=== PATIENT | female | born 1955 | race Caucasian/White ===

== ENCOUNTER → 2018-04-19 13:22 | Outpatient (CLI) | payer OTHER, SELFPAY ==
[2018-04-19 14:01] LABS: Add Manual Diff / Slide Review NO; Basophils Percent Auto 1.3 % (0-2); Eosinophils Percent Auto 0.8 % (2-4); Hematocrit 37.9 % (36-46); Hemoglobin 12.8 g/dL (12.0-16.0); Lymphocytes Percent Auto 22.6 % (25-40); Mean Corpuscular HGB Conc 33.9 % (30-36); Mean Corpuscular Hemoglobin 28.7 PG (26-34); Mean Corpuscular Volume 84.7 fL (80-100); Neutrophils Absolute Auto 7300 /uL (3000-5900); Neutrophils Percent Auto 70.3 % (50-75); Platelet Count 410 X10^3/uL (150-400); Red Blood Cell Count 4.47 X10^6/uL (4.0-5.2); White Blood Cell Count 10.4 X10^3/uL (4.5-11.0)
[2018-04-19 14:05] LABS: Alanine Aminotransferase 34 IU/L (9-52); Albumin 4.3 g/dL (3.5-5.0); Albumin Globulin Ratio 1.3 (1.0-2.8); Alkaline Phosphatase 61 U/L (38-126); Aspartate Aminotransferase 28 IU/L (14-36); BUN Creatinine Ratio 38.3 (6-22); Bilirubin Total 0.6 mg/dL (0.2-1.3); Blood Urea Nitrogen 23 mg/dL (7-17); Carbon Dioxide 30 mmol/L (22-32); Chloride 100 mmol/L (98-107); Estimated Glomerular Filt Rate > 60.0 mL/min (>60); Globulin 3.4 g/dL (1.7-4.1); Glucose 89 mg/dL (80-110); HEMOLYSIS < 15 (0-50); Potassium 4.1 mmol/L (3.4-5.1); Sodium 142 mmol/L (137-145); Total Protein 7.7 g/dL (6.3-8.2)
== END ==
PROVIDERS: Family Provider Pathology Blood Banking & Transfusion Medicine; PCP Internal Medicine; Visit Provider Nurse Practitioner Gerontology
DX: C50.912 Malignant neoplasm of unspecified site of left female breast (principal)
CPT/HCPCS: 36415; 80053; 85025

== ENCOUNTER 2018-04-27 09:00 | Outpatient (RCR) | payer OTHER, SELFPAY ==
--- NOTE | 2018-03-22 16:38 | PT.OIE ---
Current Diagnoses Unspecified temporomandibular joint disorder, unspecified side (03/21/18) Abnormal posture (03/21/18) Weakness (03/21/18) Past Medical History brochioscopy bronchiectasis, SOB, jaw pain, lynmphedema, neck pain, B frozen shoulder, osteoporosis, cancer, back pain, arthritis Past Surgical History Status post breast lumpectomy Status post cholecystectomy Provider Visit Care Team Role Provider Type Soila Nunes Family Provider Non-Staff Specialty: Medical Address: [address] [place], [address] Fax: Email: Charles Bates MD Attending Provider Physician Primary Care Provider Specialty: Internal Medicine Address: [address] [place] [address], [place], [address] Email: Physical Therapy Initial Evaluation PT-OP-A Visit Information Start: 03/21/18 08:15 Freq: Status: Active Protocol: Document 03/21/18 09:45 [facility] (Rec: 03/22/18 15:53 [facility] [id number]) Out-Patient Physical Therapy Visit Information Visit Information Visit Type Initial Evaluation Visit Start Time 09:45 Visit Stop Time 10:30 Total Visit Minutes 45 Visit Number 1 Number of WIREWORKER Visits 0 PT-OP-B Current Condition Start: 03/21/18 08:15 Freq: Status: Active Protocol: Document 03/21/18 09:45 [facility] (Rec: 03/22/18 15:53 [facility] [id number]) Current Condition History of Current Condition Onset Date 1 year ago Current Complaints pain in jaw B History of Current Condition Pt had bronchostomy in March 2017. She had pain the next 2 days that started to subside, but 2 weeks laters started to hurt a lot. She reports getting a little better over the summer then had dental work that exasterbated in in Sep. She had a root canal 2 weeks ago that started a squishy noise. Reports throughout this time she has felt like the joint was loose and has clicking &popping with tightness in the jaw. Oral MD noted tongue has teeth chauhan & she has a calus on the L side of her cheek. Prior Treatments and Tests some exercises instructed to her by oral MD; flexeril Future Testing and Treatments Planned possible ocean lifeguard if needed Treatment Goals Patient/Caregiver Goals Dec pain & inc what she can eat Current Functional Impairments (Reported) Functional Limitations- ADL's Difficulty with tough & larger foods; pain w/flossing, yawning, brushing teeth & eating. PT-OP-C Subjective Start: 03/21/18 08:15 Freq: Status: Active Protocol: Document 03/21/18 09:45 [facility] (Rec: 03/22/18 15:53 [facility] [id number]) OP-PT Pain Assessment Pain Assessment Grid Paper Pain Assessment Grid Completed Yes Location Bilateral Jaw Intensity 4 Scale Used Numeric (1 - 10) Description With Movement Description- Other 6/10 at worst Frequency Frequent Other Pain Aggravating Factors eating, flossing, brushing teeth, eating Other Pain Alleviating Factors heat, avoid eating, chewing further back Home Pain Medication Use Pain Medications Used Yes Home Pain Medication Frequency flexeril PT-OP-F Manual Assessment Start: 03/21/18 08:15 Freq: Status: Active Protocol: Document 03/21/18 09:45 [facility] (Rec: 03/22/18 15:53 [facility] [id number]) Manual Assessments Soft Tissue Assessment Soft Tissue Mobility Assessment tension with masseter, temporalis & along jaw (B) PT-OP-J Posture/Palpation/Skin Start: 03/21/18 08:15 Freq: Status: Active Protocol: Document 03/21/18 09:45 [facility] (Rec: 03/22/18 16:03 [facility] [id number]) Posture Evaluation Comments Posture Comments Pt reports some of back teeth missing- full manual assessment not yet completed. Pt able to comfortably close mouth with back teeth together & can feel (B) back teeth touching w/solid & equal contact with closing. Pt feels front teeth touch with back teeth touch and reports equal contact between front & back teeth (B). PT-OP-K Range of Motion Start: 03/21/18 08:15 Freq: Status: Active Protocol: Document 03/21/18 09:50 [facility] (Rec: 03/21/18 10:29 [facility] [id number]) Cervical Spine Range of Motion Cervical Spine Active Degrees Testing Position Sitting Flexion 45 Extension 28 Rotation Left 36 Rotation Right 35 Lateral Flexion Left 26 Lateral Flexion Right 28 Comments jaw clicking with R rotation; jaw openin mm Jaw deviation R: 1mm L: 4 mm; minor transient deviation at opening; ant & post translation with opening L>R PT-OP-M Strength Start: 03/21/18 08:15 Freq: Status: Active Protocol: Document 03/21/18 09:50 [facility] (Rec: 03/21/18 10:29 [facility] [id number]) Cervical Spine Strength Cervical Spine Manual Muscle Testing Testing Position Sitting Flexion (C1-2) 4 Good Extension 4 Good Rotation Left 4 Good Rotation Right 4 Good Lateral Flexion Left (C3) 4 Good Lateral Flexion Right (C3) 4 Good PT-OP-Q Treatments Start: 03/21/18 08:15 Freq: Status: Active Protocol: Document 03/21/18 09:45 [facility] (Rec: 03/22/18 15:53 [facility] [id number]) Therapeutic Exercises Sitting Exercises 2 Sitting Exercise Name isometric jaw opening 1 Sitting Exercise Name axial elongation Reps/Minutes 10 Self-Care/Home Management Treatment Education Patient Education Home Exercise Program PT-OP-T Assessment and Plan Start: 03/21/18 08:15 Freq: Status: Active Protocol: Document 03/21/18 09:45 [facility] (Rec: 03/22/18 15:53 [facility] [email or web address]) Physical Therapy Assessment Rehab Potential Rehabilitation Potential Good Evaluation Complexity Number of Personal Factors/Comorbidities 3 or More Number of Body Systems Impaired 4 or More Clinical Presentation at Evaluation Evolving Impairments Impairments Activity Tolerance Functional Activities Pain Posture ROM Strength Goals Four Impairment Ability to do self care Rfid Developer Goal (LTG) Pt will be able to floss and brush without pain. LTG Duration By 05/14/18 Three Impairment posture Short Term Goal (STG) Pt will present with good posture to allow appropriate tension on jaw mm. STG Duration By 04/21/18 Two Impairment pain Short Term Goal (STG) Worst pain to 3/10 STG Duration By 04/21/18 Jail Goal (LTG) Worst pain to 1/10 LTG Duration By 05/21/18 One Impairment Jaw opening Short Term Goal (STG) Pt will be able to open to 32 mm to improve ability to eat. STG Duration By 04/21/18 Jail Goal (LTG) pt will be able to open 45 mm to allow functional eating. LTG Duration By 05/21/18 Physical Therapy Plan Frequency and Duration Frequency of Treatment 2x/Week Duration of Treatment 2 months Plan of Care Start Date 03/21/18 Plan of Care End Date 05/21/18 Therapeutic Interventions Therapeutic Interventions Home Exercise Program Joint Mobilizations Manual Therapy Patient/Caregiver Education Self-Care/Home Management Soft Tissue Mobilization Taping Therapeutic Exercises Next Visit Focus/Plan Next Visit Plan Iso deviations, posture roll up, Opening with tounge on roof of mouth Provider Signature Date
--- NOTE | 2018-03-22 16:41 | PT.OPPOC ---
Current Diagnoses Unspecified temporomandibular joint disorder, unspecified side (03/21/18) Abnormal posture (03/21/18) Weakness (03/21/18) Provider Visit Care Team Role Provider Type Soila Nunes Family Provider Non-Staff Specialty: Medical Address: [address] [place], [address] Fax: Email: Charles Bates MD Attending Provider Physician Primary Care Provider Specialty: Internal Medicine Address: [address] [place] [address], [address] Email: Plan Of Care PT-OP-T Assessment and Plan Start: 03/21/18 08:15 Freq: Status: Active Protocol: Document 03/21/18 09:45 [facility] (Rec: 03/22/18 15:53 [facility] [id number]) Physical Therapy Assessment Rehab Potential Rehabilitation Potential Good Evaluation Complexity Number of Personal Factors/Comorbidities 3 or More Number of Body Systems Impaired 4 or More Clinical Presentation at Evaluation Evolving Impairments Impairments Activity Tolerance Functional Activities Pain Posture ROM Strength Goals Four Impairment Ability to do self care Prison Goal (LTG) Pt will be able to floss and brush without pain. LTG Duration By 05/14/18 Three Impairment posture Short Term Goal (STG) Pt will present with good posture to allow appropriate tension on jaw mm. STG Duration By 04/21/18 Two Impairment pain Short Term Goal (STG) Worst pain to 3/10 STG Duration By 04/21/18 Hairspring Ii Inspector Goal (LTG) Worst pain to 1/10 LTG Duration By 05/21/18 One Impairment Jaw opening Short Term Goal (STG) Pt will be able to open to 32 mm to improve ability to eat. STG Duration By 04/21/18 Prison Goal (LTG) pt will be able to open 45 mm to allow functional eating. LTG Duration By 05/21/18 Physical Therapy Plan Frequency and Duration Frequency of Treatment 2x/Week Duration of Treatment 2 months Plan of Care Start Date 03/21/18 Plan of Care End Date 05/21/18 Therapeutic Interventions Therapeutic Interventions Home Exercise Program Joint Mobilizations Manual Therapy Patient/Caregiver Education Self-Care/Home Management Soft Tissue Mobilization Taping Therapeutic Exercises Next Visit Focus/Plan Next Visit Plan Iso deviations, posture roll up, Opening with tounge on roof of mouth Plan of Care Dates Plan of Care Start Date 03/21/18 Plan of Care End Date 05/21/18 Please Sign and Return: I have reviewed this Plan of Care and certify that the skilled therapy services above are required to meet the patient???s needs. Physician Signature Date Printed Name and Credentials
--- NOTE | 2018-03-24 14:59 | PT.OTN ---
Current Diagnoses Unspecified temporomandibular joint disorder, unspecified side (03/24/18) Physical Therapy Treatment Note PT-OP-A Visit Information Start: 03/21/18 08:15 Freq: Status: Active Protocol: Document 03/24/18 14:44 [facility] (Rec: 03/24/18 14:59 [facility] [id number]) Out-Patient Physical Therapy Visit Information Visit Information Visit Type Treatment Note Visit Start Time 13:45 Visit Stop Time 14:30 Total Visit Minutes 45 Visit Number 2 Number of PHP ARCHITECT Visits 0 PT-OP-B Current Condition Start: 03/21/18 08:15 Freq: Status: Active Protocol: Document 03/21/18 09:45 [facility] (Rec: 03/22/18 15:53 [facility] [id number]) Current Condition History of Current Condition Onset Date 1 year ago Current Complaints pain in jaw B History of Current Condition Pt had bronchostomy in March 2017. She had pain the next 2 days that started to subside, but 2 weeks laters started to hurt a lot. She reports getting a little better over the summer then had dental work that exasterbated in in Sep. She had a root canal 2 weeks ago that started a squishy noise. Reports throughout this time she has felt like the joint was loose and has clicking &popping with tightness in the jaw. Oral MD noted tongue has teeth chauhan & she has a calus on the L side of her cheek. Prior Treatments and Tests some exercises instructed to her by oral MD; flexeril Future Testing and Treatments Planned possible library customer service clerk if needed Treatment Goals Patient/Caregiver Goals Dec pain & inc what she can eat Current Functional Impairments (Reported) Functional Limitations- ADL's Difficulty with tough & larger foods; pain w/flossing, yawning, brushing teeth & eating. PT-OP-C Subjective Start: 03/21/18 08:15 Freq: Status: Active Protocol: Document 03/24/18 14:44 [facility] (Rec: 03/24/18 14:59 [facility] [id number]) OP-PT Subjective Patient Comments Patient Comments Compliance with HEP. Difficulty with axial elongation. PT-OP-F Manual Assessment Start: 03/21/18 08:15 Freq: Status: Active Protocol: Document 03/21/18 09:45 [facility] (Rec: 03/22/18 15:53 [facility] [id number]) Manual Assessments Soft Tissue Assessment Soft Tissue Mobility Assessment tension with masseter, temporalis & along jaw (B) PT-OP-J Posture/Palpation/Skin Start: 03/21/18 08:15 Freq: Status: Active Protocol: Document 03/21/18 09:45 [facility] (Rec: 03/22/18 16:03 [facility] [id number]) Posture Evaluation Comments Posture Comments Pt reports some of back teeth missing- full manual assessment not yet completed. Pt able to comfortably close mouth with back teeth together & can feel (B) back teeth touching w/solid & equal contact with closing. Pt feels front teeth touch with back teeth touch and reports equal contact between front & back teeth (B). PT-OP-K Range of Motion Start: 03/21/18 08:15 Freq: Status: Active Protocol: Document 03/21/18 09:50 [facility] (Rec: 03/21/18 10:29 [facility] [id number]) Cervical Spine Range of Motion Cervical Spine Active Degrees Testing Position Sitting Flexion 45 Extension 28 Rotation Left 36 Rotation Right 35 Lateral Flexion Left 26 Lateral Flexion Right 28 Comments jaw clicking with R rotation; jaw openin mm Jaw deviation R: 1mm L: 4 mm; minor transient deviation at opening; ant & post translation with opening L>R PT-OP-M Strength Start: 03/21/18 08:15 Freq: Status: Active Protocol: Document 03/21/18 09:50 [facility] (Rec: 03/21/18 10:29 [facility] [id number]) Cervical Spine Strength Cervical Spine Manual Muscle Testing Testing Position Sitting Flexion (C1-2) 4 Good Extension 4 Good Rotation Left 4 Good Rotation Right 4 Good Lateral Flexion Left (C3) 4 Good Lateral Flexion Right (C3) 4 Good PT-OP-Q Treatments Start: 03/21/18 08:15 Freq: Status: Active Protocol: Document 03/24/18 14:44 [facility] (Rec: 03/24/18 14:59 [facility] [id number]) Therapeutic Exercises Sitting Exercises 4 Sitting Exercise Name opening/closing w/tongue on roof of mouth Comments stopped d/t clicking 3 Sitting Exercise Name isometric jaw deviation Reps/Minutes 6 2 Sitting Exercise Name isometric jaw opening Reps/Minutes 5 1 Sitting Exercise Name axial elongation Reps/Minutes 10 Manual Therapy Treatment Soft Tissue Mobilization 3 Body Location pterygoid & joint capsule Mobilization Type Sustained Pressure Intensity/Depth Moderate Body Position Supine Comments c/r opening 2 Body Location Diagastric Mobilization Type Rolling Intensity/Depth Moderate Body Position Supine 1 Body Location masseter & temporalis Mobilization Type Rolling Intensity/Depth Moderate Body Position Supine Joint Mobilizations 1 Joint TMJ Direction distraction; AP Grade II Body Position Supine Comments c/r closing PT-OP-T Assessment and Plan Start: 03/21/18 08:15 Freq: Status: Active Protocol: Document 03/24/18 14:44 [facility] (Rec: 03/24/18 14:59 [facility] [id number]) Physical Therapy Assessment Assessment Summary Assessment Pt has significant tightness B with digastric, masseter R>L and B ptyergoids. Pt required ceuing for exercises for form & dec pressure with isometrcis . Physical Therapy Plan Frequency and Duration Frequency of Treatment 2x/Week Duration of Treatment 2 months Plan of Care Start Date 03/21/18 Plan of Care End Date 05/21/18 Next Visit Focus/Plan Next Visit Plan Postural roll up, opening w/ tongue on roof of mouth
--- NOTE | 2018-04-03 09:02 | PT.OTN ---
Current Diagnoses Unspecified temporomandibular joint disorder, unspecified side (04/03/18) Physical Therapy Treatment Note PT-OP-A Visit Information Start: 03/21/18 08:15 Freq: Status: Active Protocol: Document 04/03/18 07:49 [facility] (Rec: 04/03/18 09:01 [facility] [id number]) Out-Patient Physical Therapy Visit Information Visit Information Visit Type Treatment Note Visit Start Time 08:12 Visit Stop Time 08:57 Total Visit Minutes 45 Visit Number 3 Number of LABORATORY CUREMAN Visits 0 PT-OP-B Current Condition Start: 03/21/18 08:15 Freq: Status: Active Protocol: Document 03/21/18 09:45 [facility] (Rec: 03/22/18 15:53 [facility] [id number]) Current Condition History of Current Condition Onset Date 1 year ago Current Complaints pain in jaw B History of Current Condition Pt had bronchostomy in March 2017. She had pain the next 2 days that started to subside, but 2 weeks laters started to hurt a lot. She reports getting a little better over the summer then had dental work that exasterbated in in Sep. She had a root canal 2 weeks ago that started a squishy noise. Reports throughout this time she has felt like the joint was loose and has clicking &popping with tightness in the jaw. Oral MD noted tongue has teeth chauhan & she has a calus on the L side of her cheek. Prior Treatments and Tests some exercises instructed to her by oral MD; flexeril Future Testing and Treatments Planned possible deputy sheriff building guard if needed Treatment Goals Patient/Caregiver Goals Dec pain & inc what she can eat Current Functional Impairments (Reported) Functional Limitations- ADL's Difficulty with tough & larger foods; pain w/flossing, yawning, brushing teeth & eating. PT-OP-C Subjective Start: 03/21/18 08:15 Freq: Status: Active Protocol: Document 04/03/18 07:49 [facility] (Rec: 04/03/18 09:01 [facility] [id number]) OP-PT Subjective Patient Comments Patient Comments Cont pain & gets crown in tomorrow PT-OP-F Manual Assessment Start: 03/21/18 08:15 Freq: Status: Active Protocol: Document 03/21/18 09:45 [facility] (Rec: 03/22/18 15:53 [facility] [id number]) Manual Assessments Soft Tissue Assessment Soft Tissue Mobility Assessment tension with masseter, temporalis & along jaw (B) PT-OP-J Posture/Palpation/Skin Start: 03/21/18 08:15 Freq: Status: Active Protocol: Document 03/21/18 09:45 [facility] (Rec: 03/22/18 16:03 [facility] [id number]) Posture Evaluation Comments Posture Comments Pt reports some of back teeth missing- full manual assessment not yet completed. Pt able to comfortably close mouth with back teeth together & can feel (B) back teeth touching w/solid & equal contact with closing. Pt feels front teeth touch with back teeth touch and reports equal contact between front & back teeth (B). PT-OP-K Range of Motion Start: 03/21/18 08:15 Freq: Status: Active Protocol: Document 03/21/18 09:50 [facility] (Rec: 03/21/18 10:29 [facility] [id number]) Cervical Spine Range of Motion Cervical Spine Active Degrees Testing Position Sitting Flexion 45 Extension 28 Rotation Left 36 Rotation Right 35 Lateral Flexion Left 26 Lateral Flexion Right 28 Comments jaw clicking with R rotation; jaw openin mm Jaw deviation R: 1mm L: 4 mm; minor transient deviation at opening; ant & post translation with opening L>R PT-OP-M Strength Start: 03/21/18 08:15 Freq: Status: Active Protocol: Document 03/21/18 09:50 [facility] (Rec: 03/21/18 10:29 [facility] [id number]) Cervical Spine Strength Cervical Spine Manual Muscle Testing Testing Position Sitting Flexion (C1-2) 4 Good Extension 4 Good Rotation Left 4 Good Rotation Right 4 Good Lateral Flexion Left (C3) 4 Good Lateral Flexion Right (C3) 4 Good PT-OP-Q Treatments Start: 03/21/18 08:15 Freq: Status: Active Protocol: Document 04/03/18 07:49 [facility] (Rec: 04/03/18 09:01 [facility] [id number]) Therapeutic Exercises Supine Exercises 1 Supine Exercise Name axial elongation Sitting Exercises 3 Sitting Exercise Name isometric jaw deviation Reps/Minutes 5 Comments neutral & minor opening 2 Sitting Exercise Name isometric jaw opening Reps/Minutes 5 Comments in neutral & slightly open positions 1 Sitting Exercise Name axial elongation Reps/Minutes 4 Comments stopped d.t difficulty Standing Exercises 1 Standing Exercise Name postural roll up 90/90 Reps/Minutes 15 Manual Therapy Treatment Soft Tissue Mobilization 3 Body Location pterygoid & joint capsule Mobilization Type Sustained Pressure Intensity/Depth Moderate Body Position Supine Comments c/r opening 2 Body Location Diagastric Mobilization Type Rolling Intensity/Depth Moderate Body Position Supine 1 Body Location masseter & temporalis Mobilization Type Rolling Intensity/Depth Moderate Body Position Supine Joint Mobilizations 1 Joint TMJ Direction distraction; AP Grade II Body Position Supine Comments c/r closing PT-OP-T Assessment and Plan Start: 03/21/18 08:15 Freq: Status: Active Protocol: Document 04/03/18 07:49 [facility] (Rec: 04/03/18 09:01 [facility] [id number]) Physical Therapy Assessment Assessment Summary Assessment Improved jaw opening after c/r joint mobs & soft tissue mobs . Pt unable to seated axial elongation properly so started to train in supine. Physical Therapy Plan Frequency and Duration Frequency of Treatment 2x/Week Duration of Treatment 2 months Plan of Care Start Date 03/21/18 Plan of Care End Date 05/21/18 Next Visit Focus/Plan Next Visit Plan jaw & cervical postural stability & cervical manual
--- NOTE | 2018-04-05 13:42 | PT.OTN ---
Current Diagnoses Unspecified temporomandibular joint disorder, unspecified side (04/05/18) Physical Therapy Treatment Note PT-OP-A Visit Information Start: 03/21/18 08:15 Freq: Status: Active Protocol: Document 04/05/18 09:03 [facility] (Rec: 04/05/18 13:41 [facility] [id number]) Out-Patient Physical Therapy Visit Information Visit Information Visit Type Treatment Note Visit Start Time 09:00 Visit Stop Time 09:45 Total Visit Minutes 45 Visit Number 4 Number of CAPTION WRITER Visits 0 PT-OP-B Current Condition Start: 03/21/18 08:15 Freq: Status: Active Protocol: Document 03/21/18 09:45 [facility] (Rec: 03/22/18 15:53 [facility] [id number]) Current Condition History of Current Condition Onset Date 1 year ago Current Complaints pain in jaw B History of Current Condition Pt had bronchostomy in March 2017. She had pain the next 2 days that started to subside, but 2 weeks laters started to hurt a lot. She reports getting a little better over the summer then had dental work that exasterbated in in Sep. She had a root canal 2 weeks ago that started a squishy noise. Reports throughout this time she has felt like the joint was loose and has clicking &popping with tightness in the jaw. Oral MD noted tongue has teeth chauhan & she has a calus on the L side of her cheek. 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 PT-OP-C Subjective Start: 03/21/18 08:15 Freq: Status: Active Protocol: Document 04/05/18 09:03 [facility] (Rec: 04/05/18 13:41 [facility] [id number]) OP-PT Subjective Patient Comments Patient Comments Sore today in jaw & gums. Pt notes they couldn't do a crown and they are going to need to extract it. PT-OP-F Manual Assessment Start: 03/21/18 08:15 Freq: Status: Active Protocol: Document 03/21/18 09:45 [facility] (Rec: 03/22/18 15:53 [facility] [id number]) Manual Assessments Soft Tissue Assessment Soft Tissue Mobility Assessment tension with masseter, temporalis & along jaw (B) PT-OP-J Posture/Palpation/Skin Start: 03/21/18 08:15 Freq: Status: Active Protocol: Document 03/21/18 09:45 [facility] (Rec: 03/22/18 16:03 [facility] [id number]) Posture Evaluation Comments Posture Comments Pt reports some of back teeth missing- full manual assessment not yet completed. Pt able to comfortably close mouth with back teeth together & can feel (B) back teeth touching w/solid & equal contact with closing. Pt feels front teeth touch with back teeth touch and reports equal contact between front & back teeth (B). PT-OP-K Range of Motion Start: 03/21/18 08:15 Freq: Status: Active Protocol: Document 03/21/18 09:50 [facility] (Rec: 03/21/18 10:29 [facility] [id number]) Cervical Spine Range of Motion Cervical Spine Active Degrees Testing Position Sitting Flexion 45 Extension 28 Rotation Left 36 Rotation Right 35 Lateral Flexion Left 26 Lateral Flexion Right 28 Comments jaw clicking with R rotation; jaw openin mm Jaw deviation R: 1mm L: 4 mm; minor transient deviation at opening; ant & post translation with opening L>R PT-OP-M Strength Start: 03/21/18 08:15 Freq: Status: Active Protocol: Document 03/21/18 09:50 [facility] (Rec: 03/21/18 10:29 [facility] [id number]) Cervical Spine Strength Cervical Spine Manual Muscle Testing Testing Position Sitting Flexion (C1-2) 4 Good Extension 4 Good Rotation Left 4 Good Rotation Right 4 Good Lateral Flexion Left (C3) 4 Good Lateral Flexion Right (C3) 4 Good PT-OP-Q Treatments Start: 03/21/18 08:15 Freq: Status: Active Protocol: Document 04/05/18 09:03 [facility] (Rec: 04/05/18 13:41 [facility] [id number]) Manual Therapy Treatment Soft Tissue Mobilization 4 Body Location UT, LS, scalenes & cervical paraspinals Mobilization Type Rolling Sustained Pressure Intensity/Depth Moderate 2 Body Location Diagastric Mobilization Type Rolling Intensity/Depth Moderate Body Position Supine 1 Body Location masseter & temporalis Mobilization Type Rolling Intensity/Depth Moderate Body Position Supine Joint Mobilizations 3 Joint C4-6 Direction Transverse L Grade II 2 Joint C1 Direction LUPA Grade II Body Position Supine Self-Care/Home Management Treatment Education Other Education resume HEP gently today PT-OP-T Assessment and Plan Start: 03/21/18 08:15 Freq: Status: Active Protocol: Document 04/05/18 09:03 [facility] (Rec: 04/05/18 13:41 [facility] [id number]) Physical Therapy Assessment Assessment Summary Assessment Pt has significant tightness in upper cervical and reports she feels popping in this region with jaw opening and closing. Improved soft tissue mobility with STM. Light joint mobs only done d/t OP. Physical Therapy Plan Frequency and Duration Frequency of Treatment 2x/Week Duration of Treatment 2 months Plan of Care Start Date 03/21/18 Plan of Care End Date 05/21/18 Next Visit Focus/Plan Next Visit Plan jaw & cervical postural stability & cervical manual Please Sign and Return: I have reviewed this Plan of Care and certify that the skilled therapy services above are required to meet the patient???s needs. Physician Signature Date Printed Name and Credentials Clinical Instructor Signature Printed Name and Credentials
--- NOTE | 2018-04-13 11:11 | PT.OTN ---
Current Diagnoses Unspecified temporomandibular joint disorder, unspecified side (04/13/18) Physical Therapy Treatment Note PT-OP-A Visit Information Start: 03/21/18 08:15 Freq: Status: Active Protocol: Document 04/13/18 08:15 [facility] (Rec: 04/13/18 11:11 [facility] [id number]) Out-Patient Physical Therapy Visit Information Visit Information Visit Type Treatment Note Visit Start Time 08:15 Visit Stop Time 09:00 Total Visit Minutes 45 Visit Number 5 Number of GEOTECHNICAL ENGINEER Visits 0 PT-OP-B Current Condition Start: 03/21/18 08:15 Freq: Status: Active Protocol: Document 03/21/18 09:45 [facility] (Rec: 03/22/18 15:53 [facility] [id number]) Current Condition History of Current Condition Onset Date 1 year ago Current Complaints pain in jaw B History of Current Condition Pt had bronchostomy in March 2017. She had pain the next 2 days that started to subside, but 2 weeks laters started to hurt a lot. She reports getting a little better over the summer then had dental work that exasterbated in in Sep. She had a root canal 2 weeks ago that started a squishy noise. Reports throughout this time she has felt like the joint was loose and has clicking &popping with tightness in the jaw. Oral MD noted tongue has teeth chauhan & she has a calus on the L side of her cheek. Prior Treatments and Tests some exercises instructed to her by oral MD; flexeril Future Testing and Treatments Planned possible night filler if needed Treatment Goals Patient/Caregiver Goals Dec pain & inc what she can eat Current Functional Impairments (Reported) Functional Limitations- ADL's Difficulty with tough & larger foods; pain w/flossing, yawning, brushing teeth & eating. PT-OP-C Subjective Start: 03/21/18 08:15 Freq: Status: Active Protocol: Document 04/13/18 08:15 [facility] (Rec: 04/13/18 11:11 [facility] [id number]) OP-PT Subjective Patient Comments Patient Comments Pt reports she went to the dentist this week and they had to do further work so her jaw is sore. She was sore several days in cervical region after last session. PT-OP-F Manual Assessment Start: 03/21/18 08:15 Freq: Status: Active Protocol: Document 03/21/18 09:45 [facility] (Rec: 03/22/18 15:53 [facility] [id number]) Manual Assessments Soft Tissue Assessment Soft Tissue Mobility Assessment tension with masseter, temporalis & along jaw (B) PT-OP-J Posture/Palpation/Skin Start: 03/21/18 08:15 Freq: Status: Active Protocol: Document 03/21/18 09:45 [facility] (Rec: 03/22/18 16:03 [facility] [id number]) Posture Evaluation Comments Posture Comments Pt reports some of back teeth missing- full manual assessment not yet completed. Pt able to comfortably close mouth with back teeth together & can feel (B) back teeth touching w/solid & equal contact with closing. Pt feels front teeth touch with back teeth touch and reports equal contact between front & back teeth (B). PT-OP-K Range of Motion Start: 03/21/18 08:15 Freq: Status: Active Protocol: Document 03/21/18 09:50 [facility] (Rec: 03/21/18 10:29 [facility] [id number]) Cervical Spine Range of Motion Cervical Spine Active Degrees Testing Position Sitting Flexion 45 Extension 28 Rotation Left 36 Rotation Right 35 Lateral Flexion Left 26 Lateral Flexion Right 28 Comments jaw clicking with R rotation; jaw openin mm Jaw deviation R: 1mm L: 4 mm; minor transient deviation at opening; ant & post translation with opening L>R PT-OP-M Strength Start: 03/21/18 08:15 Freq: Status: Active Protocol: Document 03/21/18 09:50 [facility] (Rec: 03/21/18 10:29 [facility] [id number]) Cervical Spine Strength Cervical Spine Manual Muscle Testing Testing Position Sitting Flexion (C1-2) 4 Good Extension 4 Good Rotation Left 4 Good Rotation Right 4 Good Lateral Flexion Left (C3) 4 Good Lateral Flexion Right (C3) 4 Good PT-OP-Q Treatments Start: 03/21/18 08:15 Freq: Status: Active Protocol: Document 04/13/18 08:15 [facility] (Rec: 04/13/18 11:11 [facility] [id number]) Manual Therapy Treatment Soft Tissue Mobilization 5 Body Location SOR Mobilization Type Sustained Pressure Intensity/Depth Moderate 3 Body Location pterygoid & joint capsule Mobilization Type Sustained Pressure Intensity/Depth Moderate Body Position Supine Comments c/r opening 2 Body Location Diagastric Mobilization Type Rolling Intensity/Depth Moderate Body Position Supine 1 Body Location masseter & temporalis Mobilization Type Rolling Intensity/Depth Moderate Body Position Supine Joint Mobilizations 1 Joint TMJ Direction distraction; AP Grade II Body Position Supine Comments c/r closing Self-Care/Home Management Treatment Education Other Education Edu on making a habit of checking her posture throughout the day often especially with her jaw and making sure tongue is in the correct place PT-OP-T Assessment and Plan Start: 03/21/18 08:15 Freq: Status: Active Protocol: Document 04/13/18 08:15 [facility] (Rec: 04/13/18 11:11 [facility] [id number]) Physical Therapy Assessment Assessment Summary Assessment Pt has excessive ant translation with jaw openening on L side. Pt will require further re edu of positioning. Significant tightness present on R side and inc restrictions B intraorally. Physical Therapy Plan Frequency and Duration Frequency of Treatment 2x/Week Duration of Treatment 2 months Plan of Care Start Date 03/21/18 Plan of Care End Date 05/21/18 Next Visit Focus/Plan Next Note Type Treatment Note Next Visit Plan jaw & cervical postural stability & cervical manual Please Sign and Return: I have reviewed this Plan of Care and certify that the skilled therapy services above are required to meet the patient???s needs. Physician Signature Date Printed Name and Credentials Clinical Instructor Signature Printed Name and Credentials
--- NOTE | 2018-04-18 14:03 | PT.OTN ---
Current Diagnoses Unspecified temporomandibular joint disorder, unspecified side (04/18/18) Physical Therapy Treatment Note PT-OP-A Visit Information Start: 03/21/18 08:15 Freq: Status: Active Protocol: Document 04/18/18 13:55 [facility] (Rec: 04/18/18 14:03 [facility] [id number]) Out-Patient Physical Therapy Visit Information Visit Information Visit Type Treatment Note Visit Start Time 09:00 Visit Stop Time 09:00 Total Visit Minutes 45 Visit Number 6 Number of CALL CENTER ASSOCIATE Visits 0 PT-OP-B Current Condition Start: 03/21/18 08:15 Freq: Status: Active Protocol: Document 03/21/18 09:45 [facility] (Rec: 03/22/18 15:53 [facility] [id number]) Current Condition History of Current Condition Onset Date 1 year ago Current Complaints pain in jaw B History of Current Condition Pt had bronchostomy in March 2017. She had pain the next 2 days that started to subside, but 2 weeks laters started to hurt a lot. She reports getting a little better over the summer then had dental work that exasterbated in in Sep. She had a root canal 2 weeks ago that started a squishy noise. Reports throughout this time she has felt like the joint was loose and has clicking &popping with tightness in the jaw. Oral MD noted tongue has teeth chauhan & she has a calus on the L side of her cheek. Prior Treatments and Tests some exercises instructed to her by oral MD; flexeril Future Testing and Treatments Planned possible graduate internship if needed Treatment Goals Patient/Caregiver Goals Dec pain & inc what she can eat Current Functional Impairments (Reported) Functional Limitations- ADL's Difficulty with tough & larger foods; pain w/flossing, yawning, brushing teeth & eating. PT-OP-C Subjective Start: 03/21/18 08:15 Freq: Status: Active Protocol: Document 04/18/18 13:55 [facility] (Rec: 04/18/18 14:03 [facility] [id number]) OP-PT Subjective Patient Comments Patient Comments Reports returns to dentist tomorrow. Cont clicking PT-OP-F Manual Assessment Start: 03/21/18 08:15 Freq: Status: Active Protocol: Document 03/21/18 09:45 [facility] (Rec: 03/22/18 15:53 [facility] [id number]) Manual Assessments Soft Tissue Assessment Soft Tissue Mobility Assessment tension with masseter, temporalis & along jaw (B) PT-OP-J Posture/Palpation/Skin Start: 03/21/18 08:15 Freq: Status: Active Protocol: Document 03/21/18 09:45 [facility] (Rec: 03/22/18 16:03 [facility] [id number]) Posture Evaluation Comments Posture Comments Pt reports some of back teeth missing- full manual assessment not yet completed. Pt able to comfortably close mouth with back teeth together & can feel (B) back teeth touching w/solid & equal contact with closing. Pt feels front teeth touch with back teeth touch and reports equal contact between front & back teeth (B). PT-OP-K Range of Motion Start: 03/21/18 08:15 Freq: Status: Active Protocol: Document 03/21/18 09:50 [facility] (Rec: 03/21/18 10:29 [facility] [id number]) Cervical Spine Range of Motion Cervical Spine Active Degrees Testing Position Sitting Flexion 45 Extension 28 Rotation Left 36 Rotation Right 35 Lateral Flexion Left 26 Lateral Flexion Right 28 Comments jaw clicking with R rotation; jaw openin mm Jaw deviation R: 1mm L: 4 mm; minor transient deviation at opening; ant & post translation with opening L>R PT-OP-M Strength Start: 03/21/18 08:15 Freq: Status: Active Protocol: Document 03/21/18 09:50 [facility] (Rec: 03/21/18 10:29 [facility] [id number]) Cervical Spine Strength Cervical Spine Manual Muscle Testing Testing Position Sitting Flexion (C1-2) 4 Good Extension 4 Good Rotation Left 4 Good Rotation Right 4 Good Lateral Flexion Left (C3) 4 Good Lateral Flexion Right (C3) 4 Good PT-OP-Q Treatments Start: 03/21/18 08:15 Freq: Status: Active Protocol: Document 04/18/18 13:55 [facility] (Rec: 04/18/18 14:03 [facility] [id number]) Manual Therapy Treatment Soft Tissue Mobilization 5 Body Location SOR Mobilization Type Sustained Pressure Intensity/Depth Moderate 3 Body Location pterygoid & joint capsule Mobilization Type Sustained Pressure Intensity/Depth Moderate Body Position Supine Comments c/r opening 2 Body Location Diagastric Mobilization Type Rolling Intensity/Depth Moderate Body Position Supine 1 Body Location masseter & temporalis Mobilization Type Rolling Intensity/Depth Moderate Body Position Supine Joint Mobilizations 1 Joint TMJ Direction distraction; AP Grade II Body Position Supine Comments c/r closing PT-OP-T Assessment and Plan Start: 03/21/18 08:15 Freq: Status: Active Protocol: Document 04/18/18 13:55 [facility] (Rec: 04/18/18 14:03 [facility] [id number]) Physical Therapy Assessment Assessment Summary Assessment Pt was able to open to about 27 mm after rx. Cont B tightenss in upper cervical & jaw mm. Physical Therapy Plan Frequency and Duration Frequency of Treatment 2x/Week Duration of Treatment 2 months Plan of Care Start Date 03/21/18 Plan of Care End Date 05/21/18 Next Visit Focus/Plan Next Note Type Treatment Note Next Visit Plan jaw & cervical postural stability & cervical manual Please Sign and Return: I have reviewed this Plan of Care and certify that the skilled therapy services above are required to meet the patient?s needs. Physician Signature Date Printed Name and Credentials Clinical Instructor Signature Printed Name and Credentials
--- NOTE | 2018-04-21 09:45 | PT.OTN ---
Current Diagnoses Unspecified temporomandibular joint disorder, unspecified side (04/21/18) Physical Therapy Treatment Note PT-OP-A Visit Information Start: 03/21/18 08:15 Freq: Status: Active Protocol: Document 04/21/18 08:56 [facility] (Rec: 04/21/18 09:44 [facility] [id number]) Out-Patient Physical Therapy Visit Information Visit Information Visit Type Treatment Note Visit Start Time 09:00 Visit Stop Time 09:40 Total Visit Minutes 40 Visit Number 7 PT-OP-B Current Condition Start: 03/21/18 08:15 Freq: Status: Active Protocol: Document 03/21/18 09:45 [facility] (Rec: 03/22/18 15:53 [facility] [id number]) Current Condition History of Current Condition Onset Date 1 year ago Current Complaints pain in jaw B History of Current Condition Pt had bronchostomy in March 2017. She had pain the next 2 days that started to subside, but 2 weeks laters started to hurt a lot. She reports getting a little better over the summer then had dental work that exasterbated in in Sep. She had a root canal 2 weeks ago that started a squishy noise. Reports throughout this time she has felt like the joint was loose and has clicking &popping with tightness in the jaw. Oral MD noted tongue has teeth chauhan & she has a calus on the L side of her cheek. Prior Treatments and Tests some exercises instructed to her by oral MD; flexeril Future Testing and Treatments Planned possible armed guard if needed Treatment Goals Patient/Caregiver Goals Dec pain & inc what she can eat Current Functional Impairments (Reported) Functional Limitations- ADL's Difficulty with tough & larger foods; pain w/flossing, yawning, brushing teeth & eating. PT-OP-C Subjective Start: 03/21/18 08:15 Freq: Status: Active Protocol: Document 04/21/18 08:56 [facility] (Rec: 04/21/18 09:44 [facility] [id number]) OP-PT Subjective Patient Comments Patient Comments Sore from dentist and is going to have an extraction on tuesday. Reports squishing on both sides now. PT-OP-F Manual Assessment Start: 03/21/18 08:15 Freq: Status: Active Protocol: Document 03/21/18 09:45 [facility] (Rec: 03/22/18 15:53 [facility] [id number]) Manual Assessments Soft Tissue Assessment Soft Tissue Mobility Assessment tension with masseter, temporalis & along jaw (B) PT-OP-J Posture/Palpation/Skin Start: 03/21/18 08:15 Freq: Status: Active Protocol: Document 03/21/18 09:45 [facility] (Rec: 03/22/18 16:03 [facility] [id number]) Posture Evaluation Comments Posture Comments Pt reports some of back teeth missing- full manual assessment not yet completed. Pt able to comfortably close mouth with back teeth together & can feel (B) back teeth touching w/solid & equal contact with closing. Pt feels front teeth touch with back teeth touch and reports equal contact between front & back teeth (B). PT-OP-K Range of Motion Start: 03/21/18 08:15 Freq: Status: Active Protocol: Document 03/21/18 09:50 [facility] (Rec: 03/21/18 10:29 [facility] [id number]) Cervical Spine Range of Motion Cervical Spine Active Degrees Testing Position Sitting Flexion 45 Extension 28 Rotation Left 36 Rotation Right 35 Lateral Flexion Left 26 Lateral Flexion Right 28 Comments jaw clicking with R rotation; jaw openin mm Jaw deviation R: 1mm L: 4 mm; minor transient deviation at opening; ant & post translation with opening L>R PT-OP-M Strength Start: 03/21/18 08:15 Freq: Status: Active Protocol: Document 03/21/18 09:50 [facility] (Rec: 03/21/18 10:29 [facility] [id number]) Cervical Spine Strength Cervical Spine Manual Muscle Testing Testing Position Sitting Flexion (C1-2) 4 Good Extension 4 Good Rotation Left 4 Good Rotation Right 4 Good Lateral Flexion Left (C3) 4 Good Lateral Flexion Right (C3) 4 Good PT-OP-Q Treatments Start: 03/21/18 08:15 Freq: Status: Active Protocol: Document 04/21/18 08:56 [facility] (Rec: 04/21/18 09:44 [facility] [id number]) Manual Therapy Treatment Soft Tissue Mobilization 5 Body Location SOR Mobilization Type Sustained Pressure Intensity/Depth Moderate 3 Body Location pterygoid & joint capsule Mobilization Type Sustained Pressure Intensity/Depth Moderate Body Position Supine Comments c/r opening 2 Body Location Diagastric Mobilization Type Rolling Intensity/Depth Moderate Body Position Supine 1 Body Location masseter & temporalis Mobilization Type Rolling Intensity/Depth Moderate Body Position Supine Joint Mobilizations 2 Joint C1 Direction VIOLETA Grade II Body Position Supine 1 Joint TMJ Direction distraction; AP Grade II Body Position Supine Comments c/r closing PT-OP-T Assessment and Plan Start: 03/21/18 08:15 Freq: Status: Active Protocol: Document 04/21/18 08:56 [facility] (Rec: 04/21/18 09:44 [facility] [id number]) Physical Therapy Assessment Assessment Summary Assessment Pt able to improve to about 30 mm after mobilization. Tightness in R>L jaw mm. Pt cont to have R C1 dysfuntion. Physical Therapy Plan Frequency and Duration Frequency of Treatment 2x/Week Duration of Treatment 2 months Plan of Care Start Date 03/21/18 Plan of Care End Date 05/21/18 Next Visit Focus/Plan Next Note Type Treatment Note Next Visit Plan jaw & cervical postural stability & cervical manual Please Sign and Return: I have reviewed this Plan of Care and certify that the skilled therapy services above are required to meet the patient?s needs. Physician Signature Date Printed Name and Credentials Clinical Instructor Signature Printed Name and Credentials
--- NOTE | 2018-04-24 14:16 | PT.OTN ---
Current Diagnoses Unspecified temporomandibular joint disorder, unspecified side (04/24/18) Physical Therapy Treatment Note PT-OP-A Visit Information Start: 03/21/18 08:15 Freq: Status: Active Protocol: Document 04/24/18 09:00 [facility] (Rec: 04/24/18 14:16 [facility] [id number]) Out-Patient Physical Therapy Visit Information Visit Information Visit Type Treatment Note Visit Start Time 09:00 Visit Stop Time 09:40 Total Visit Minutes 40 Visit Number 8 PT-OP-B Current Condition Start: 03/21/18 08:15 Freq: Status: Active Protocol: Document 03/21/18 09:45 [facility] (Rec: 03/22/18 15:53 [facility] [id number]) Current Condition History of Current Condition Onset Date 1 year ago Current Complaints pain in jaw B History of Current Condition Pt had bronchostomy in March 2017. She had pain the next 2 days that started to subside, but 2 weeks laters started to hurt a lot. She reports getting a little better over the summer then had dental work that exasterbated in in Sep. She had a root canal 2 weeks ago that started a squishy noise. Reports throughout this time she has felt like the joint was loose and has clicking &popping with tightness in the jaw. Oral MD noted tongue has teeth chauhan & she has a calus on the L side of her cheek. Prior Treatments and Tests some exercises instructed to her by oral MD; flexeril Future Testing and Treatments Planned possible cook night if needed Treatment Goals Patient/Caregiver Goals Dec pain & inc what she can eat Current Functional Impairments (Reported) Functional Limitations- ADL's Difficulty with tough & larger foods; pain w/flossing, yawning, brushing teeth & eating. PT-OP-C Subjective Start: 03/21/18 08:15 Freq: Status: Active Protocol: Document 04/24/18 09:00 [facility] (Rec: 04/24/18 14:16 [facility] [id number]) OP-PT Subjective Patient Comments Patient Comments Reports clicking again on L side and squishing R. PT-OP-F Manual Assessment Start: 03/21/18 08:15 Freq: Status: Active Protocol: Document 03/21/18 09:45 [facility] (Rec: 03/22/18 15:53 [facility] [id number]) Manual Assessments Soft Tissue Assessment Soft Tissue Mobility Assessment tension with masseter, temporalis & along jaw (B) PT-OP-J Posture/Palpation/Skin Start: 03/21/18 08:15 Freq: Status: Active Protocol: Document 03/21/18 09:45 [facility] (Rec: 03/22/18 16:03 [facility] [id number]) Posture Evaluation Comments Posture Comments Pt reports some of back teeth missing- full manual assessment not yet completed. Pt able to comfortably close mouth with back teeth together & can feel (B) back teeth touching w/solid & equal contact with closing. Pt feels front teeth touch with back teeth touch and reports equal contact between front & back teeth (B). PT-OP-K Range of Motion Start: 03/21/18 08:15 Freq: Status: Active Protocol: Document 03/21/18 09:50 [facility] (Rec: 03/21/18 10:29 [facility] [id number]) Cervical Spine Range of Motion Cervical Spine Active Degrees Testing Position Sitting Flexion 45 Extension 28 Rotation Left 36 Rotation Right 35 Lateral Flexion Left 26 Lateral Flexion Right 28 Comments jaw clicking with R rotation; jaw openin mm Jaw deviation R: 1mm L: 4 mm; minor transient deviation at opening; ant & post translation with opening L>R PT-OP-M Strength Start: 03/21/18 08:15 Freq: Status: Active Protocol: Document 03/21/18 09:50 [facility] (Rec: 03/21/18 10:29 [facility] [id number]) Cervical Spine Strength Cervical Spine Manual Muscle Testing Testing Position Sitting Flexion (C1-2) 4 Good Extension 4 Good Rotation Left 4 Good Rotation Right 4 Good Lateral Flexion Left (C3) 4 Good Lateral Flexion Right (C3) 4 Good PT-OP-Q Treatments Start: 03/21/18 08:15 Freq: Status: Active Protocol: Document 04/24/18 09:00 [facility] (Rec: 04/24/18 14:16 [facility] [id number]) Manual Therapy Treatment Soft Tissue Mobilization 5 Body Location SOR Mobilization Type Sustained Pressure Intensity/Depth Moderate 3 Body Location pterygoid & joint capsule Mobilization Type Sustained Pressure Intensity/Depth Moderate Body Position Supine Comments c/r opening 2 Body Location Diagastric Mobilization Type Rolling Intensity/Depth Moderate Body Position Supine 1 Body Location masseter & temporalis Mobilization Type Rolling Intensity/Depth Moderate Body Position Supine Joint Mobilizations 2 Joint C1 Direction VIOLETA Grade II Body Position Supine 1 Joint TMJ Direction distraction; AP Grade II Body Position Supine Comments c/r closing PT-OP-T Assessment and Plan Start: 03/21/18 08:15 Freq: Status: Active Protocol: Document 04/24/18 09:00 [facility] (Rec: 04/24/18 14:16 [facility] [id number]) Physical Therapy Assessment Assessment Summary Assessment Pt cont to have tigthenss on R side of of jaw with dec mobility. Physical Therapy Plan Frequency and Duration Frequency of Treatment 2x/Week Duration of Treatment 2 months Plan of Care Start Date 03/21/18 Plan of Care End Date 05/21/18 Next Visit Focus/Plan Next Note Type Discharge Summary Next Visit Plan Review HEP & d/c Please Sign and Return: I have reviewed this Plan of Care and certify that the skilled therapy services above are required to meet the patient?s needs. Physician Signature Date Printed Name and Credentials Clinical Instructor Signature Printed Name and Credentials
[2018-04-24 21:32] LABS: 1 25 Dihydroxy Vitamin D 41 pg/mL (18-72)
--- NOTE | 2018-04-27 09:49 | PT.OTN ---
Current Diagnoses Unspecified temporomandibular joint disorder, unspecified side (04/27/18) Physical Therapy Treatment Note PT-OP-A Visit Information Start: 03/21/18 08:15 Freq: Status: Active Protocol: Document 04/27/18 09:00 [facility] (Rec: 04/27/18 09:49 [facility] [id number]) Out-Patient Physical Therapy Visit Information Visit Information Visit Type Discharge Summary Visit Start Time 09:00 Visit Stop Time 09:40 Total Visit Minutes 40 Visit Number 9 PT-OP-B Current Condition Start: 03/21/18 08:15 Freq: Status: Active Protocol: Document 03/21/18 09:45 [facility] (Rec: 03/22/18 15:53 [facility] [id number]) Current Condition History of Current Condition Onset Date 1 year ago Current Complaints pain in jaw B History of Current Condition Pt had bronchostomy in March 2017. She had pain the next 2 days that started to subside, but 2 weeks laters started to hurt a lot. She reports getting a little better over the summer then had dental work that exasterbated in in Sep. She had a root canal 2 weeks ago that started a squishy noise. Reports throughout this time she has felt like the joint was loose and has clicking &popping with tightness in the jaw. Oral MD noted tongue has teeth chauhan & she has a calus on the L side of her cheek. Prior Treatments and Tests some exercises instructed to her by oral MD; flexeril Future Testing and Treatments Planned possible crossing guard if needed Treatment Goals Patient/Caregiver Goals Dec pain & inc what she can eat Current Functional Impairments (Reported) Functional Limitations- ADL's Difficulty with tough & larger foods; pain w/flossing, yawning, brushing teeth & eating. PT-OP-C Subjective Start: 03/21/18 08:15 Freq: Status: Active Protocol: Document 04/27/18 09:00 [facility] (Rec: 04/27/18 09:49 [facility] [id number]) OP-PT Subjective Patient Comments Patient Comments Reports being swollen and painful on L side after sx PT-OP-F Manual Assessment Start: 03/21/18 08:15 Freq: Status: Active Protocol: Document 03/21/18 09:45 [facility] (Rec: 03/22/18 15:53 [facility] [id number]) Manual Assessments Soft Tissue Assessment Soft Tissue Mobility Assessment tension with masseter, temporalis & along jaw (B) PT-OP-J Posture/Palpation/Skin Start: 03/21/18 08:15 Freq: Status: Active Protocol: Document 03/21/18 09:45 [facility] (Rec: 03/22/18 16:03 [facility] [id number]) Posture Evaluation Comments Posture Comments Pt reports some of back teeth missing- full manual assessment not yet completed. Pt able to comfortably close mouth with back teeth together & can feel (B) back teeth touching w/solid & equal contact with closing. Pt feels front teeth touch with back teeth touch and reports equal contact between front & back teeth (B). PT-OP-K Range of Motion Start: 03/21/18 08:15 Freq: Status: Active Protocol: Document 04/27/18 09:00 [facility] (Rec: 04/27/18 09:49 [facility] [id number]) TMJ Range of Motion Jaw Openning Jaw Openning (mm) 2.5 cm PT-OP-M Strength Start: 03/21/18 08:15 Freq: Status: Active Protocol: Document 03/21/18 09:50 [facility] (Rec: 03/21/18 10:29 [facility] [id number]) Cervical Spine Strength Cervical Spine Manual Muscle Testing Testing Position Sitting Flexion (C1-2) 4 Good Extension 4 Good Rotation Left 4 Good Rotation Right 4 Good Lateral Flexion Left (C3) 4 Good Lateral Flexion Right (C3) 4 Good PT-OP-Q Treatments Start: 03/21/18 08:15 Freq: Status: Active Protocol: Document 04/27/18 09:00 [facility] (Rec: 04/27/18 09:49 [facility] [id number]) Therapeutic Exercises Supine Exercises 1 Supine Exercise Name axial elongation Sitting Exercises 4 Sitting Exercise Name open/close toungue on roof 3 Sitting Exercise Name iso jaw open in closed & partial opening 2 Sitting Exercise Name iso deviation 1 Sitting Exercise Name jaw opening stretching Standing Exercises 2 Standing Exercise Name cervical ROM in all planes 1 Standing Exercise Name wall posture Therapeutic Activity Therapeutic Activity 2 Name s/l and supine sleeping positiong 1 Name Review HEP Manual Therapy Treatment Soft Tissue Mobilization 5 Body Location SOR Mobilization Type Sustained Pressure Intensity/Depth Moderate 4 Body Location scalenes & cervical paraspinals 2 Body Location Diagastric Mobilization Type Rolling Intensity/Depth Moderate Body Position Supine 1 Body Location masseter & temporalis Mobilization Type Rolling Intensity/Depth Moderate Body Position Supine PT-OP-T Assessment and Plan Start: 03/21/18 08:15 Freq: Status: Active Protocol: Document 04/27/18 09:00 [facility] (Rec: 04/27/18 09:49 [facility] [id number]) Physical Therapy Assessment Goals Four STG Duration achieved with brushing teeth Three STG Duration improving but still limited w/ posture Two STG Duration 25 mm likely d/t inflmation of procedure One STG Duration 4/10 -improving Progress Towards Goals Progress Comments Pt is progressing slowly with goals, but has been set back in the past few weeks by weekly dental procedures. She has increased soreness and dec jaw opening today d/t soreness from procedure on tuesday. Other days, pt has achieved about 30 mm opening. Physical Therapy Plan Discharge Physical Therapy Discharge Comments Pt is moving for 4 months. Please Sign and Return: I have reviewed this Plan of Care and certify that the skilled therapy services above are required to meet the patient?s needs. Physician Signature Date Printed Name and Credentials Clinical Instructor Signature Printed Name and Credentials
--- NOTE | 2018-04-27 09:49 | PT.OPDS ---
Current Diagnoses Unspecified temporomandibular joint disorder, unspecified side (04/27/18) Provider Visit Care Team Role Provider Type Soila Nunes Family Provider Non-Staff Specialty: Medical Address: [address], [place], [address] Fax: Email: Charles Bates MD Attending Provider Physician Primary Care Provider Specialty: Internal Medicine Address: [address] [place] [address], [place], [address] Email: Discharge Summary PT-OP-B Current Condition Start: 03/21/18 08:15 Freq: Status: Active Protocol: Document 03/21/18 09:45 [facility] (Rec: 03/22/18 15:53 [facility] [id number]) Current Condition History of Current Condition Onset Date 1 year ago Current Complaints pain in jaw B History of Current Condition Pt had bronchostomy in March 2017. She had pain the next 2 days that started to subside, but 2 weeks laters started to hurt a lot. She reports getting a little better over the summer then had dental work that exasterbated in in Sep. She had a root canal 2 weeks ago that started a squishy noise. Reports throughout this time she has felt like the joint was loose and has clicking &popping with tightness in the jaw. Oral MD noted tongue has teeth chauhan & she has a calus on the L side of her cheek. Prior Treatments and Tests some exercises instructed to her by oral MD; flexeril Future Testing and Treatments Planned possible guard dance hall if needed Treatment Goals Patient/Caregiver Goals Dec pain & inc what she can eat Current Functional Impairments (Reported) Functional Limitations- ADL's Difficulty with tough & larger foods; pain w/flossing, yawning, brushing teeth & eating. PT-OP-C Subjective Start: 03/21/18 08:15 Freq: Status: Active Protocol: Document 04/27/18 09:00 [facility] (Rec: 04/27/18 09:49 [facility] [id number]) OP-PT Subjective Patient Comments Patient Comments Reports being swollen and painful on L side after sx PT-OP-F Manual Assessment Start: 03/21/18 08:15 Freq: Status: Active Protocol: Document 03/21/18 09:45 [facility] (Rec: 03/22/18 15:53 [facility] [id number]) Manual Assessments Soft Tissue Assessment Soft Tissue Mobility Assessment tension with masseter, temporalis & along jaw (B) PT-OP-J Posture/Palpation/Skin Start: 03/21/18 08:15 Freq: Status: Active Protocol: Document 03/21/18 09:45 [facility] (Rec: 03/22/18 16:03 [facility] [id number]) Posture Evaluation Comments Posture Comments Pt reports some of back teeth missing- full manual assessment not yet completed. Pt able to comfortably close mouth with back teeth together & can feel (B) back teeth touching w/solid & equal contact with closing. Pt feels front teeth touch with back teeth touch and reports equal contact between front & back teeth (B). PT-OP-K Range of Motion Start: 03/21/18 08:15 Freq: Status: Active Protocol: Document 04/27/18 09:00 [facility] (Rec: 04/27/18 09:49 [facility] [id number]) TMJ Range of Motion Jaw Openning Jaw Openning (mm) 2.5 cm PT-OP-M Strength Start: 03/21/18 08:15 Freq: Status: Active Protocol: Document 03/21/18 09:50 [facility] (Rec: 03/21/18 10:29 [facility] [id number]) Cervical Spine Strength Cervical Spine Manual Muscle Testing Testing Position Sitting Flexion (C1-2) 4 Good Extension 4 Good Rotation Left 4 Good Rotation Right 4 Good Lateral Flexion Left (C3) 4 Good Lateral Flexion Right (C3) 4 Good PT-OP-T Assessment and Plan Start: 03/21/18 08:15 Freq: Status: Active Protocol: Document 04/27/18 09:00 [facility] (Rec: 04/27/18 09:49 [facility] [id number]) Physical Therapy Assessment Goals Four STG Duration achieved with brushing teeth Three STG Duration improving but still limited w/ posture Two STG Duration 25 mm likely d/t inflmation of procedure One STG Duration 4/10 -improving Progress Towards Goals Progress Comments Pt is progressing slowly with goals, but has been set back in the past few weeks by weekly dental procedures. She has increased soreness and dec jaw opening today d/t soreness from procedure on tuesday. Other days, pt has achieved about 30 mm opening. Physical Therapy Plan Discharge Physical Therapy Discharge Comments Pt is moving for 4 months.
== END 2018-06-29 11:15 ==
LOC: PHYS 09:00
PROVIDERS: Nurse Practitioner Gerontology; Family Provider Pathology Blood Banking & Transfusion Medicine; PCP Internal Medicine; Visit Provider Internal Medicine
DX: M26.609 Unspecified temporomandibular joint disorder, unspecified side (principal)
CPT/HCPCS: 82652; 97110; 97140; 97162; 97530

== ENCOUNTER → 2018-10-16 12:54 | Outpatient (CLI) | payer OTHER, SELFPAY ==
[2018-10-16 13:29] LABS: Add Manual Diff / Slide Review NO; Basophils Percent Auto 0.8 % (0-2); Eosinophils Percent Auto 1.6 % (2-4); Hematocrit 34.3 % (36-46); Hemoglobin 11.4 g/dL (12.0-16.0); Lymphocytes Percent Auto 21.2 % (25-40); Mean Corpuscular HGB Conc 33.4 % (30-36); Mean Corpuscular Hemoglobin 27.5 PG (26-34); Mean Corpuscular Volume 82.5 fL (80-100); Monocytes Percent Auto 6.7 % (3-14); Neutrophils Absolute Auto 7300 /uL (3000-5900); Neutrophils Percent Auto 69.7 % (50-75); Platelet Count 439 X10^3/uL (150-400); Red Blood Cell Count 4.15 X10^6/uL (4.0-5.2); Red Cell Distribution Width 15.3 % (11.6-14.8); White Blood Cell Count 10.5 X10^3/uL (4.5-11.0)
[2018-10-16 15:15] LABS: Alanine Aminotransferase 22 IU/L (9-52); Albumin 4.1 g/dL (3.5-5.0); Albumin Globulin Ratio 1.2 (1.0-2.8); Alkaline Phosphatase 72 U/L (38-126); Aspartate Aminotransferase 28 IU/L (14-36); BUN Creatinine Ratio 41.7 (6-22); Bilirubin Total 0.5 mg/dL (0.2-1.3); Blood Urea Nitrogen 25 mg/dL (7-17); Carbon Dioxide 32 mmol/L (22-32); Chloride 101 mmol/L (98-107); Estimated Glomerular Filt Rate > 60.0 mL/min (>60); Globulin 3.5 g/dL (1.7-4.1); Glucose 92 mg/dL (80-110); HEMOLYSIS < 15 (0-50); Potassium 4.4 mmol/L (3.4-5.1); Sodium 143 mmol/L (137-145); Total Protein 7.6 g/dL (6.3-8.2)
== END ==
PROVIDERS: Family Provider Internal Medicine; PCP Internal Medicine; Visit Provider Nurse Practitioner Gerontology
DX: C50.912 Malignant neoplasm of unspecified site of left female breast (principal)
CPT/HCPCS: 36415; 80053; 85025

== ENCOUNTER → 2019-01-17 15:45 | Outpatient (CLI) | payer OTHER, SELFPAY | PROVIDERS: PCP Physician Assistant; Visit Provider Internal Medicine Hematology & Oncology | DX: C50.212 Malignant neoplasm of upper-inner quadrant of left female breast (principal); M81.0 Age-related osteoporosis without current pathological fracture; D50.9 Iron deficiency anemia, unspecified; Z17.0 Estrogen receptor positive status [ER+] | CPT/HCPCS: 36415; 80053; 82728; 83540; 83550; 85025; 85597; 85613; 85730 ==

== ENCOUNTER → 2019-02-05 07:53 | Outpatient (CLI) | payer OTHER, SELFPAY ==
[2019-02-05 08:40] LABS: Add Manual Diff / Slide Review NO; Basophils Absolute Auto 100 /uL (0-100); Basophils Percent Auto 0.7 % (0-2); Eosinophils Absolute Auto 100 /uL (0-450); Eosinophils Percent Auto 0.6 % (2-4); Hematocrit 37.5 % (36-46); Hemoglobin 12.3 g/dL (12.0-16.0); Lymphocytes Absolute Auto 1200 /uL (1100-4500); Lymphocytes Percent Auto 10.4 % (25-40); Mean Corpuscular HGB Conc 32.8 % (30-36); Mean Corpuscular Hemoglobin 26.7 PG (26-34); Mean Corpuscular Volume 81.6 fL (80-100); Monocytes Absolute Auto 1000 /uL (0-900); Monocytes Percent Auto 8.9 % (3-14); Neutrophils Absolute Auto 8900 /uL (1500-7000); Neutrophils Percent Auto 79.4 % (50-75); Platelet Count 423 X10^3/uL (150-400); Red Cell Distribution Width 15.8 % (11.6-14.8); White Blood Cell Count 11.2 X10^3/uL (4.5-11.0)
[2019-02-05 09:16] LABS: Alanine Aminotransferase 25 IU/L (9-52); Albumin 4.1 g/dL (3.5-5.0); Albumin Globulin Ratio 1.2 (1.0-2.8); Alkaline Phosphatase 68 U/L (38-126); Aspartate Aminotransferase 22 IU/L (14-36); BUN Creatinine Ratio 34.3 (6-22); Bilirubin Total 0.4 mg/dL (0.2-1.3); Blood Urea Nitrogen 24 mg/dL (7-17); Calcium 9.9 mg/dL (8.4-10.2); Carbon Dioxide 29 mmol/L (22-32); Chloride 98 mmol/L (98-107); Estimated Glomerular Filt Rate > 60.0 mL/min (>60); Globulin 3.3 g/dL (1.7-4.1); Glucose 87 mg/dL (80-110); HEMOLYSIS < 15 (0-50); Potassium 4.2 mmol/L (3.4-5.1); Sodium 138 mmol/L (137-145); Total Protein 7.4 g/dL (6.3-8.2)
[2019-02-07 19:06] LABS: Albumin 3.7 g/dL (3.8-4.8); Alpha 1 Globulin 0.4 g/dL (0.2-0.3); Beta 1 Globulin 0.4 g/dL (0.4-0.6); Gamma Globulin 1.3 g/dL (0.8-1.7); Protein, Total 7.2 g/dL (6.1-8.1)
== END ==
PROVIDERS: PCP Physician Assistant; Visit Provider Internal Medicine Hematology & Oncology
DX: C50.919 Malignant neoplasm of unspecified site of unspecified female breast (principal)
CPT/HCPCS: 36415; 80053; 84155; 84165; 85025

== ENCOUNTER → 2019-03-13 15:35 | Outpatient (CLI) | payer MEDICARE, OTHER, SELFPAY ==
--- NOTE | 2019-03-13 | DI.MRI.S_ITS ---
PROCEDURE: MR KNEE LT WO CON INDICATIONS: Left knee pain TECHNIQUE: Noncontrast sagittal PD fast spin echo and T2 fast spin echo with fat saturation, sagittal 3-D FLASH with fat saturation; coronal T1 spin echo and PD fast spin echo with fat saturation, and axial PD fast spin echo with fat saturation through the knee. COMPARISON: [facility], CR, XR KNEE ARTHRITIC SERIES LT, 03/05/2019, 12:13. [facility], MR, KNEE WITHOUT CONTRAST, 02/03/2017, 12:18. FINDINGS: Image quality: Diagnostic. Bones and joint: There is no acute fracture or dislocation. No suspicious osseous lesions are evident. There is a prominent joint effusion identified with associated thickening of the synovium. There is a decreased signal intensity are evident on the fat-suppressed images within the suprapatellar recess, which could potentially represent synovial hypertrophy. The joint fluid appears to be moderately heterogeneous. There is mild irregularity of the hyaline articular cartilage within all 3 compartments of the knee, which is most pronounced within the patellofemoral compartment. Small to moderate-sized full-thickness defects of the hyaline articular cartilage within the patellofemoral compartment are present with associated degenerative subjective marrow changes, best appreciated on the medial patellar facet. There is also mild focal marrow edema evident along the posterior aspect of the medial tibial plateau near the PCL attachment. Cruciate ligaments: The anterior and posterior cruciate ligaments are intact. Menisci: There appears to be a low-grade partial-thickness tear involving the posterior root and anterior attachment of the medial meniscus. The medial meniscus is otherwise unremarkable. Low-grade partial-thickness tearing involving the anterior attachment of the lateral meniscus is present. Otherwise, the lateral meniscus is within normal limits. Medial structures: The medial collateral ligament is intact. The semimembranosus tendon insertion is intact. The imaged portions of the pes anserinus tendons are unremarkable. No significant fluid is contained within the pes anserinus bursa. Lateral structures: The popliteal tendon is intact. The lateral collateral ligament proper (fibular collateral ligament) and the proximal tibiofibular ligaments are intact. The distal aspect of the biceps femoris tendon and the iliotibial band are intact. There is mild increased signal identified involving the proximal popliteal muscle and a slowly as muscle. Anterior structures: The quadriceps and patellar tendons are intact. However, there is mild increased signal identified involving the distal margin of the patellar tendon. There is moderate edema within the prepatellar soft tissues with a small amount of fluid likely contained within the prepatellar bursa. There is moderate to edema in the infrapatellar fat pad. IMPRESSION: 1. Moderate synovial hypertrophy with areas of heterogeneous signal and moderate areas of decreased signal intensity is nonspecific and may be related to chronic intra-articular hemorrhage. However, pigmented villonodular synovitis could also have this appearance. Clinical correlation to exclude infectious synovitis is recommended. Please consider contrast enhanced MRI of the knee for further evaluation. 2. Low-grade areas of partial-thickness tearing involving the anterior and posterior roots of the medial meniscus and the anterior root of the lateral meniscus. 3. Mild distal patellar tendinopathy. 4. Low-grade strains of the popliteal and proximal soleus muscles. 5. 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 6. Edema within the prepatellar soft tissues may be reactive. Please correlate clinically to exclude bursitis. Dictated by: Maojr Crum M.D. on 03/13/2019 at 15:47 Approved by: Major Crum M.D. on 03/13/2019 at 16:01
== END ==
PROVIDERS: PCP Physician Assistant; Visit Provider Orthopaedic Surgery
DX: M25.562 Pain in left knee (principal); S83.242A Other tear of medial meniscus, current injury, left knee, initial encounter; S83.282A Other tear of lateral meniscus, current injury, left knee, initial encounter; M22.42 Chondromalacia patellae, left knee; M25.462 Effusion, left knee; R60.0 Localized edema
CPT/HCPCS: 73721

== ENCOUNTER → 2019-03-26 12:37 | Outpatient (CLI) | payer MEDICARE, OTHER, SELFPAY ==
--- NOTE | 2019-03-26 | DI.MG.S_ITS ---
BILATERAL DIGITAL SCREENING MAMMOGRAM 3D/2D WITH CAD: 03/26/2019 CLINICAL: Routine screening. Personal history of left breast cancer. Family history of breast cancer. Comparison is made to exams dated: 03/23/2018 mammogram, 03/21/2017 mammogram, and 03/19/2016 mammogram - [facility]. The tissue of both breasts is heterogeneously dense. This may lower the sensitivity of mammography. Current study was also evaluated with a Computer Aided Detection (CAD) system. There are benign post operative findings in the left breast. No significant masses, calcifications, or other findings are seen in either breast. There has been no significant interval change. IMPRESSION: There is no mammographic evidence of malignancy. A 1 year screening mammogram is recommended. This exam was interpreted at Station ID: [id number]. NOTE: For mammograms, a report in lay terms will be sent to the patient. Approximately 15% of breast malignancies will not be visualized mammographically. In the management of a palpable breast mass, a negative mammogram must not discourage biopsy of a clinically suspicious lesion. Electronically Signed By: Evan gan/ashley:03/26/2019 16:31:11 letter sent: Normal Exam ACR BI-RADS Category 2: Benign Finding(s) [id number]
== END ==
PROVIDERS: PCP Internal Medicine; Visit Provider Physician Assistant
DX: Z12.31 Encounter for screening mammogram for malignant neoplasm of breast (principal); Z85.3 Personal history of malignant neoplasm of breast; Z80.3 Family history of malignant neoplasm of breast
CPT/HCPCS: 77063; 77067

== ENCOUNTER → 2019-04-16 08:08 | Outpatient (CLI) | payer MEDICARE, OTHER, SELFPAY ==
--- NOTE | 2019-04-16 | DI.MRI.S_ITS ---
PROCEDURE: MR KNEE LT WO/W CON INDICATIONS: FOLLOW UP LEFT KNEE PAIN TECHNIQUE: Noncontrast sagittal PD fast spin echo and T2 fast spin echo with fat saturation, sagittal 3-D FLASH with fat saturation; coronal T1 spin echo and PD fast spin echo with fat saturation, and axial T1 spin echo and PD fast spin echo with fat saturation through the knee. Post-contrast axial, coronal, and sagittal T1 spin echo with fat saturation through the knee. COMPARISON: [facility] [place], CR, XR KNEE ARTHRITIC SERIES LT, 03/05/2019, 12:13. [facility], MR, MR KNEE LT WO CON, 03/13/2019, 15:57. FINDINGS: Image quality: Excellent. Menisci: Low-grade tear of the posterior roots of the medial and lateral menisci are again noted, unchanged. The medial and lateral menisci are otherwise normal. Cruciate ligaments: The anterior and posterior cruciate ligaments appear intact. Medial structures: The medial collateral ligament appears intact. The posterior oblique ligament, semimembranosus tendon insertions, and oblique popliteal liagment, and meniscocapsular junction appear intact. Visualized portions of the pes anserinus tendons appear normal. No abnormal bursal fluid. Lateral structures: The lateral collateral ligament, long and short heads of the biceps femoris tendon appear intact. The popliteus tendon appears intact but demonstrates mild irregularity and increased signal suggesting mild tendinitis. There is mild stranding at the popliteal muscle at musculotendinous junction. Iliotibial band appears normal. Anterior structures: The quadriceps and patellar tendons appear intact. Patellar alignment is normal. No femoral trochlear dysplasia or ventral trochlear prominence. No edema in the infrapatellar fat pad. Mild prepatellar soft tissue edema is noted. Bones and cartilage: No suspicious osseous enhancement. No bone marrow contusions or fractures. There is mild tricompartmental cartilage thinning and fibrillation. Joint space: Again noted is synovial thickening and enhancement. There is small to moderate knee joint effusion with hypointense signal, probably from hemorrhagic effusion. No Meza's cyst. Normal appearing synovial plicae are incidentally noted. No suspicious soft tissue enhancement. IMPRESSION: 1. Synovial thickening and increased enhancement consistent with synovitis, which may be infectious or inflammatory etiology. If septic joint is suspected, joint aspiration is recommended. 2. Small to moderate the joint effusion with hypointense signal, probably from chronic intra-articular hemorrhage or infection. Pigmented villonodular synovitis is felt less likely. 3. Popliteus tendonitis or partial tear. Mild edema in the popliteus muscle at the musculotendinous junction may be secondary to mild muscle strain. 4. Mild tricompartmental cartilage loss. Dictated by: Emerald Mitchell M.D. on 04/16/2019 at 15:28 Approved by: Emerald Mitchell M.D. on 04/17/2019 at 10:38
== END ==
PROVIDERS: PCP Internal Medicine; Visit Provider Internal Medicine
DX: M25.562 Pain in left knee (principal); M25.462 Effusion, left knee
CPT/HCPCS: 73723; A9579

== ENCOUNTER → 2019-04-26 16:39 | Outpatient (CLI) | payer MEDICARE, OTHER, SELFPAY ==
[2019-04-26 17:38] LABS: Add Manual Diff / Slide Review NO; Basophils Absolute Auto 200 /uL (0-100); Basophils Percent Auto 1.4 % (0-2); Eosinophils Absolute Auto 100 /uL (0-450); Eosinophils Percent Auto 0.9 % (2-4); Hematocrit 35.5 % (36-46); Hemoglobin 11.8 g/dL (12.0-16.0); Lymphocytes Absolute Auto 3000 /uL (1100-4500); Lymphocytes Percent Auto 26.6 % (25-40); Mean Corpuscular HGB Conc 33.2 % (30-36); Mean Corpuscular Hemoglobin 26.7 PG (26-34); Mean Corpuscular Volume 80.3 fL (80-100); Monocytes Absolute Auto 800 /uL (0-900); Monocytes Percent Auto 6.9 % (3-14); Neutrophils Absolute Auto 7300 /uL (1500-7000); Neutrophils Percent Auto 64.2 % (50-75); Platelet Count 508 X10^3/uL (150-400); Red Blood Cell Count 4.43 X10^6/uL (4.0-5.2); Red Cell Distribution Width 16.1 % (11.6-14.8); White Blood Cell Count 11.4 X10^3/uL (4.5-11.0)
[2019-04-26 17:50] LABS: HEMOLYSIS < 15 (0-50); Iron 46 ug/dL (37-170)
[2019-04-26 17:51] LABS: Alanine Aminotransferase 19 IU/L (9-52); Albumin 4.5 g/dL (3.5-5.0); Albumin Globulin Ratio 1.2 (1.0-2.8); Alkaline Phosphatase 77 U/L (38-126); Aspartate Aminotransferase 27 IU/L (14-36); BUN Creatinine Ratio 28.8 (6-22); Bilirubin Total 0.5 mg/dL (0.2-1.3); Blood Urea Nitrogen 23 mg/dL (7-17); Calcium 10.1 mg/dL (8.4-10.2); Carbon Dioxide 32 mmol/L (22-32); Chloride 98 mmol/L (98-107); Estimated Glomerular Filt Rate > 60.0 mL/min (>60); Globulin 3.7 g/dL (1.7-4.1); Glucose 105 mg/dL (80-110); HEMOLYSIS < 15 (0-50); Potassium 3.8 mmol/L (3.4-5.1); Sodium 137 mmol/L (137-145); Total Protein 8.2 g/dL (6.3-8.2)
[2019-04-26 18:00] LABS: Percent Iron Saturation 14 % (15-50); Total Iron Binding Capacity 326 ug/dL (265-497); Transferrin 252 mg/dL (206-381)
[2019-04-26 18:28] LABS: Ferritin 53.5 ng/mL (11.1-264)
== END ==
PROVIDERS: PCP Internal Medicine; Visit Provider Internal Medicine
DX: R01.1 Cardiac murmur, unspecified (principal); C50.919 Malignant neoplasm of unspecified site of unspecified female breast
CPT/HCPCS: 36415; 80053; 82728; 83540; 83550; 85025; 87040

== ENCOUNTER → 2019-04-27 10:15 | Outpatient (CLI) | payer MEDICARE, OTHER, SELFPAY | PROVIDERS: PCP Internal Medicine; Visit Provider Internal Medicine | DX: R01.1 Cardiac murmur, unspecified (principal) | CPT/HCPCS: 36415; 87040 ==

== ENCOUNTER → 2019-05-23 08:31 | Outpatient (CLI) | payer MEDICARE, OTHER, SELFPAY ==
--- NOTE | 2019-05-23 | DI.RAD.S_ITS ---
PROCEDURE: XR RIBS RT 2V INDICATIONS: Pain in scapula TECHNIQUE: 2 views of the right ribs were acquired. COMPARISON: [facility], CR, XR SCAPULA RT, 05/23/2019, 8:40. FINDINGS: Surgical changes and devices: None. Bones and chest wall: No fractures or dislocations. No suspicious bony lesions. Overlying soft tissues appear unremarkable. Lungs and pleura: The visualized lung appears clear. No pleural effusions or pneumothorax are visible. IMPRESSION: No trauma foun, source of pain in the scapula area is not seen. Dictated by: Willie Lebron M.D. on 05/23/2019 at 9:51 Approved by: Willie Lebron M.D. on 05/23/2019 at 9:52
--- NOTE | 2019-05-23 | DI.RAD.S_ITS ---
PROCEDURE: XR SCAPULA RT INDICATIONS: Pain in scapula TECHNIQUE: 2 views of the scapula were acquired. COMPARISON: None. FINDINGS: Bones: No fractures or dislocations. No suspicious bony lesions. Visualized ribs appear intact. Soft tissues: Overlying soft tissues appear normal. IMPRESSION: Source of pain in the scapula area is not seen. Depending on clinical status followup by shoulder MRI may be warranted. Dictated by: Willie Lebron M.D. on 05/23/2019 at 9:38 Approved by: Willie Lebron M.D. on 05/23/2019 at 9:51
--- NOTE | 2019-05-23 | DI.RAD.S_ITS ---
PROCEDURE: XR THORACIC SPINE 3V INDICATIONS: Pain in scapula TECHNIQUE: 3 views of the thoracic spine were acquired. COMPARISON: [facility], , THORACIC SPINE 3 VIEWS, 12/13/2014, 14:26. FINDINGS: Bones: No fractures or dislocations. No suspicious bony lesions. 12 pairs of ribs are noted, and appear intact where visualized. Mild degenerative disc disease is present along the thoracic spine but near equivalent to that present in November 2014. No definite acute disease. Soft tissues: No paravertebral stripe thickening. IMPRESSION: Mild degenerative disc disease along the thoracic spine, no specific source of scapular pain is seen. Depending on clinical status followup by MR scanning may be warranted. Dictated by: Willie Lebron M.D. on 05/23/2019 at 9:52 Approved by: Willie Lebron M.D. on 05/23/2019 at 9:53
== END ==
PROVIDERS: PCP Internal Medicine; Visit Provider Internal Medicine
DX: M89.8X1 Other specified disorders of bone, shoulder (principal); M25.511 Pain in right shoulder; M51.34 Other intervertebral disc degeneration, thoracic region
CPT/HCPCS: 71100; 72072; 73010

== ENCOUNTER → 2019-08-27 08:27 | Outpatient (CLI) | payer MEDICARE, OTHER, SELFPAY ==
[2019-08-27 09:36] LABS: Ferritin 44.5 ng/mL (11.1-264)
[2019-08-27 11:06] LABS: Iron 61 ug/dL (37-170)
[2019-08-27 11:23] LABS: Free T4, Direct Thyroxine 1.27 ng/dL (0.78-2.19)
== END ==
PROVIDERS: PCP Internal Medicine; Visit Provider Internal Medicine Hematology & Oncology
DX: D64.9 Anemia, unspecified (principal); C50.919 Malignant neoplasm of unspecified site of unspecified female breast
CPT/HCPCS: 36415; 82728; 83540; 84439; 84443

== ENCOUNTER → 2019-09-10 09:16 | Outpatient (CLI) | payer MEDICARE, OTHER, SELFPAY ==
[2019-09-10 09:24] LABS: Bacteria Urine None Seen
[2019-09-10 10:11] LABS: Appearance Urine UA CLEAR; Bilirubin Urine UA NEGATIVE (NEGATIVE); Color Urine UA YELLOW; Glucose Urine UA NEGATIVE (Negative); Ketones Urine UA TRACE (NEGATIVE); Leukocyte Esterase Urine UA TRACE (NEGATIVE); Nitrite Urine UA NEGATIVE (Negative); Occult Blood Urine UA 2+ (Negative); Protein Urine UA NEGATIVE (Negative); Urobilinogen Urine UA 0.2 E.U./dL (0.2)
[2019-09-10 10:17] LABS: pH Urine UA 5.5 (4.5-8.0)
[2019-09-10 10:21] LABS: RBC Urine 5-10/HPF (0-5/HPF); Squamous Epithelial Cell Urine 1-5 /HPF (0-5/HPF); WBC Urine 10-30/HPF (0-5/HPF)
[2019-09-10 10:22] LABS: Calcium Oxalate Crystals Urine Few; Culture Indicated Urine Specimen Cultured
== END ==
PROVIDERS: PCP Internal Medicine; Visit Provider Specialist
DX: R30.0 Dysuria (principal); R35.0 Frequency of micturition
CPT/HCPCS: 81001; 87086

== ENCOUNTER → 2019-09-17 12:11 | Outpatient (CLI) | payer MEDICARE, OTHER, SELFPAY ==
[2019-09-17 13:30] LABS: BUN Creatinine Ratio 25.6 (6-22); Blood Urea Nitrogen 23 mg/dL (7-17); Estimated Glomerular Filt Rate > 60.0 mL/min (>60)
== END ==
PROVIDERS: PCP Internal Medicine; Visit Provider Physician Assistant
DX: R31.21 Asymptomatic microscopic hematuria (principal); C50.919 Malignant neoplasm of unspecified site of unspecified female breast
CPT/HCPCS: 36415; 82565; 84520

== ENCOUNTER 2020-01-21 09:00 | Outpatient (RCR) | payer MEDICARE, OTHER, SELFPAY ==
--- NOTE | 2019-11-26 15:49 | PT.OIE ---
Current Diagnoses Other symptoms and signs involving the musculoskeletal system (11/26/19) Past Surgical History (Last Reviewed 03/23/18 @ 12:02 by Francheska Jaffe, PT) Status post breast lumpectomy Status post cholecystectomy Visit Care Team Role Provider Type Mackenzie Terrell MD Attending Provider Non-Staff Primary Care Provider Specialty: Internal Medicine Address: [address] [place] [address], [facility] Email: [email or web address] Physical Therapy Initial Evaluation PT-OP-A Visit Information Start: 11/22/19 09:24 Freq: Status: Active Protocol: Document 11/26/19 10:29 MB (Rec: 11/26/19 10:52 MB [id number]) Out-Patient Physical Therapy Visit Information Visit Information Visit Type Initial Evaluation Visit Note Pt has Medicare and unlimited visits Visit Start Time 10:29 Visit Stop Time 11:19 Total Visit Minutes 50 Visit Number 1/unlimited PT-OP-B Current Condition Start: 11/22/19 09:24 Freq: Status: Active Protocol: Document 11/26/19 10:29 MB (Rec: 11/26/19 10:52 MB [id number]) Current Condition History of Current Condition Onset Date Over the last year History of Current Condition Pt reports weakness after starting prednisone for possible underlying inflammatory disease. She has to use her arms to stand up and she has trouble going up the steps. She has pain in the back of her knees and up towards her buttocks. She feels pulling to the left or right of her spine. She feels deconditioned. Compicated PMH includes breast CA 2016 s/p lumpectomy and radiation and PT for lymphedema. History of injection in right shoulder and B knees, see further history below. Further PMH includes allergies/tape/latex, bronchiectasis and emphysema s/p smoking, OP, ? Crohn's, questionable swallowing issue Pt reports pain after having a blanket stuck under her and trying to take it off. Pt reports 4/10 pain under right arm, right lateral hip and and knee pain 3/10, right anterior knee pain 3/10, left anterior knee pain 5/10, right scapular, spinal, left SI pain 4/10, left lateral hip pain 3/10, left lateral knee pain 5/10. She is sleeping 4-5 hours. She cannot walk d/t knee pain B. She is interested in aquatic therapy. Pt sees multiple providers including forest examiner, GI specialist, retail consultant, orthopedist and oncologist. Pt has low iron. She does not know if she has a B12 or vitamin D deficiency. She gets infusions for OP. Oncologist note states that pt has psoriasis but pt does not mention this. Prior Treatments and Tests PT in past at this clinic for her back and her back has not really improved. She had PT for LUE lymphedema. She had PT in past for TMJ. She had PT for her knees that was rough. She had injections. She might have an inflammatory disease. She is on medication for this including prednisone and leflunomide. She takes her inhaler 2x/day. Dxs for thoracic spine with degenerative changes, right scapular pain of unknown source, left knee MRI 04/16/19 with changes: synovial thickening and increased enhancement consistent with synovitis, small to moderate joint effusion, popliteus tendonitis or partial tear, mild edema in the popliteus, mild tricompartmental cartilage loss PT-OP-C Subjective Start: 11/22/19 09:24 Freq: Status: Active Protocol: Document 11/26/19 10:29 MB (Rec: 11/26/19 10:53 MB [id number]) OP-PT Subjective Patient Comments Patient Comments Pt's goal is to get stronger without increasing pain or inflammation. PT-OP-J Posture/Palpation/Skin Start: 11/22/19 09:24 Freq: Status: Active Protocol: Document 11/26/19 10:29 MB (Rec: 11/26/19 13:00 MB [id number]) Posture Evaluation Comments Posture Comments Overall, decreased curvature of cervical, thoracic and lumbar spine, right scapula higher than the left, right iliac crest higher than the left PT-OP-M Strength Start: 11/22/19 09:24 Freq: Status: Active Protocol: Document 11/26/19 10:29 MB (Rec: 11/26/19 13:00 MB [id number]) Hip Strength Hip Manual Muscle Testing Left Flexion (L2) 2 Poor Abduction 2 Poor Comments Pt can mildly lift left hip off mat in sitting. There is some question of pt effort. In supine, pt presents with little tolerance to MMT. This is similar for all B LE joints Right Flexion (L2) 2- Poor- Abduction 2- Poor- Comments Pt cannot lift right hip off mat in sitting. There is some question of pt effort. In supine, PT assists her to get her right hip flexed with foot of the mat and pt presents with little tolerance to MMT. This is similar for all B LE joints Knee Strength Knee Manual Muscle Testing Left Flexion (S2) 2+ Poor+ Extension (L3) 2+ Poor+ Comments In supine. Weakness and/or decreased effort and guarding and fear of pain. Pt reports hamstring and adductor discomfort Right Flexion (S2) 3- Fair- Extension (L3) 3- Fair- Comments In supine. Weakness and/or decreased effort and guarding and fear of pain. Pt reports hamstring and adductor discomfort Ankle/Foot Strength Ankle and Foot Manual Muscle Testing Left Dorsiflexion (L4) 3 Fair Comments Great toe extension 4/5 Right Dorsiflexion (L4) 3 Fair Comments Great toe extension 4/5 PT-OP-T Assessment and Plan Start: 11/22/19 09:24 Freq: Status: Active Protocol: Document 11/26/19 10:29 MB (Rec: 11/26/19 13:00 MB [id number]) Physical Therapy Assessment Rehab Potential Rehabilitation Potential Fair Evaluation Complexity Number of Personal Factors/Comorbidities 1-2 Number of Body Systems Impaired 3 Clinical Presentation at Evaluation Evolving Impairments Impairments Activity Tolerance,Functional Activities,Functional Mobility ,Pain,Posture,ROM,Sensation, Strength Other Impairments Pt presents with multi-system problems including hx cancer, underlying inflammatory process that affects GI systems, joints and pain, OP, takes many medication including steroids and chemo drug for inflammatory disease. She also presents with guarding behavior and reports that she did not tolerate previous PT durations well d/t increased leg pain. Her left knee MRI presents with changes . She also presents with decreased effort with activities like sit to stands and MMT this date. These many medical and personal co- morbidities are barriers to PT . PT prognosis is guarded. Goals Four Impairment Decreased gait Assistant Attorney General Goal (LTG) Pt will gait train at least 1500 feet in 6 minutes with LRAD to increase community ambulation by 01/25/2020. LTG Duration 8 weeks Three Assistant Attorney General Goal (LTG) Pt will perform 5 reps sit to stand without UE support in less than 13 sec to improve functional transfers by 2019. LTG Duration 8 weeks Two Assistant Attorney General Goal (LTG) Pt will perform 5 steps with use of 1 or 2 rails and reciprocal gait to prepare for getting up to her sewing materials by 01/25/2020. LTG Duration 8 weeks One Usp Goal (LTG) Pt will perform progressive HEP with I including pelvic realignment, functional, flexibility, strengthening and gait activities to decrease fall risk and pain by 2019. LTG Duration 8 weeks Assessment Summary Assessment Pt is a 64 y/o female presenting with B LE pain, weakness and decreased ROM. She presents with B SLR to 45 deg and c/o hamstring and adductor pain with passive movement. She presents with decreased passive knee extension with limitations to 10 deg right and 5 deg left. Pt presents with multi-system problems including hx cancer, underlying inflammatory process that affects GI systems, joints and pain, OP, takes many medication including steroids and chemo drug for inflammatory disease. She also presents with guarding behavior and reports that she did not tolerate previous PT durations well d/t increased leg pain. Her left knee MRI presents with changes . She also presents with decreased effort with activities like sit to stands and MMT this date. These many medical and personal co- morbidities are barriers to PT . PT prognosis is guarded. She will benefit from PT trial to improve ROM and functional activities like sit to stand, gait and balance. She is interested in aquatic therapy and this might be easier on her joints than land therapy strengthening. PT will initiate gentle manual techniques to help with fascial components to pain. Physical Therapy Plan Frequency and Duration Frequency of Treatment 2x/Week Duration of Treatment 8 weeks Plan of Care Start Date 11/26/19 Plan of Care End Date 01/25/20 Therapeutic Interventions Therapeutic Interventions Aquatic Therapy,Balance Training,Gait Training,Home Exercise Program,Manual Therapy,Neuromuscular Re- education,Patient/Caregiver Education,Self-Care/Home Management,Soft Tissue Mobilization,Taping, Therapeutic Activities, Therapeutic Exercises Modalities Cold Pack/Ice Massage,Electric Stimulation,Hot Packs, Ultrasound Other Therapeutic Interventions Cold laser as appropriate Next Visit Focus/Plan Next Note Type Treatment Note Next Visit Plan Initiate pelvic realignment exercises
--- NOTE | 2019-11-26 15:50 | PT.OPPOC ---
Physical, Occupational & Speech Therapy At [facility] Current Diagnoses Other symptoms and signs involving the musculoskeletal system (11/26/19) Visit Care Team Role Provider Type Mackenzie Terrell MD Attending Provider Non-Staff Primary Care Provider Specialty: Internal Medicine Address: [address] [place] [address], [id number] Email: [email or web address] Of Care PT-OP-T Assessment and Plan Start: 11/22/19 09:24 Freq: Status: Active Protocol: Document 11/26/19 10:29 MB (Rec: 11/26/19 13:00 MB [id number]) Physical Therapy Assessment Rehab Potential Rehabilitation Potential Fair Evaluation Complexity Number of Personal Factors/Comorbidities 1-2 Number of Body Systems Impaired 3 Clinical Presentation at Evaluation Evolving Impairments Impairments Activity Tolerance,Functional Activities,Functional Mobility ,Pain,Posture,ROM,Sensation, Strength Other Impairments Pt presents with multi-system problems including hx cancer, underlying inflammatory process that affects GI systems, joints and pain, OP, takes many medication including steroids and chemo drug for inflammatory disease. She also presents with guarding behavior and reports that she did not tolerate previous PT durations well d/t increased leg pain. Her left knee MRI presents with changes . She also presents with decreased effort with activities like sit to stands and MMT this date. These many medical and personal co- morbidities are barriers to PT . PT prognosis is guarded. Goals Four Impairment Decreased gait Residential Goal (LTG) Pt will gait train at least 1500 feet in 6 minutes with LRAD to increase community ambulation by 01/25/2020. LTG Duration 8 weeks Three Residential Goal (LTG) Pt will perform 5 reps sit to stand without UE support in less than 13 sec to improve functional transfers by 2019. LTG Duration 8 weeks Two Costume Seamstress Goal (LTG) Pt will perform 5 steps with use of 1 or 2 rails and reciprocal gait to prepare for getting up to her sewing materials by 01/25/2020. LTG Duration 8 weeks One Residential Goal (LTG) Pt will perform progressive HEP with I including pelvic realignment, functional, flexibility, strengthening and gait activities to decrease fall risk and pain by 2019. LTG Duration 8 weeks Assessment Summary Assessment Pt is a 64 y/o female presenting with B LE pain, weakness and decreased ROM. She presents with B SLR to 45 deg and c/o hamstring and adductor pain with passive movement. She presents with decreased passive knee extension with limitations to 10 deg right and 5 deg left. Pt presents with multi-system problems including hx cancer, underlying inflammatory process that affects GI systems, joints and pain, OP, takes many medication including steroids and chemo drug for inflammatory disease. She also presents with guarding behavior and reports that she did not tolerate previous PT durations well d/t increased leg pain. Her left knee MRI presents with changes . She also presents with decreased effort with activities like sit to stands and MMT this date. These many medical and personal co- morbidities are barriers to PT . PT prognosis is guarded. She will benefit from PT trial to improve ROM and functional activities like sit to stand, gait and balance. She is interested in aquatic therapy and this might be easier on her joints than land therapy strengthening. PT will initiate gentle manual techniques to help with fascial components to pain. Physical Therapy Plan Frequency and Duration Frequency of Treatment 2x/Week Duration of Treatment 8 weeks Plan of Care Start Date 11/26/19 Plan of Care End Date 01/25/20 Therapeutic Interventions Therapeutic Interventions Aquatic Therapy,Balance Training,Gait Training,Home Exercise Program,Manual Therapy,Neuromuscular Re- education,Patient/Caregiver Education,Self-Care/Home Management,Soft Tissue Mobilization,Taping, Therapeutic Activities, Therapeutic Exercises Modalities Cold Pack/Ice Massage,Electric Stimulation,Hot Packs, Ultrasound Other Therapeutic Interventions Cold laser as appropriate Next Visit Focus/Plan Next Note Type Treatment Note Next Visit Plan Initiate pelvic realignment exercises Plan of Care Dates Plan of Care Start Date 11/26/19 Plan of Care End Date 01/25/20 Electronically Signed by: Annika Ríos PT 11/26/19 1454 Please Sign and Return: I have reviewed this Plan of Care and certify that the skilled therapy services above are required to meet the patient?s needs. Physician Signature Date Printed Name and Credentials Clinical Instructor Signature Printed Name and Credentials
--- NOTE | 2019-11-28 10:27 | PT-OP ANOTE ---
Appointment cancelled in setting of inclement weather
--- NOTE | 2019-12-05 12:30 | PT.OTN ---
Current Diagnoses Other symptoms and signs involving the musculoskeletal system (12/07/19) Physical Therapy Treatment Note PT-OP-A Visit Information Start: 11/22/19 09:24 Freq: Status: Active Protocol: Document 12/07/19 12:17 MB (Rec: 12/07/19 12:25 MB [id number]) Out-Patient Physical Therapy Visit Information Visit Information Visit Type Treatment Note Visit Start Time 12:17 Visit Stop Time 12:57 Total Visit Minutes 38 Visit Number 3/unlimited PT-OP-B Current Condition Start: 11/22/19 09:24 Freq: Status: Active Protocol: Document 11/26/19 10:29 MB (Rec: 11/26/19 10:52 MB [id number]) Current Condition History of Current Condition Onset Date Over the last year History of Current Condition Pt reports weakness after starting prednisone for possible underlying inflammatory disease. She has to use her arms to stand up and she has trouble going up the steps. She has pain in the back of her knees and up towards her buttocks. She feels pulling to the left or right of her spine. She feels deconditioned. Compicated PMH includes breast CA 2016 s/p lumpectomy and radiation and PT for lymphedema. History of injection in right shoulder and B knees, see further history below. Further PMH includes allergies/tape/latex, bronchiectasis and emphysema s/p smoking, OP, ? Crohn's, questionable swallowing issue Pt reports pain after having a blanket stuck under her and trying to take it off. Pt reports 4/10 pain under right arm, right lateral hip and and knee pain 3/10, right anterior knee pain 3/10, left anterior knee pain 5/10, right scapular, spinal, left SI pain 4/10, left lateral hip pain 3/10, left lateral knee pain 5/10. She is sleeping 4-5 hours. She cannot walk d/t knee pain B. She is interested in aquatic therapy. Pt sees multiple providers including refresh technician, GI specialist, core blower, orthopedist and oncologist. Pt has low iron. She does not know if she has a B12 or vitamin D deficiency. She gets infusions for OP. Oncologist note states that pt has psoriasis but pt does not mention this. Prior Treatments and Tests PT in past at this clinic for her back and her back has not really improved. She had PT for LUE lymphedema. She had PT in past for TMJ. She had PT for her knees that was rough. She had injections. She might have an inflammatory disease. She is on medication for this including prednisone and leflunomide. She takes her inhaler 2x/day. Dxs for thoracic spine with degenerative changes, right scapular pain of unknown source, left knee MRI 04/16/19 with changes: synovial thickening and increased enhancement consistent with synovitis, small to moderate joint effusion, popliteus tendonitis or partial tear, mild edema in the popliteus, mild tricompartmental cartilage loss PT-OP-C Subjective Start: 11/22/19 09:24 Freq: Status: Active Protocol: Document 12/07/19 12:17 MB (Rec: 12/07/19 12:25 MB [id number]) OP-PT Subjective Patient Comments Patient Comments Pt had her first pool treatment. She states that she was fearful of falling before getting into the pool d/t being prone to falls. PT-OP-J Posture/Palpation/Skin Start: 11/22/19 09:24 Freq: Status: Active Protocol: Document 11/26/19 10:29 MB (Rec: 11/26/19 13:00 MB [id number]) Posture Evaluation Comments Posture Comments Overall, decreased curvature of cervical, thoracic and lumbar spine, right scapula higher than the left, right iliac crest higher than the left PT-OP-M Strength Start: 11/22/19 09:24 Freq: Status: Active Protocol: Document 11/26/19 10:29 MB (Rec: 11/26/19 13:00 MB [id number]) Hip Strength Hip Manual Muscle Testing Left Flexion (L2) 2 Poor Abduction 2 Poor Comments Pt can mildly lift left hip off mat in sitting. There is some question of pt effort. In supine, pt presents with little tolerance to MMT. This is similar for all B LE joints Right Flexion (L2) 2- Poor- Abduction 2- Poor- Comments Pt cannot lift right hip off mat in sitting. There is some question of pt effort. In supine, PT assists her to get her right hip flexed with foot of the mat and pt presents with little tolerance to MMT. This is similar for all B LE joints Knee Strength Knee Manual Muscle Testing Left Flexion (S2) 2+ Poor+ Extension (L3) 2+ Poor+ Comments In supine. Weakness and/or decreased effort and guarding and fear of pain. Pt reports hamstring and adductor discomfort Right Flexion (S2) 3- Fair- Extension (L3) 3- Fair- Comments In supine. Weakness and/or decreased effort and guarding and fear of pain. Pt reports hamstring and adductor discomfort Ankle/Foot Strength Ankle and Foot Manual Muscle Testing Left Dorsiflexion (L4) 3 Fair Comments Great toe extension 4/5 Right Dorsiflexion (L4) 3 Fair Comments Great toe extension 4/5 PT-OP-Q Treatments Start: 11/22/19 09:24 Freq: Status: Active Protocol: Document 12/07/19 12:17 MB (Rec: 12/07/19 12:45 MB [id number]) Therapeutic Exercises Supine Exercises Abdominal drawing in Comments Performed 5 reps and held up to 20 sec Pelvic realignment exercises Comments Performs 5 reps, 3 sec hold first two exercises and 3 reps 3rd, has pain PT-OP-S Aquatic Treatment Start: 11/22/19 09:24 Freq: Status: Active Protocol: Document 12/05/19 12:30 SAK (Rec: 12/08/19 10:44 SAK [id number]) Aquatics Treatment Pool Entry/Exit Pool Entry/Exit Method Stairs Assistance Standby Assistance,Verbal Cues Water Walking january Water Level Chest Level Level of Assistance Contact Guard Assistance, Minimal Assistance,Verbal Cues Comments small lift Sideways Water Level Chest Level Level of Assistance Standby Assistance,Contact Guard Assistance,Verbal Cues Comments with shoulder ab/ad backward Water Level Chest Level Level of Assistance Standby Assistance,Verbal Cues Comments reverse breastroke UE's forward Water Level Chest Level Level of Assistance Standby Assistance,Verbal Cues Comments with breastroke UE's Lower Extremity Exercises hip circles Body Position Standing Water Level Chest Level Reps/Duration 10x ea CW and CCW Comments small circumference squats Body Position Standing Water Level Chest Level Reps/Duration 10x Comments mini squat heel raise Body Position Standing Water Level Chest Level Reps/Duration 5x Upper Extremity Exercises shoulder flex/ext Body Position Standing Water Level Chest Level Reps/Duration 10x Comments emphasis on core stab shoulder hor ab/ad Body Position Standing Water Level Chest Level Reps/Duration 10x Comments emphasis on core stab Spinal Exercises deep water hang Body Position Standing Water Level Chest Level Equipment noodle Reps/Duration 1'x3 [place] Activities [place] Activities Bicycle Equipment large noodle, 1# weights Duration 10' Comments CG to mod assist for vertical alignment PT-OP-T Assessment and Plan Start: 11/22/19 09:24 Freq: Status: Active Protocol: Document 12/07/19 12:17 MB (Rec: 12/07/19 12:25 MB [id number]) Physical Therapy Assessment Rehab Potential Rehabilitation Potential Fair Evaluation Complexity Number of Personal Factors/Comorbidities 1-2 Number of Body Systems Impaired 3 Clinical Presentation at Evaluation Evolving Impairments Impairments Activity Tolerance,Functional Activities,Functional Mobility ,Pain,Posture,ROM,Sensation, Strength Other Impairments Pt presents with multi-system problems including hx cancer, underlying inflammatory process that affects GI systems, joints and pain, OP, takes many medication including steroids and chemo drug for inflammatory disease. She also presents with guarding behavior and reports that she did not tolerate previous PT durations well d/t increased leg pain. Her left knee MRI presents with changes . She also presents with decreased effort with activities like sit to stands and MMT this date. These many medical and personal co- morbidities are barriers to PT . PT prognosis is guarded. Goals Four Impairment Decreased gait Prison Goal (LTG) Pt will gait train at least 1500 feet in 6 minutes with LRAD to increase community ambulation by 01/25/2020. LTG Duration 8 weeks Three Prison Goal (LTG) Pt will perform 5 reps sit to stand without UE support in less than 13 sec to improve functional transfers by 2019. LTG Duration 8 weeks Two Welfare Investigator Goal (LTG) Pt will perform 5 steps with use of 1 or 2 rails and reciprocal gait to prepare for getting up to her sewing materials by 01/25/2020. LTG Duration 8 weeks One Welfare Investigator Goal (LTG) Pt will perform progressive HEP with I including pelvic realignment, functional, flexibility, strengthening and gait activities to decrease fall risk and pain by 2019. LTG Duration 8 weeks Assessment Summary Assessment Increased time and rest to perform 4 simple exercises. Pt con't to be very sensitive regarding pain response and fearfulness about exercise. Aquatic therapy may be most helpful. Initiated gentle exercises this date--pelvic realignment. Will monitor response. Physical Therapy Plan Frequency and Duration Frequency of Treatment 2x/Week Duration of Treatment 8 weeks Plan of Care Start Date 11/26/19 Plan of Care End Date 01/25/20 Therapeutic Interventions Therapeutic Interventions Aquatic Therapy,Balance Training,Gait Training,Home Exercise Program,Manual Therapy,Neuromuscular Re- education,Patient/Caregiver Education,Self-Care/Home Management,Soft Tissue Mobilization,Taping, Therapeutic Activities, Therapeutic Exercises Modalities Cold Pack/Ice Massage,Electric Stimulation,Hot Packs, Ultrasound Other Therapeutic Interventions Cold laser as appropriate Next Visit Focus/Plan Next Note Type Treatment Note Next Visit Plan Review pelvic realignment exercises to see if pain, progress gentle core exercises to tolerance and progress LE work from that
--- NOTE | 2019-12-07 12:57 | PT.OTN ---
Current Diagnoses Other symptoms and signs involving the musculoskeletal system (12/07/19) Physical Therapy Treatment Note PT-OP-A Visit Information Start: 11/22/19 09:24 Freq: Status: Active Protocol: Document 12/07/19 12:17 MB (Rec: 12/07/19 12:25 MB [id number]) Out-Patient Physical Therapy Visit Information Visit Information Visit Type Treatment Note Visit Start Time 12:17 Visit Stop Time 12:57 Total Visit Minutes 38 Visit Number 3/unlimited PT-OP-B Current Condition Start: 11/22/19 09:24 Freq: Status: Active Protocol: Document 11/26/19 10:29 MB (Rec: 11/26/19 10:52 MB [id number]) Current Condition History of Current Condition Onset Date Over the last year History of Current Condition Pt reports weakness after starting prednisone for possible underlying inflammatory disease. She has to use her arms to stand up and she has trouble going up the steps. She has pain in the back of her knees and up towards her buttocks. She feels pulling to the left or right of her spine. She feels deconditioned. Compicated PMH includes breast CA 2016 s/p lumpectomy and radiation and PT for lymphedema. History of injection in right shoulder and B knees, see further history below. Further PMH includes allergies/tape/latex, bronchiectasis and emphysema s/p smoking, OP, ? Crohn's, questionable swallowing issue Pt reports pain after having a blanket stuck under her and trying to take it off. Pt reports 4/10 pain under right arm, right lateral hip and and knee pain 3/10, right anterior knee pain 3/10, left anterior knee pain 5/10, right scapular, spinal, left SI pain 4/10, left lateral hip pain 3/10, left lateral knee pain 5/10. She is sleeping 4-5 hours. She cannot walk d/t knee pain B. She is interested in aquatic therapy. Pt sees multiple providers including coordinator of library services, GI specialist, reprint sorter, orthopedist and oncologist. Pt has low iron. She does not know if she has a B12 or vitamin D deficiency. She gets infusions for OP. Oncologist note states that pt has psoriasis but pt does not mention this. Prior Treatments and Tests PT in past at this clinic for her back and her back has not really improved. She had PT for LUE lymphedema. She had PT in past for TMJ. She had PT for her knees that was rough. She had injections. She might have an inflammatory disease. She is on medication for this including prednisone and leflunomide. She takes her inhaler 2x/day. Dxs for thoracic spine with degenerative changes, right scapular pain of unknown source, left knee MRI 04/16/19 with changes: synovial thickening and increased enhancement consistent with synovitis, small to moderate joint effusion, popliteus tendonitis or partial tear, mild edema in the popliteus, mild tricompartmental cartilage loss PT-OP-C Subjective Start: 11/22/19 09:24 Freq: Status: Active Protocol: Document 12/07/19 12:17 MB (Rec: 12/07/19 12:25 MB [id number]) OP-PT Subjective Patient Comments Patient Comments Pt had her first pool treatment. She states that she was fearful of falling before getting into the pool d/t being prone to falls. PT-OP-J Posture/Palpation/Skin Start: 11/22/19 09:24 Freq: Status: Active Protocol: Document 11/26/19 10:29 MB (Rec: 11/26/19 13:00 MB [id number]) Posture Evaluation Comments Posture Comments Overall, decreased curvature of cervical, thoracic and lumbar spine, right scapula higher than the left, right iliac crest higher than the left PT-OP-M Strength Start: 11/22/19 09:24 Freq: Status: Active Protocol: Document 11/26/19 10:29 MB (Rec: 11/26/19 13:00 MB [id number]) Hip Strength Hip Manual Muscle Testing Left Flexion (L2) 2 Poor Abduction 2 Poor Comments Pt can mildly lift left hip off mat in sitting. There is some question of pt effort. In supine, pt presents with little tolerance to MMT. This is similar for all B LE joints Right Flexion (L2) 2- Poor- Abduction 2- Poor- Comments Pt cannot lift right hip off mat in sitting. There is some question of pt effort. In supine, PT assists her to get her right hip flexed with foot of the mat and pt presents with little tolerance to MMT. This is similar for all B LE joints Knee Strength Knee Manual Muscle Testing Left Flexion (S2) 2+ Poor+ Extension (L3) 2+ Poor+ Comments In supine. Weakness and/or decreased effort and guarding and fear of pain. Pt reports hamstring and adductor discomfort Right Flexion (S2) 3- Fair- Extension (L3) 3- Fair- Comments In supine. Weakness and/or decreased effort and guarding and fear of pain. Pt reports hamstring and adductor discomfort Ankle/Foot Strength Ankle and Foot Manual Muscle Testing Left Dorsiflexion (L4) 3 Fair Comments Great toe extension 4/5 Right Dorsiflexion (L4) 3 Fair Comments Great toe extension 4/5 PT-OP-Q Treatments Start: 11/22/19 09:24 Freq: Status: Active Protocol: Document 12/07/19 12:17 MB (Rec: 12/07/19 12:45 MB [id number]) Therapeutic Exercises Supine Exercises Abdominal drawing in Comments Performed 5 reps and held up to 20 sec Pelvic realignment exercises Comments Performs 5 reps, 3 sec hold first two exercises and 3 reps 3rd, has pain PT-OP-T Assessment and Plan Start: 11/22/19 09:24 Freq: Status: Active Protocol: Document 12/07/19 12:17 MB (Rec: 12/07/19 12:25 MB [id number]) Physical Therapy Assessment Rehab Potential Rehabilitation Potential Fair Evaluation Complexity Number of Personal Factors/Comorbidities 1-2 Number of Body Systems Impaired 3 Clinical Presentation at Evaluation Evolving Impairments Impairments Activity Tolerance,Functional Activities,Functional Mobility ,Pain,Posture,ROM,Sensation, Strength Other Impairments Pt presents with multi-system problems including hx cancer, underlying inflammatory process that affects GI systems, joints and pain, OP, takes many medication including steroids and chemo drug for inflammatory disease. She also presents with guarding behavior and reports that she did not tolerate previous PT durations well d/t increased leg pain. Her left knee MRI presents with changes . She also presents with decreased effort with activities like sit to stands and MMT this date. These many medical and personal co- morbidities are barriers to PT . PT prognosis is guarded. Goals Four Impairment Decreased gait Mcc Goal (LTG) Pt will gait train at least 1500 feet in 6 minutes with LRAD to increase community ambulation by 01/25/2020. LTG Duration 8 weeks Three Operations [place] Goal (LTG) Pt will perform 5 reps sit to stand without UE support in less than 13 sec to improve functional transfers by 2019. LTG Duration 8 weeks Two Mcc Goal (LTG) Pt will perform 5 steps with use of 1 or 2 rails and reciprocal gait to prepare for getting up to her sewing materials by 01/25/2020. LTG Duration 8 weeks One Mcc Goal (LTG) Pt will perform progressive HEP with I including pelvic realignment, functional, flexibility, strengthening and gait activities to decrease fall risk and pain by 2019. LTG Duration 8 weeks Assessment Summary Assessment Increased time and rest to perform 4 simple exercises. Pt con't to be very sensitive regarding pain response and fearfulness about exercise. Aquatic therapy may be most helpful. Initiated gentle exercises this date--pelvic realignment. Will monitor response. Physical Therapy Plan Frequency and Duration Frequency of Treatment 2x/Week Duration of Treatment 8 weeks Plan of Care Start Date 11/26/19 Plan of Care End Date 01/25/20 Therapeutic Interventions Therapeutic Interventions Aquatic Therapy,Balance Training,Gait Training,Home Exercise Program,Manual Therapy,Neuromuscular Re- education,Patient/Caregiver Education,Self-Care/Home Management,Soft Tissue Mobilization,Taping, Therapeutic Activities, Therapeutic Exercises Modalities Cold Pack/Ice Massage,Electric Stimulation,Hot Packs, Ultrasound Other Therapeutic Interventions Cold laser as appropriate Next Visit Focus/Plan Next Note Type Treatment Note Next Visit Plan Review pelvic realignment exercises to see if pain, progress gentle core exercises to tolerance and progress LE work from that
--- NOTE | 2019-12-12 16:26 | PT.OTN ---
Current Diagnoses Other symptoms and signs involving the musculoskeletal system (12/12/19) Physical Therapy Treatment Note PT-OP-A Visit Information Start: 11/22/19 09:24 Freq: Status: Active Protocol: Document 12/12/19 16:07 SAK (Rec: 12/12/19 16:26 SAK [id number]) Out-Patient Physical Therapy Visit Information Visit Information Visit Type Aquatic Treatment Note Visit Start Time 10:15 Visit Stop Time 11:00 Total Visit Minutes 45 Visit Number 4/unlimited PT-OP-B Current Condition Start: 11/22/19 09:24 Freq: Status: Active Protocol: Document 11/26/19 10:29 MB (Rec: 11/26/19 10:52 MB [id number]) Current Condition History of Current Condition Onset Date Over the last year History of Current Condition Pt reports weakness after starting prednisone for possible underlying inflammatory disease. She has to use her arms to stand up and she has trouble going up the steps. She has pain in the back of her knees and up towards her buttocks. She feels pulling to the left or right of her spine. She feels deconditioned. Compicated PMH includes breast CA 2016 s/p lumpectomy and radiation and PT for lymphedema. History of injection in right shoulder and B knees, see further history below. Further PMH includes allergies/tape/latex, bronchiectasis and emphysema s/p smoking, OP, ? Crohn's, questionable swallowing issue Pt reports pain after having a blanket stuck under her and trying to take it off. Pt reports 4/10 pain under right arm, right lateral hip and and knee pain 3/10, right anterior knee pain 3/10, left anterior knee pain 5/10, right scapular, spinal, left SI pain 4/10, left lateral hip pain 3/10, left lateral knee pain 5/10. She is sleeping 4-5 hours. She cannot walk d/t knee pain B. She is interested in aquatic therapy. Pt sees multiple providers including stapling machine operator, GI specialist, vacuum conditioner operator, orthopedist and oncologist. Pt has low iron. She does not know if she has a B12 or vitamin D deficiency. She gets infusions for OP. Oncologist note states that pt has psoriasis but pt does not mention this. Prior Treatments and Tests PT in past at this clinic for her back and her back has not really improved. She had PT for LUE lymphedema. She had PT in past for TMJ. She had PT for her knees that was rough. She had injections. She might have an inflammatory disease. She is on medication for this including prednisone and leflunomide. She takes her inhaler 2x/day. Dxs for thoracic spine with degenerative changes, right scapular pain of unknown source, left knee MRI 04/16/19 with changes: synovial thickening and increased enhancement consistent with synovitis, small to moderate joint effusion, popliteus tendonitis or partial tear, mild edema in the popliteus, mild tricompartmental cartilage loss PT-OP-C Subjective Start: 11/22/19 09:24 Freq: Status: Active Protocol: Document 12/12/19 16:07 SAK (Rec: 12/12/19 16:26 SAK [id number]) OP-PT Subjective Patient Comments Patient Comments Stated she had some muscle soreness after her first session in the pool, but no increase in pain. PT-OP-J Posture/Palpation/Skin Start: 11/22/19 09:24 Freq: Status: Active Protocol: Document 11/26/19 10:29 MB (Rec: 11/26/19 13:00 MB [id number]) Posture Evaluation Comments Posture Comments Overall, decreased curvature of cervical, thoracic and lumbar spine, right scapula higher than the left, right iliac crest higher than the left PT-OP-M Strength Start: 11/22/19 09:24 Freq: Status: Active Protocol: Document 11/26/19 10:29 MB (Rec: 11/26/19 13:00 MB [id number]) Hip Strength Hip Manual Muscle Testing Left Flexion (L2) 2 Poor Abduction 2 Poor Comments Pt can mildly lift left hip off mat in sitting. There is some question of pt effort. In supine, pt presents with little tolerance to MMT. This is similar for all B LE joints Right Flexion (L2) 2- Poor- Abduction 2- Poor- Comments Pt cannot lift right hip off mat in sitting. There is some question of pt effort. In supine, PT assists her to get her right hip flexed with foot of the mat and pt presents with little tolerance to MMT. This is similar for all B LE joints Knee Strength Knee Manual Muscle Testing Left Flexion (S2) 2+ Poor+ Extension (L3) 2+ Poor+ Comments In supine. Weakness and/or decreased effort and guarding and fear of pain. Pt reports hamstring and adductor discomfort Right Flexion (S2) 3- Fair- Extension (L3) 3- Fair- Comments In supine. Weakness and/or decreased effort and guarding and fear of pain. Pt reports hamstring and adductor discomfort Ankle/Foot Strength Ankle and Foot Manual Muscle Testing Left Dorsiflexion (L4) 3 Fair Comments Great toe extension 4/5 Right Dorsiflexion (L4) 3 Fair Comments Great toe extension 4/5 PT-OP-Q Treatments Start: 11/22/19 09:24 Freq: Status: Active Protocol: Document 12/07/19 12:17 MB (Rec: 12/07/19 12:45 MB [id number]) Therapeutic Exercises Supine Exercises Abdominal drawing in Comments Performed 5 reps and held up to 20 sec Pelvic realignment exercises Comments Performs 5 reps, 3 sec hold first two exercises and 3 reps 3rd, has pain PT-OP-S Aquatic Treatment Start: 11/22/19 09:24 Freq: Status: Active Protocol: Document 12/12/19 16:07 SAK (Rec: 12/12/19 16:26 SAK [id number]) Aquatics Treatment Pool Entry/Exit Pool Entry/Exit Method Stairs Assistance Standby Assistance,Verbal Cues Water Walking january Water Level Chest Level Level of Assistance Standby Assistance,Verbal Cues Comments small lift Sideways Water Level Chest Level Level of Assistance Standby Assistance,Verbal Cues Comments with shoulder ab/ad, small step backward Water Level Chest Level Level of Assistance Standby Assistance,Verbal Cues Comments reverse breastroke UE's forward Water Level Chest Level Level of Assistance Standby Assistance,Verbal Cues Comments with breastroke UE's Lower Extremity Exercises hip circles Body Position Standing Water Level Chest Level Reps/Duration 10x ea CW and CCW Comments small circumference squats Body Position Standing Water Level Chest Level Reps/Duration 10x Comments with hip hinge heel raise Body Position Standing Water Level Chest Level Reps/Duration 5x Lower Extremity Stretches HS stretch Equipment small ankle floats Reps/Duration 2x 30 Comments back against wall Upper Extremity Exercises shoulder flex/ext Body Position Standing Water Level Chest Level Reps/Duration 10x Comments emphasis on core stab shoulder hor ab/ad Details keiko and unil Body Position Standing Water Level Chest Level Reps/Duration 10x Comments emphasis on core stab Spinal Exercises deep water hang Body Position Standing Water Level Chest Level Equipment noodle Reps/Duration 1'x3 [employer] Activities [employer] Activities Bicycle Equipment large noodle, 1# weights Duration 10' Comments SB to min assist for vertical alignment PT-OP-T Assessment and Plan Start: 11/22/19 09:24 Freq: Status: Active Protocol: Document 12/12/19 16:07 [facility] (Rec: 12/12/19 16:26 [facility] [id number]) Physical Therapy Assessment Rehab Potential Rehabilitation Potential Fair Evaluation Complexity Number of Personal Factors/Comorbidities 1-2 Number of Body Systems Impaired 3 Clinical Presentation at Evaluation Evolving Impairments Impairments Activity Tolerance,Functional Activities,Functional Mobility ,Pain,Posture,ROM,Sensation, Strength Other Impairments Pt presents with multi-system problems including hx cancer, underlying inflammatory process that affects GI systems, joints and pain, OP, takes many medication including steroids and chemo drug for inflammatory disease. She also presents with guarding behavior and reports that she did not tolerate previous PT durations well d/t increased leg pain. Her left knee MRI presents with changes . She also presents with decreased effort with activities like sit to stands and MMT this date. These many medical and personal co- morbidities are barriers to PT . PT prognosis is guarded. Goals Four Impairment Decreased gait Datapower Consultant Goal (LTG) Pt will gait train at least 1500 feet in 6 minutes with LRAD to increase community ambulation by 01/25/2020. LTG Duration 8 weeks Three Datapower Consultant Goal (LTG) Pt will perform 5 reps sit to stand without UE support in less than 13 sec to improve functional transfers by 2019. LTG Duration 8 weeks [place] [employer] Goal (LTG) Pt will perform 5 steps with use of 1 or 2 rails and reciprocal gait to prepare for getting up to her sewing materials by 01/25/2020. LTG Duration 8 weeks One [employer] Goal (LTG) Pt will perform progressive HEP with I including pelvic realignment, functional, flexibility, strengthening and gait activities to decrease fall risk and pain by 2019. LTG Duration 8 weeks Assessment Summary Assessment Patient appeared much more comfortable today in aquatic therapy and required decreased physical assistance for vertical alignment and balance . Able to gently progress with ther ex with good tolerance. Physical Therapy Plan Frequency and Duration Frequency of Treatment 2x/Week Duration of Treatment 8 weeks Plan of Care Start Date 11/26/19 Plan of Care End Date 01/25/20 Therapeutic Interventions Therapeutic Interventions Aquatic Therapy,Balance Training,Gait Training,Home Exercise Program,Manual Therapy,Neuromuscular Re- education,Patient/Caregiver Education,Self-Care/Home Management,Soft Tissue Mobilization,Taping, Therapeutic Activities, Therapeutic Exercises Modalities Cold Pack/Ice Massage,Electric Stimulation,Hot Packs, Ultrasound Other Therapeutic Interventions Cold laser as appropriate Next Visit Focus/Plan Next Note Type Treatment Note Next Visit Plan In aquatic PT progress ther aquatic exercises for core strengthening, ROM and flexibility.
--- NOTE | 2019-12-14 15:48 | PT.OTN ---
Current Diagnoses Other symptoms and signs involving the musculoskeletal system (12/14/19) Physical Therapy Treatment Note PT-OP-A Visit Information Start: 11/22/19 09:24 Freq: Status: Active Protocol: Document 12/14/19 15:10 MB (Rec: 12/14/19 15:48 MB [id number]) Out-Patient Physical Therapy Visit Information Visit Information Visit Type Treatment Note Visit Start Time 15:10 Visit Stop Time 15:42 Total Visit Minutes 32 Visit Number 5/unlimited PT-OP-B Current Condition Start: 11/22/19 09:24 Freq: Status: Active Protocol: Document 11/26/19 10:29 MB (Rec: 11/26/19 10:52 MB [id number]) Current Condition History of Current Condition Onset Date Over the last year History of Current Condition Pt reports weakness after starting prednisone for possible underlying inflammatory disease. She has to use her arms to stand up and she has trouble going up the steps. She has pain in the back of her knees and up towards her buttocks. She feels pulling to the left or right of her spine. She feels deconditioned. Compicated PMH includes breast CA 2016 s/p lumpectomy and radiation and PT for lymphedema. History of injection in right shoulder and B knees, see further history below. Further PMH includes allergies/tape/latex, bronchiectasis and emphysema s/p smoking, OP, ? Crohn's, questionable swallowing issue Pt reports pain after having a blanket stuck under her and trying to take it off. Pt reports 4/10 pain under right arm, right lateral hip and and knee pain 3/10, right anterior knee pain 3/10, left anterior knee pain 5/10, right scapular, spinal, left SI pain 4/10, left lateral hip pain 3/10, left lateral knee pain 5/10. She is sleeping 4-5 hours. She cannot walk d/t knee pain B. She is interested in aquatic therapy. Pt sees multiple providers including edge glue machine tender, GI specialist, gore inserter, orthopedist and oncologist. Pt has low iron. She does not know if she has a B12 or vitamin D deficiency. She gets infusions for OP. Oncologist note states that pt has psoriasis but pt does not mention this. Prior Treatments and Tests PT in past at this clinic for her back and her back has not really improved. She had PT for LUE lymphedema. She had PT in past for TMJ. She had PT for her knees that was rough. She had injections. She might have an inflammatory disease. She is on medication for this including prednisone and leflunomide. She takes her inhaler 2x/day. Dxs for thoracic spine with degenerative changes, right scapular pain of unknown source, left knee MRI 04/16/19 with changes: synovial thickening and increased enhancement consistent with synovitis, small to moderate joint effusion, popliteus tendonitis or partial tear, mild edema in the popliteus, mild tricompartmental cartilage loss PT-OP-C Subjective Start: 11/22/19 09:24 Freq: Status: Active Protocol: Document 12/14/19 15:10 MB (Rec: 12/14/19 15:48 MB [id number]) OP-PT Subjective Patient Comments Patient Comments Pt is having a lot of problems . She doesn't know if she has a UTI or if the pool is bothering her. She had a cystoscopy before her first pool treatment. She has some trouble urinating. She saw a pelvic lasting floorworker in the past and it was okay. PT-OP-J Posture/Palpation/Skin Start: 11/22/19 09:24 Freq: Status: Active Protocol: Document 11/26/19 10:29 MB (Rec: 11/26/19 13:00 MB [id number]) Posture Evaluation Comments Posture Comments Overall, decreased curvature of cervical, thoracic and lumbar spine, right scapula higher than the left, right iliac crest higher than the left PT-OP-M Strength Start: 11/22/19 09:24 Freq: Status: Active Protocol: Document 11/26/19 10:29 MB (Rec: 11/26/19 13:00 MB [id number]) Hip Strength Hip Manual Muscle Testing Left Flexion (L2) 2 Poor Abduction 2 Poor Comments Pt can mildly lift left hip off mat in sitting. There is some question of pt effort. In supine, pt presents with little tolerance to MMT. This is similar for all B LE joints Right Flexion (L2) 2- Poor- Abduction 2- Poor- Comments Pt cannot lift right hip off mat in sitting. There is some question of pt effort. In supine, PT assists her to get her right hip flexed with foot of the mat and pt presents with little tolerance to MMT. This is similar for all B LE joints Knee Strength Knee Manual Muscle Testing Left Flexion (S2) 2+ Poor+ Extension (L3) 2+ Poor+ Comments In supine. Weakness and/or decreased effort and guarding and fear of pain. Pt reports hamstring and adductor discomfort Right Flexion (S2) 3- Fair- Extension (L3) 3- Fair- Comments In supine. Weakness and/or decreased effort and guarding and fear of pain. Pt reports hamstring and adductor discomfort Ankle/Foot Strength Ankle and Foot Manual Muscle Testing Left Dorsiflexion (L4) 3 Fair Comments Great toe extension 4/5 Right Dorsiflexion (L4) 3 Fair Comments Great toe extension 4/5 PT-OP-Q Treatments Start: 11/22/19 09:24 Freq: Status: Active Protocol: Document 12/14/19 15:10 MB (Rec: 12/14/19 15:48 MB [id number]) Therapeutic Exercises Supine Exercises Diaphragmatic breathing Comments 2 reps today and added to HEP Core exercises Comments Added heel slide today, 2 reps B Abdominal drawing in Comments Performed 1 rep and then progressed core exercises Pelvic realignment exercises Comments Performs 5 reps, 3 sec hold first two exercises and 3 reps 3rd, has pain PT-OP-S Aquatic Treatment Start: 11/22/19 09:24 Freq: Status: Active Protocol: Document 12/12/19 16:07 SAK (Rec: 12/12/19 16:26 SAK [id number]) Aquatics Treatment Pool Entry/Exit Pool Entry/Exit Method Stairs Assistance Standby Assistance,Verbal Cues Water Walking january Water Level Chest Level Level of Assistance Standby Assistance,Verbal Cues Comments small lift Sideways Water Level Chest Level Level of Assistance Standby Assistance,Verbal Cues Comments with shoulder ab/ad, small step backward Water Level Chest Level Level of Assistance Standby Assistance,Verbal Cues Comments reverse breastroke UE's forward Water Level Chest Level Level of Assistance Standby Assistance,Verbal Cues Comments with breastroke UE's Lower Extremity Exercises hip circles Body Position Standing Water Level Chest Level Reps/Duration 10x ea CW and CCW Comments small circumference squats Body Position Standing Water Level Chest Level Reps/Duration 10x Comments with hip hinge heel raise Body Position Standing Water Level Chest Level Reps/Duration 5x Lower Extremity Stretches HS stretch Equipment small ankle floats Reps/Duration 2x 30 Comments back against wall Upper Extremity Exercises shoulder flex/ext Body Position Standing Water Level Chest Level Reps/Duration 10x Comments emphasis on core stab shoulder hor ab/ad Details keiko and unil Body Position Standing Water Level Chest Level Reps/Duration 10x Comments emphasis on core stab Spinal Exercises deep water hang Body Position Standing Water Level Chest Level Equipment noodle Reps/Duration 1'x3 [place] Activities [place] Activities Bicycle Equipment large noodle, 1# weights Duration 10' Comments SB to min assist for vertical alignment PT-OP-T Assessment and Plan Start: 11/22/19 09:24 Freq: Status: Active Protocol: Document 12/14/19 15:10 MB (Rec: 12/14/19 15:48 MB [id number]) Physical Therapy Assessment Rehab Potential Rehabilitation Potential Fair Evaluation Complexity Number of Personal Factors/Comorbidities 1-2 Number of Body Systems Impaired 3 Clinical Presentation at Evaluation Evolving Impairments Impairments Activity Tolerance,Functional Activities,Functional Mobility ,Pain,Posture,ROM,Sensation, Strength Other Impairments Pt presents with multi-system problems including hx cancer, underlying inflammatory process that affects GI systems, joints and pain, OP, takes many medication including steroids and chemo drug for inflammatory disease. She also presents with guarding behavior and reports that she did not tolerate previous PT durations well d/t increased leg pain. Her left knee MRI presents with changes . She also presents with decreased effort with activities like sit to stands and MMT this date. These many medical and personal co- morbidities are barriers to PT . PT prognosis is guarded. Goals Four Impairment Decreased gait [employer] Goal (LTG) Pt will gait train at least 1500 feet in 6 minutes with LRAD to increase community ambulation by 01/25/2020. LTG Duration 8 weeks Three [employer] Goal (LTG) Pt will perform 5 reps sit to stand without UE support in less than 13 sec to improve functional transfers by 2019. LTG Duration 8 weeks Two [facility] Goal (LTG) Pt will perform 5 steps with use of 1 or 2 rails and reciprocal gait to prepare for getting up to her sewing materials by 01/25/2020. LTG Duration 8 weeks One [employer] Goal (LTG) Pt will perform progressive HEP with I including pelvic realignment, functional, flexibility, strengthening and gait activities to decrease fall risk and pain by 2019. LTG Duration 8 weeks Assessment Summary Assessment Pt con't to be very sensitive to treatment and tolerates slow performance of exercises. Reviewed her current exercises and added diaphragmatic and core progression today. Physical Therapy Plan Frequency and Duration Frequency of Treatment 2x/Week Duration of Treatment 8 weeks Plan of Care Start Date 11/26/19 Plan of Care End Date 01/25/20 Therapeutic Interventions Therapeutic Interventions Aquatic Therapy,Balance Training,Gait Training,Home Exercise Program,Manual Therapy,Neuromuscular Re- education,Patient/Caregiver Education,Self-Care/Home Management,Soft Tissue Mobilization,Taping, Therapeutic Activities, Therapeutic Exercises Modalities Cold Pack/Ice Massage,Electric Stimulation,Hot Packs, Ultrasound Other Therapeutic Interventions Cold laser as appropriate Next Visit Focus/Plan Next Note Type Treatment Note Next Visit Plan Con't gentle therapy, progress as she tolerates. Initiate Counterstrain to decrease systemic inflammation in setting of underlying inflammatory disease
--- NOTE | 2019-12-17 11:14 | PT.OTN ---
Current Diagnoses Other symptoms and signs involving the musculoskeletal system (12/17/19) Physical Therapy Treatment Note PT-OP-A Visit Information Start: 11/22/19 09:24 Freq: Status: Active Protocol: Document 12/17/19 10:33 MB (Rec: 12/17/19 11:14 MB [id number]) Out-Patient Physical Therapy Visit Information Visit Information Visit Type Treatment Note Visit Start Time 10:33 Visit Stop Time 11:14 Total Visit Minutes 41 Visit Number 6/unlimited PT-OP-B Current Condition Start: 11/22/19 09:24 Freq: Status: Active Protocol: Document 11/26/19 10:29 MB (Rec: 11/26/19 10:52 MB [id number]) Current Condition History of Current Condition Onset Date Over the last year History of Current Condition Pt reports weakness after starting prednisone for possible underlying inflammatory disease. She has to use her arms to stand up and she has trouble going up the steps. She has pain in the back of her knees and up towards her buttocks. She feels pulling to the left or right of her spine. She feels deconditioned. Compicated PMH includes breast CA 2016 s/p lumpectomy and radiation and PT for lymphedema. History of injection in right shoulder and B knees, see further history below. Further PMH includes allergies/tape/latex, bronchiectasis and emphysema s/p smoking, OP, ? Crohn's, questionable swallowing issue Pt reports pain after having a blanket stuck under her and trying to take it off. Pt reports 4/10 pain under right arm, right lateral hip and and knee pain 3/10, right anterior knee pain 3/10, left anterior knee pain 5/10, right scapular, spinal, left SI pain 4/10, left lateral hip pain 3/10, left lateral knee pain 5/10. She is sleeping 4-5 hours. She cannot walk d/t knee pain B. She is interested in aquatic therapy. 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 Pt has low iron. She does not know if she has a B12 or vitamin D deficiency. She gets infusions for OP. Oncologist note states that pt has psoriasis but pt does not mention this. Prior Treatments and Tests PT in past at this clinic for her back and her back has not really improved. She had PT for LUE lymphedema. She had PT in past for TMJ. She had PT for her knees that was rough. She had injections. She might have an inflammatory disease. She is on medication for this including prednisone and leflunomide. She takes her inhaler 2x/day. Dxs for thoracic spine with degenerative changes, right scapular pain of unknown source, left knee MRI 04/16/19 with changes: synovial thickening and increased enhancement consistent with synovitis, small to moderate joint effusion, popliteus tendonitis or partial tear, mild edema in the popliteus, mild tricompartmental cartilage loss PT-OP-C Subjective Start: 11/22/19 09:24 Freq: Status: Active Protocol: Document 12/17/19 10:33 MB (Rec: 12/17/19 11:14 MB [id number]) OP-PT Subjective Patient Comments Patient Comments Pt states that she is having a lot of pain. She does not know if it is the weather or not. She gets some cramping pain in right that goes from her side to her deep anus area . PT-OP-J Posture/Palpation/Skin Start: 11/22/19 09:24 Freq: Status: Active Protocol: Document 11/26/19 10:29 MB (Rec: 11/26/19 13:00 MB [id number]) Posture Evaluation Comments Posture Comments Overall, decreased curvature of cervical, thoracic and lumbar spine, right scapula higher than the left, right iliac crest higher than the left PT-OP-M Strength Start: 11/22/19 09:24 Freq: Status: Active Protocol: Document 11/26/19 10:29 MB (Rec: 11/26/19 13:00 MB [id number]) Hip Strength Hip Manual Muscle Testing Left Flexion (L2) 2 Poor Abduction 2 Poor Comments Pt can mildly lift left hip off mat in sitting. There is some question of pt effort. In supine, pt presents with little tolerance to MMT. This is similar for all B LE joints Right Flexion (L2) 2- Poor- Abduction 2- Poor- Comments Pt cannot lift right hip off mat in sitting. There is some question of pt effort. In supine, PT assists her to get her right hip flexed with foot of the mat and pt presents with little tolerance to MMT. This is similar for all B LE joints Knee Strength Knee Manual Muscle Testing Left Flexion (S2) 2+ Poor+ Extension (L3) 2+ Poor+ Comments In supine. Weakness and/or decreased effort and guarding and fear of pain. Pt reports hamstring and adductor discomfort Right Flexion (S2) 3- Fair- Extension (L3) 3- Fair- Comments In supine. Weakness and/or decreased effort and guarding and fear of pain. Pt reports hamstring and adductor discomfort Ankle/Foot Strength Ankle and Foot Manual Muscle Testing Left Dorsiflexion (L4) 3 Fair Comments Great toe extension 4/5 Right Dorsiflexion (L4) 3 Fair Comments Great toe extension 4/5 PT-OP-Q Treatments Start: 11/22/19 09:24 Freq: Status: Active Protocol: Document 12/17/19 10:33 MB (Rec: 12/17/19 11:14 MB [id number]) Manual Therapy Treatment Soft Tissue Mobilization Counterstrain Comments Pt agrees to Counterstrain to assess and treat fascial tension and PT treats stacks B : DPRs (neural fascia) thoracic to lumbar spine, pre- ganglionic neural fascia LE, thoracic and lumbar sinu- vertebral. PT-OP-S Aquatic Treatment Start: 11/22/19 09:24 Freq: Status: Active Protocol: Document 12/12/19 16:07 SAK (Rec: 12/12/19 16:26 SAK [id number]) Aquatics Treatment Pool Entry/Exit Pool Entry/Exit Method Stairs Assistance Standby Assistance,Verbal Cues Water Walking january Water Level Chest Level Level of Assistance Standby Assistance,Verbal Cues Comments small lift Sideways Water Level Chest Level Level of Assistance Standby Assistance,Verbal Cues Comments with shoulder ab/ad, small step backward Water Level Chest Level Level of Assistance Standby Assistance,Verbal Cues Comments reverse breastroke UE's forward Water Level Chest Level Level of Assistance Standby Assistance,Verbal Cues Comments with breastroke UE's Lower Extremity Exercises hip circles Body Position Standing Water Level Chest Level Reps/Duration 10x ea CW and CCW Comments small circumference squats Body Position Standing Water Level Chest Level Reps/Duration 10x Comments with hip hinge heel raise Body Position Standing Water Level Chest Level Reps/Duration 5x Lower Extremity Stretches HS stretch Equipment small ankle floats Reps/Duration 2x 30 Comments back against wall Upper Extremity Exercises shoulder flex/ext Body Position Standing Water Level Chest Level Reps/Duration 10x Comments emphasis on core stab shoulder hor ab/ad Details keiko and unil Body Position Standing Water Level Chest Level Reps/Duration 10x Comments emphasis on core stab Spinal Exercises deep water hang Body Position Standing Water Level Chest Level Equipment noodle Reps/Duration 1'x3 Wallace Activities Wallace Activities Bicycle Equipment large noodle, 1# weights Duration 10' Comments SB to min assist for vertical alignment PT-OP-T Assessment and Plan Start: 11/22/19 09:24 Freq: Status: Active Protocol: Document 12/17/19 10:33 MB (Rec: 12/17/19 11:14 MB [id number]) Physical Therapy Assessment Rehab Potential Rehabilitation Potential Fair Evaluation Complexity Number of Personal Factors/Comorbidities 1-2 Number of Body Systems Impaired 3 Clinical Presentation at Evaluation Evolving Impairments Impairments Activity Tolerance,Functional Activities,Functional Mobility ,Pain,Posture,ROM,Sensation, Strength Other Impairments Pt presents with multi-system problems including hx cancer, underlying inflammatory process that affects GI systems, joints and pain, OP, takes many medication including steroids and chemo drug for inflammatory disease. She also presents with guarding behavior and reports that she did not tolerate previous PT durations well d/t increased leg pain. Her left knee MRI presents with changes . She also presents with decreased effort with activities like sit to stands and MMT this date. These many medical and personal co- morbidities are barriers to PT . PT prognosis is guarded. Goals Four Impairment Decreased gait Group Home Goal (LTG) Pt will gait train at least 1500 feet in 6 minutes with LRAD to increase community ambulation by 01/25/2020. LTG Duration 8 weeks Three Group Home Goal (LTG) Pt will perform 5 reps sit to stand without UE support in less than 13 sec to improve functional transfers by 2019. LTG Duration 8 weeks Two Group Home Goal (LTG) Pt will perform 5 steps with use of 1 or 2 rails and reciprocal gait to prepare for getting up to her sewing materials by 01/25/2020. LTG Duration 8 weeks One Group Home Goal (LTG) Pt will perform progressive HEP with I including pelvic realignment, functional, flexibility, strengthening and gait activities to decrease fall risk and pain by 2019. LTG Duration 8 weeks Assessment Summary Assessment Initiated Counterstrain today to help address fascial restrictions. No adverse response to treatment. Monitor how she responds. Physical Therapy Plan Frequency and Duration Frequency of Treatment 2x/Week Duration of Treatment 8 weeks Plan of Care Start Date 11/26/19 Plan of Care End Date 01/25/20 Therapeutic Interventions Therapeutic Interventions Aquatic Therapy,Balance Training,Gait Training,Home Exercise Program,Manual Therapy,Neuromuscular Re- education,Patient/Caregiver Education,Self-Care/Home Management,Soft Tissue Mobilization,Taping, Therapeutic Activities, Therapeutic Exercises Modalities Cold Pack/Ice Massage,Electric Stimulation,Hot Packs, Ultrasound Other Therapeutic Interventions Cold laser as appropriate Next Visit Focus/Plan Next Note Type Treatment Note Next Visit Plan Con't gentle therapy, progress as she tolerates. Monitor response to Counterstrain to decrease systemic inflammation in setting of underlying inflammatory disease
--- NOTE | 2019-12-19 17:37 | PT.OTN ---
Current Diagnoses Other symptoms and signs involving the musculoskeletal system (12/19/19) Physical Therapy Treatment Note PT-OP-A Visit Information Start: 11/22/19 09:24 Freq: Status: Active Protocol: Document 12/19/19 17:27 LJ (Rec: 12/19/19 17:37 LJ [id number]) Out-Patient Physical Therapy Visit Information Visit Information Visit Type Aquatic Treatment Note Visit Start Time 10:15 Visit Stop Time 10:56 Total Visit Minutes 41 Visit Number 7/unlimited Number of FLEXO PRESS OPERATOR Visits 1 PT-OP-B Current Condition Start: 11/22/19 09:24 Freq: Status: Active Protocol: Document 11/26/19 10:29 MB (Rec: 11/26/19 10:52 MB [id number]) Current Condition History of Current Condition Onset Date Over the last year History of Current Condition Pt reports weakness after starting prednisone for possible underlying inflammatory disease. She has to use her arms to stand up and she has trouble going up the steps. She has pain in the back of her knees and up towards her buttocks. She feels pulling to the left or right of her spine. She feels deconditioned. Compicated PMH includes breast CA 2016 s/p lumpectomy and radiation and PT for lymphedema. History of injection in right shoulder and B knees, see further history below. Further PMH includes allergies/tape/latex, bronchiectasis and emphysema s/p smoking, OP, ? Crohn's, questionable swallowing issue Pt reports pain after having a blanket stuck under her and trying to take it off. Pt reports 4/10 pain under right arm, right lateral hip and and knee pain 3/10, right anterior knee pain 3/10, left anterior knee pain 5/10, right scapular, spinal, left SI pain 4/10, left lateral hip pain 3/10, left lateral knee pain 5/10. She is sleeping 4-5 hours. She cannot walk d/t knee pain B. She is interested in aquatic therapy. 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 Pt has low iron. She does not know if she has a B12 or vitamin D deficiency. She gets infusions for OP. Oncologist note states that pt has psoriasis but pt does not mention this. Prior Treatments and Tests PT in past at this clinic for her back and her back has not really improved. She had PT for LUE lymphedema. She had PT in past for TMJ. She had PT for her knees that was rough. She had injections. She might have an inflammatory disease. She is on medication for this including prednisone and leflunomide. She takes her inhaler 2x/day. Dxs for thoracic spine with degenerative changes, right scapular pain of unknown source, left knee MRI 04/16/19 with changes: synovial thickening and increased enhancement consistent with synovitis, small to moderate joint effusion, popliteus tendonitis or partial tear, mild edema in the popliteus, mild tricompartmental cartilage loss PT-OP-C Subjective Start: 11/22/19 09:24 Freq: Status: Active Protocol: Document 12/19/19 17:27 LJ (Rec: 12/19/19 17:37 LJ [id number]) OP-PT Subjective Patient Comments Patient Comments Pt complained of pain in her right shoulder after an abrupt movement she made while throwing a blanket off of her while in bed. She also stated that she has a significant amount of pain and weakness that limits what she can do PT-OP-J Posture/Palpation/Skin Start: 11/22/19 09:24 Freq: Status: Active Protocol: Document 11/26/19 10:29 MB (Rec: 11/26/19 13:00 MB [id number]) Posture Evaluation Comments Posture Comments Overall, decreased curvature of cervical, thoracic and lumbar spine, right scapula higher than the left, right iliac crest higher than the left PT-OP-M Strength Start: 11/22/19 09:24 Freq: Status: Active Protocol: Document 11/26/19 10:29 MB (Rec: 11/26/19 13:00 MB [id number]) Hip Strength Hip Manual Muscle Testing Left Flexion (L2) 2 Poor Abduction 2 Poor Comments Pt can mildly lift left hip off mat in sitting. There is some question of pt effort. In supine, pt presents with little tolerance to MMT. This is similar for all B LE joints Right Flexion (L2) 2- Poor- Abduction 2- Poor- Comments Pt cannot lift right hip off mat in sitting. There is some question of pt effort. In supine, PT assists her to get her right hip flexed with foot of the mat and pt presents with little tolerance to MMT. This is similar for all B LE joints Knee Strength Knee Manual Muscle Testing Left Flexion (S2) 2+ Poor+ Extension (L3) 2+ Poor+ Comments In supine. Weakness and/or decreased effort and guarding and fear of pain. Pt reports hamstring and adductor discomfort Right Flexion (S2) 3- Fair- Extension (L3) 3- Fair- Comments In supine. Weakness and/or decreased effort and guarding and fear of pain. Pt reports hamstring and adductor discomfort Ankle/Foot Strength Ankle and Foot Manual Muscle Testing Left Dorsiflexion (L4) 3 Fair Comments Great toe extension 4/5 Right Dorsiflexion (L4) 3 Fair Comments Great toe extension 4/5 PT-OP-Q Treatments Start: 11/22/19 09:24 Freq: Status: Active Protocol: Document 12/17/19 10:33 MB (Rec: 12/17/19 11:14 MB [id number]) Manual Therapy Treatment Soft Tissue Mobilization Counterstrain Comments Pt agrees to Counterstrain to assess and treat fascial tension and PT treats stacks B : DPRs (neural fascia) thoracic to lumbar spine, pre- ganglionic neural fascia LE, thoracic and lumbar sinu- vertebral. PT-OP-S Aquatic Treatment Start: 11/22/19 09:24 Freq: Status: Active Protocol: Document 12/19/19 17:27 LJ (Rec: 12/19/19 17:37 LJ [id number]) Aquatics Treatment Pool Entry/Exit Pool Entry/Exit Method Stairs Assistance Standby Assistance,Verbal Cues Water Walking january Water Level Chest Level Level of Assistance Standby Assistance,Verbal Cues Comments small lift Sideways Water Level Chest Level Level of Assistance Standby Assistance,Verbal Cues Comments with shoulder ab/ad, small step backward Water Level Chest Level Level of Assistance Standby Assistance,Verbal Cues Comments stopped due to increased pain forward Water Level Chest Level Level of Assistance Standby Assistance,Verbal Cues Comments reciprocal arm swing Lower Extremity Exercises hip circles Body Position Standing Water Level Chest Level Reps/Duration 10x ea CW and CCW Comments small circumference squats Body Position Standing Water Level Chest Level Reps/Duration 10x Comments with hip hinge Lower Extremity Stretches HS stretch Equipment small ankle floats Reps/Duration 2x 30 Comments back against wall Upper Extremity Exercises shoulder flex/ext Body Position Standing Water Level Chest Level Reps/Duration 10x Comments emphasis on core stab shoulder hor ab/ad Details keiko and unil Body Position Standing Water Level Chest Level Reps/Duration 10x Comments emphasis on core stab Abbott Activities Abbott Activities Bicycle Other Activities small flutter kick-gentle Equipment large noodle, 1# weights Duration 10' Comments SB to min assist for vertical alignment PT-OP-T Assessment and Plan Start: 11/22/19 09:24 Freq: Status: Active Protocol: Document 12/19/19 17:27 HAVEN (Rec: 12/19/19 17:37 HAVEN [email or web address]) Physical Therapy Assessment Rehab Potential Rehabilitation Potential Fair Evaluation Complexity Number of Personal Factors/Comorbidities 1-2 Number of Body Systems Impaired 3 Clinical Presentation at Evaluation Evolving Impairments Impairments Activity Tolerance,Functional Activities,Functional Mobility ,Pain,Posture,ROM,Sensation, Strength Other Impairments Pt presents with multi-system problems including hx cancer, underlying inflammatory process that affects GI systems, joints and pain, OP, takes many medication including steroids and chemo drug for inflammatory disease. She also presents with guarding behavior and reports that she did not tolerate previous PT durations well d/t increased leg pain. Her left knee MRI presents with changes . She also presents with decreased effort with activities like sit to stands and MMT this date. These many medical and personal co- morbidities are barriers to PT . PT prognosis is guarded. Goals Four Impairment Decreased gait Lead Java Software Engineer Goal (LTG) Pt will gait train at least 1500 feet in 6 minutes with LRAD to increase community ambulation by 01/25/2020. LTG Duration 8 weeks Three Prison Goal (LTG) Pt will perform 5 reps sit to stand without UE support in less than 13 sec to improve functional transfers by 2019. LTG Duration 8 weeks Two Prison Goal (LTG) Pt will perform 5 steps with use of 1 or 2 rails and reciprocal gait to prepare for getting up to her sewing materials by 01/25/2020. LTG Duration 8 weeks One Lead Java Software Engineer Goal (LTG) Pt will perform progressive HEP with I including pelvic realignment, functional, flexibility, strengthening and gait activities to decrease fall risk and pain by 2019. LTG Duration 8 weeks Assessment Summary Assessment Pt was able to tolerate longer treatment this session w/o getting too cold. All activities were kept to limited ROM and intensity with movements being gentle and fluid. Physical Therapy Plan Frequency and Duration Frequency of Treatment 2x/Week Duration of Treatment 8 weeks Plan of Care Start Date 11/26/19 Plan of Care End Date 01/25/20 Therapeutic Interventions Therapeutic Interventions Aquatic Therapy,Balance Training,Gait Training,Home Exercise Program,Manual Therapy,Neuromuscular Re- education,Patient/Caregiver Education,Self-Care/Home Management,Soft Tissue Mobilization,Taping, Therapeutic Activities, Therapeutic Exercises Modalities Cold Pack/Ice Massage,Electric Stimulation,Hot Packs, Ultrasound Other Therapeutic Interventions Cold laser as appropriate Next Visit Focus/Plan Next Note Type Treatment Note Next Visit Plan Con't gentle therapy, progress as she tolerates. Monitor response to Counterstrain to decrease systemic inflammation in setting of underlying inflammatory disease
--- NOTE | 2019-12-26 14:51 | PT.OTN ---
Current Diagnoses Other symptoms and signs involving the musculoskeletal system (12/26/19) Physical Therapy Treatment Note PT-OP-A Visit Information Start: 11/22/19 09:24 Freq: Status: Active Protocol: Document 12/26/19 10:15 LJ (Rec: 12/26/19 14:51 LJ [id number]) Out-Patient Physical Therapy Visit Information Visit Information Visit Type Aquatic Treatment Note Visit Start Time 10:15 Visit Stop Time 10:55 Total Visit Minutes 40 Visit Number 8/unlimited Number of DRAFTING DETAILER Visits 2 PT-OP-B Current Condition Start: 11/22/19 09:24 Freq: Status: Active Protocol: Document 11/26/19 10:29 MB (Rec: 11/26/19 10:52 MB [id number]) Current Condition History of Current Condition Onset Date Over the last year History of Current Condition Pt reports weakness after starting prednisone for possible underlying inflammatory disease. She has to use her arms to stand up and she has trouble going up the steps. She has pain in the back of her knees and up towards her buttocks. She feels pulling to the left or right of her spine. She feels deconditioned. Compicated PMH includes breast CA 2016 s/p lumpectomy and radiation and PT for lymphedema. History of injection in right shoulder and B knees, see further history below. Further PMH includes allergies/tape/latex, bronchiectasis and emphysema s/p smoking, OP, ? Crohn's, questionable swallowing issue Pt reports pain after having a blanket stuck under her and trying to take it off. Pt reports 4/10 pain under right arm, right lateral hip and and knee pain 3/10, right anterior knee pain 3/10, left anterior knee pain 5/10, right scapular, spinal, left SI pain 4/10, left lateral hip pain 3/10, left lateral knee pain 5/10. She is sleeping 4-5 hours. She cannot walk d/t knee pain B. She is interested in aquatic therapy. Pt sees multiple providers including traffic rate clerk, GI specialist, colorer hides and skins, orthopedist and oncologist. Pt has low iron. She does not know if she has a B12 or vitamin D deficiency. She gets infusions for OP. Oncologist note states that pt has psoriasis but pt does not mention this. Prior Treatments and Tests PT in past at this clinic for her back and her back has not really improved. She had PT for LUE lymphedema. She had PT in past for TMJ. She had PT for her knees that was rough. She had injections. She might have an inflammatory disease. She is on medication for this including prednisone and leflunomide. She takes her inhaler 2x/day. Dxs for thoracic spine with degenerative changes, right scapular pain of unknown source, left knee MRI 04/16/19 with changes: synovial thickening and increased enhancement consistent with synovitis, small to moderate joint effusion, popliteus tendonitis or partial tear, mild edema in the popliteus, mild tricompartmental cartilage loss PT-OP-C Subjective Start: 11/22/19 09:24 Freq: Status: Active Protocol: Document 12/26/19 10:15 LJ (Rec: 12/26/19 14:51 LJ [id number]) OP-PT Subjective Patient Comments Patient Comments Pt had pain in her posterior LLE and buttocks after last session. States she has not done much since then and she is noticing that her balance is getting worse. Noted that her inflammation numbers had gone up at her last Dr. appointment. PT-OP-J Posture/Palpation/Skin Start: 11/22/19 09:24 Freq: Status: Active Protocol: Document 11/26/19 10:29 MB (Rec: 11/26/19 13:00 MB [id number]) Posture Evaluation Comments Posture Comments Overall, decreased curvature of cervical, thoracic and lumbar spine, right scapula higher than the left, right iliac crest higher than the left PT-OP-M Strength Start: 11/22/19 09:24 Freq: Status: Active Protocol: Document 11/26/19 10:29 MB (Rec: 11/26/19 13:00 MB [id number]) Hip Strength Hip Manual Muscle Testing Left Flexion (L2) 2 Poor Abduction 2 Poor Comments Pt can mildly lift left hip off mat in sitting. There is some question of pt effort. In supine, pt presents with little tolerance to MMT. This is similar for all B LE joints Right Flexion (L2) 2- Poor- Abduction 2- Poor- Comments Pt cannot lift right hip off mat in sitting. There is some question of pt effort. In supine, PT assists her to get her right hip flexed with foot of the mat and pt presents with little tolerance to MMT. This is similar for all B LE joints Knee Strength Knee Manual Muscle Testing Left Flexion (S2) 2+ Poor+ Extension (L3) 2+ Poor+ Comments In supine. Weakness and/or decreased effort and guarding and fear of pain. Pt reports hamstring and adductor discomfort Right Flexion (S2) 3- Fair- Extension (L3) 3- Fair- Comments In supine. Weakness and/or decreased effort and guarding and fear of pain. Pt reports hamstring and adductor discomfort Ankle/Foot Strength Ankle and Foot Manual Muscle Testing Left Dorsiflexion (L4) 3 Fair Comments Great toe extension 4/5 Right Dorsiflexion (L4) 3 Fair Comments Great toe extension 4/5 PT-OP-Q Treatments Start: 11/22/19 09:24 Freq: Status: Active Protocol: Document 12/17/19 10:33 MB (Rec: 12/17/19 11:14 MB [id number]) Manual Therapy Treatment Soft Tissue Mobilization Counterstrain Comments Pt agrees to Counterstrain to assess and treat fascial tension and PT treats stacks B : DPRs (neural fascia) thoracic to lumbar spine, pre- ganglionic neural fascia LE, thoracic and lumbar sinu- vertebral. PT-OP-S Aquatic Treatment Start: 11/22/19 09:24 Freq: Status: Active Protocol: Document 12/26/19 10:15 LJ (Rec: 12/26/19 14:51 LJ [id number]) Aquatics Treatment Pool Entry/Exit Pool Entry/Exit Method Stairs Assistance Standby Assistance Comments lift chair exiting Water Walking Sideways Water Level Chest Level Level of Assistance Standby Assistance,Verbal Cues Comments pain with left leading forward Water Level Chest Level Level of Assistance Standby Assistance,Verbal Cues Comments reciprocal arm swing Lower Extremity Exercises hip ext, abd isometrics Body Position Standing Water Level Chest Level Reps/Duration 8 Comments gentle muscle activation Upper Extremity Exercises shoulder flex/ext Body Position Standing Water Level Chest Level Reps/Duration 10x Comments emphasis on core stab; gentle mvmt shoulder hor ab/ad Details keiko and unil Body Position Standing Water Level Chest Level Reps/Duration 10x Comments emphasis on core stab, gentle mvmt [place] Activities [place] Activities Bicycle Other Activities small flutter kick-gentle Equipment 2 large noodles-front and back , 1# weights Duration 15 Comments SB to min assist for vertical alignment Manual Techniques Aquatic Massage 5 min Right foot PT-OP-T Assessment and Plan Start: 11/22/19 09:24 Freq: Status: Active Protocol: Document 12/26/19 10:15 HAVEN (Rec: 12/26/19 14:51 HAVEN [id number]) Physical Therapy Assessment Rehab Potential Rehabilitation Potential Fair Evaluation Complexity Number of Personal Factors/Comorbidities 1-2 Number of Body Systems Impaired 3 Clinical Presentation at Evaluation Evolving Impairments Impairments Activity Tolerance,Functional Activities,Functional Mobility ,Pain,Posture,ROM,Sensation, Strength Other Impairments Pt presents with multi-system problems including hx cancer, underlying inflammatory process that affects GI systems, joints and pain, OP, takes many medication including steroids and chemo drug for inflammatory disease. She also presents with guarding behavior and reports that she did not tolerate previous PT durations well d/t increased leg pain. Her left knee MRI presents with changes . She also presents with decreased effort with activities like sit to stands and MMT this date. These many medical and personal co- morbidities are barriers to PT . PT prognosis is guarded. Goals Four Impairment Decreased gait Custodial Goal (LTG) Pt will gait train at least 1500 feet in 6 minutes with LRAD to increase community ambulation by 01/25/2020. LTG Duration 8 weeks Three Retinal Angiographer Goal (LTG) Pt will perform 5 reps sit to stand without UE support in less than 13 sec to improve functional transfers by 2019. LTG Duration 8 weeks Two Retinal Angiographer Goal (LTG) Pt will perform 5 steps with use of 1 or 2 rails and reciprocal gait to prepare for getting up to her sewing materials by 01/25/2020. LTG Duration 8 weeks One Custodial Goal (LTG) Pt will perform progressive HEP with I including pelvic realignment, functional, flexibility, strengthening and gait activities to decrease fall risk and pain by 2019. LTG Duration 8 weeks Assessment Summary Assessment Therapy was kept to very gentle movements and decreased ROM. Strengthening exercises changed to isometrics with low number of reps. Pt experienced toe cramping which required manual massage to release the cramp. Physical Therapy Plan Frequency and Duration Frequency of Treatment 2x/Week Duration of Treatment 8 weeks Therapeutic Interventions Therapeutic Interventions Aquatic Therapy,Balance Training,Gait Training,Home Exercise Program,Manual Therapy,Neuromuscular Re- education,Patient/Caregiver Education,Self-Care/Home Management,Soft Tissue Mobilization,Taping, Therapeutic Activities, Therapeutic Exercises Modalities Cold Pack/Ice Massage,Electric Stimulation,Hot Packs, Ultrasound Other Therapeutic Interventions Cold laser as appropriate Next Visit Focus/Plan Next Note Type Treatment Note Next Visit Plan Con't gentle therapy, progress as she tolerates. Monitor response to Counterstrain to decrease systemic inflammation in setting of underlying inflammatory disease
--- NOTE | 2019-12-28 11:46 | PT.OTN ---
Current Diagnoses Other symptoms and signs involving the musculoskeletal system (12/28/19) Physical Therapy Treatment Note PT-OP-A Visit Information Start: 11/22/19 09:24 Freq: Status: Active Protocol: Document 12/28/19 09:50 MB (Rec: 12/28/19 11:18 MB [id number]) Out-Patient Physical Therapy Visit Information Visit Information Visit Type Treatment Note Visit Start Time 09:50 Visit Stop Time 10:30 Total Visit Minutes 40 Visit Number 9/unlimited Number of INTAKE NURSE Visits 0 PT-OP-B Current Condition Start: 11/22/19 09:24 Freq: Status: Active Protocol: Document 11/26/19 10:29 MB (Rec: 11/26/19 10:52 MB [id number]) Current Condition History of Current Condition Onset Date Over the last year History of Current Condition Pt reports weakness after starting prednisone for possible underlying inflammatory disease. She has to use her arms to stand up and she has trouble going up the steps. She has pain in the back of her knees and up towards her buttocks. She feels pulling to the left or right of her spine. She feels deconditioned. Compicated PMH includes breast CA 2016 s/p lumpectomy and radiation and PT for lymphedema. History of injection in right shoulder and B knees, see further history below. Further PMH includes allergies/tape/latex, bronchiectasis and emphysema s/p smoking, OP, ? Crohn's, questionable swallowing issue Pt reports pain after having a blanket stuck under her and trying to take it off. Pt reports 4/10 pain under right arm, right lateral hip and and knee pain 3/10, right anterior knee pain 3/10, left anterior knee pain 5/10, right scapular, spinal, left SI pain 4/10, left lateral hip pain 3/10, left lateral knee pain 5/10. She is sleeping 4-5 hours. She cannot walk d/t knee pain B. She is interested in aquatic therapy. Pt sees multiple providers including pm technician, GI specialist, mine boss, orthopedist and oncologist. Pt has low iron. She does not know if she has a B12 or vitamin D deficiency. She gets infusions for OP. Oncologist note states that pt has psoriasis but pt does not mention this. Prior Treatments and Tests PT in past at this clinic for her back and her back has not really improved. She had PT for LUE lymphedema. She had PT in past for TMJ. She had PT for her knees that was rough. She had injections. She might have an inflammatory disease. She is on medication for this including prednisone and leflunomide. She takes her inhaler 2x/day. Dxs for thoracic spine with degenerative changes, right scapular pain of unknown source, left knee MRI 04/16/19 with changes: synovial thickening and increased enhancement consistent with synovitis, small to moderate joint effusion, popliteus tendonitis or partial tear, mild edema in the popliteus, mild tricompartmental cartilage loss PT-OP-C Subjective Start: 11/22/19 09:24 Freq: Status: Active Protocol: Document 12/28/19 09:50 MB (Rec: 12/28/19 11:18 MB [id number]) OP-PT Subjective Patient Comments Patient Comments Pt reports soreness all over today and especially in her right wrist and elbow. She returned to mine boss and is not going down on prednisone yet and Lefunomide was increased. Her ANCA and c- reactive proteins were both high. She reports that she has no pain improvement since starting PT and she con't to have trouble getting up from a chair. She reports ongoing 5/ 10 pain all over. PT-OP-J Posture/Palpation/Skin Start: 11/22/19 09:24 Freq: Status: Active Protocol: Document 11/26/19 10:29 MB (Rec: 11/26/19 13:00 MB [id number]) Posture Evaluation Comments Posture Comments Overall, decreased curvature of cervical, thoracic and lumbar spine, right scapula higher than the left, right iliac crest higher than the left PT-OP-M Strength Start: 11/22/19 09:24 Freq: Status: Active Protocol: Document 11/26/19 10:29 MB (Rec: 11/26/19 13:00 MB [id number]) Hip Strength Hip Manual Muscle Testing Left Flexion (L2) 2 Poor Abduction 2 Poor Comments Pt can mildly lift left hip off mat in sitting. There is some question of pt effort. In supine, pt presents with little tolerance to MMT. This is similar for all B LE joints Right Flexion (L2) 2- Poor- Abduction 2- Poor- Comments Pt cannot lift right hip off mat in sitting. There is some question of pt effort. In supine, PT assists her to get her right hip flexed with foot of the mat and pt presents with little tolerance to MMT. This is similar for all B LE joints Knee Strength Knee Manual Muscle Testing Left Flexion (S2) 2+ Poor+ Extension (L3) 2+ Poor+ Comments In supine. Weakness and/or decreased effort and guarding and fear of pain. Pt reports hamstring and adductor discomfort Right Flexion (S2) 3- Fair- Extension (L3) 3- Fair- Comments In supine. Weakness and/or decreased effort and guarding and fear of pain. Pt reports hamstring and adductor discomfort Ankle/Foot Strength Ankle and Foot Manual Muscle Testing Left Dorsiflexion (L4) 3 Fair Comments Great toe extension 4/5 Right Dorsiflexion (L4) 3 Fair Comments Great toe extension 4/5 PT-OP-Q Treatments Start: 11/22/19 09:24 Freq: Status: Active Protocol: Document 12/28/19 09:50 MB (Rec: 12/28/19 11:39 MB [id number]) Therapeutic Exercises Supine Exercises Pelvic realignment exercises Comments Verbally reviewed this exercise today and answered pt questions Sitting Exercises Sit to stand Comments 1 rep from high plinth with no hand support Gait Training Gait Activity 6MWT and stair training Comments Gait measurement device does not work. Grossly 900 ft in 6 minutes without AD, pt requires encouragement and rail to perform step-to gait for 4 steps Self-Care/Home Management Treatment Education Other Education Extensive education to pt about this PT's focus on functional gains as she reports goal of getting up and down and doing steps. Pt will decreased understanding that she must make gains towards these goals in order to continue skilled intervention. Ed pt in benefits of pelvic floor PT consult after this PT course. Ed pt that will con't PT trial and will discharge PT if she does not progress towards goals. Pt has decreased understanding of why she cannot con't PT for maintenance despite reports of pain with gentle pool therapy and her reports that she tolerated PT poorly in the past. Ed pt to consider talking with doctor about ongoing pain. PT-OP-S Aquatic Treatment Start: 11/22/19 09:24 Freq: Status: Active Protocol: Document 12/26/19 10:15 LJ (Rec: 12/26/19 14:51 LJ [id number]) Aquatics Treatment Pool Entry/Exit Pool Entry/Exit Method Stairs Assistance Standby Assistance Comments lift chair exiting Water Walking Sideways Water Level Chest Level Level of Assistance Standby Assistance,Verbal Cues Comments pain with left leading forward Water Level Chest Level Level of Assistance Standby Assistance,Verbal Cues Comments reciprocal arm swing Lower Extremity Exercises hip ext, abd isometrics Body Position Standing Water Level Chest Level Reps/Duration 8 Comments gentle muscle activation Upper Extremity Exercises shoulder flex/ext Body Position Standing Water Level Chest Level Reps/Duration 10x Comments emphasis on core stab; gentle mvmt shoulder hor ab/ad Details keiko and unil Body Position Standing Water Level Chest Level Reps/Duration 10x Comments emphasis on core stab, gentle mvmt [place] Activities [place] Activities Bicycle Other Activities small flutter kick-gentle Equipment 2 large noodles-front and back , 1# weights Duration 15 Comments SB to min assist for vertical alignment Manual Techniques Aquatic Massage 5 min Right foot PT-OP-T Assessment and Plan Start: 11/22/19 09:24 Freq: Status: Active Protocol: Document 12/28/19 09:50 MB (Rec: 12/28/19 11:18 MB [id number]) Physical Therapy Assessment Rehab Potential Rehabilitation Potential Fair Evaluation Complexity Number of Personal Factors/Comorbidities 1-2 Number of Body Systems Impaired 3 Clinical Presentation at Evaluation Evolving Impairments Impairments Activity Tolerance,Functional Activities,Functional Mobility ,Pain,Posture,ROM,Sensation, Strength Other Impairments Pt presents with multi-system problems including hx cancer, underlying inflammatory process that affects GI systems, joints and pain, OP, takes many medication including steroids and chemo drug for inflammatory disease. She also presents with guarding behavior and reports that she did not tolerate previous PT durations well d/t increased leg pain. Her left knee MRI presents with changes . She also presents with decreased effort with activities like sit to stands and MMT this date. These many medical and personal co- morbidities are barriers to PT . PT prognosis is guarded. Goals Four Impairment Decreased gait Business Office Assistant Goal (LTG) Pt will gait train at least 1500 feet in 6 minutes with LRAD to increase community ambulation by 02/26/2020. 12/28/2019: PT does attempt to check but measuring device does not function. Grossly at least 900 ft in 6 minutes LTG Duration 8 weeks Three Business Office Assistant Goal (LTG) Pt will perform 5 reps sit to stand without UE support in less than 13 sec to improve functional transfers by 2019. 12/28/2019: Pt can only perform 1 rep without hands and with plinth high LTG Duration 8 weeks Two Business Office Assistant Goal (LTG) Pt will perform 5 steps with use of 1 or 2 rails and reciprocal gait to prepare for getting up to her sewing materials by 02/26/2020. 12/28/2019: 4 steps with step- to gait and reports of 8/10 right knee pain and pt uses rail LTG Duration 8 weeks One Halfway Goal (LTG) Pt will perform progressive HEP with I including pelvic realignment, functional, flexibility, strengthening and gait activities to decrease fall risk and pain by 2019. 12/28/2019: Pt reports that she is performing exercises as provided by PT. LTG Duration 8 weeks Assessment Summary Assessment Pt con't to be very sensitive and has trouble tolerating even gentle exercise in the pool and on land. She is performing pelvic realignment exercises and core exercises at home. She would like to be able to get up from a chair better but she has trouble with pain in her knees with one rep today and self-limits performance. She reports she had a bad response to leg strengthening with PT. She is doing sit to stands from her dg bed at home. Con't PT trial for functional strengthening to see if she progresses towards functional goals. On reassessment today, she has only progressed towards HEP goal. She has poor tolerance to gait, stair training and sit to stands. She has chronic globalized pain in setting of inflammatory disease and polypharmacy. She reports poor tolerance to PT in the past, poor tolerance to gentle aquatic PT this PT duration. She does not understand that she needs to progress towards PT goals in order to con't with PT. She does not understand that she can con't functional exercises on her own. Will con't to address this in future PT appointments . She may benefit from talking with doctor about further pain management and possible counseling if MD thinks appropriate. She may benefit from pelvic floor PT assessment given reports that her bladder has changed with aquatic PT. Overally, her PT prognosis is poor. PT has con' t ongoing gentle exercise and manual work without much success. Physical Therapy Plan Frequency and Duration Frequency of Treatment 2x/wk Duration of Treatment 8 weeks Plan of Care Start Date 12/28/19 Plan of Care End Date 02/26/20 Therapeutic Interventions Therapeutic Interventions Aquatic Therapy,Balance Training,Gait Training,Home Exercise Program,Manual Therapy,Neuromuscular Re- education,Patient/Caregiver Education,Self-Care/Home Management,Soft Tissue Mobilization,Taping, Therapeutic Activities, Therapeutic Exercises Modalities Cold Pack/Ice Massage,Electric Stimulation,Hot Packs, Ultrasound Other Therapeutic Interventions Cold laser as appropriate Other Referrals/Consults Referrals/Consults Recommended Consider pelvic floor referral after this PT treatment d/t pt reports urinary changes after pool therapy; consider talking talking with doctor about pain/pain referral and possible counseling to help with chronic pain Next Visit Focus/Plan Next Note Type Treatment Note Next Visit Plan Review other exercises that pt is performing from previous PT course. Con't gentle therapy, progress as she tolerates. Monitor response to Counterstrain to decrease systemic inflammation in setting of underlying inflammatory disease
--- NOTE | 2019-12-28 11:46 | PT.OPPOC ---
Addendum entered and electronically signed by Annika Ríos PT 12/28/19 15:36: PT reads left knee MRI report again from 04/2019 and it reveals many changes. Given pt's ongoing reports of left knee pain and her understanding that there is nothing wrong with her left knee (she states that her recooperer said there is nothing inflammatory going on with her knee currently), she might benefit from follow-up with ordering provider, Mackenzie Terrell, about findings and/or orthopedic consult. Original Note: Physical, Occupational & Speech Therapy At [facility] Current Diagnoses Other symptoms and signs involving the musculoskeletal system (12/28/19) Visit Care Team Role Provider Type Mackenzie Terrell MD Primary Care Provider Non-Staff Specialty: Internal Medicine Address: [address] [place] [address], [id number] Email: [email or web address] Angel Augustine MD Attending Provider Non-Staff Referring Provider Specialty: Rheumatology Address: [facility] [address], [place], [address] Email: Plan Of Care PT-OP-T Assessment and Plan Start: 11/22/19 09:24 Freq: Status: Active Protocol: Document 12/28/19 09:50 MB (Rec: 12/28/19 11:18 MB [id number]) Physical Therapy Assessment Rehab Potential Rehabilitation Potential Fair Evaluation Complexity Number of Personal Factors/Comorbidities 1-2 Number of Body Systems Impaired 3 Clinical Presentation at Evaluation Evolving Impairments Impairments Activity Tolerance,Functional Activities,Functional Mobility ,Pain,Posture,ROM,Sensation, Strength Other Impairments Pt presents with multi-system problems including hx cancer, underlying inflammatory process that affects GI systems, joints and pain, OP, takes many medication including steroids and chemo drug for inflammatory disease. She also presents with guarding behavior and reports that she did not tolerate previous PT durations well d/t increased leg pain. Her left knee MRI presents with changes . She also presents with decreased effort with activities like sit to stands and MMT this date. These many medical and personal co- morbidities are barriers to PT . PT prognosis is guarded. Goals Four Impairment Decreased gait Hotel Superintendent Goal (LTG) Pt will gait train at least 1500 feet in 6 minutes with LRAD to increase community ambulation by 02/26/2020. 12/28/2019: PT does attempt to check but measuring device does not function. Grossly at least 900 ft in 6 minutes LTG Duration 8 weeks Three Penitentiary Goal (LTG) Pt will perform 5 reps sit to stand without UE support in less than 13 sec to improve functional transfers by 2019. 12/28/2019: Pt can only perform 1 rep without hands and with plinth high LTG Duration 8 weeks Two Penitentiary Goal (LTG) Pt will perform 5 steps with use of 1 or 2 rails and reciprocal gait to prepare for getting up to her sewing materials by 02/26/2020. 12/28/2019: 4 steps with step- to gait and reports of 8/10 right knee pain and pt uses rail LTG Duration 8 weeks One Hotel Superintendent Goal (LTG) Pt will perform progressive HEP with I including pelvic realignment, functional, flexibility, strengthening and gait activities to decrease fall risk and pain by 2019. 12/28/2019: Pt reports that she is performing exercises as provided by PT. LTG Duration 8 weeks Assessment Summary Assessment Pt con't to be very sensitive and has trouble tolerating even gentle exercise in the pool and on land. She is performing pelvic realignment exercises and core exercises at home. She would like to be able to get up from a chair better but she has trouble with pain in her knees with one rep today and self-limits performance. She reports she had a bad response to leg strengthening with PT. She is doing sit to stands from her dg bed at home. Con't PT trial for functional strengthening to see if she progresses towards functional goals. On reassessment today, she has only progressed towards HEP goal. She has poor tolerance to gait, stair training and sit to stands. She has chronic globalized pain in setting of inflammatory disease and polypharmacy. She reports poor tolerance to PT in the past, poor tolerance to gentle aquatic PT this PT duration. She does not understand that she needs to progress towards PT goals in order to con't with PT. She does not understand that she can con't functional exercises on her own. Will con't to address this in future PT appointments . She may benefit from talking with doctor about further pain management and possible counseling if MD thinks appropriate. She may benefit from pelvic floor PT assessment given reports that her bladder has changed with aquatic PT. Overally, her PT prognosis is poor. PT has con' t ongoing gentle exercise and manual work without much success. Physical Therapy Plan Frequency and Duration Frequency of Treatment 2x/wk Duration of Treatment 8 weeks Plan of Care Start Date 12/28/19 Plan of Care End Date 02/26/20 Therapeutic Interventions Therapeutic Interventions Aquatic Therapy,Balance Training,Gait Training,Home Exercise Program,Manual Therapy,Neuromuscular Re- education,Patient/Caregiver Education,Self-Care/Home Management,Soft Tissue Mobilization,Taping, Therapeutic Activities, Therapeutic Exercises Modalities Cold Pack/Ice Massage,Electric Stimulation,Hot Packs, Ultrasound Other Therapeutic Interventions Cold laser as appropriate Other Referrals/Consults Referrals/Consults Recommended Consider pelvic floor referral after this PT treatment d/t pt reports urinary changes after pool therapy; consider talking talking with doctor about pain/pain referral and possible counseling to help with chronic pain Next Visit Focus/Plan Next Note Type Treatment Note Next Visit Plan Review other exercises that pt is performing from previous PT course. Con't gentle therapy, progress as she tolerates. Monitor response to Counterstrain to decrease systemic inflammation in setting of underlying inflammatory disease Plan of Care Dates Plan of Care Start Date 12/28/19 Plan of Care End Date 02/26/20 Electronically Signed by: Annika Ríos PT 12/28/19 0511 Please Sign and Return: I have reviewed this Plan of Care and certify that the skilled therapy services above are required to meet the patient?s needs. Physician Signature Date Printed Name and Credentials Clinical Instructor Signature Printed Name and Credentials
--- NOTE | 2019-12-28 15:33 | PT-OP ANOTE ---
PT reads left knee MRI report again from 04/2019 and it reveals many changes. Given pt's ongoing reports of left knee pain and her understanding that there is nothing wrong with her left knee (she states that her commissioner of conciliation said there is nothing inflammatory going on with her knee currently), she might benefit from follow-up with ordering provider, Mackenzie Terrell, about findings and/or orthopedic consult.
--- NOTE | 2019-12-31 08:02 | PT-OP ANOTE ---
PT states that she saw an orthopedist after left knee injury but she does not communicate time line as seen in EMR. She thinks the MRI was in January 2019. MRI in EMR was 04/16/2020. She saw Dr. Cabral who did not want to do surgery. She states that she later saw Dr. Cabral who withdrew fluid from right knee. She could not tolerate cardiopulmonary rehab d/t left knee pain with riding stationary bike. She got a second opinion from Dr. Graham. She was referred to quality head for increased SED rate. She saw Dr. Berg.
--- NOTE | 2020-01-02 15:00 | PT.OTN ---
Current Diagnoses Other symptoms and signs involving the musculoskeletal system (01/02/20) Physical Therapy Treatment Note PT-OP-A Visit Information Start: 11/22/19 09:24 Freq: Status: Active Protocol: Document 01/02/20 10:15 LJ (Rec: 01/02/20 15:00 LJ [id number]) Out-Patient Physical Therapy Visit Information Visit Information Visit Type Aquatic Treatment Note Visit Start Time 10:15 Visit Stop Time 11:00 Total Visit Minutes 45 Visit Number 10 Number of MD PHYSICIAN DERMATOLOGIST Visits 1 PT-OP-B Current Condition Start: 11/22/19 09:24 Freq: Status: Active Protocol: Document 11/26/19 10:29 MB (Rec: 11/26/19 10:52 MB [id number]) Current Condition History of Current Condition Onset Date Over the last year History of Current Condition Pt reports weakness after starting prednisone for possible underlying inflammatory disease. She has to use her arms to stand up and she has trouble going up the steps. She has pain in the back of her knees and up towards her buttocks. She feels pulling to the left or right of her spine. She feels deconditioned. Compicated PMH includes breast CA 2016 s/p lumpectomy and radiation and PT for lymphedema. History of injection in right shoulder and B knees, see further history below. Further PMH includes allergies/tape/latex, bronchiectasis and emphysema s/p smoking, OP, ? Crohn's, questionable swallowing issue Pt reports pain after having a blanket stuck under her and trying to take it off. Pt reports 4/10 pain under right arm, right lateral hip and and knee pain 3/10, right anterior knee pain 3/10, left anterior knee pain 5/10, right scapular, spinal, left SI pain 4/10, left lateral hip pain 3/10, left lateral knee pain 5/10. She is sleeping 4-5 hours. She cannot walk d/t knee pain B. She is interested in aquatic therapy. Pt sees multiple providers including granite setter, GI specialist, shake cutter, orthopedist and oncologist. Pt has low iron. She does not know if she has a B12 or vitamin D deficiency. She gets infusions for OP. Oncologist note states that pt has psoriasis but pt does not mention this. Prior Treatments and Tests PT in past at this clinic for her back and her back has not really improved. She had PT for LUE lymphedema. She had PT in past for TMJ. She had PT for her knees that was rough. She had injections. She might have an inflammatory disease. She is on medication for this including prednisone and leflunomide. She takes her inhaler 2x/day. Dxs for thoracic spine with degenerative changes, right scapular pain of unknown source, left knee MRI 04/16/19 with changes: synovial thickening and increased enhancement consistent with synovitis, small to moderate joint effusion, popliteus tendonitis or partial tear, mild edema in the popliteus, mild tricompartmental cartilage loss PT-OP-C Subjective Start: 11/22/19 09:24 Freq: Status: Active Protocol: Document 01/02/20 10:15 LJ (Rec: 01/02/20 15:00 LJ [id number]) OP-PT Subjective Patient Comments Patient Comments Pt states she is feeling pretty good today. She arrived with pickle juice and a bottle of water and drank some of the pickle juice prior to beginning pool therapy in hopes to prevent cramping. PT-OP-J Posture/Palpation/Skin Start: 11/22/19 09:24 Freq: Status: Active Protocol: Document 11/26/19 10:29 MB (Rec: 11/26/19 13:00 MB [id number]) Posture Evaluation Comments Posture Comments Overall, decreased curvature of cervical, thoracic and lumbar spine, right scapula higher than the left, right iliac crest higher than the left PT-OP-M Strength Start: 11/22/19 09:24 Freq: Status: Active Protocol: Document 11/26/19 10:29 MB (Rec: 11/26/19 13:00 MB [id number]) Hip Strength Hip Manual Muscle Testing Left Flexion (L2) 2 Poor Abduction 2 Poor Comments Pt can mildly lift left hip off mat in sitting. There is some question of pt effort. In supine, pt presents with little tolerance to MMT. This is similar for all B LE joints Right Flexion (L2) 2- Poor- Abduction 2- Poor- Comments Pt cannot lift right hip off mat in sitting. There is some question of pt effort. In supine, PT assists her to get her right hip flexed with foot of the mat and pt presents with little tolerance to MMT. This is similar for all B LE joints Knee Strength Knee Manual Muscle Testing Left Flexion (S2) 2+ Poor+ Extension (L3) 2+ Poor+ Comments In supine. Weakness and/or decreased effort and guarding and fear of pain. Pt reports hamstring and adductor discomfort Right Flexion (S2) 3- Fair- Extension (L3) 3- Fair- Comments In supine. Weakness and/or decreased effort and guarding and fear of pain. Pt reports hamstring and adductor discomfort Ankle/Foot Strength Ankle and Foot Manual Muscle Testing Left Dorsiflexion (L4) 3 Fair Comments Great toe extension 4/5 Right Dorsiflexion (L4) 3 Fair Comments Great toe extension 4/5 PT-OP-Q Treatments Start: 11/22/19 09:24 Freq: Status: Active Protocol: Document 12/28/19 09:50 MB (Rec: 12/28/19 11:39 MB [id number]) Therapeutic Exercises Supine Exercises Pelvic realignment exercises Comments Verbally reviewed this exercise today and answered pt questions Sitting Exercises Sit to stand Comments 1 rep from high plinth with no hand support Gait Training Gait Activity 6MWT and stair training Comments Gait measurement device does not work. Grossly 900 ft in 6 minutes without AD, pt requires encouragement and rail to perform step-to gait for 4 steps Self-Care/Home Management Treatment Education Other Education Extensive education to pt about this PT's focus on functional gains as she reports goal of getting up and down and doing steps. Pt will decreased understanding that she must make gains towards these goals in order to continue skilled intervention. Ed pt in benefits of pelvic floor PT consult after this PT course. Ed pt that will con't PT trial and will discharge PT if she does not progress towards goals. Pt has decreased understanding of why she cannot con't PT for maintenance despite reports of pain with gentle pool therapy and her reports that she tolerated PT poorly in the past. Ed pt to consider talking with doctor about ongoing pain. PT-OP-S Aquatic Treatment Start: 11/22/19 09:24 Freq: Status: Active Protocol: Document 01/02/20 10:15 LJ (Rec: 01/02/20 15:00 LJ [id number]) Aquatics Treatment Pool Entry/Exit Pool Entry/Exit Method Stairs Assistance Standby Assistance Comments lift chair exiting Water Walking directional changes Water Level Chest Level Level of Assistance Standby Assistance,Verbal Cues Comments small steps to protect L knee during turn start/stop Water Level Chest Level Level of Assistance Standby Assistance,Verbal Cues Comments no LOB Sideways Water Level Chest Level Level of Assistance Standby Assistance Comments no pain backward Water Level Chest Level Level of Assistance Standby Assistance,Verbal Cues Comments no pain forward Water Level Chest Level Level of Assistance Standby Assistance,Verbal Cues Comments reciprocal arm swing Lower Extremity Exercises hip ext, abd isometrics Body Position Standing Water Level Chest Level Reps/Duration 8 Comments gentle muscle activation Lower Extremity Stretches HS stretch Details foot on step Body Position Standing Reps/Duration 2x 30 Comments gentle with self massage Upper Extremity Exercises shoulder flex/ext Body Position Standing Water Level Chest Level Reps/Duration 10x Comments emphasis on core stab; gentle mvmt shoulder hor ab/ad Details keiko and unil Body Position Standing Water Level Chest Level Reps/Duration 10x Comments emphasis on core stab, gentle mvmt Balance step up/down on 4 box Details all directions Reps/Duration 5 each direction Comments pt used wall for balance occasionally PT-OP-T Assessment and Plan Start: 11/22/19 09:24 Freq: Status: Active Protocol: Document 01/02/20 10:15 HAVEN (Rec: 01/02/20 15:00 [id number]) Physical Therapy Assessment Rehab Potential Rehabilitation Potential Fair Evaluation Complexity Number of Personal Factors/Comorbidities 1-2 Number of Body Systems Impaired 3 Clinical Presentation at Evaluation Evolving Impairments Impairments Activity Tolerance,Functional Activities,Functional Mobility ,Pain,Posture,ROM,Sensation, Strength Other Impairments Pt presents with multi-system problems including hx cancer, underlying inflammatory process that affects GI systems, joints and pain, OP, takes many medication including steroids and chemo drug for inflammatory disease. She also presents with guarding behavior and reports that she did not tolerate previous PT durations well d/t increased leg pain. Her left knee MRI presents with changes . She also presents with decreased effort with activities like sit to stands and MMT this date. These many medical and personal co- morbidities are barriers to PT . PT prognosis is guarded. Goals Four Impairment Decreased gait Custodial Goal (LTG) Pt will gait train at least 1500 feet in 6 minutes with LRAD to increase community ambulation by 02/26/2020. 12/28/2019: PT does attempt to check but measuring device does not function. Grossly at least 900 ft in 6 minutes LTG Duration 8 weeks Three Lamination Spinner Goal (LTG) Pt will perform 5 reps sit to stand without UE support in less than 13 sec to improve functional transfers by 2019. 12/28/2019: Pt can only perform 1 rep without hands and with plinth high LTG Duration 8 weeks Two Lamination Spinner Goal (LTG) Pt will perform 5 steps with use of 1 or 2 rails and reciprocal gait to prepare for getting up to her sewing materials by 02/26/2020. 12/28/2019: 4 steps with step- to gait and reports of 8/10 right knee pain and pt uses rail LTG Duration 8 weeks One Custodial Goal (LTG) Pt will perform progressive HEP with I including pelvic realignment, functional, flexibility, strengthening and gait activities to decrease fall risk and pain by 2019. 12/28/2019: Pt reports that she is performing exercises as provided by PT. LTG Duration 8 weeks Assessment Summary Assessment Pt had a very good session today. She experienced only a couple twinges of pain and a small cramp in her foot which dissipated very quickly. Pt demonstrated good balance and gait mechanics with slow and gentle movements. She is able to start and stop, change directions, and step onto and off a box without increased effort of pain. Physical Therapy Plan Frequency and Duration Frequency of Treatment 2x/wk Duration of Treatment 8 weeks Plan of Care Start Date 12/28/19 Plan of Care End Date 02/26/20 Therapeutic Interventions Therapeutic Interventions Aquatic Therapy,Balance Training,Gait Training,Home Exercise Program,Manual Therapy,Neuromuscular Re- education,Patient/Caregiver Education,Self-Care/Home Management,Soft Tissue Mobilization,Taping, Therapeutic Activities, Therapeutic Exercises Modalities Cold Pack/Ice Massage,Electric Stimulation,Hot Packs, Ultrasound Other Therapeutic Interventions Cold laser as appropriate Other Referrals/Consults Referrals/Consults Recommended Consider pelvic floor referral after this PT treatment d/t pt reports urinary changes after pool therapy; consider talking talking with doctor about pain/pain referral and possible counseling to help with chronic pain Next Visit Focus/Plan Next Note Type Treatment Note Next Visit Plan Continue gentle gait and core stabilizing exercises progressing as pt tolerates.
--- NOTE | 2020-01-04 10:29 | PT.OTN ---
Current Diagnoses Other symptoms and signs involving the musculoskeletal system (01/04/20) Physical Therapy Treatment Note PT-OP-A Visit Information Start: 11/22/19 09:24 Freq: Status: Active Protocol: Document 01/04/20 09:50 MB (Rec: 01/04/20 10:29 MB [id number]) Out-Patient Physical Therapy Visit Information Visit Information Visit Type Treatment Note Visit Start Time 09:50 Visit Stop Time 10:30 Total Visit Minutes 40 Visit Number 1/ Number of RADIOACTIVITY TECHNICIAN Visits 0 PT-OP-B Current Condition Start: 11/22/19 09:24 Freq: Status: Active Protocol: Document 11/26/19 10:29 MB (Rec: 11/26/19 10:52 MB [id number]) Current Condition History of Current Condition Onset Date Over the last year History of Current Condition Pt reports weakness after starting prednisone for possible underlying inflammatory disease. She has to use her arms to stand up and she has trouble going up the steps. She has pain in the back of her knees and up towards her buttocks. She feels pulling to the left or right of her spine. She feels deconditioned. Compicated PMH includes breast CA 2016 s/p lumpectomy and radiation and PT for lymphedema. History of injection in right shoulder and B knees, see further history below. Further PMH includes allergies/tape/latex, bronchiectasis and emphysema s/p smoking, OP, ? Crohn's, questionable swallowing issue Pt reports pain after having a blanket stuck under her and trying to take it off. Pt reports 4/10 pain under right arm, right lateral hip and and knee pain 3/10, right anterior knee pain 3/10, left anterior knee pain 5/10, right scapular, spinal, left SI pain 4/10, left lateral hip pain 3/10, left lateral knee pain 5/10. She is sleeping 4-5 hours. She cannot walk d/t knee pain B. She is interested in aquatic therapy. Pt sees multiple providers including boiler fitter, GI specialist, route sales associate, orthopedist and oncologist. Pt has low iron. She does not know if she has a B12 or vitamin D deficiency. She gets infusions for OP. Oncologist note states that pt has psoriasis but pt does not mention this. Prior Treatments and Tests PT in past at this clinic for her back and her back has not really improved. She had PT for LUE lymphedema. She had PT in past for TMJ. She had PT for her knees that was rough. She had injections. She might have an inflammatory disease. She is on medication for this including prednisone and leflunomide. She takes her inhaler 2x/day. Dxs for thoracic spine with degenerative changes, right scapular pain of unknown source, left knee MRI 04/16/19 with changes: synovial thickening and increased enhancement consistent with synovitis, small to moderate joint effusion, popliteus tendonitis or partial tear, mild edema in the popliteus, mild tricompartmental cartilage loss PT-OP-C Subjective Start: 11/22/19 09:24 Freq: Status: Active Protocol: Document 01/04/20 09:50 MB (Rec: 01/04/20 10:29 MB [id number]) OP-PT Subjective Patient Comments Patient Comments Pt states that the pool therapy was good. She had a good day yesterday until this morning when she felt a twinge in her left hip when she was sewing. She did not try anything to help. PT-OP-J Posture/Palpation/Skin Start: 11/22/19 09:24 Freq: Status: Active Protocol: Document 11/26/19 10:29 MB (Rec: 11/26/19 13:00 MB [id number]) Posture Evaluation Comments Posture Comments Overall, decreased curvature of cervical, thoracic and lumbar spine, right scapula higher than the left, right iliac crest higher than the left PT-OP-M Strength Start: 11/22/19 09:24 Freq: Status: Active Protocol: Document 11/26/19 10:29 MB (Rec: 11/26/19 13:00 MB [id number]) Hip Strength Hip Manual Muscle Testing Left Flexion (L2) 2 Poor Abduction 2 Poor Comments Pt can mildly lift left hip off mat in sitting. There is some question of pt effort. In supine, pt presents with little tolerance to MMT. This is similar for all B LE joints Right Flexion (L2) 2- Poor- Abduction 2- Poor- Comments Pt cannot lift right hip off mat in sitting. There is some question of pt effort. In supine, PT assists her to get her right hip flexed with foot of the mat and pt presents with little tolerance to MMT. This is similar for all B LE joints Knee Strength Knee Manual Muscle Testing Left Flexion (S2) 2+ Poor+ Extension (L3) 2+ Poor+ Comments In supine. Weakness and/or decreased effort and guarding and fear of pain. Pt reports hamstring and adductor discomfort Right Flexion (S2) 3- Fair- Extension (L3) 3- Fair- Comments In supine. Weakness and/or decreased effort and guarding and fear of pain. Pt reports hamstring and adductor discomfort Ankle/Foot Strength Ankle and Foot Manual Muscle Testing Left Dorsiflexion (L4) 3 Fair Comments Great toe extension 4/5 Right Dorsiflexion (L4) 3 Fair Comments Great toe extension 4/5 PT-OP-Q Treatments Start: 11/22/19 09:24 Freq: Status: Active Protocol: Document 01/04/20 09:50 MB (Rec: 01/04/20 10:29 MB [id number]) Therapeutic Exercises Supine Exercises Diaphragmatic breathing Comments 3 reps in hook lying Pelvic realignment exercises Comments 3 reps each, 3 sec hold Manual Therapy Treatment Other Other Manual Treatments Counterstrain to assess and treat fascial tightness. Pt agrees. PT treats stacks B: standard lymphatic row cervical, right DPR thoracic and lumbar spine, right LE somatic posterior neural. Pt with improved fascial mobility after treatment. PT-OP-S Aquatic Treatment Start: 11/22/19 09:24 Freq: Status: Active Protocol: Document 01/02/20 10:15 LJ (Rec: 01/02/20 15:00 LJ [id number]) Aquatics Treatment Pool Entry/Exit Pool Entry/Exit Method Stairs Assistance Standby Assistance Comments lift chair exiting Water Walking directional changes Water Level Chest Level Level of Assistance Standby Assistance,Verbal Cues Comments small steps to protect L knee during turn start/stop Water Level Chest Level Level of Assistance Standby Assistance,Verbal Cues Comments no LOB Sideways Water Level Chest Level Level of Assistance Standby Assistance Comments no pain backward Water Level Chest Level Level of Assistance Standby Assistance,Verbal Cues Comments no pain forward Water Level Chest Level Level of Assistance Standby Assistance,Verbal Cues Comments reciprocal arm swing Lower Extremity Exercises hip ext, abd isometrics Body Position Standing Water Level Chest Level Reps/Duration 8 Comments gentle muscle activation Lower Extremity Stretches HS stretch Details foot on step Body Position Standing Reps/Duration 2x 30 Comments gentle with self massage Upper Extremity Exercises shoulder flex/ext Body Position Standing Water Level Chest Level Reps/Duration 10x Comments emphasis on core stab; gentle mvmt shoulder hor ab/ad Details keiko and unil Body Position Standing Water Level Chest Level Reps/Duration 10x Comments emphasis on core stab, gentle mvmt Balance step up/down on 4 box Details all directions Reps/Duration 5 each direction Comments pt used wall for balance occasionally PT-OP-T Assessment and Plan Start: 11/22/19 09:24 Freq: Status: Active Protocol: Document 01/04/20 09:50 MB (Rec: 01/04/20 10:29 MB [id number]) Physical Therapy Assessment Rehab Potential Rehabilitation Potential Fair Evaluation Complexity Number of Personal Factors/Comorbidities 1-2 Number of Body Systems Impaired 3 Clinical Presentation at Evaluation Evolving Impairments Impairments Activity Tolerance,Functional Activities,Functional Mobility ,Pain,Posture,ROM,Sensation, Strength Other Impairments Pt presents with multi-system problems including hx cancer, underlying inflammatory process that affects GI systems, joints and pain, OP, takes many medication including steroids and chemo drug for inflammatory disease. She also presents with guarding behavior and reports that she did not tolerate previous PT durations well d/t increased leg pain. Her left knee MRI presents with changes . She also presents with decreased effort with activities like sit to stands and MMT this date. These many medical and personal co- morbidities are barriers to PT . PT prognosis is guarded. Goals Four Impairment Decreased gait Scale Manager Goal (LTG) Pt will gait train at least 1500 feet in 6 minutes with LRAD to increase community ambulation by 02/26/2020. 12/28/2019: PT does attempt to check but measuring device does not function. Grossly at least 900 ft in 6 minutes LTG Duration 8 weeks Three Detention Goal (LTG) Pt will perform 5 reps sit to stand without UE support in less than 13 sec to improve functional transfers by 2019. 12/28/2019: Pt can only perform 1 rep without hands and with plinth high LTG Duration 8 weeks Two Detention Goal (LTG) Pt will perform 5 steps with use of 1 or 2 rails and reciprocal gait to prepare for getting up to her sewing materials by 02/26/2020. 12/28/2019: 4 steps with step- to gait and reports of 8/10 right knee pain and pt uses rail LTG Duration 8 weeks One Detention Goal (LTG) Pt will perform progressive HEP with I including pelvic realignment, functional, flexibility, strengthening and gait activities to decrease fall risk and pain by 2019. 12/28/2019: Pt reports that she is performing exercises as provided by PT. LTG Duration 8 weeks Assessment Summary Assessment Pt con't to be very sensitive, reports of twinge and not performing things that she has been given to help herself such as pelvic realignment and breathing exercises. This is a barrier to PT and will con't to encourage her to help herself, perform education and exercises as taught by therapy. Counterstrain today to help with fascial tightness . No adverse affects after treatment. Physical Therapy Plan Frequency and Duration Frequency of Treatment 2x/wk Duration of Treatment 8 weeks Plan of Care Start Date 12/28/19 Plan of Care End Date 02/26/20 Therapeutic Interventions Therapeutic Interventions Aquatic Therapy,Balance Training,Gait Training,Home Exercise Program,Manual Therapy,Neuromuscular Re- education,Patient/Caregiver Education,Self-Care/Home Management,Soft Tissue Mobilization,Taping, Therapeutic Activities, Therapeutic Exercises Modalities Cold Pack/Ice Massage,Electric Stimulation,Hot Packs, Ultrasound Other Therapeutic Interventions Cold laser as appropriate Other Referrals/Consults Referrals/Consults Recommended Consider pelvic floor referral after this PT treatment d/t pt reports urinary changes after pool therapy; consider talking talking with doctor about pain/pain referral and possible counseling to help with chronic pain Next Visit Focus/Plan Next Note Type Treatment Note Next Visit Plan Continue gentle gait and core stabilizing exercises progressing as pt tolerates.
--- NOTE | 2020-01-07 15:23 | PT.OTN ---
Current Diagnoses Other symptoms and signs involving the musculoskeletal system (01/07/20) Physical Therapy Treatment Note PT-OP-A Visit Information Start: 11/22/19 09:24 Freq: Status: Active Protocol: Document 01/07/20 14:37 MB (Rec: 01/07/20 15:23 MB [id number]) Out-Patient Physical Therapy Visit Information Visit Information Visit Type Treatment Note Visit Start Time 14:37 Visit Stop Time 15:15 Total Visit Minutes 38 Visit Number 2/10 Number of HOUSEHOLD APPLIANCE MECHANIC Visits 0 PT-OP-B Current Condition Start: 11/22/19 09:24 Freq: Status: Active Protocol: Document 11/26/19 10:29 MB (Rec: 11/26/19 10:52 MB [id number]) Current Condition History of Current Condition Onset Date Over the last year History of Current Condition Pt reports weakness after starting prednisone for possible underlying inflammatory disease. She has to use her arms to stand up and she has trouble going up the steps. She has pain in the back of her knees and up towards her buttocks. She feels pulling to the left or right of her spine. She feels deconditioned. Compicated PMH includes breast CA 2016 s/p lumpectomy and radiation and PT for lymphedema. History of injection in right shoulder and B knees, see further history below. Further PMH includes allergies/tape/latex, bronchiectasis and emphysema s/p smoking, OP, ? Crohn's, questionable swallowing issue Pt reports pain after having a blanket stuck under her and trying to take it off. Pt reports 4/10 pain under right arm, right lateral hip and and knee pain 3/10, right anterior knee pain 3/10, left anterior knee pain 5/10, right scapular, spinal, left SI pain 4/10, left lateral hip pain 3/10, left lateral knee pain 5/10. She is sleeping 4-5 hours. She cannot walk d/t knee pain B. She is interested in aquatic therapy. Pt sees multiple providers including civil laboratory technician, GI specialist, flight surgeon, orthopedist and oncologist. Pt has low iron. She does not know if she has a B12 or vitamin D deficiency. She gets infusions for OP. Oncologist note states that pt has psoriasis but pt does not mention this. Prior Treatments and Tests PT in past at this clinic for her back and her back has not really improved. She had PT for LUE lymphedema. She had PT in past for TMJ. She had PT for her knees that was rough. She had injections. She might have an inflammatory disease. She is on medication for this including prednisone and leflunomide. She takes her inhaler 2x/day. Dxs for thoracic spine with degenerative changes, right scapular pain of unknown source, left knee MRI 04/16/19 with changes: synovial thickening and increased enhancement consistent with synovitis, small to moderate joint effusion, popliteus tendonitis or partial tear, mild edema in the popliteus, mild tricompartmental cartilage loss PT-OP-C Subjective Start: 11/22/19 09:24 Freq: Status: Active Protocol: Document 01/07/20 14:37 MB (Rec: 01/07/20 15:23 MB [id number]) OP-PT Subjective Patient Comments Patient Comments Pt states that her right shoulder, elbow and wrist con' t to bother her after she had a hard stop when pulling a sheet off of her and it got caught. She felt sore after Counterstrain but her legs feel different and not in a bad way. PT-OP-J Posture/Palpation/Skin Start: 11/22/19 09:24 Freq: Status: Active Protocol: Document 11/26/19 10:29 MB (Rec: 11/26/19 13:00 MB [id number]) Posture Evaluation Comments Posture Comments Overall, decreased curvature of cervical, thoracic and lumbar spine, right scapula higher than the left, right iliac crest higher than the left PT-OP-M Strength Start: 11/22/19 09:24 Freq: Status: Active Protocol: Document 11/26/19 10:29 MB (Rec: 11/26/19 13:00 MB [id number]) Hip Strength Hip Manual Muscle Testing Left Flexion (L2) 2 Poor Abduction 2 Poor Comments Pt can mildly lift left hip off mat in sitting. There is some question of pt effort. In supine, pt presents with little tolerance to MMT. This is similar for all B LE joints Right Flexion (L2) 2- Poor- Abduction 2- Poor- Comments Pt cannot lift right hip off mat in sitting. There is some question of pt effort. In supine, PT assists her to get her right hip flexed with foot of the mat and pt presents with little tolerance to MMT. This is similar for all B LE joints Knee Strength Knee Manual Muscle Testing Left Flexion (S2) 2+ Poor+ Extension (L3) 2+ Poor+ Comments In supine. Weakness and/or decreased effort and guarding and fear of pain. Pt reports hamstring and adductor discomfort Right Flexion (S2) 3- Fair- Extension (L3) 3- Fair- Comments In supine. Weakness and/or decreased effort and guarding and fear of pain. Pt reports hamstring and adductor discomfort Ankle/Foot Strength Ankle and Foot Manual Muscle Testing Left Dorsiflexion (L4) 3 Fair Comments Great toe extension 4/5 Right Dorsiflexion (L4) 3 Fair Comments Great toe extension 4/5 PT-OP-Q Treatments Start: 11/22/19 09:24 Freq: Status: Active Protocol: Document 01/07/20 14:37 MB (Rec: 01/07/20 15:23 MB [id number]) Therapeutic Exercises Sitting Exercises Sit to stand Comments Performed today with arms out and momentum, pt to try at home Manual Therapy Treatment Other Other Manual Treatments Counterstrain to assess and treat fascial tightness. Pt agrees. PT treats stacks B: right spinal medullary lymphatic venous lower thoracic, cervical epidural lymphatic venous, DPR left thoracic. Pt with improved fascial mobility after treatment. PT-OP-S Aquatic Treatment Start: 11/22/19 09:24 Freq: Status: Active Protocol: Document 01/02/20 10:15 LJ (Rec: 01/02/20 15:00 LJ [id number]) Aquatics Treatment Pool Entry/Exit Pool Entry/Exit Method Stairs Assistance Standby Assistance Comments lift chair exiting Water Walking directional changes Water Level Chest Level Level of Assistance Standby Assistance,Verbal Cues Comments small steps to protect L knee during turn start/stop Water Level Chest Level Level of Assistance Standby Assistance,Verbal Cues Comments no LOB Sideways Water Level Chest Level Level of Assistance Standby Assistance Comments no pain backward Water Level Chest Level Level of Assistance Standby Assistance,Verbal Cues Comments no pain forward Water Level Chest Level Level of Assistance Standby Assistance,Verbal Cues Comments reciprocal arm swing Lower Extremity Exercises hip ext, abd isometrics Body Position Standing Water Level Chest Level Reps/Duration 8 Comments gentle muscle activation Lower Extremity Stretches HS stretch Details foot on step Body Position Standing Reps/Duration 2x 30 Comments gentle with self massage Upper Extremity Exercises shoulder flex/ext Body Position Standing Water Level Chest Level Reps/Duration 10x Comments emphasis on core stab; gentle mvmt shoulder hor ab/ad Details keiko and unil Body Position Standing Water Level Chest Level Reps/Duration 10x Comments emphasis on core stab, gentle mvmt Balance step up/down on 4 box Details all directions Reps/Duration 5 each direction Comments pt used wall for balance occasionally PT-OP-T Assessment and Plan Start: 11/22/19 09:24 Freq: Status: Active Protocol: Document 01/07/20 14:37 MB (Rec: 01/07/20 15:23 MB [id number]) Physical Therapy Assessment Rehab Potential Rehabilitation Potential Fair Evaluation Complexity Number of Personal Factors/Comorbidities 1-2 Number of Body Systems Impaired 3 Clinical Presentation at Evaluation Evolving Impairments Impairments Activity Tolerance,Functional Activities,Functional Mobility ,Pain,Posture,ROM,Sensation, Strength Other Impairments Pt presents with multi-system problems including hx cancer, underlying inflammatory process that affects GI systems, joints and pain, OP, takes many medication including steroids and chemo drug for inflammatory disease. She also presents with guarding behavior and reports that she did not tolerate previous PT durations well d/t increased leg pain. Her left knee MRI presents with changes . She also presents with decreased effort with activities like sit to stands and MMT this date. These many medical and personal co- morbidities are barriers to PT . PT prognosis is guarded. Goals Four Impairment Decreased gait Watchguard Goal (LTG) Pt will gait train at least 1500 feet in 6 minutes with LRAD to increase community ambulation by 02/26/2020. 12/28/2019: PT does attempt to check but measuring device does not function. Grossly at least 900 ft in 6 minutes LTG Duration 8 weeks Three Half-Way Goal (LTG) Pt will perform 5 reps sit to stand without UE support in less than 13 sec to improve functional transfers by 2019. 12/28/2019: Pt can only perform 1 rep without hands and with plinth high LTG Duration 8 weeks Two Watchguard Goal (LTG) Pt will perform 5 steps with use of 1 or 2 rails and reciprocal gait to prepare for getting up to her sewing materials by 02/26/2020. 12/28/2019: 4 steps with step- to gait and reports of 8/10 right knee pain and pt uses rail LTG Duration 8 weeks One Half-Way Goal (LTG) Pt will perform progressive HEP with I including pelvic realignment, functional, flexibility, strengthening and gait activities to decrease fall risk and pain by 2019. 12/28/2019: Pt reports that she is performing exercises as provided by PT. LTG Duration 8 weeks Assessment Summary Assessment Pt may be sore after 8 sit to stands with hands open. Counterstrain to address fascial tension. Pt is interested in pool program for HEP at d/c. Physical Therapy Plan Frequency and Duration Frequency of Treatment 2x/wk Duration of Treatment 8 weeks Plan of Care Start Date 12/28/19 Plan of Care End Date 02/26/20 Therapeutic Interventions Therapeutic Interventions Aquatic Therapy,Balance Training,Gait Training,Home Exercise Program,Manual Therapy,Neuromuscular Re- education,Patient/Caregiver Education,Self-Care/Home Management,Soft Tissue Mobilization,Taping, Therapeutic Activities, Therapeutic Exercises Modalities Cold Pack/Ice Massage,Electric Stimulation,Hot Packs, Ultrasound Other Therapeutic Interventions Cold laser as appropriate Other Referrals/Consults Referrals/Consults Recommended Consider pelvic floor referral after this PT treatment d/t pt reports urinary changes after pool therapy; consider talking talking with doctor about pain/pain referral and possible counseling to help with chronic pain Next Visit Focus/Plan Next Note Type Treatment Note Next Visit Plan Continue gentle gait and core stabilizing exercises progressing as pt tolerates.
--- NOTE | 2020-01-14 10:02 | PT.OTN ---
Current Diagnoses Other symptoms and signs involving the musculoskeletal system (01/14/20) Physical Therapy Treatment Note PT-OP-A Visit Information Start: 11/22/19 09:24 Freq: Status: Active Protocol: Document 01/14/20 09:00 MB (Rec: 01/14/20 10:02 MB [id number]) Out-Patient Physical Therapy Visit Information Visit Information Visit Type Treatment Note Visit Start Time 09:00 Visit Stop Time 09:40 Total Visit Minutes 40 Visit Number 3/10 Number of ADJUSTMENT EXAMINER Visits 0 PT-OP-B Current Condition Start: 11/22/19 09:24 Freq: Status: Active Protocol: Document 11/26/19 10:29 MB (Rec: 11/26/19 10:52 MB [id number]) Current Condition History of Current Condition Onset Date Over the last year History of Current Condition Pt reports weakness after starting prednisone for possible underlying inflammatory disease. She has to use her arms to stand up and she has trouble going up the steps. She has pain in the back of her knees and up towards her buttocks. She feels pulling to the left or right of her spine. She feels deconditioned. Compicated PMH includes breast CA 2016 s/p lumpectomy and radiation and PT for lymphedema. History of injection in right shoulder and B knees, see further history below. Further PMH includes allergies/tape/latex, bronchiectasis and emphysema s/p smoking, OP, ? Crohn's, questionable swallowing issue Pt reports pain after having a blanket stuck under her and trying to take it off. Pt reports 4/10 pain under right arm, right lateral hip and and knee pain 3/10, right anterior knee pain 3/10, left anterior knee pain 5/10, right scapular, spinal, left SI pain 4/10, left lateral hip pain 3/10, left lateral knee pain 5/10. She is sleeping 4-5 hours. She cannot walk d/t knee pain B. She is interested in aquatic therapy. Pt sees multiple providers including pharmacy associate, GI specialist, instructional materials director, orthopedist and oncologist. Pt has low iron. She does not know if she has a B12 or vitamin D deficiency. She gets infusions for OP. Oncologist note states that pt has psoriasis but pt does not mention this. Prior Treatments and Tests PT in past at this clinic for her back and her back has not really improved. She had PT for LUE lymphedema. She had PT in past for TMJ. She had PT for her knees that was rough. She had injections. She might have an inflammatory disease. She is on medication for this including prednisone and leflunomide. She takes her inhaler 2x/day. Dxs for thoracic spine with degenerative changes, right scapular pain of unknown source, left knee MRI 04/16/19 with changes: synovial thickening and increased enhancement consistent with synovitis, small to moderate joint effusion, popliteus tendonitis or partial tear, mild edema in the popliteus, mild tricompartmental cartilage loss PT-OP-C Subjective Start: 11/22/19 09:24 Freq: Status: Active Protocol: Document 01/14/20 09:00 MB (Rec: 01/14/20 10:02 MB [id number]) OP-PT Subjective Patient Comments Patient Comments Pt had to cancel her last pool appointment d/t allergies. She has started back on her nasal spray. She had a hard time breathing. She is better now. She might be allergic to a hazelnut tree near her bedroom might a problem. PT-OP-J Posture/Palpation/Skin Start: 11/22/19 09:24 Freq: Status: Active Protocol: Document 11/26/19 10:29 MB (Rec: 11/26/19 13:00 MB [id number]) Posture Evaluation Comments Posture Comments Overall, decreased curvature of cervical, thoracic and lumbar spine, right scapula higher than the left, right iliac crest higher than the left PT-OP-M Strength Start: 11/22/19 09:24 Freq: Status: Active Protocol: Document 11/26/19 10:29 MB (Rec: 11/26/19 13:00 MB [id number]) Hip Strength Hip Manual Muscle Testing Left Flexion (L2) 2 Poor Abduction 2 Poor Comments Pt can mildly lift left hip off mat in sitting. There is some question of pt effort. In supine, pt presents with little tolerance to MMT. This is similar for all B LE joints Right Flexion (L2) 2- Poor- Abduction 2- Poor- Comments Pt cannot lift right hip off mat in sitting. There is some question of pt effort. In supine, PT assists her to get her right hip flexed with foot of the mat and pt presents with little tolerance to MMT. This is similar for all B LE joints Knee Strength Knee Manual Muscle Testing Left Flexion (S2) 2+ Poor+ Extension (L3) 2+ Poor+ Comments In supine. Weakness and/or decreased effort and guarding and fear of pain. Pt reports hamstring and adductor discomfort Right Flexion (S2) 3- Fair- Extension (L3) 3- Fair- Comments In supine. Weakness and/or decreased effort and guarding and fear of pain. Pt reports hamstring and adductor discomfort Ankle/Foot Strength Ankle and Foot Manual Muscle Testing Left Dorsiflexion (L4) 3 Fair Comments Great toe extension 4/5 Right Dorsiflexion (L4) 3 Fair Comments Great toe extension 4/5 PT-OP-Q Treatments Start: 11/22/19 09:24 Freq: Status: Active Protocol: Document 01/14/20 09:00 MB (Rec: 01/14/20 10:02 MB [id number]) Therapeutic Exercises Standing Exercises Standing hip abduction and extension isometric in doorway with pillow Comments 3 sec hold B legs, 2 reps Manual Therapy Treatment Manual Techniques KT to support left knee Comments Black KT to support left knee: c strip under patella and B I strips medial and lateral knee Other Other Manual Treatments Counterstrain to assess and treat fascial tightness. Pt agrees. PT treats stacks B: DPR lower thoracic, visceral on the left. Pt responds well to treatment Self-Care/Home Management Treatment Education Other Education Benefits of thigh high compression PT-OP-S Aquatic Treatment Start: 11/22/19 09:24 Freq: Status: Active Protocol: Document 01/02/20 10:15 HAVEN (Rec: 01/02/20 15:00 LJ [id number]) Aquatics Treatment Pool Entry/Exit Pool Entry/Exit Method Stairs Assistance Standby Assistance Comments lift chair exiting Water Walking directional changes Water Level Chest Level Level of Assistance Standby Assistance,Verbal Cues Comments small steps to protect L knee during turn start/stop Water Level Chest Level Level of Assistance Standby Assistance,Verbal Cues Comments no LOB Sideways Water Level Chest Level Level of Assistance Standby Assistance Comments no pain backward Water Level Chest Level Level of Assistance Standby Assistance,Verbal Cues Comments no pain forward Water Level Chest Level Level of Assistance Standby Assistance,Verbal Cues Comments reciprocal arm swing Lower Extremity Exercises hip ext, abd isometrics Body Position Standing Water Level Chest Level Reps/Duration 8 Comments gentle muscle activation Lower Extremity Stretches HS stretch Details foot on step Body Position Standing Reps/Duration 2x 30 Comments gentle with self massage Upper Extremity Exercises shoulder flex/ext Body Position Standing Water Level Chest Level Reps/Duration 10x Comments emphasis on core stab; gentle mvmt shoulder hor ab/ad Details keiko and unil Body Position Standing Water Level Chest Level Reps/Duration 10x Comments emphasis on core stab, gentle mvmt Balance step up/down on 4 box Details all directions Reps/Duration 5 each direction Comments pt used wall for balance occasionally PT-OP-T Assessment and Plan Start: 11/22/19 09:24 Freq: Status: Active Protocol: Document 01/14/20 09:00 MB (Rec: 01/14/20 10:02 MB [id number]) Physical Therapy Assessment Rehab Potential Rehabilitation Potential Fair Evaluation Complexity Number of Personal Factors/Comorbidities 1-2 Number of Body Systems Impaired 3 Clinical Presentation at Evaluation Evolving Impairments Impairments Activity Tolerance,Functional Activities,Functional Mobility ,Pain,Posture,ROM,Sensation, Strength Other Impairments Pt presents with multi-system problems including hx cancer, underlying inflammatory process that affects GI systems, joints and pain, OP, takes many medication including steroids and chemo drug for inflammatory disease. She also presents with guarding behavior and reports that she did not tolerate previous PT durations well d/t increased leg pain. Her left knee MRI presents with changes . She also presents with decreased effort with activities like sit to stands and MMT this date. These many medical and personal co- morbidities are barriers to PT . PT prognosis is guarded. Goals Four Impairment Decreased gait Banquet Prep Cook Goal (LTG) Pt will gait train at least 1500 feet in 6 minutes with LRAD to increase community ambulation by 02/26/2020. 12/28/2019: PT does attempt to check but measuring device does not function. Grossly at least 900 ft in 6 minutes LTG Duration 8 weeks Three Detention Goal (LTG) Pt will perform 5 reps sit to stand without UE support in less than 13 sec to improve functional transfers by 2019. 12/28/2019: Pt can only perform 1 rep without hands and with plinth high LTG Duration 8 weeks Two Banquet Prep Cook Goal (LTG) Pt will perform 5 steps with use of 1 or 2 rails and reciprocal gait to prepare for getting up to her sewing materials by 02/26/2020. 12/28/2019: 4 steps with step- to gait and reports of 8/10 right knee pain and pt uses rail LTG Duration 8 weeks One Detention Goal (LTG) Pt will perform progressive HEP with I including pelvic realignment, functional, flexibility, strengthening and gait activities to decrease fall risk and pain by 2019. 12/28/2019: Pt reports that she is performing exercises as provided by PT. LTG Duration 8 weeks Assessment Summary Assessment Pt responds well to Counterstain and black KT on her right hand during treatment. Proceeded with taping left knee. Reviewed isometric exercises to perform with pillow between her and the doorway. Pt is really concerned about her health in setting of immuno compromised condition and recent flu in area. Physical Therapy Plan Frequency and Duration Frequency of Treatment 2x/wk Duration of Treatment 8 weeks Plan of Care Start Date 12/28/19 Plan of Care End Date 02/26/20 Therapeutic Interventions Therapeutic Interventions Aquatic Therapy,Balance Training,Gait Training,Home Exercise Program,Manual Therapy,Neuromuscular Re- education,Patient/Caregiver Education,Self-Care/Home Management,Soft Tissue Mobilization,Taping, Therapeutic Activities, Therapeutic Exercises Modalities Cold Pack/Ice Massage,Electric Stimulation,Hot Packs, Ultrasound Other Therapeutic Interventions Cold laser as appropriate Other Referrals/Consults Referrals/Consults Recommended Consider pelvic floor referral after this PT treatment d/t pt reports urinary changes after pool therapy; consider talking talking with doctor about pain/pain referral and possible counseling to help with chronic pain Next Visit Focus/Plan Next Note Type Treatment Note Next Visit Plan Continue gentle gait and core stabilizing exercises progressing as pt tolerates.
--- NOTE | 2020-01-21 09:43 | PT.OTN ---
Current Diagnoses Other symptoms and signs involving the musculoskeletal system (01/21/20) Physical Therapy Treatment Note PT-OP-A Visit Information Start: 11/22/19 09:24 Freq: Status: Active Protocol: Document 01/21/20 09:00 MB (Rec: 01/21/20 09:43 MB [id number]) Out-Patient Physical Therapy Visit Information Visit Information Visit Type Treatment Note Visit Start Time 09:00 Visit Stop Time 09:38 Total Visit Minutes 38 Visit Number 4/10 Number of LOOP SEWER Visits 0 PT-OP-B Current Condition Start: 11/22/19 09:24 Freq: Status: Active Protocol: Document 11/26/19 10:29 MB (Rec: 11/26/19 10:52 MB [id number]) Current Condition History of Current Condition Onset Date Over the last year History of Current Condition Pt reports weakness after starting prednisone for possible underlying inflammatory disease. She has to use her arms to stand up and she has trouble going up the steps. She has pain in the back of her knees and up towards her buttocks. She feels pulling to the left or right of her spine. She feels deconditioned. Compicated PMH includes breast CA 2016 s/p lumpectomy and radiation and PT for lymphedema. History of injection in right shoulder and B knees, see further history below. Further PMH includes allergies/tape/latex, bronchiectasis and emphysema s/p smoking, OP, ? Crohn's, questionable swallowing issue Pt reports pain after having a blanket stuck under her and trying to take it off. Pt reports 4/10 pain under right arm, right lateral hip and and knee pain 3/10, right anterior knee pain 3/10, left anterior knee pain 5/10, right scapular, spinal, left SI pain 4/10, left lateral hip pain 3/10, left lateral knee pain 5/10. She is sleeping 4-5 hours. She cannot walk d/t knee pain B. She is interested in aquatic therapy. Pt sees multiple providers including tool and die engineer, GI specialist, ironworker, orthopedist and oncologist. Pt has low iron. She does not know if she has a B12 or vitamin D deficiency. She gets infusions for OP. Oncologist note states that pt has psoriasis but pt does not mention this. Prior Treatments and Tests PT in past at this clinic for her back and her back has not really improved. She had PT for LUE lymphedema. She had PT in past for TMJ. She had PT for her knees that was rough. She had injections. She might have an inflammatory disease. She is on medication for this including prednisone and leflunomide. She takes her inhaler 2x/day. Dxs for thoracic spine with degenerative changes, right scapular pain of unknown source, left knee MRI 04/16/19 with changes: synovial thickening and increased enhancement consistent with synovitis, small to moderate joint effusion, popliteus tendonitis or partial tear, mild edema in the popliteus, mild tricompartmental cartilage loss PT-OP-C Subjective Start: 11/22/19 09:24 Freq: Status: Active Protocol: Document 01/21/20 09:00 MB (Rec: 01/21/20 09:43 MB [id number]) OP-PT Subjective Patient Comments Patient Comments Pt has not had any change in steps or sit to stands at home . Pain is about the same. She is a little freaked out about the virus and does not necessarily what to have her last appointment in the pool. PT-OP-J Posture/Palpation/Skin Start: 11/22/19 09:24 Freq: Status: Active Protocol: Document 11/26/19 10:29 MB (Rec: 11/26/19 13:00 MB [id number]) Posture Evaluation Comments Posture Comments Overall, decreased curvature of cervical, thoracic and lumbar spine, right scapula higher than the left, right iliac crest higher than the left PT-OP-M Strength Start: 11/22/19 09:24 Freq: Status: Active Protocol: Document 11/26/19 10:29 MB (Rec: 11/26/19 13:00 MB [id number]) Hip Strength Hip Manual Muscle Testing Left Flexion (L2) 2 Poor Abduction 2 Poor Comments Pt can mildly lift left hip off mat in sitting. There is some question of pt effort. In supine, pt presents with little tolerance to MMT. This is similar for all B LE joints Right Flexion (L2) 2- Poor- Abduction 2- Poor- Comments Pt cannot lift right hip off mat in sitting. There is some question of pt effort. In supine, PT assists her to get her right hip flexed with foot of the mat and pt presents with little tolerance to MMT. This is similar for all B LE joints Knee Strength Knee Manual Muscle Testing Left Flexion (S2) 2+ Poor+ Extension (L3) 2+ Poor+ Comments In supine. Weakness and/or decreased effort and guarding and fear of pain. Pt reports hamstring and adductor discomfort Right Flexion (S2) 3- Fair- Extension (L3) 3- Fair- Comments In supine. Weakness and/or decreased effort and guarding and fear of pain. Pt reports hamstring and adductor discomfort Ankle/Foot Strength Ankle and Foot Manual Muscle Testing Left Dorsiflexion (L4) 3 Fair Comments Great toe extension 4/5 Right Dorsiflexion (L4) 3 Fair Comments Great toe extension 4/5 PT-OP-Q Treatments Start: 11/22/19 09:24 Freq: Status: Active Protocol: Document 01/21/20 09:00 MB (Rec: 01/21/20 09:43 MB [id number]) Therapeutic Exercises Sitting Exercises Sit to stand Comments 3 reps without UE support in 13 sec Gait Training Gait Activity 6MWT and stair training Comments 1161 feet and see stair performance under goals-- similar to reassessment gait. 6MWT improved. Pt with progressive right hip discomfort with increasing gait distance. Self-Care/Home Management Treatment Education Other Education Self-KT B I strips medial and lateral knee and c strip under patella, pt cuts tape and tapes herself, videos PT PT-OP-S Aquatic Treatment Start: 11/22/19 09:24 Freq: Status: Active Protocol: Document 01/02/20 10:15 HAVEN (Rec: 01/02/20 15:00 LJ [id number]) Aquatics Treatment Pool Entry/Exit Pool Entry/Exit Method Stairs Assistance Standby Assistance Comments lift chair exiting Water Walking directional changes Water Level Chest Level Level of Assistance Standby Assistance,Verbal Cues Comments small steps to protect L knee during turn start/stop Water Level Chest Level Level of Assistance Standby Assistance,Verbal Cues Comments no LOB Sideways Water Level Chest Level Level of Assistance Standby Assistance Comments no pain backward Water Level Chest Level Level of Assistance Standby Assistance,Verbal Cues Comments no pain forward Water Level Chest Level Level of Assistance Standby Assistance,Verbal Cues Comments reciprocal arm swing Lower Extremity Exercises hip ext, abd isometrics Body Position Standing Water Level Chest Level Reps/Duration 8 Comments gentle muscle activation Lower Extremity Stretches HS stretch Details foot on step Body Position Standing Reps/Duration 2x 30 Comments gentle with self massage Upper Extremity Exercises shoulder flex/ext Body Position Standing Water Level Chest Level Reps/Duration 10x Comments emphasis on core stab; gentle mvmt shoulder hor ab/ad Details keiko and unil Body Position Standing Water Level Chest Level Reps/Duration 10x Comments emphasis on core stab, gentle mvmt Balance step up/down on 4 box Details all directions Reps/Duration 5 each direction Comments pt used wall for balance occasionally PT-OP-T Assessment and Plan Start: 11/22/19 09:24 Freq: Status: Active Protocol: Document 01/21/20 09:00 MB (Rec: 01/21/20 09:43 MB [id number]) Physical Therapy Assessment Rehab Potential Rehabilitation Potential Fair Evaluation Complexity Number of Personal Factors/Comorbidities 1-2 Number of Body Systems Impaired 3 Clinical Presentation at Evaluation Evolving Impairments Impairments Activity Tolerance,Functional Activities,Functional Mobility ,Pain,Posture,ROM,Sensation, Strength Other Impairments Pt presents with multi-system problems including hx cancer, underlying inflammatory process that affects GI systems, joints and pain, OP, takes many medication including steroids and chemo drug for inflammatory disease. She also presents with guarding behavior and reports that she did not tolerate previous PT durations well d/t increased leg pain. Her left knee MRI presents with changes . She also presents with decreased effort with activities like sit to stands and MMT this date. These many medical and personal co- morbidities are barriers to PT . PT prognosis is guarded. Goals Four Impairment Decreased gait Flatwork Finisher Hand Goal (LTG) Pt will gait train at least 1500 feet in 6 minutes with LRAD to increase community ambulation by 02/26/2020. 01/21/2020: Pt gait trains 1161 feet with AD in 6 minutes LTG Duration 8 weeks Three Snf Goal (LTG) Pt will perform 5 reps sit to stand without UE support in less than 13 sec to improve functional transfers by 2019. 01/21/2020: 3 reps in 13 sec LTG Duration 8 weeks Two Flatwork Finisher Hand Goal (LTG) Pt will perform 5 steps with use of 1 or 2 rails and reciprocal gait to prepare for getting up to her sewing materials by 02/26/2020. 01/21/2020: 4 steps with step-to gait and reports of 8/10 right knee pain and pt uses rail LTG Duration 8 weeks One Snf Goal (LTG) Pt will perform progressive HEP with I including pelvic realignment, functional, flexibility, strengthening and gait activities to decrease fall risk and pain by 2019. 01/21/2020: Pt reports that she is intermittently performing exercises as provided by PT. LTG Duration 8 weeks Assessment Summary Assessment Pt is ready for d/c. She is worried about coronavirus and does not report any progress with gentle land and aquatic PT. She has not progressed towards PT stair goal. She did progress towards 6MWT and sit to stand goals this date but is not in normal range for her age. Pt's overall inflammatory disease, sensitivity to treatments and decreased performance of HEP are barriers to PT. Will d/c PT. Pt to con't with pool therapy when she goes to [facility]. Physical Therapy Plan Frequency and Duration Frequency of Treatment 2x/wk Duration of Treatment 8 weeks Plan of Care Start Date 12/28/19 Plan of Care End Date 02/26/20 Therapeutic Interventions Therapeutic Interventions Aquatic Therapy,Balance Training,Gait Training,Home Exercise Program,Manual Therapy,Neuromuscular Re- education,Patient/Caregiver Education,Self-Care/Home Management,Soft Tissue Mobilization,Taping, Therapeutic Activities, Therapeutic Exercises Modalities Cold Pack/Ice Massage,Electric Stimulation,Hot Packs, Ultrasound Other Therapeutic Interventions Cold laser as appropriate Other Referrals/Consults Referrals/Consults Recommended Consider pelvic floor referral after this PT treatment d/t pt reports urinary changes after pool therapy; consider talking talking with doctor about pain/pain referral and possible counseling to help with chronic pain Next Visit Focus/Plan Next Note Type Discharge Summary
== END 2020-01-22 13:15 ==
LOC: PHYS 09:00
PROVIDERS: PCP Internal Medicine; Referring Provider Internal Medicine Rheumatology; Visit Provider Internal Medicine Rheumatology
DX: R29.898 Other symptoms and signs involving the musculoskeletal system (principal)
CPT/HCPCS: 97110; 97113; 97116; 97140; 97163; 97535

== ENCOUNTER → 2020-04-10 08:10 | Outpatient (CLI) | payer MEDICARE, OTHER, SELFPAY ==
[2020-04-10 10:08] LABS: Add Manual Diff / Slide Review NO; Basophils Absolute Auto 100 /uL (0-100); Basophils Percent Auto 0.6 % (0-2); Eosinophils Absolute Auto 0 /uL (0-450); Eosinophils Percent Auto 0.3 % (2-4); Hematocrit 37.7 % (36-46); Hemoglobin 12.8 g/dL (12.0-16.0); Lymphocytes Absolute Auto 900 /uL (1100-4500); Lymphocytes Percent Auto 7.1 % (25-40); Mean Corpuscular HGB Conc 33.9 % (30-36); Mean Corpuscular Hemoglobin 28.3 PG (26-34); Mean Corpuscular Volume 83.4 fL (80-100); Monocytes Absolute Auto 600 /uL (0-900); Neutrophils Absolute Auto 10500 /uL (1500-7000); Platelet Count 369 X10^3/uL (150-400); Red Blood Cell Count 4.52 X10^6/uL (4.0-5.2); Red Cell Distribution Width 14.3 % (11.6-14.8)
[2020-04-10 10:45] LABS: Alanine Aminotransferase 20 IU/L (<35); Albumin 4.2 g/dL (3.5-5.0); Albumin Globulin Ratio 1.2 (1.0-2.8); Alkaline Phosphatase 65 U/L (38-126); Aspartate Aminotransferase 34 IU/L (14-36); BUN Creatinine Ratio 35.7 (6-22); Bilirubin Total 0.6 mg/dL (0.2-1.3); Blood Urea Nitrogen 25 mg/dL (7-17); C-Reactive Protein Quant 1.9 mg/dL (<1.0); Calcium 9.9 mg/dL (8.4-10.2); Carbon Dioxide 29 mmol/L (22-32); Chloride 102 mmol/L (98-107); Estimated Glomerular Filt Rate > 60.0 mL/min (>60); Globulin 3.6 g/dL (1.7-4.1); Glucose 106 mg/dL (80-110); HEMOLYSIS < 15 (0-50); Potassium 4.1 mmol/L (3.4-5.1); Sodium 140 mmol/L (137-145); Total Protein 7.8 g/dL (6.3-8.2); Uric Acid 3.3 mg/dL (2.5-6.2)
[2020-04-10 10:51] LABS: Erythrocyte Sedimentation Rate 28 MM/HR (0-20)
[2020-04-10 11:07] LABS: TSH w/ Reflex to FT4 1.45 uIU/mL (0.47-4.68)
[2020-04-10 11:25] LABS: Vitamin B12 946 pg/mL (239-931)
[2020-04-11 02:39] LABS: RPR Screen Non Reactive (Non Reactive)
[2020-04-14 14:12] LABS: Albumin 3.5 g/dL (2.9-4.4); Alpha-1-Globulin 0.3 g/dL (0.0-0.4); Alpha-2-Globulin 0.8 g/dL (0.4-1.0); Gamma Globulin 1.2 g/dL (0.4-1.8); Globulin Total 3.3 g/dL (2.2-3.9); Immunoglobulin A, Serum 121 mg/dL (87-352); Immunoglobulin G,Serum 1178 mg/dL (586-1602); Immunoglobulin M, Serum 126 mg/dL (26-217); Protein, Total 6.8 g/dL (6.0-8.5)
[2020-04-15 11:47] LABS: Calcium 9.7 mg/dL (8.7-10.3); Parathyroid Hormone, Intact 65 pg/mL (15-65)
[2020-04-17 16:14] LABS: Cytoplasmic C-ANCA <1:20 titer (Neg:<1:20)
== END ==
PROVIDERS: PCP Internal Medicine; Referring Provider Internal Medicine; Visit Provider Internal Medicine
DX: R76.8 Other specified abnormal immunological findings in serum (principal); M25.50 Pain in unspecified joint; J47.9 Bronchiectasis, uncomplicated; G62.9 Polyneuropathy, unspecified; E34.9 Endocrine disorder, unspecified; R53.82 Chronic fatigue, unspecified
CPT/HCPCS: 36415; 80053; 82310; 82397; 82607; 82784; 83970; 84155; 84165; 84443; 84550; 85025; 85651; 86140; 86334; 86592

== ENCOUNTER → 2020-04-24 13:08 | Outpatient (CLI) | payer MEDICARE, OTHER, SELFPAY ==
--- NOTE | 2020-04-24 | DI.MG.S_ITS ---
BILATERAL DIGITAL SCREENING MAMMOGRAM 3D/2D WITH CAD: 04/24/2020 CLINICAL: Routine screening. Family history of breast cancer. History of breast cancer. Comparison is made to exams dated: 03/26/2019 mammogram, 03/23/2018 mammogram, and 03/21/2017 mammogram - [facility]. The tissue of both breasts is heterogeneously dense. This may lower the sensitivity of mammography. Current study was also evaluated with a Computer Aided Detection (CAD) system. There are benign post operative findings in the left breast. No significant masses, calcifications, or other findings are seen in either breast. There has been no significant interval change. IMPRESSION: There is no mammographic evidence of malignancy. A 1 year screening mammogram is recommended. This exam was interpreted at Station ID: [id number]. NOTE: For mammograms, a report in lay terms will be sent to the patient. Approximately 15% of breast malignancies will not be visualized mammographically. In the management of a palpable breast mass, a negative mammogram must not discourage biopsy of a clinically suspicious lesion. Electronically Signed By: Reji davies/ashley:04/24/2020 14:07:01 copy to: BLANQUITA WEEKS copy to: KEERTHI HUGO letter sent: Normal Exam ACR BI-RADS Category 2: Benign Finding(s) [id number]
== END ==
PROVIDERS: PCP Internal Medicine; Referring Provider Internal Medicine Hematology & Oncology; Visit Provider Internal Medicine Hematology & Oncology
DX: Z12.31 Encounter for screening mammogram for malignant neoplasm of breast (principal); Z85.3 Personal history of malignant neoplasm of breast; Z80.3 Family history of malignant neoplasm of breast
CPT/HCPCS: 77063; 77067

== ENCOUNTER → 2020-08-26 09:35 | Outpatient (CLI) | payer MEDICARE, OTHER, SELFPAY ==
--- NOTE | 2020-08-26 09:45 | DI.RAD.S_ITS ---
PROCEDURE: XR HAND LT MIN 3V INDICATIONS: RHEUMATOID ARTHRITIS TECHNIQUE: 3 views of the hand(s) acquired. COMPARISON: None. FINDINGS: Bones: No fractures or dislocations. Carpal bones are normally aligned. No suspicious bony lesions. Soft tissues: No suspicious soft tissue calcifications. IMPRESSION: No evidence of erosive arthropathy. Dictated by: Elliot Banuelos M.D. on 08/26/2020 at 16:52 Approved by: Elliot Banuelos M.D. on 08/26/2020 at 16:52
--- NOTE | 2020-08-26 09:45 | DI.RAD.S_ITS ---
PROCEDURE: XR HAND RT MIN 3V INDICATIONS: RHEUMATOID ARTHRITIS TECHNIQUE: 3 views of the hand(s) acquired. COMPARISON: None. FINDINGS: Bones: No fractures or dislocations. Carpal bones are normally aligned. No suspicious bony lesions. Soft tissues: No suspicious soft tissue calcifications. IMPRESSION: No evidence of erosive arthropathy. Dictated by: Elliot Banuelos M.D. on 08/26/2020 at 16:51 Approved by: Elliot Banuelos M.D. on 08/26/2020 at 16:52
== END ==
PROVIDERS: PCP Internal Medicine; Referring Provider Internal Medicine Rheumatology; Visit Provider Internal Medicine Rheumatology
DX: M35.9 Systemic involvement of connective tissue, unspecified (principal)
CPT/HCPCS: 73130

== ENCOUNTER → 2020-10-04 09:24 | Outpatient (CLI) | payer MEDICARE, OTHER, SELFPAY ==
[2020-10-04 09:49] LABS: COVID19 -Nasal RAPID Negative (Negative)
== END ==
PROVIDERS: PCP Internal Medicine; Visit Provider Physician Assistant
DX: Z11.59 Encounter for screening for other viral diseases (principal)
CPT/HCPCS: 87635

== ENCOUNTER → 2020-10-06 12:44 | Outpatient (CLI) | payer MEDICARE, OTHER, SELFPAY ==
[2020-10-06 13:22] LABS: Hematocrit 38.4 % (36-46); Hemoglobin 12.6 g/dL (12.0-16.0); Mean Corpuscular HGB Conc 32.9 % (30-36); Mean Corpuscular Hemoglobin 27.3 PG (26-34); Mean Corpuscular Volume 82.9 fL (80-100); Platelet Count 402 X10^3/uL (150-400); Red Blood Cell Count 4.63 X10^6/uL (4.0-5.2); Red Cell Distribution Width 14.5 % (11.6-14.8)
[2020-10-06 13:35] LABS: Erythrocyte Sedimentation Rate 27 MM/HR (0-20)
[2020-10-06 13:37] LABS: Alanine Aminotransferase 33 IU/L (<35); Albumin 4.2 g/dL (3.5-5.0); Albumin Globulin Ratio 1.2 (1.0-2.8); Alkaline Phosphatase 76 U/L (38-126); Amylase 60 U/L (30-110); Aspartate Aminotransferase 41 IU/L (14-36); BUN Creatinine Ratio 20.6 (6-22); Bilirubin Total 0.8 mg/dL (0.2-1.3); Blood Urea Nitrogen 14 mg/dL (7-17); C-Reactive Protein Quant 1.8 mg/dL (<1.0); Carbon Dioxide 30 mmol/L (22-32); Chloride 104 mmol/L (98-107); Estimated Glomerular Filt Rate > 60.0 mL/min (>60); Globulin 3.5 g/dL (1.7-4.1); Glucose 92 mg/dL (80-110); HEMOLYSIS < 15 (0-50); Lipase 70 U/L (23-300); Potassium 4.2 mmol/L (3.4-5.1); Sodium 139 mmol/L (137-145); Total Protein 7.7 g/dL (6.3-8.2)
[2020-10-06 13:54] LABS: Neutrophils Absolute Manual 6660 /uL (3000-5900); Total Cells Counted 100
[2020-10-06 13:56] LABS: RBC Morphology Normal Morphology
[2020-10-06 14:12] LABS: Appearance Urine UA CLEAR; Bilirubin Urine UA NEGATIVE (NEGATIVE); Color Urine UA YELLOW; Glucose Urine UA NEGATIVE (Negative); Ketones Urine UA NEGATIVE (NEGATIVE); Leukocyte Esterase Urine UA 2+ (NEGATIVE); Nitrite Urine UA NEGATIVE (Negative); Occult Blood Urine UA 2+ (Negative); Protein Urine UA NEGATIVE (Negative); Urobilinogen Urine UA 0.2 E.U./dL (0.2)
[2020-10-06 14:40] LABS: Bacteria Urine Few (2-10); Culture Indicated Urine Specimen Cultured; RBC Urine 1-5/HPF (0-5/HPF); Squamous Epithelial Cell Urine 0-1 /HPF (0-5/HPF); WBC Urine 10-30/HPF (0-5/HPF)
[2020-10-09 09:07] LABS: Cytoplasmic C-ANCA <1:20 titer (Neg:<1:20)
== END ==
PROVIDERS: PCP Internal Medicine; Referring Provider Internal Medicine; Visit Provider Internal Medicine
DX: R19.7 Diarrhea, unspecified (principal); M19.90 Unspecified osteoarthritis, unspecified site; R10.9 Unspecified abdominal pain; R76.8 Other specified abnormal immunological findings in serum
CPT/HCPCS: 36415; 80053; 81001; 82150; 83690; 85025; 85651; 86140; 87086

== ENCOUNTER → 2020-10-07 07:34 | Outpatient (CLI) | payer MEDICARE, OTHER, SELFPAY ==
[2020-10-07 09:14] LABS: Occult Blood 1 Negative (Negative)
[2020-10-08 15:11] LABS: Fats, Neutral Normal (.); Fats, Total Normal (.)
[2020-10-15 10:36] LABS: Lactoferrin, Fecal Quant <1.00 ug/mL(g) (0.00-7.24)
== END ==
PROVIDERS: PCP Internal Medicine; Referring Provider Internal Medicine; Visit Provider Internal Medicine
DX: R19.7 Diarrhea, unspecified (principal)
CPT/HCPCS: 82270; 82705; 83631; 87045; 87899

== ENCOUNTER → 2020-10-08 09:25 | Outpatient (CLI) | payer MEDICARE, OTHER, SELFPAY ==
--- NOTE | 2020-10-08 10:41 | DI.CT.S_ITS ---
PROCEDURE: CT ABDOMEN PELVIS W CON INDICATIONS: Intestinal malabsorption, unspecified TECHNIQUE: After the administration of intravenous contrast, 5 mm thick sections acquired from the diaphragm to the symphysis. 5 mm coronal and sagittal reformats were acquired. For radiation dose reduction, the following was used: automated exposure control, adjustment of mA and/or kV according to patient size. COMPARISON: [facility], CT, ABDOMEN/PELVIS WITH CONTRAST, 10/07/2009, 9:23. FINDINGS: Image quality: Excellent. ABDOMEN: Lung bases: Lung bases are clear. Heart size is normal. Solid organs: Liver is normal in size and enhancement. Gallbladder has been resected . Biliary system is non dilated. Pancreas enhances normally. Spleen is normal in size and enhancement. No adrenal nodules. Kidneys demonstrate normal size and enhancement, without hydronephrosis. Peritoneum and bowel: Bowel loops demonstrate normal wall thickness and caliber. No free fluid or air. Nodes and vessels: No retroperitoneal or mesenteric adenopathy by size criteria. Aorta and inferior vena cava are normal in size. Miscellaneous: No ventral hernias. Has been resected PELVIS: Genitourinary: Bladder wall thickness is normal. Miscellaneous: No inguinal hernias or adenopathy. Bones: No suspicious bony lesions. No vertebral body compression fractures. IMPRESSION: Normal examination, no evidence for source of intestinal malabsorption syndrome. Pancreas appears normal in size, no evidence of pancreatic duct distension or glandular atrophy. Large and small bowel visualized appears normal by CT criteria. Dictated by: Willie Lebron M.D. on 10/08/2020 at 12:01 Approved by: Willie Lebron M.D. on 10/08/2020 at 12:02
== END ==
PROVIDERS: PCP Internal Medicine; Referring Provider Internal Medicine; Visit Provider Internal Medicine
DX: K90.9 Intestinal malabsorption, unspecified (principal); Z90.49 Acquired absence of other specified parts of digestive tract
CPT/HCPCS: 74177; Q9967

== ENCOUNTER → 2020-10-14 08:01 | Outpatient (CLI) | payer MEDICARE, OTHER, SELFPAY | PROVIDERS: PCP Internal Medicine; Referring Provider Internal Medicine; Visit Provider Internal Medicine | DX: R19.7 Diarrhea, unspecified (principal) | CPT/HCPCS: 87045; 87899 ==

== ENCOUNTER → 2020-11-24 09:35 | Outpatient (CLI) | payer MEDICARE, OTHER, SELFPAY ==
[2020-11-24 10:23] LABS: COVID19 -Nasal RAPID Negative (Negative)
== END ==
PROVIDERS: PCP Internal Medicine; Visit Provider Nurse Practitioner Family
DX: Z01.812 Encounter for preprocedural laboratory examination (principal); Z20.822 Contact with and (suspected) exposure to COVID-19
CPT/HCPCS: 87635; C9803

== ENCOUNTER 2020-11-26 11:52 | Day surgery (SDC) | payer MEDICARE, OTHER, SELFPAY ==
--- NOTE | 2020-11-26 | PATH_ITS ---
[facility] Accession Number: [id number] . 01 Material submitted: . PART A: colon - RIGHT COLON BIOPSY PART B: colon - TRANSVERSE COLON BIOPSY PART C: colon - LEFT COLON BIOPSY PART D: colon - RECTAL-SIGMOID BIOPSY . 01 Clinical history: . DX COLONOSCOPY W/POSS BX . 02 Diagnosis: A-D: Right, Transverse, Left, Rectosigmoid Colon, Biopsies: Colonic mucosa with patchy mildly increased intraepithelial lymphocytes; please see comment. Negative for active inflammation, granulomata, dysplasia or malignancy. MRV 12/01/2020 1048 Local . 02 Comment: The histologic findings are mild and nonspecific. That said, the features raise the possibility of a resolving infectious process versus early lymphocytic colitis. . 02 Electronically signed: . Ricci Arthur MD, PhD, Pathologist NPI- [id number] . 01 Gross description: . Part A: RIGHT COLON BIOPSY: Received in formalin are 4 fragment(s) of ulloa, soft tissue measuring 0.1 x 0.1 x 0.1 cm to 0.4 x 0.1 x 0.1 cm submitted entirely in 1 cassette(s) Part B: TRANSVERSE COLON BIOPSY: Received in formalin are multiple fragment(s) of ulloa, soft tissue measuring 0.1 x 0.1 x 0.1 cm to 0.3 x 0.2 x 0.2 cm submitted entirely in 1 cassette(s) Part C: LEFT COLON BIOPSY: Received in formalin are 4 fragment(s) of ulloa, soft tissue measuring 0.1 x 0.1 x 0.1 cm to 0.3 x 0.2 x 0.2 cm submitted entirely in 1 cassette(s) Part D: RECTAL-SIGMOID BIOPSY: Received in formalin are 3 fragment(s) of ulloa, soft tissue measuring 0.2 x 0.2 x 0.1 cm to 0.3 x 0.2 x 0.2 cm submitted entirely in 1 cassette(s) /DEZ 11/27/2020 2030 Local . 02 Pathologist provided ICD-10: R19.4, Z80.0 . 02 CPT . 061291, 392367, 184555, 502860 Performed at: 01 [facility] [address] [place] [address], [place], [place] [id number] MD Evan Canada MD Phone: [phone] Performed at: 02 [facility] [address] [place], [place] [id number] MD Lashawn Emerson MD Phone: [phone]
[2020-11-26 12:40] VITALS: BMI 20.9
--- NOTE | 2020-11-26 13:01 | PM.PREOP ---
Pre-operative Note COVID-19 COVID-19 status: Negative Interval Note History & Physical reviewed/Exam performed by Physician: Yes Changes to H&P: No ASA Class (for procedural sedation): II
--- NOTE | 2020-11-26 13:01 | PM.OP.ENDO ---
Operative Date/Time/Diagnoses Date of procedure: 11/26/20 Pre-op diagnosis: See indication and findings Procedure & Clinicians Study performed: Colonoscopy with biopsy Same procedure as scheduled: Yes Indications: Change in bowel movements/screening for family history of colon cancer. Also history of ulcerative proctitis. 0 hot wall or drug doses thanks inserted Procedure Notes Procedure in detail: After informed consent was obtained patient was placed in left lateral decubitus position. The video colonoscope was introduced the rectum slowly advanced cecum. Preparation was good. On slow withdrawal mucosa was carefully examined. The scope was removed. The patient tolerated procedure well. Blood loss none Complications none Sedation Total sedation time 28 minutes Versed 7 mg fentanyl 150 micro g IV titration Findings One. Other than being very tortuous had normal colonoscopy to cecum. In the rectosigmoid may have been slightly erythematous. Biopsies were taken to every 10 cm in the right, transverse, left, and rectosigmoid. I will follow-up with biopsies on the telephone with Nabila. Further recommendations will follow.
[2020-11-26] MEDS: LACTATED RINGERS 1,000 ML 100 ML IV (13:30)
[2020-11-26] MEDS: fentaNYL 250 MCG/5 ML INJ IV (13:40)
[2020-11-26] MEDS: MIDAZOLAM 5 MG/5 ML VIAL IV (13:47)
[2020-11-26 14:06] VITALS: BP 96/46; PULSE 86; RESP 18; TEMP 37.2; O2SAT 96
[2020-11-26 14:14] VITALS: BP 117/77; PULSE 87; RESP 14; O2SAT 95
[2020-11-26 14:16] VITALS: BP 114/65; PULSE 79; RESP 12; O2SAT 96
[2020-11-26 14:21] VITALS: BP 128/63; PULSE 81; RESP 19; O2SAT 95
[2020-11-26 14:24] VITALS: BP 128/63; PULSE 74; RESP 15; TEMP 37.1; O2SAT 96
--- NOTE | 2020-11-26 14:36 | SUR.PREOP ---
1210 late entry Patient very concerned about covid, wearing gloves and double mask; inquired as to the status of the admitting RN Covid vaccine status. She changed gloves after going to the bathroom.
== END 2020-11-26 14:41 | disposition home or self-care (01) ==
PROVIDERS: PCP Internal Medicine; Referring Provider Internal Medicine Gastroenterology; Visit Provider Internal Medicine Gastroenterology
PROC: 0DJD8ZZ Inspection of Lower Intestinal Tract, Via Natural or Artificial Opening Endoscopic (ICD-10-PCS; CPT 45378; principal; 2020-11-26 13:00)
DX: R19.4 Change in bowel habit (principal); K21.9 Gastro-esophageal reflux disease without esophagitis; E78.5 Hyperlipidemia, unspecified
CPT/HCPCS: 45380; J2250; J3010

== ENCOUNTER → 2020-12-12 09:59 | Outpatient (CLI) | payer MEDICARE, OTHER, SELFPAY ==
[2020-12-12] MEDS: COVID-19 VACC #1, MRNA(MOD) 100 MCG/0.5 ML VIAL IM (10:03)
== END ==
PROVIDERS: PCP Internal Medicine; Visit Provider Internal Medicine
DX: Z23 Encounter for immunization (principal)
CPT/HCPCS: 0011A; 91301

== ENCOUNTER → 2020-12-26 15:02 | Outpatient (CLI) | payer MEDICARE, OTHER, SELFPAY ==
--- NOTE | 2020-12-26 | DI.RAD.S_ITS ---
PROCEDURE: XR HAND LT MIN 3V INDICATIONS: Pain in joints of left hand TECHNIQUE: 3 views of the hand(s) acquired. COMPARISON: [facility], CR, XR HAND RT MIN 3V, 08/26/2020, 9:34. FINDINGS: Bones: No fractures or dislocations. Carpal bones are normally aligned. No suspicious bony lesions. Scattered minimal IP degenerative narrowing. No erosions or periarticular osteophytes. Soft tissues: No suspicious soft tissue calcifications. IMPRESSION: Minimal scattered IP degenerative narrowing suggestive early arthritic change. Dictated by: Lolis Hawk M.D. on 12/26/2020 at 16:28 Approved by: Lolis Hawk M.D. on 12/26/2020 at 16:28
== END ==
PROVIDERS: PCP Internal Medicine; Referring Provider Internal Medicine; Visit Provider Internal Medicine
DX: M25.542 Pain in joints of left hand (principal)
CPT/HCPCS: 73130

== ENCOUNTER → 2021-01-09 09:53 | Outpatient (CLI) | payer MEDICARE, OTHER, SELFPAY ==
[2021-01-09] MEDS: COVID-19 VACC #2, MRNA(MOD) 100 MCG/0.5 ML VIAL IM (09:57)
== END ==
PROVIDERS: PCP Internal Medicine; Visit Provider Internal Medicine
DX: Z23 Encounter for immunization (principal)
CPT/HCPCS: 0012A; 91301

== ENCOUNTER → 2021-03-23 14:11 | Outpatient (CLI) | payer OTHER, MEDICARE, SELFPAY ==
[2021-03-23 15:22] LABS: Add Manual Diff / Slide Review NO; Basophils Absolute Auto 100 /uL (0-100); Basophils Percent Auto 0.7 % (0-2); Eosinophils Absolute Auto 100 /uL (0-450); Eosinophils Percent Auto 0.8 % (2-4); Hematocrit 34.3 % (36-46); Hemoglobin 11.4 g/dL (12.0-16.0); Lymphocytes Absolute Auto 2200 /uL (1100-4500); Lymphocytes Percent Auto 18.9 % (25-40); Mean Corpuscular HGB Conc 33.2 % (30-36); Mean Corpuscular Hemoglobin 27.9 PG (26-34); Mean Corpuscular Volume 84.1 fL (80-100); Monocytes Absolute Auto 600 /uL (0-900); Monocytes Percent Auto 5.4 % (3-14); Neutrophils Absolute Auto 8700 /uL (1500-7000); Neutrophils Percent Auto 74.2 % (50-75); Platelet Count 452 X10^3/uL (150-400); Red Blood Cell Count 4.08 X10^6/uL (4.0-5.2); Red Cell Distribution Width 17.3 % (11.6-14.8); White Blood Cell Count 11.7 X10^3/uL (4.5-11.0)
[2021-03-23 16:49] LABS: Alanine Aminotransferase 17 IU/L (<35); Aspartate Aminotransferase 29 IU/L (14-36); C-Reactive Protein Quant 3.9 mg/dL (<1.0)
== END ==
PROVIDERS: Referring Provider Internal Medicine Rheumatology; Visit Provider Internal Medicine Rheumatology
DX: M25.561 Pain in right knee (principal); M25.562 Pain in left knee; G89.29 Other chronic pain; M06.09 Rheumatoid arthritis without rheumatoid factor, multiple sites
CPT/HCPCS: 36415; 84450; 84460; 85025; 86140

== ENCOUNTER → 2021-04-27 09:47 | Outpatient (CLI) | payer MEDICARE, OTHER, SELFPAY ==
--- NOTE | 2021-04-27 | DI.MG.S_ITS ---
BILATERAL DIGITAL SCREENING MAMMOGRAM 3D/2D WITH CAD: 04/27/2021 CLINICAL: Routine screening. Family history of breast cancer. Breast cancer. Comparison is made to exams dated: 04/24/2020 mammogram, 03/26/2019 mammogram, 03/23/2018 mammogram, 03/21/2017 mammogram, and 06/04/2016 mammogram - [facility]. The tissue of both breasts is heterogeneously dense. This may lower the sensitivity of mammography. Current study was also evaluated with a Computer Aided Detection (CAD) system. There are benign post operative findings in the left breast. Right breast scar marker. No significant masses, calcifications, or other findings are seen in either breast. There has been no significant interval change. IMPRESSION: BENIGN There is no mammographic evidence of malignancy. A 1 year screening mammogram is recommended. This exam was interpreted at Station ID: [id number]. NOTE: For mammograms, a report in lay terms will be sent to the patient. Approximately 15% of breast malignancies will not be visualized mammographically. In the management of a palpable breast mass, a negative mammogram must not discourage biopsy of a clinically suspicious lesion. Electronically Signed By: Fransisco Ennis M.D. slc/:04/27/2021 10:22:07 copy to: BLANQUITA WEEKS copy to: KEERTHI HUGO letter sent: Normal Exam ACR BI-RADS Category 2: Benign Finding(s) 3342F
== END ==
PROVIDERS: PCP Internal Medicine; Referring Provider Internal Medicine Hematology & Oncology; Visit Provider Internal Medicine Hematology & Oncology
DX: Z12.31 Encounter for screening mammogram for malignant neoplasm of breast (principal); Z85.3 Personal history of malignant neoplasm of breast; Z80.3 Family history of malignant neoplasm of breast
CPT/HCPCS: 77063; 77067

== ENCOUNTER → 2021-12-14 14:01 | Outpatient (CLI) | payer MEDICARE, OTHER, SELFPAY ==
[2021-12-14 16:19] LABS: COVID19 -Nasal RAPID Negative (Negative)
== END ==
PROVIDERS: PCP Internal Medicine; Referring Provider Internal Medicine; Visit Provider Internal Medicine
DX: Z20.822 Contact with and (suspected) exposure to COVID-19 (principal)
CPT/HCPCS: 87635; C9803

== ENCOUNTER → 2021-12-15 08:49 | Outpatient (CLI) | payer MEDICARE, OTHER, SELFPAY ==
--- NOTE | 2021-12-23 07:31 | PM.PFT.1 ---
Pulmonary Function Test Referral & Results Date Patient Seen: 12/15/21 Requesting provider: Peter Scott Indication: Bronchiectasis Results: The spirometry demonstrates an FVC of 3.31 L which is 97% of predicted. The FEV1 was measured at 2.13 L which is 82% of predicted. The FEV1/FVC ratio was 64 which is 84% of predicted. Following the administration of bronchodilator there was 9% improvement in FEV1 and a 40% improvement in FEF 25-75% Lung volumes show an SVC of 3.66 L which is 115% of predicted. The diffusing capacity was measured at 17.37 which is 62% of predicted. No hemoglobin value was provided, so no correction for potential anemia could be made, if appropriate. The maximum voluntary ventilation was normal Interpretation: This study demonstrates possibly mild obstructive lung disease based on minimal reduction FEV1 although FEV1/FVC ratio is relatively preserved. There is some evidence of benefit following bronchodilator administration particularly small airway flow based on improvement in FEF 25-75%. Shape of flow volume loop also supports the presence of obstructive lung disease Lung volumes are normal There is also a moderate reduction diffusing capacity suggesting disease at the capillary alveolar level Clinical correlation suggested
== END ==
PROVIDERS: PCP Internal Medicine; Referring Provider Internal Medicine Critical Care Medicine; Visit Provider Internal Medicine Critical Care Medicine
DX: J47.9 Bronchiectasis, uncomplicated (principal)
CPT/HCPCS: 94060; 94726; 94729

== ENCOUNTER 2022-01-04 13:31 | Emergency (ER) | payer MEDICARE, OTHER, SELFPAY ==
[2022-01-04 14:08] VITALS: BP 141/77; PULSE 87; RESP 18; TEMP 36.7; O2SAT 97
--- NOTE | 2022-01-04 14:50 | ED_ITS ---
HPI - General Adult General Chief complaint: Abdominal Pain Stated complaint: Stomach Cramps, New Medication Time Seen by Provider: 01/04/22 14:40 Source: patient Mode of arrival: Ambulatory History of Present Illness HPI narrative: Patient is a 66-year-old female. Approximately 3 weeks ago she was started on a new oral medication for rheumatoid arthritis. Approximately 1 week after that she started having some abdominal cramping and diarrhea/constipation and foul- smelling flatus and also burping. She states that on Tuesday of last week her symptoms seem to have gotten worse and she felt fairly bloated this morning. No fevers. No recent travel. No other change in medications. She does feel somewhat better now than when she did earlier today. She contacted her retail field merchandiser doctor's office who advised she come to the emergency department for further evaluation. Related Data Home Medications Medication Instructions Recorded Confirmed acetaminophen 325 mg tablet 325 mg PO PRN PRN #0 07/08/16 11/26/20 ketoconazole 2 % shampoo 1 chris TOPICAL WEEKLY #120 ml 07/08/16 11/26/20 polyethylene glycol 3350 17 17 gm PO QDAY #0 gm 07/08/16 11/26/20 gram/dose oral powder (Miralax) Bifidobacterium infantis 4 mg 4 mg PO QDAY #0 07/12/16 11/26/20 capsule (Align) albuterol sulfate 90 mcg/actuation 2 puff INH BID #0 10/28/17 11/26/20 aerosol inhaler (Ventolin HFA) fluticasone 250 mcg-salmeterol 50 1 puff INH BID #0 10/28/17 11/26/20 mcg/dose blistr powdr for inhalation (Advair Diskus) loratadine 10 mg tablet (Claritin) 10 mg PO DAILY 03/29/19 11/26/20 omeprazole 20 mg tablet,delayed 20 mg PO DAILY 03/29/19 11/26/20 release multivitamin 1 cap PO DAILY 03/24/20 11/26/20 ipratropium 0.5 mg-albuterol 3 mg 3 ml INHALATION BID 10/04/20 11/26/20 (2.5 mg base)/3 mL nebulization soln calcium cmb no.1-vit U0-H7-FB-B12 1 tab PO DAILY 11/26/20 11/26/20 120 mg-1,000 unit-10 mg tablet prednisone 1 mg tablet 3 mg PO DAILY 11/26/20 11/26/20 Allergies Allergy/AdvReac Type Severity Reaction Status Date / Time ciprofloxacin [CIPROFLOXACIN] Allergy Intermediate Shortness Verified 11/26/20 12:28 of breath nitrofurantoin Allergy Mild RASH ON Verified 11/26/20 12:28 [NITROFURANTOIN] HANDS latex [LATEX] Allergy Unknown Unlknown Verified 11/26/20 12:28 levofloxacin [LEVOFLOXACIN] Allergy Unknown RASH ON Verified 11/26/20 12:28 HANDS codeine [CODEINE] AdvReac Severe STOMACH Verified 11/26/20 12:28 PAINS hydrocodone [From VICODIN] AdvReac Severe HEADACHES Verified 11/26/20 12:28 meloxicam [From MOBIC] AdvReac Intermediate GI UPSET Verified 11/26/20 12:28 methocarbamol [From ROBAXIN] AdvReac Intermediate HEADACHE Verified 11/26/20 12:28 morphine [MORPHINE] AdvReac Intermediate BILIARY Verified 11/26/20 12:28 SPASMS adhesive tape [ADHESIVE TAPE] AdvReac Mild Skin Verified 11/26/20 12:28 irritation, redness Sulfa (Sulfonamide AdvReac Mild ALL OVER Verified 11/26/20 12:28 Antibiotics) MALAISE [SULFA (SULFONAMIDE ANTIBIOTICS)] tramadol [TRAMADOL] AdvReac Mild gets Verified 11/26/20 12:28 lightheaded Review of Systems Constitutional Constitutional: Reports system reviewed and no additional complaints, except as documented Cardiovascular Cardiovascular: Reports system reviewed and no additional complaints, except as documented Respiratory Respiratory: Reports system reviewed and no additional complaints, except as documented Gastrointestinal Gastrointestinal: Reports as per HPI and Reports system reviewed and no additional complaints, except as documented Genitourinary Genitourinary: Reports system reviewed and no additional complaints, except as documented Integumentary/Breasts Skin/Breast: Reports system reviewed and no additional complaints, except as documented Hematologic/Lymphatic On Anticoagulants: No Patient History Medical History Constipation Decreased appetite Decreased appetite Decreased appetite Diarrhea Difficulty walking Dizziness Edema Fatigue Flu-like symptoms GERD (gastroesophageal reflux disease) Irritable bowel syndrome Leg cramps Mild hyperlipidemia Numbness Osteopenia Psoriasis Stress Weight loss Wheezing Surgical History (Updated 04/27/21 @ 13:39 by Raquel Peña MD) History of cholecystectomy Status post breast lumpectomy Status post cholecystectomy Family History (Updated 03/23/18 @ 09:28 by Eamon Castillo RN) Brother Age: 64 High cholesterol Hypertension Grandfather Cancer Grandmother Heart disease Stroke Mother Heart disease Cancer Hypertension Stroke Grandfather Cancer Grandmother Osteoporosis Stroke Sister Age: 72 High cholesterol Hypertension Sister Age: 66 High cholesterol Hypertension Sister Age: 58 High cholesterol Hypertension Social History household members: spouse education level: college [employer]essa/[employer]: [employer] Smoking Status: Former smoker alcohol intake: current during the past year weight has: increased > 10 lbs Type(s) of exercise: walking frequency: 3-4 times per week additional social history: Homemaker Smoking Status: Former smoker alcohol intake frequency: holidays/special occasions only Substance Use Type: does not use Exam Initial Vital Signs Initial Vital Signs: Vital Signs Temperature 98.0 F 01/04/22 14:08 Pulse Rate 87 01/04/22 14:08 Respiratory Rate 18 01/04/22 14:08 Blood Pressure 141/77 H 01/04/22 14:08 Pulse Oximetry 97 01/04/22 14:08 Const General: cooperative and healthy appearing HENMT Head: normal to inspection and normocephalic Resp Effort & Inspection: normal respiratory effort Cardio Rate: regular rate GI Inspection: normal to inspection Palpation: soft, No guarding and No tender Skin General: no rashes or lesions noted Neuro General: patient alert, patient awake and moves all extremities Extrem General: normal to inspection and capillary refill normal Psych Appearance: grossly normal and well kempt Course Orders Ordered: ED Orders 01/04/22 14:23 Urine Culture Stat Urine Microscopic Stat EKG-12 Lead Stat 01/04/22 14:45 Complete Blood Count AUTO DIFF Stat Comprehensive Metabolic Panel Stat Lipase Stat Vital Signs Vital signs: Vital Signs - 8 hr 01/04/22 14:08 Temperature 98.0 F Pulse Rate 87 Respiratory Rate 18 Blood Pressure 141/77 H Pulse Oximetry 97 Medical Decision Making Lab Data Lab results reviewed: Yes I reviewed the patient's lab results. Result diagrams: 01/04/22 14:45 01/04/22 14:45 Labs: Lab Results 01/04/22 01/04/22 01/04/22 Range/Units 14:23 14:45 14:45 WBC 12.5 H (4.5-11.0) X10^3/uL RBC 4.49 (4.0-5.2) X10^6/uL Hgb 12.4 (12.0-16.0) g/dL Hct 38.2 (36-46) % MCV 84.9 (80-100) fL MCH 27.6 (26-34) PG MCHC 32.5 (30-36) % RDW 17.2 H (11.6-14.8) % Plt Count 499 H (150-400) X10^3/uL Neut % (Auto) 81.7 H (50-75) % Lymph % (Auto) 12.1 L (25-40) % [place] % (Auto) 4.3 (3-14) % Eos % (Auto) 1.3 L (2-4) % Baso % (Auto) 0.6 (0-2) % Neut # (Auto) 62968 H (1454-8435) /uL Lymph # (Auto) 1500 (8059-2785) /uL [place] # (Auto) 500 (0-900) /uL Eos # (Auto) 200 (0-450) /uL Baso # (Auto) 100 (0-100) /uL Sodium 141 (137-145) mmol/L Potassium 3.9 (3.4-5.1) mmol/L Chloride 104 (98-107) mmol/L Carbon Dioxide 30 (22-32) mmol/L BUN 15 (7-17) mg/dL Creatinine 0.72 (0.52-1.04) mg/dL Estimated GFR > 60.0 (>60) mL/min BUN/Creatinine Ratio 20.8 (6-22) Glucose 95 (80-110) mg/dL Calcium 10.1 (8.4-10.2) mg/dL Total Bilirubin 0.9 (0.2-1.3) mg/dL AST 50 H (14-36) IU/L ALT 23 (<35) IU/L Alkaline Phosphatase 78 (38-126) U/L Total Protein 8.4 H (6.3-8.2) g/dL Albumin 4.6 (3.5-5.0) g/dL Globulin 3.8 (1.7-4.1) g/dL Albumin/Globulin Ratio 1.2 (1.0-2.8) Lipase 67 (23-300) U/L Urine RBC 1-5/hpf (0-5/HPF) Urine WBC 1-5/hpf (0-5/HPF) Ur Squamous Epith Cells 0-1 /hpf (0-5/HPF) Urine Bacteria Few (2-10) H (None) Ur Culture Indicated? Specimen cultured Micro UA Comment Urine Dip Bedside Urine Glucose Negative Bedside Urine Bilirubin - Negative Bedside Urine Ketone - Negative Urine Specific [place] 1.015 Bedside Urine Occult Blood ++ Bedside Urine pH 6.5 Bedside Urine Protein - Negative Bedside Urine Urobilinogen - Negative Bedside Urine Nitrite - Negative Bedside Urine Leukocytes +/- 15 Esterase Point of care testing: Urine Dip Bedside Urine Glucose Negative Bedside Urine Bilirubin - Negative Bedside Urine Ketone - Negative Urine Specific Sie[place] 1.015 Bedside Urine Occult Blood ++ Bedside Urine pH 6.5 Bedside Urine Protein - Negative Bedside Urine Urobilinogen - Negative Bedside Urine Nitrite - Negative Bedside Urine Leukocytes +/- 15 Esterase ECG Data Attestation: I personally reviewed and interpreted this ECG as follows: Interpretation: Sinus rhythm Ventricular rate of 78 Normal axis Normal QRS Normal QTC No ST T wave changes MDM Narrative Medical decision making narrative: Patient does have a leukocytosis however she is currently on prednisone and has also been on methotrexate. There is no specific indication of any infection that would require any antibiotics. Her LFTs are unremarkable. And lipase is unremarkable. Feel that we should hold on radiologic studies she does have a fairly benign exam. She states that her retail field merchandiser has stopped her medication. No further workup needed the emergency department. She was given return precautions and follow-up instructions. She expressed understanding and agreement. Discharge Plan Departure Patient Disposition: Home Clinical Impression: Diarrhea, Abdominal pain Instructions: Diarrhea, DI for Abdominal Pain-Adult Activity Restrictions/Additional Instructions: Continue all of your medications as directed. Keep all of your scheduled medical appointments. Sure to increase your fluid intake. Contact your primary doctor for a follow-up. Return to the emergency department for any new or worsening symptoms. Prescriptions: No Action ipratropium-albuterol 0.5 mg-3 mg(2.5 mg base)/3 mL solution for nebulization 3 ml inhalation BID 0RF acetaminophen 325 MG tablet 325 mg PO PRN PRN (Reason: Abdominal Discomfort) Qty: 0 0RF ketoconazole 2 % shampoo 1 chris Topical WEEKLY Qty: 120 0RF polyethylene glycol 3350 [Miralax] 119 GM powder 17 gm PO QDAY Qty: 0 0RF Align 4 MG capsule 4 mg PO QDAY Qty: 0 0RF albuterol sulfate [Ventolin HFA] 90 MCG/PUFF HFA aerosol inhaler 2 puff INH BID Qty: 0 0RF Label Comments: hasn't used for a year fluticasone propion-salmeterol [Advair Diskus] 250 MCG/50 MCG blister with device 1 puff INH BID Qty: 0 0RF omeprazole 20 mg Tablet,Delayed Release (Dr/Ec) 20 mg PO DAILY 0RF loratadine [Claritin] 10 mg Tablet 10 mg PO DAILY 0RF multivitamin Capsule 1 cap PO DAILY 0RF prednisone 1 mg Tablet 3 mg PO DAILY 0RF Ca cmb no.1-vit T9-T6-ON-B12 120-1,000-10 mg-unit-mg Tablet 1 tab PO DAILY 0RF Referrals: Carlos Rothman MD [Primary Care Provider] -
[2022-01-04 14:51] LABS: Add Manual Diff / Slide Review NO; Basophils Absolute Auto 100 /uL (0-100); Basophils Percent Auto 0.6 % (0-2); Eosinophils Absolute Auto 200 /uL (0-450); Eosinophils Percent Auto 1.3 % (2-4); Hematocrit 38.2 % (36-46); Hemoglobin 12.4 g/dL (12.0-16.0); Lymphocytes Absolute Auto 1500 /uL (1100-4500); Lymphocytes Percent Auto 12.1 % (25-40); Mean Corpuscular HGB Conc 32.5 % (30-36); Mean Corpuscular Hemoglobin 27.6 PG (26-34); Mean Corpuscular Volume 84.9 fL (80-100); Monocytes Absolute Auto 500 /uL (0-900); Monocytes Percent Auto 4.3 % (3-14); Neutrophils Absolute Auto 10200 /uL (1500-7000); Neutrophils Percent Auto 81.7 % (50-75); Platelet Count 499 X10^3/uL (150-400); Red Blood Cell Count 4.49 X10^6/uL (4.0-5.2); Red Cell Distribution Width 17.2 % (11.6-14.8); White Blood Cell Count 12.5 X10^3/uL (4.5-11.0)
[2022-01-04 15:04] LABS: Alanine Aminotransferase 23 IU/L (<35); Albumin 4.6 g/dL (3.5-5.0); Albumin Globulin Ratio 1.2 (1.0-2.8); Alkaline Phosphatase 78 U/L (38-126); Aspartate Aminotransferase 50 IU/L (14-36); BUN Creatinine Ratio 20.8 (6-22); Bilirubin Total 0.9 mg/dL (0.2-1.3); Blood Urea Nitrogen 15 mg/dL (7-17); Calcium 10.1 mg/dL (8.4-10.2); Carbon Dioxide 30 mmol/L (22-32); Chloride 104 mmol/L (98-107); Estimated Glomerular Filt Rate > 60.0 mL/min (>60); Globulin 3.8 g/dL (1.7-4.1); Glucose 95 mg/dL (80-110); HEMOLYSIS 50 (0-50); Lipase 67 U/L (23-300); Potassium 3.9 mmol/L (3.4-5.1); Sodium 141 mmol/L (137-145); Total Protein 8.4 g/dL (6.3-8.2)
[2022-01-04 15:33] LABS: Bacteria Urine Few (2-10); RBC Urine 1-5/HPF (0-5/HPF); Squamous Epithelial Cell Urine 0-1 /HPF (0-5/HPF); WBC Urine 1-5/HPF (0-5/HPF)
[2022-01-04 15:34] LABS: Culture Indicated Urine Specimen Cultured
== END 2022-01-04 15:45 | disposition home or self-care (01) ==
PROVIDERS: Emergency Provider Emergency Medicine; PCP Internal Medicine
DX: R10.9 Unspecified abdominal pain (principal); R19.7 Diarrhea, unspecified; R03.0 Elevated blood-pressure reading, without diagnosis of hypertension
CPT/HCPCS: 36415; 80053; 81003; 81015; 83690; 85025; 87086; 93005; 99283

== ENCOUNTER → 2022-01-30 10:42 | Outpatient (CLI) | payer MEDICARE, OTHER, SELFPAY | PROVIDERS: PCP Internal Medicine; Visit Provider Nurse Practitioner Family | DX: R30.0 Dysuria (principal) | CPT/HCPCS: 87086 ==

== ENCOUNTER → 2022-03-29 09:42 | Outpatient (CLI) | payer MEDICARE, OTHER, SELFPAY ==
[2022-03-29 13:42] LABS: COVID-19 CEPHEID PCR (VTM/NP) Negative (Negative)
== END ==
PROVIDERS: PCP Internal Medicine; Visit Provider Family Medicine Sleep Medicine
DX: Z20.822 Contact with and (suspected) exposure to COVID-19 (principal)
CPT/HCPCS: C9803; U0003; U0005

== ENCOUNTER → 2022-08-05 09:57 | Outpatient (CLI) | payer MEDICARE, OTHER, SELFPAY ==
--- NOTE | 2022-08-05 | DI.MG.S_ITS ---
BILATERAL DIGITAL SCREENING MAMMOGRAM 3D/2D WITH CAD: 08/05/2022 CLINICAL: Routine screening. Family history of breast cancer. Comparison is made to exams dated: 04/27/2021 mammogram, 04/24/2020 mammogram, and 03/26/2019 mammogram - [facility]. Both breasts are heterogeneously dense, which may obscure small masses (category c / 51-75% glandular tissue). Current study was also evaluated with a Computer Aided Detection (CAD) system. There are benign post operative findings in the left breast. No significant masses, calcifications, or other findings are seen in either breast. There has been no significant interval change. IMPRESSION: BENIGN There is no mammographic evidence of malignancy. A 1 year screening mammogram is recommended. This exam was interpreted at Station ID: [id number]. NOTE: For mammograms, a report in lay terms will be sent to the patient. Approximately 15% of breast malignancies will not be visualized mammographically. In the management of a palpable breast mass, a negative mammogram must not discourage biopsy of a clinically suspicious lesion. Electronically Signed By: Dwaine Rios M.D., jr/ashley:08/05/2022 10:18:45 copy to: Raquel Peña letter sent: Normal Exam ACR BI-RADS Category 2: Benign Finding(s) 3342F
== END ==
PROVIDERS: PCP Internal Medicine; Referring Provider Internal Medicine; Visit Provider Internal Medicine
DX: Z12.31 Encounter for screening mammogram for malignant neoplasm of breast (principal); Z80.3 Family history of malignant neoplasm of breast
CPT/HCPCS: 77063; 77067

== ENCOUNTER → 2022-08-23 10:28 | Outpatient (CLI) | payer MEDICARE, OTHER, SELFPAY ==
[2022-08-23 12:47] LABS: COVID19 -Nasal RAPID Negative (Negative)
== END ==
PROVIDERS: PCP Internal Medicine; Referring Provider Internal Medicine; Visit Provider Internal Medicine
DX: Z20.822 Contact with and (suspected) exposure to COVID-19 (principal)
CPT/HCPCS: 87635; C9803

== ENCOUNTER → 2022-10-26 16:34 | Outpatient (CLI) | payer MEDICARE, OTHER, SELFPAY ==
--- NOTE | 2022-10-26 16:37 | DI.US.S_ITS ---
PROCEDURE: US ABDOMEN LIMITED INDICATIONS: ELEVATED LFT'S TECHNIQUE: Real-time scanning was performed of the abdominal and retroperitoneal organs, with image documentation. COMPARISON: None. FINDINGS: Liver: Liver is normal in size and homogeneous in echotexture. Gallbladder: Status post cholecystectomy. Biliary ducts: Intrahepatic bile ducts are non-dilated. Extrahepatic bile duct caliber measures 6.5 mm. Normal is 6-7 mm or less in diameter, or 10 mm or less post-cholecystectomy. Pancreas: Mild heterogeneous parenchymal echotexture without focal lesions. Otherwise, visualized portions of the pancreas are sonographically unremarkable. Miscellaneous: No free abdominal fluid. IMPRESSION: Borderline prominence of the common bile duct likely related to post cholecystectomy physiologic dilatation. Otherwise, unremarkable sonographic evaluation of the right upper quadrant. Dictated by: Reji Winkler M.D. on 10/27/2022 at 10:24 Approved by: Reji Winkler M.D. on 10/27/2022 at 10:26
== END ==
PROVIDERS: PCP Internal Medicine; Referring Provider Internal Medicine; Visit Provider Internal Medicine
DX: R79.89 Other specified abnormal findings of blood chemistry (principal); Z90.49 Acquired absence of other specified parts of digestive tract
CPT/HCPCS: 76705

== ENCOUNTER → 2022-11-28 09:04 | Outpatient (CLI) | payer MEDICARE, OTHER, SELFPAY ==
--- NOTE | 2022-11-28 09:06 | DI.MRI.S_ITS ---
PROCEDURE: MR LUMBAR SPINE WO CON INDICATIONS: Lumbago with sciatica, left side TECHNIQUE: Noncontrast sagittal T1 spin echo and T2 fast echo, sagittal STIR, and T2 fast spin echo through the lumbar spine. In cases with scoliosis, additional coronal T2 fast spin echo may be performed. COMPARISON: [facility], MR, L-SPINE WITHOUT CONTRAST, 08/28/2014, 14:37. FINDINGS: Image quality: Excellent. Alignment and Curvature: There is normal bony alignment. Bone Marrow: Marrow is of normal overall signal. No acute vertebral body compression fractures. Interval mild superior endplate compression fracture of L5, now chronic. Spinal Cord: Conus medullaris terminates at the L1-L2 level. Visualized cord demonstrates normal signal and size. Paraspinous Soft Tissues: No paravertebral masses. T12-L1: Normal appearance. L1-L2: Normal appearance. L2-L3: As before, central posterior annulus tear with mild disc bulge. Mild facet hypertrophy. No canal stenosis or foraminal stenosis. L3-L4: Mild disc bulge. Mild facet hypertrophy. No canal stenosis or foraminal stenosis. L4-L5: Slight interval increase in disc bulge, mild. Mild facet hypertrophy. No canal stenosis or foraminal stenosis. L5-S1: Posterior annulus tear, also previously present. No canal stenosis or foraminal stenosis. IMPRESSION: 1. No significant interval change. 2. Mild multilevel facet arthropathy. 3. Multilevel annulus tears and disc bulges. 4. No canal stenosis or foraminal stenosis. Dictated by: Kar Munoz M.D. on 11/29/2022 at 9:02 Approved by: Kar Munoz M.D. on 11/29/2022 at 9:07
== END ==
PROVIDERS: PCP Internal Medicine; Referring Provider Internal Medicine; Visit Provider Internal Medicine
DX: M51.16 Intervertebral disc disorders with radiculopathy, lumbar region (principal); M51.17 Intervertebral disc disorders with radiculopathy, lumbosacral region; M47.26 Other spondylosis with radiculopathy, lumbar region
CPT/HCPCS: 72148

== ENCOUNTER → 2022-12-20 07:10 | Outpatient (CLI) | payer MEDICARE, OTHER, SELFPAY ==
[2022-12-20 10:42] LABS: Influenza A - CEPHEID Flu A NEGATIVE (NEGATIVE); Influenza B - CEPHEID Flu B NEGATIVE (NEGATIVE); Respiratory Syncytial Virus Negative (Negative)
[2022-12-20 11:04] LABS: COVID-19 CEPHEID 4-PLEX PCR Negative (Negative)
== END ==
PROVIDERS: PCP Internal Medicine; Visit Provider Nurse Practitioner Family
DX: J06.9 Acute upper respiratory infection, unspecified (principal)
CPT/HCPCS: 0241U

== ENCOUNTER 2022-12-20 07:34 | Emergency (ER) | payer MEDICARE, OTHER, SELFPAY ==
[2022-12-20] VITALS (9 sets, daily range): BP systolic 113–152; BP diastolic 57–70; PULSE 98–124; RESP 16–28; TEMP 36.9; O2SAT 94–98
--- NOTE | 2022-12-20 07:49 | ED_ITS ---
HPI - General Adult General Chief complaint: Shortness of Breath/Dyspnea Stated complaint: SOB/cough/dark phlegm/ligtheaded/bloodynose Time Seen by Provider: 12/20/22 07:42 Source: patient Mode of arrival: Family Vehicle Limitations: no limitations History of Present Illness HPI narrative: Patient is a 67-year-old female who for the past week has been complaining of several symptoms to include shortness of breath, coughing up dark, blood-tinged sputum. She also had a bloody nose the other day. This morning she was also very lightheaded. No chest pain. She is taken a couple home COVID tests that have been negative. She is on methotrexate secondary to rheumatoid arthritis. She went to the walk-in clinic this morning. Had COVID and flu testing. A chest x-ray was ordered however instead of getting the chest x-ray she came here to the emergency department for further evaluation. She was concerned about an infection secondary to her use of methotrexate. Related Data Home Medications Medication Instructions Recorded Confirmed acetaminophen 325 mg tablet 325 mg PO PRN PRN Abdominal 07/08/16 03/19/22 Discomfort ##0 ketoconazole 2 % shampoo 1 chris topical WEEKLY #120 mL 07/08/16 08/16/22 polyethylene glycol 3350 17 17 gm PO QDAY ##0 07/08/16 08/16/22 gram/dose oral powder (Miralax) Bifidobacterium infantis 4 mg 4 mg PO QDAY ##0 07/12/16 08/16/22 capsule (Align) albuterol sulfate 90 mcg/actuation 2 puff INH BID ##0 10/28/17 08/16/22 aerosol inhaler (Ventolin HFA) fluticasone 250 mcg-salmeterol 50 1 puff INH BID ##0 10/28/17 08/16/22 mcg/dose blistr powdr for inhalation (Advair Diskus) loratadine 10 mg tablet (Claritin) 10 mg PO DAILY 03/29/19 08/16/22 omeprazole 20 mg tablet,delayed 20 mg PO DAILY 03/29/19 08/16/22 release multivitamin 1 cap PO DAILY 03/24/20 08/16/22 ipratropium 0.5 mg-albuterol 3 mg 3 ml inhalation DAILY 11/21/20 10/03/22 (2.5 mg base)/3 mL nebulization soln calcium b no.1-vit [id number] 1 tab PO DAILY 11/26/20 08/16/22 120 mg-1,000 unit-10 mg tablet prednisone 1 mg tablet 5 mg PO DAILY 11/26/20 08/16/22 methotrexate (PF) 12.5 mg/0.4 mL 12.5 mg SUBCUT QWEEK 01/30/22 08/16/22 subcutaneous auto-injector Previous Rx's Medication Instructions Recorded azithromycin 250 mg tablet See Rx Instructions PO .COMPLEX #6 12/20/22 tabs Allergies Allergy/AdvReac Type Severity Reaction Status Date / Time ciprofloxacin [CIPROFLOXACIN] Allergy Intermediate Shortness Verified 12/20/22 07:46 of breath nitrofurantoin Allergy Mild RASH ON Verified 12/20/22 07:46 [NITROFURANTOIN] HANDS latex [LATEX] Allergy Unknown Unlknown Verified 12/20/22 07:46 levofloxacin [LEVOFLOXACIN] Allergy Unknown RASH ON Verified 12/20/22 07:46 HANDS codeine [CODEINE] AdvReac Severe STOMACH Verified 12/20/22 07:46 PAINS hydrocodone [From VICODIN] AdvReac Severe HEADACHES Verified 12/20/22 07:46 meloxicam [From MOBIC] AdvReac Intermediate GI UPSET Verified 12/20/22 07:46 methocarbamol [From ROBAXIN] AdvReac Intermediate HEADACHE Verified 12/20/22 07:46 morphine [MORPHINE] AdvReac Intermediate BILIARY Verified 12/20/22 07:46 SPASMS adhesive tape [ADHESIVE TAPE] AdvReac Mild Skin Verified 12/20/22 07:46 irritation, redness Sulfa (Sulfonamide AdvReac Mild ALL OVER Verified 12/20/22 07:46 Antibiotics) MALAISE [SULFA (SULFONAMIDE ANTIBIOTICS)] tramadol [TRAMADOL] AdvReac Mild gets Verified 12/20/22 07:46 lightheaded Review of Systems Review of Systems ROS Unobtainable: All systems reviewed & are unremarkable except as noted in HPI and below Patient History Medical History Constipation Decreased appetite Decreased appetite Decreased appetite Diarrhea Difficulty walking Dizziness Edema Fatigue Flu-like symptoms GERD (gastroesophageal reflux disease) Irritable bowel syndrome Leg cramps Mild hyperlipidemia Numbness Osteopenia Psoriasis Stress Weight loss Wheezing Surgical History (Updated 04/27/21 @ 13:39 by Raquel Peña MD) History of cholecystectomy Status post breast lumpectomy Status post cholecystectomy Family History (Updated 03/23/18 @ 09:28 by Eamon Castillo RN) Brother Age: 65 High cholesterol Hypertension Grandfather Cancer Grandmother Heart disease Stroke Mother Heart disease Cancer Hypertension Stroke Grandfather Cancer Grandmother Osteoporosis Stroke Sister Age: 73 High cholesterol Hypertension Sister Age: 67 High cholesterol Hypertension Sister Age: 59 High cholesterol Hypertension Social History household members: spouse education level: college vanessa/jehovah's witness: Yarsani Smoking Status: Former smoker alcohol intake: current during the past year weight has: increased > 10 lbs Type(s) of exercise: walking frequency: 3-4 times per week additional social history: Homemaker Smoking Status: Former smoker alcohol intake frequency: holidays/special occasions only Substance Use Type: does not use Exam Initial Vital Signs Initial Vital Signs: Vital Signs Pulse Rate 124 H 12/20/22 07:40 Pulse Oximetry 94 12/20/22 07:40 Const General: cooperative, comfortable, anxious and No ill appearing HENMT Head: normal to inspection and normocephalic Resp Effort & Inspection: normal respiratory effort Auscultation: clear to auscultation bilaterally Cardio Rate: tachycardic Rhythm: regular rhythm GI Inspection: normal to inspection Skin General: no rashes or lesions noted Neuro General: patient alert, patient awake, patient oriented x3 and moves all extremities Extrem General: normal to inspection and capillary refill normal Psych Appearance: grossly normal and well kempt Scores GCS [place] coma scale eye opening: Spontaneous [place] coma scale verbal response: Orientated [place] coma scale motor response: Obey commands [place] coma scale total score: 15 Course Orders Ordered: ED Orders 12/20/22 07:50 XR chest 1V Stat Basic Metabolic Panel Stat Complete Blood Count AUTO DIFF Stat D Dimer Stat Procalcitonin Stat Troponin & CK Cardiac Panel Stat EKG-12 Lead Stat 12/20/22 08:33 CT angio chest PE protocol Stat Vital Signs Vital signs: Vital Signs - 8 hr 12/20/22 07:43 12/20/22 07:40 12/20/22 07:41 Temperature 98.5 F Pulse Rate 112 H 124 H 118 H Respiratory Rate 20 Blood Pressure 152/70 H Pulse Oximetry 98 94 98 Oxygen Delivery Method Room Air 12/20/22 07:41 Temperature Pulse Rate Respiratory Rate Blood Pressure 152/70 H Pulse Oximetry Oxygen Delivery Method Medical Decision Making Lab Data Lab results reviewed: Yes I reviewed the patient's lab results. 12/20/22 07:50 12/20/22 07:50 Labs: Lab Results 12/20/22 12/20/22 12/20/22 Range/Units 07:50 07:50 07:50 WBC 17.9 H (4.5-11.0) X10^3/uL RBC 4.23 (4.0-5.2) X10^6/uL Hgb 12.4 (12.0-16.0) g/dL Hct 36.9 (36-46) % MCV 87.2 (80-100) fL MCH 29.2 (26-34) PG MCHC 33.5 (30-36) % RDW 16.8 H (11.6-14.8) % Plt Count 317 (150-400) X10^3/uL Neut % (Auto) 91.6 H (50-75) % Lymph % (Auto) 2.3 L (25-40) % [place] % (Auto) 5.8 (3-14) % Eos % (Auto) 0.0 L (2-4) % Baso % (Auto) 0.3 (0-2) % Neut # (Auto) 84993 H (4661-1312) /uL Lymph # (Auto) 400 L (7800-4073) /uL [place] # (Auto) 1000 H (0-900) /uL Eos # (Auto) 0 (0-450) /uL Baso # (Auto) 100 (0-100) /uL D-Dimer 681 H (<500) ng/ml Sodium 135 L (137-145) mmol/L Potassium 3.8 (3.4-5.1) mmol/L Chloride 98 (98-107) mmol/L Carbon Dioxide 26 (22-32) mmol/L BUN 10 (7-17) mg/dL Creatinine 0.79 (0.52-1.04) mg/dL Estimated GFR > 60 (>60) mL/min BUN/Creatinine Ratio 12.7 (6-22) Glucose 111 H (80-110) mg/dL Calcium 9.3 (8.4-10.2) mg/dL Total Creatine Kinase 83 (30-135) U/L CK-MB (CK-2) TNP CK-MB (CK-2) Rel Index TNP Troponin I < 0.012 (0.01-0.034) ng/mL Procalcitonin 0.51 H (<0.5) ng/mL Imaging Data Chest x-ray: Radiologist's Impression: [address] [id number] XRay Report Signed Patient: Nabila Kraft MR#: [id number] : 1955 Acct:[id number] Age/Sex: 67 / F Date of Service: 12/20/22 Loc: ED Accession Number: [id number] ?? Procedure: XR chest 1V Ordering Provider: Erlin Paz D.O. PROCEDURE:? XR CHEST 1V ? INDICATIONS:? Shortness of breath ? TECHNIQUE:? One view of the chest was acquired.? ? COMPARISON:? [facility], CT, CT CHEST WITHOUT CONTRAST, 04/19/2022, 7:30.? [facility], CR, CHEST 2 VIEW, 01/25/2017, 10:04. ? FINDINGS:? ? Surgical changes and devices:? Left lumpectomy clips..? ? Lungs and pleura:? Lungs are clear.? Centrilobular emphysema.? No pleural effusions or pneumothorax.? ? Mediastinum:? Mediastinal contours appear normal.? Heart size is normal.? ? Bones and chest wall:? No suspicious bony lesions.? Overlying soft tissues appear unremarkable.? ? IMPRESSION:? COPD.? No evidence acute pulmonary process. ? ? ? Dictated by: Kar Munoz M.D. on 12/20/2022 at 8:38 ? ? Approved by: Kar Munoz M.D. on 12/20/2022 at 8:39?? CT scan - chest: Radiologist's Impression: [address] [id number] Scan ReportSigned Patient: Nabila Kraft AMR#: [id number]: 1955cct:[id number]/Sex: 67 / FDate of Service: 12/20/22Loc: EDAccession Number: [id number]? ? Procedure: CT angio chest PE protocol Ordering Provider: Erlin Paz D.O. PROCEDURE:? CT ANGIO CHEST PE PROTOCOL ? INDICATIONS:? Chest pain, shortness of breath, tachycardia ? TECHNIQUE:? After the administration of intravenous contrast, 2 mm thick sections acquired from the pulmonary apices to the posterior costophrenic angles.? 3-dimensional maximum intensity projection (MIP) coronal and sagittal reformats were then acquired through the thorax.? For radiation dose reduction, the following was used:? automated exposure control, adjustment of mA and/or kV according to patient size.? ? COMPARISON:? [facility], CT, CT CHEST WITHOUT CONTRAST, 04/19/2022, 7:30. ? FINDINGS:? Image quality:? Excellent.? ? Pulmonary arteries:? Pulmonary arteries are normal in size, and demonstrate no intraluminal filling defects to suggest central pulmonary embolism.? ? Lungs and pleura:? Moderate to severe centrilobular emphysema.? Development of focal consolidation and atelectasis in the lingular portion of the left upper lobe with associated bronchiectasis.? No pleural effusions or pneumothorax.? Central and peripheral airways are patent.? ? Mediastinum:? Heart size is normal, without pericardial effusion.? No mediastinal or hilar adenopathy.? Thoracic aorta is normal in caliber and enhancement.? Esophagus is normal in caliber, without hiatal hernia.? ? Bones and chest wall:? No suspicious bony lesions.? Ribs and thoracic spine appear intact throughout.? Thyroid gland is grossly unremarkable.? No axillary or supraclavicular adenopathy.? Left lumpectomy clips. ? Abdomen:? Visualized upper abdominal solid organs appear normal in the early arterial phase of enhancement.? Remote cholecystectomy. ? IMPRESSION:? ? 1. No evidence acute pulmonary emboli. ? 2. Moderate to severe centrilobular emphysema. ? 3. Development of consolidation and atelectasis in the lingular portion of the left upper lobe.? ? ? Comment:? Recommend progress films till clear.? This may potentially require repeat CT in 2-3 months.? ? Dictated by: Kar Munoz M.D. on 12/20/2022 at 9:11? ?? Approved by: Kar Munoz M.D. on 12/20/2022 at 9:17 ECG Data Attestation: I personally reviewed and interpreted this ECG as follows: Interpretation: Sinus tachycardia Ventricular rate 107 Normal axis LVH Normal QRS Nonspecific ST T wave changes MDM Narrative Medical decision making narrative: 67-year-old female who has had a productive cough, diagnosis of COPD, shortness of breath and has a leukocytosis and also a CT scan concerning for developing pneumonia. Patient is well-appearing. Not hypoxic. Clear lungs. Ambulated in the department. Start the patient on antibiotics. There is no findings consistent with pulmonary embolism on the CT scan. Antibiotics were sent to the patient's pharmacy of choice. She was given return precautions. She expressed understanding and agreement. Discharge Plan Departure Patient Disposition: Home Clinical Impression: COPD (chronic obstructive pulmonary disease), Pneumonia Instructions: Chronic Obstructive Pulmonary Disease, DI for Pneumonia -- Adult Activity Restrictions/Additional Instructions: I recommend that you take the antibiotics as directed. Also recommend you contact your primary care doctor for a follow-up. Return to the emergency department for any new or worsening symptoms. Prescriptions: New azithromycin 250 mg tablet See Rx Instructions .ROUTE .COMPLEX Qty: 6 0RF Rx Instructions: For 250 mg dose pack: take 500 mg today (day 1), then 250 mg for 4 days (days 2-5) No Action ipratropium-albuterol 0.5 mg-3 mg(2.5 mg base)/3 mL solution for nebulization 3 ml inhalation DAILY methotrexate (PF) 12.5 mg/0.4 mL auto-injector 12.5 mg SUBCUT QWEEK acetaminophen 325 MG tablet 325 mg PO PRN PRN (Reason: Abdominal Discomfort) Qty: 0 ketoconazole 2 % shampoo 1 chris Topical WEEKLY Qty: 120 polyethylene glycol 3350 [Miralax] 119 GM powder 17 gm PO QDAY Qty: 0 Align 4 MG capsule 4 mg PO QDAY Qty: 0 albuterol sulfate [Ventolin HFA] 90 MCG/PUFF HFA aerosol inhaler 2 puff INH BID Qty: 0 Label Comments: hasn't used for a year fluticasone propion-salmeterol [Advair Diskus] 250 MCG/50 MCG blister with device 1 puff INH BID Qty: 0 omeprazole 20 mg Tablet,Delayed Release (Dr/Ec) 20 mg PO DAILY loratadine [Claritin] 10 mg Tablet 10 mg PO DAILY multivitamin Capsule 1 cap PO DAILY prednisone 1 mg Tablet 5 mg PO DAILY Ca b no.1-vit [id number]-UD-B12 120-1,000-10 mg-unit-mg Tablet 1 tab PO DAILY Referrals: Carlos Rothman MD [Primary Care Provider] - Stand Alone Forms: Patient Portal/API
--- NOTE | 2022-12-20 07:50 | DI.RAD.S_ITS ---
PROCEDURE: XR CHEST 1V INDICATIONS: Shortness of breath TECHNIQUE: One view of the chest was acquired. COMPARISON: [facility], CT, CT CHEST WITHOUT CONTRAST, 04/19/2022, 7:30. [facility], CR, CHEST 2 VIEW, 01/25/2017, 10:04. FINDINGS: Surgical changes and devices: Left lumpectomy clips.. Lungs and pleura: Lungs are clear. Centrilobular emphysema. No pleural effusions or pneumothorax. Mediastinum: Mediastinal contours appear normal. Heart size is normal. Bones and chest wall: No suspicious bony lesions. Overlying soft tissues appear unremarkable. IMPRESSION: COPD. No evidence acute pulmonary process. Dictated by: Kar Munoz M.D. on 12/20/2022 at 8:38 Approved by: Kar Munoz M.D. on 12/20/2022 at 8:39
--- NOTE | 2022-12-20 07:57 | PC.NURSE ---
1 week of increasing coughing, dizzy spell today, red nosebleed today, fevers and chills, chest pain with cough/after cough, thick brown sputum, feels dehydrated, reports taking methotrexate for RA and has chronic back pain recently reaggravated x 1 month. sent here by [facility]. 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
[2022-12-20 07:59] LABS: Add Manual Diff / Slide Review NO; Basophils Absolute Auto 100 /uL (0-100); Basophils Percent Auto 0.3 % (0-2); Eosinophils Absolute Auto 0 /uL (0-450); Hematocrit 36.9 % (36-46); Hemoglobin 12.4 g/dL (12.0-16.0); Lymphocytes Absolute Auto 400 /uL (1100-4500); Lymphocytes Percent Auto 2.3 % (25-40); Mean Corpuscular HGB Conc 33.5 % (30-36); Mean Corpuscular Hemoglobin 29.2 PG (26-34); Mean Corpuscular Volume 87.2 fL (80-100); Monocytes Absolute Auto 1000 /uL (0-900); Monocytes Percent Auto 5.8 % (3-14); Neutrophils Absolute Auto 16300 /uL (1500-7000); Neutrophils Percent Auto 91.6 % (50-75); Platelet Count 317 X10^3/uL (150-400); Red Blood Cell Count 4.23 X10^6/uL (4.0-5.2); Red Cell Distribution Width 16.8 % (11.6-14.8); White Blood Cell Count 17.9 X10^3/uL (4.5-11.0)
[2022-12-20 08:21] LABS: BUN Creatinine Ratio 12.7 (6-22); Blood Urea Nitrogen 10 mg/dL (7-17); Calcium 9.3 mg/dL (8.4-10.2); Carbon Dioxide 26 mmol/L (22-32); Chloride 98 mmol/L (98-107); Creatine Kinase 83 U/L (30-135); Estimated Glomerular Filt Rate > 60 mL/min (>60); Glucose 111 mg/dL (80-110); HEMOLYSIS < 15 (0-50); Potassium 3.8 mmol/L (3.4-5.1); Sodium 135 mmol/L (137-145)
[2022-12-20 08:22] LABS: D Dimer 681 ng/ml (<500)
[2022-12-20 08:33] LABS: Troponin I < 0.012 ng/mL (0.01-0.034)
--- NOTE | 2022-12-20 08:33 | DI.CT.S_ITS ---
PROCEDURE: CT ANGIO CHEST PE PROTOCOL INDICATIONS: Chest pain, shortness of breath, tachycardia TECHNIQUE: After the administration of intravenous contrast, 2 mm thick sections acquired from the pulmonary apices to the posterior costophrenic angles. 3-dimensional maximum intensity projection (MIP) coronal and sagittal reformats were then acquired through the thorax. For radiation dose reduction, the following was used: automated exposure control, adjustment of mA and/or kV according to patient size. COMPARISON: [facility], CT, CT CHEST WITHOUT CONTRAST, 04/19/2022, 7:30. FINDINGS: Image quality: Excellent. Pulmonary arteries: Pulmonary arteries are normal in size, and demonstrate no intraluminal filling defects to suggest central pulmonary embolism. Lungs and pleura: Moderate to severe centrilobular emphysema. Development of focal consolidation and atelectasis in the lingular portion of the left upper lobe with associated bronchiectasis. No pleural effusions or pneumothorax. Central and peripheral airways are patent. Mediastinum: Heart size is normal, without pericardial effusion. No mediastinal or hilar adenopathy. Thoracic aorta is normal in caliber and enhancement. Esophagus is normal in caliber, without hiatal hernia. Bones and chest wall: No suspicious bony lesions. Ribs and thoracic spine appear intact throughout. Thyroid gland is grossly unremarkable. No axillary or supraclavicular adenopathy. Left lumpectomy clips. Abdomen: Visualized upper abdominal solid organs appear normal in the early arterial phase of enhancement. Remote cholecystectomy. IMPRESSION: 1. No evidence acute pulmonary emboli. 2. Moderate to severe centrilobular emphysema. 3. Development of consolidation and atelectasis in the lingular portion of the left upper lobe. Comment: Recommend progress films till clear. This may potentially require repeat CT in 2-3 months. Dictated by: Kar Munoz M.D. on 12/20/2022 at 9:11 Approved by: Kar Munoz M.D. on 12/20/2022 at 9:17
[2022-12-20 08:38] LABS: Procalcitonin 0.51 ng/mL (<0.5)
== END 2022-12-20 10:14 | disposition home or self-care (01) ==
PROVIDERS: Emergency Provider Emergency Medicine; PCP Internal Medicine
DX: J44.0 Chronic obstructive pulmonary disease with (acute) lower respiratory infection (principal); J18.9 Pneumonia, unspecified organism; Z87.891 Personal history of nicotine dependence
CPT/HCPCS: 0241U; 36415; 71045; 71275; 80048; 82550; 84145; 84484; 85025; 85379; 93005; 93010; 99284; Q9967

== ENCOUNTER → 2023-01-10 11:02 | Outpatient (CLI) | payer MEDICARE, OTHER, SELFPAY ==
[2023-01-10 12:12] LABS: Appearance Urine UA CLEAR; Bilirubin Urine UA NEGATIVE (NEGATIVE); Color Urine UA YELLOW; Glucose Urine UA NEGATIVE (Negative); Ketones Urine UA NEGATIVE (NEGATIVE); Leukocyte Esterase Urine UA 1+ (NEGATIVE); Nitrite Urine UA NEGATIVE (Negative); Occult Blood Urine UA 1+ (Negative); Protein Urine UA NEGATIVE (Negative); Specific Gravity Urine UA <=1.005 (1.000-1.035); Urobilinogen Urine UA 0.2 E.U./dL (0.2)
[2023-01-10 12:15] LABS: pH Urine UA 6.5 (4.5-8.0)
[2023-01-10 12:24] LABS: Bacteria Urine None Seen; RBC Urine 0-1/HPF (0-5/HPF); Squamous Epithelial Cell Urine None Seen (0-5/HPF); WBC Urine 0-1/HPF (0-5/HPF)
[2023-01-10 12:25] LABS: Culture Indicated Urine Specimen Cultured
== END ==
PROVIDERS: PCP Internal Medicine; Referring Provider Internal Medicine; Visit Provider Internal Medicine
DX: R39.9 Unspecified symptoms and signs involving the genitourinary system (principal)
CPT/HCPCS: 81001; 87077; 87086; 87186

== ENCOUNTER → 2023-01-24 07:58 | Outpatient (CLI) | payer MEDICARE, OTHER, SELFPAY ==
[2023-01-24 08:11] LABS: Appearance Urine UA CLEAR; Bilirubin Urine UA NEGATIVE (NEGATIVE); Color Urine UA YELLOW; Glucose Urine UA NEGATIVE (Negative); Ketones Urine UA NEGATIVE (NEGATIVE); Leukocyte Esterase Urine UA TRACE (NEGATIVE); Nitrite Urine UA NEGATIVE (Negative); Occult Blood Urine UA TRACE-INTACT (Negative); Protein Urine UA NEGATIVE (Negative); Specific Gravity Urine UA <=1.005 (1.000-1.035); Urobilinogen Urine UA 0.2 E.U./dL (0.2)
[2023-01-24 08:19] LABS: RBC Urine 0-1/HPF (0-5/HPF); WBC Urine 5-10/HPF (0-5/HPF)
[2023-01-24 08:20] LABS: Bacteria Urine Occasional (0-1); Culture Indicated Urine Specimen Cultured; Renal Epithelial Cells Urine 0-1/HPF (0-1/HPF)
== END ==
PROVIDERS: PCP Internal Medicine; Referring Provider Internal Medicine; Visit Provider Internal Medicine
DX: R39.9 Unspecified symptoms and signs involving the genitourinary system (principal)
CPT/HCPCS: 81001; 87086

== ENCOUNTER → 2023-02-03 14:16 | Outpatient (CLI) | payer MEDICARE, OTHER, SELFPAY ==
--- NOTE | 2023-02-03 | DI.US.S_ITS ---
LIMITED ULTRASOUND OF RIGHT BREAST: 02/03/2023 CLINICAL: Patient returns today to evaluate a focal asymmetry in the right breast. Comparison is made to exams dated: 02/03/2023 mammogram, 08/05/2022 mammogram, 04/27/2021 mammogram, and 04/24/2020 mammogram - [facility]. Color flow ultrasound of the right breast 10 o'clock, and retroareolar regions was performed. Banda scale images of the real-time examination were reviewed. No significant abnormalities were seen sonographically in the right breast. Focal dense fibroglandular tissue but no mass is identifed in the area of the CT finding in the right breast retroareolar region just lateral to the nipple. IMPRESSION: NEGATIVE No sonographic abnormality is seen corresponding to the mammographic asymmetry in the right breast, which also appears stable on CT and mammography, and is compatible with normal fibroglandular tissue. Return to screening mammograms is recommended. There is no sonographic evidence of malignancy. Return to annual mammogram screening schedule is recommended. Future imaging is recommended as follows: 08/06/2023 screening mammogram. This exam was interpreted at Station ID: [id number]. Electronically Signed By: Juan daley/ashley:02/03/2023 15:14:23 letter sent: Normal Exam Ultrasound BI-RADS: 1 Negative
--- NOTE | 2023-02-03 | DI.MG.S_ITS ---
UNILATERAL RIGHT DIGITAL DIAGNOSTIC MAMMOGRAM 3D/2D: 02/03/2023 CLINICAL: Follow up of mass seen in right breast on CT on 01/18/23. Comparison is made to exams dated: 08/05/2022 mammogram, 04/27/2021 mammogram, and 04/24/2020 mammogram - [facility]. The right breast is heterogeneously dense, which may obscure small masses (category c / 51-75% glandular tissue). Focal dense fibroglandular tissue is seen in the retroareolar region just lateral to the nipple corresponding to the lesion on CT from 01/18/2023. This area appears stable on multiple prior CTs and stable mammographically. No significant masses, calcifications, or other findings are seen in the breast. IMPRESSION: INCOMPLETE: NEEDS ADDITIONAL IMAGING EVALUATION Targeted ultrasound is recommended for further evaluation and will be performed immediately following this exam. This exam was interpreted at Station ID: [id number]. NOTE: For mammograms, a report in lay terms will be sent to the patient. Approximately 15% of breast malignancies will not be visualized mammographically. In the management of a palpable breast mass, a negative mammogram must not discourage biopsy of a clinically suspicious lesion. Electronically Signed By: Juan Malone M.D. ar/:02/03/2023 15:12:04 ACR BI-RADS Category 0: Incomplete [id number]
== END ==
PROVIDERS: PCP Internal Medicine; Referring Provider Internal Medicine Hematology & Oncology; Visit Provider Internal Medicine Hematology & Oncology
DX: Z85.3 Personal history of malignant neoplasm of breast (principal); C50.919 Malignant neoplasm of unspecified site of unspecified female breast; N64.89 Other specified disorders of breast
CPT/HCPCS: 76642; 77065; G0279

== ENCOUNTER 2023-03-31 06:44 | Emergency (ER) | payer MEDICARE, OTHER, SELFPAY ==
[2023-03-31] VITALS (8 sets, daily range): BP systolic 120–160; BP diastolic 57–76; PULSE 74–83; RESP 15–22; TEMP 36–36.8; O2SAT 95–100; BMI 20.9
[2023-03-31 07:17] LABS: Add Manual Diff / Slide Review NO; Basophils Absolute Auto 100 /uL (0-100); Basophils Percent Auto 0.5 % (0-2); Eosinophils Absolute Auto 100 /uL (0-450); Eosinophils Percent Auto 0.8 % (2-4); Hematocrit 39.3 % (36-46); Hemoglobin 13.2 g/dL (12.0-16.0); Lymphocytes Absolute Auto 3600 /uL (1100-4500); Lymphocytes Percent Auto 29.7 % (25-40); Mean Corpuscular HGB Conc 33.5 % (30-36); Mean Corpuscular Hemoglobin 28.7 PG (26-34); Mean Corpuscular Volume 85.7 fL (80-100); Monocytes Absolute Auto 700 /uL (0-900); Monocytes Percent Auto 5.8 % (3-14); Neutrophils Absolute Auto 7600 /uL (1500-7000); Neutrophils Percent Auto 63.2 % (50-75); Platelet Count 383 X10^3/uL (150-400); Red Blood Cell Count 4.58 X10^6/uL (4.0-5.2); White Blood Cell Count 12.1 X10^3/uL (4.5-11.0)
[2023-03-31 07:20] LABS: Alanine Aminotransferase 58 IU/L (<35); Albumin 4.1 g/dL (3.5-5.0); Albumin Globulin Ratio 1.3 (1.0-2.8); Alkaline Phosphatase 79 U/L (38-126); Aspartate Aminotransferase 143 IU/L (14-36); BUN Creatinine Ratio 23.5 (6-22); Bilirubin Total 0.8 mg/dL (0.2-1.3); Blood Urea Nitrogen 19 mg/dL (7-17); Calcium 9.9 mg/dL (8.4-10.2); Carbon Dioxide 30 mmol/L (22-32); Chloride 103 mmol/L (98-107); Estimated Glomerular Filt Rate > 60 mL/min (>60); Globulin 3.1 g/dL (1.7-4.1); Glucose 86 mg/dL (80-110); HEMOLYSIS 17 (0-50); Lipase 147 U/L (23-300); Potassium 3.7 mmol/L (3.4-5.1); Sodium 139 mmol/L (137-145); Total Protein 7.2 g/dL (6.3-8.2)
--- NOTE | 2023-03-31 07:24 | ED.ABDPAIN ---
HPI - Abdominal Pain General Chief Complaint: Abdominal Pain Stated Complaint: ABD Pain Time Seen by Provider: 03/31/23 07:15 History of Present Illness HPI narrative: This is a 68-year-old female with rheumatoid arthritis ANCA and vasculitis and psoriasis on 5 mg prednisone daily (for about a year), methotrexate weekly, hydroxychloroquine, COPD who his daily steroid inhaler and nebulizer, GERD, history of breast cancer with prior lumpectomy and radiation. Patient presents with complaint of abdominal pain that sort of epigastric radiating down words she states it does not go into her legs. She states it radiates towards her back. Patient states it goes a little bit up towards her chest but really stops the epigastric region. She denies fevers or chills. She is felt nauseated but no vomiting. She states pain has been constant but waxing waning intensity. She received ketamine via EMS in the field which was helpful to distract her from the pain but she feels like it is worn off. She states she had a well formed bowel movement yesterday with no black or bloody stool. She is not had a bowel movement today. She does not endorse any diarrhea constipation. No dysuria, urgency or frequency. No vaginal bleeding or discharge. Patient states she has had a cholecystectomy, lumpectomy and had radiation but no chemotherapy. She states she is not had similar pain in the past. Has multiple medication allergies but states she can take ibuprofen and Aleve. Patient denies any tobacco, alcohol or illicit. Dr. Thompson is her primary care. Patient states she has been on prednisone for about a year, she does methotrexate weekly, hydroxychloroquine daily, she does not nebulizer every morning which she states she has not had but does not feel like she needs she does her steroid inhaler daily takes Prilosec daily. Related Data Home Medications Medication Instructions Recorded Confirmed acetaminophen 325 mg tablet 325 mg PO PRN PRN Abdominal 07/08/16 03/16/23 Discomfort ##0 ketoconazole 2 % shampoo 1 chris topical WEEKLY #120 mL 07/08/16 03/16/23 polyethylene glycol 3350 17 17 gm PO QDAY ##0 07/08/16 03/16/23 gram/dose oral powder (Miralax) Bifidobacterium infantis 4 mg 4 mg PO QDAY ##0 07/12/16 03/16/23 capsule (Align) albuterol sulfate 90 mcg/actuation 2 puff INH BID ##0 10/28/17 03/16/23 aerosol inhaler (Ventolin HFA) fluticasone 250 mcg-salmeterol 50 1 puff INH BID ##0 10/28/17 03/16/23 mcg/dose blistr powdr for inhalation (Advair Diskus) loratadine 10 mg tablet (Claritin) 10 mg PO DAILY 03/29/19 03/16/23 omeprazole 20 mg tablet,delayed 20 mg PO DAILY 03/29/19 03/16/23 release multivitamin 1 cap PO DAILY 03/24/20 03/16/23 ipratropium 0.5 mg-albuterol 3 mg 3 ml inhalation DAILY 10/04/20 03/16/23 (2.5 mg base)/3 mL nebulization soln methotrexate (PF) 25 mg/0.5 mL 25 mg SUBCUT QWEEK 01/07/23 03/16/23 subcutaneous auto-injector (Rasuvo (PF)) prednisone 5 mg tablet 5 mg PO DAILY 01/07/23 03/16/23 folic acid 1 mg tablet 1 mg PO DAILY Because I take 03/16/23 03/16/23 Methotrexate hydroxychloroquine 200 mg tablet 200 mg PO BID 03/16/23 03/16/23 Previous Rx's Medication Instructions Recorded cyclobenzaprine 10 mg tablet 10 mg PO TID PRN muscle spasm #30 03/16/23 tabs Allergies Allergy/AdvReac Type Severity Reaction Status Date / Time ciprofloxacin [CIPROFLOXACIN] Allergy Intermediate Shortness Verified 03/31/23 06:58 of breath nitrofurantoin Allergy Mild RASH ON Verified 03/31/23 06:58 [NITROFURANTOIN] HANDS latex [LATEX] Allergy Unknown Unlknown Verified 03/31/23 06:58 levofloxacin [LEVOFLOXACIN] Allergy Unknown RASH ON Verified 03/31/23 06:58 HANDS codeine [CODEINE] AdvReac Severe STOMACH Verified 03/31/23 06:58 PAINS hydrocodone [From VICODIN] AdvReac Severe HEADACHES Verified 03/31/23 06:58 cefuroxime AdvReac Intermediate Nausea Verified 03/31/23 06:58 meloxicam [From MOBIC] AdvReac Intermediate GI UPSET Verified 03/31/23 06:58 methocarbamol [From ROBAXIN] AdvReac Intermediate HEADACHE Verified 03/31/23 06:58 morphine [MORPHINE] AdvReac Intermediate BILIARY Verified 03/31/23 06:58 SPASMS adhesive tape [ADHESIVE TAPE] AdvReac Mild Skin Verified 03/31/23 06:58 irritation, redness Sulfa (Sulfonamide AdvReac Mild ALL OVER Verified 03/31/23 06:58 Antibiotics) MALAISE [SULFA (SULFONAMIDE ANTIBIOTICS)] tramadol [TRAMADOL] AdvReac Mild gets Verified 03/31/23 06:58 lightheaded Review of Systems Review of Systems ROS Unobtainable: All systems reviewed & are unremarkable except as noted in HPI and below Patient History Medical History Abnormal Pap smear of cervix (~1979) Asthma Bronchiectasis (~2016) Cataracts, bilateral (~2018) Chicken pox (~1955) Chronic back pain (~2009) Constipation COPD (chronic obstructive pulmonary disease) Decreased appetite Decreased appetite Decreased appetite Diarrhea Difficulty walking Dizziness Eczema Edema Family history of colon cancer in mother Fatigue Fibroids (~1984) GERD (gastroesophageal reflux disease) GERD without esophagitis Hemorrhoid Irritable bowel syndrome Kidney stones (~2009) Leg cramps Measles Mild hyperlipidemia Mumps Numbness Osteoarthritis (~2015) Osteopenia Osteoporosis Psoriasis Raynaud disease Recurrent UTI Rheumatoid arthritis (~2018) Shoulder pain (~2014) Stress Vasculitis Venous (peripheral) insufficiency Weight loss Wheezing Surgical History Anesthesia History of cholecystectomy Status post breast lumpectomy Status post cholecystectomy Family History Brother Age: 66 High cholesterol Hypertension Grandfather Cancer Grandmother Heart disease Stroke Mother Heart disease Cancer Hypertension Stroke Grandfather Cancer Grandmother Osteoporosis Stroke Sister Age: 74 High cholesterol Hypertension Sister Age: 68 High cholesterol Hypertension Sister Age: 60 High cholesterol Hypertension Autoimmune disease Father Lung disease Family/Other Mental health problem Social History details: (Rosalio), 3 daughters, 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 HEENT: Head normocephalic, atraumatic, EOMI, pupils reactive, face symmetric, moist mucous membranes NECK: Supple, full range of motion CARDIOVASCULAR: Regular rate and rhythm without murmurs, rubs or gallops. RESPIRATORY: Breath sounds equal bilaterally, no wheezes rales or rhonchi. No tachypnea or accessory muscle use. ABDOMEN: Soft, generalized tenderness greatest at the epigastric region. Normoactive bowel sounds all 4 quadrants. No guarding or rebound, rigidity, no mass. Nondistended. No pulsatile mass or bruit. : No CVA tenderness EXTREMITIES: Normal range of motion, no clubbing or edema. Neurovascularly intact NEUROLOGICAL: Cranial nerves II through XII grossly intact. Moving all extremities SKIN: Warm, dry, no petechiae, no rashes or lesions. Initial Vital Signs Initial Vital Signs: Vital Signs Blood Pressure 160/76 H 03/31/23 06:46 Course Orders Ordered: ED Orders 03/31/23 09:13 EKG-12 Lead Routine 03/31/23 10:05 Urine Microscopic Stat Discontinued Medications Sodium Chloride (Normal Saline 0.9%) 1,000 mls @ 1,000 mls/hr IV BOLUS ONE Stop: 03/31/23 08:36 Last Infusion: 03/31/23 09:00 Dose: 0 mls/hr Documented By: Admin: 03/31/23 08:04 Dose: 1,000 mls/hr Documented By: MONA Ketorolac Tromethamine (Ketorolac 30 Mg/Ml Vial) 15 mg IV NOW ONE Stop: 03/31/23 07:38 Last Admin: 03/31/23 08:03 Dose: 15 mg Documented By: MONA Ondansetron HCl (Ondansetron 4 Mg/2 Ml Inj) 4 mg IV NOW ONE Stop: 03/31/23 07:38 Last Admin: 03/31/23 08:04 Dose: 4 mg Documented By: MONA Vital Signs Vital signs: Vital Signs - 8 hr 03/31/23 10:51 Temperature 98.3 F Pulse Rate 83 Respiratory Rate 18 Blood Pressure 151/68 H Pulse Oximetry 100 Oxygen Delivery Method Room Air MDM - Abdominal Pain Lab Data 03/31/23 06:40 03/31/23 06:40 Labs: Lab Results 03/31/23 03/31/23 03/31/23 Range/Units 06:40 06:40 07:25 WBC 12.1 H (4.5-11.0) X10^3/uL RBC 4.58 (4.0-5.2) X10^6/uL Hgb 13.2 (12.0-16.0) g/dL Hct 39.3 (36-46) % MCV 85.7 (80-100) fL MCH 28.7 (26-34) PG MCHC 33.5 (30-36) % RDW 15.0 H (11.6-14.8) % Plt Count 383 (150-400) X10^3/uL Neut % (Auto) 63.2 (50-75) % Lymph % (Auto) 29.7 (25-40) % [place] % (Auto) 5.8 (3-14) % Eos % (Auto) 0.8 L (2-4) % Baso % (Auto) 0.5 (0-2) % Neut # (Auto) 7600 H (8204-1381) /uL Lymph # (Auto) 3600 (6455-6109) /uL [place] # (Auto) 700 (0-900) /uL Eos # (Auto) 100 (0-450) /uL Baso # (Auto) 100 (0-100) /uL Sodium 139 (137-145) mmol/L Potassium 3.7 (3.4-5.1) mmol/L Chloride 103 (98-107) mmol/L Carbon Dioxide 30 (22-32) mmol/L BUN 19 H (7-17) mg/dL Creatinine 0.81 (0.52-1.04) mg/dL Estimated GFR > 60 (>60) mL/min BUN/Creatinine Ratio 23.5 H (6-22) Glucose 86 (80-110) mg/dL Calcium 9.9 (8.4-10.2) mg/dL Total Bilirubin 0.8 (0.2-1.3) mg/dL AST 143 H (14-36) IU/L ALT 58 H (<35) IU/L Alkaline Phosphatase 79 (38-126) U/L Ammonia < 9 L (9-30) umol/L Total Protein 7.2 (6.3-8.2) g/dL Albumin 4.1 (3.5-5.0) g/dL Globulin 3.1 (1.7-4.1) g/dL Albumin/Globulin Ratio 1.3 (1.0-2.8) Lipase 147 (23-300) U/L Urine RBC (0-5/HPF) Urine WBC (0-5/HPF) Ur Squamous Epith Cells (0-5/HPF) Urine Bacteria (None) Ur Culture Indicated? 03/31/23 Range/Units 10:05 WBC (4.5-11.0) X10^3/uL RBC (4.0-5.2) X10^6/uL Hgb (12.0-16.0) g/dL Hct (36-46) % MCV (80-100) fL MCH (26-34) PG MCHC (30-36) % RDW (11.6-14.8) % Plt Count (150-400) X10^3/uL Neut % (Auto) (50-75) % Lymph % (Auto) (25-40) % [place] % (Auto) (3-14) % Eos % (Auto) (2-4) % Baso % (Auto) (0-2) % Neut # (Auto) (7218-7731) /uL Lymph # (Auto) (4179-7391) /uL [place]ier # (Auto) (0-900) /uL Eos # (Auto) (0-450) /uL Baso # (Auto) (0-100) /uL Sodium (137-145) mmol/L Potassium (3.4-5.1) mmol/L Chloride (98-107) mmol/L Carbon Dioxide (22-32) mmol/L BUN (7-17) mg/dL Creatinine (0.52-1.04) mg/dL Estimated GFR (>60) mL/min BUN/Creatinine Ratio (6-22) Glucose (80-110) mg/dL Calcium (8.4-10.2) mg/dL Total Bilirubin (0.2-1.3) mg/dL AST (14-36) IU/L ALT (<35) IU/L Alkaline Phosphatase (38-126) U/L Ammonia (9-30) umol/L Total Protein (6.3-8.2) g/dL Albumin (3.5-5.0) g/dL Globulin (1.7-4.1) g/dL Albumin/Globulin Ratio (1.0-2.8) Lipase (23-300) U/L Urine RBC 0-1/hpf (0-5/HPF) Urine WBC None seen (0-5/HPF) Ur Squamous Epith Cells None seen (0-5/HPF) Urine Bacteria None seen (None) Ur Culture Indicated? Cult not indicated Point of care testing: Urine Dip Bedside Urine Glucose Negative Bedside Urine Bilirubin - Negative Bedside Urine Ketone - Negative Urine Specific [place] 1.010 Bedside Urine Occult Blood + Bedside Urine pH 6.0 Bedside Urine Protein - Negative Bedside Urine Urobilinogen - Negative Bedside Urine Nitrite - Negative Bedside Urine Leukocytes - Negative Esterase Imaging Data CT chest/abd/pelvis: Radiologist's Impression: Close Chest/Abdomen/Pelvis CTA (Signed) Rich Garibay - 03/31/23 Launch?[place] [address] CT Scan Report Signed Patient: Nabila Kraft MR#: [id number] : 1955 Acct:[id number] Age/Sex: 68 / F Date of Service: 03/31/23 Loc: ED Accession Number: [id number] ?? Procedure: CT angio chest abdomen pelvis Ordering Provider: Ara Lyons D.O. PROCEDURE:? CT ANGIO CHEST ABDOMEN PELVIS ? INDICATIONS:? abd pain, radiates epigastric and up to chest ? TECHNIQUE:? Precontrast 5 mm thick sections acquired from the lung apices to the iliac crests.? After the administration of intravenous contrast, 2.5 mm thick sections again acquired from the lung apices to the iliac crests.? Maximum intensity projection (MIP) oblique sagittal and coronal reformats were then acquired.? For radiation dose reduction, the following was used:? automated exposure control.? ? COMPARISON:? CT 12/11/2021 ? FINDINGS:? Image quality:? Excellent.? ? AORTA:? No acute aortic syndrome. ? CHEST:? Lungs and pleura:? Confluent centrilobular emphysema of the lung apices.? 4 millimeter solid nodule, left upper lobe (series 5, image 50), stable since 202 and therefore statistically benign. ? Mediastinum:? Heart size is normal.? No pericardial effusion.? No mediastinal or hilar adenopathy by size criteria.? Central pulmonary arteries are normal in size.? Esophagus is normal in caliber.? No hiatal hernias.? ? Bones and chest wall:? No axillary adenopathy by size criteria.? Thyroid gland is unremarkable .? No suspicious bony lesions.? No vertebral body compression fractures.? Asymmetric right breast nodularity measuring 2.3 centimeters, recently characterized on ultrasound.? ? ? ABDOMEN:? Vasculature:? Celiac trunk and mesenteric arteries are patent.? Renal arteries are also patent.? ? Solid organs:? Liver is normal in size and enhancement.? Gallbladder is absent .? Biliary system is non dilated.? The tail the pancreas is atrophic, without ductal dilation or associated mass.? Spleen is normal in size and enhancement.? No adrenal nodules.? Both kidneys are normal in size and enhancement, without hydronephrosis.? ? Peritoneum and bowel:? No free fluid or air.? Bowel loops are normal in caliber and wall thickness.? Large colonic stool load. ? Nodes and vessels:? No retroperitoneal or mesenteric adenopathy by size criteria.? Inferior vena cava is normal in morphology.? ? Miscellaneous:? No ventral hernias.? ? ? PELVIS:? Genitourinary:? Bladder wall thickness is normal.? ? Miscellaneous:? No inguinal hernias or adenopathy.? No ventral hernias.? ? Bones:? No suspicious bony lesions.? No vertebral body compression fractures.? ? ? IMPRESSION:? No evidence of acute aortic syndrome. ? Large colonic stool load. ? ? ? Dictated by: Rich Garibay M.D. on 03/31/2023 at 8:19 ? ? Approved by: Rich Garibay M.D. on 03/31/2023 at 8:27?? ECG Data Attestation: I personally reviewed and interpreted this ECG as follows: Interpretation: Patient has EKG from EMS normal sinus rhythm rate 83 MI 138 QRS 83 QTC 447[address] No acute ST elevation depression appreciated. Sinus rhythm rate of 74 MI 138 QRS 72 QTC 472. No acute ST changes compared to prior from earlier today with EMS. MDM Narrative Medical decision making narrative: This is a 68-year-old female who presents with complaint of abdominal pain generalized radiating towards her back and up towards her abdomen. Patient's initial lab work shows a mild leukocytosis, normal hemoglobin and platelets. Chemistry shows normal electrolytes, BUN 19 with creatinine 0.81, glucose is 86, bilirubin is in normal range but AST is 143 ALT is 58 alk-phos is 79- ammonia and negative lipase. EKG shows no acute change. Urine shows no acute change. CT imaging of chest abdomen and pelvis shows pulmonary nodule that was present from before and stable, changes consistent with mammogram that had ultrasound which was reassuring. And stool throughout but no other acute vascular or GI or issues to the chest. Discussed today's findings with the patient. Low clear source for pain although she does have stool throughout so this could be a component of her discomfort. Pain had improved with Toradol starting to increase again she states she will take Tylenol at home. Discussed trying stool softeners, watchful waiting and return precautions. Patient feels comfortable with this plan all questions answered. Discharge Plan Departure Patient Disposition: Home Clinical Impression: Abdominal pain, Lung nodule Instructions: DI for Abdominal Pain-Adult Activity Restrictions/Additional Instructions: Your imaging today does show a lung nodule that was present in 2020 and has not changed. There is also the change noted on your mammogram that you had ultrasound for that seemed compatible with normal fibroglandular tissue on ultrasound. There is quite a bit of stool throughout the colon which could be contributing to your pain. Make sure you are taking a stool softener once to 2 times daily. I would recommend continuing with the MiraLax and adding docusate 1 or 2 tablets daily. Drink plenty of water regularly throughout the day, at least 8 glasses of 8 oz of liquids. You can use glycerin suppositories if there seems to be stool at the rectal opening. Please return for new or worsening symptoms, fevers, worsening abdominal back or flank pain, persistent vomiting, lightheadedness or passing out or other new or concerning changes. Prescriptions: No Action ipratropium-albuterol 0.5 mg-3 mg(2.5 mg base)/3 mL solution for nebulization 3 ml inhalation DAILY acetaminophen 325 MG tablet 325 mg PO PRN PRN (Reason: Abdominal Discomfort) Qty: 0 ketoconazole 2 % shampoo 1 chris Topical WEEKLY Qty: 120 polyethylene glycol 3350 [Miralax] 119 GM powder 17 gm PO QDAY Qty: 0 Align 4 MG capsule 4 mg PO QDAY Qty: 0 albuterol sulfate [Ventolin HFA] 90 MCG/PUFF HFA aerosol inhaler 2 puff INH BID Qty: 0 Patient Comments: hasn't used for a year fluticasone propion-salmeterol [Advair Diskus] 250 MCG/50 MCG blister with device 1 puff INH BID Qty: 0 folic acid 1 mg tablet 1 mg PO DAILY Patient Comments: My liver test results were a little high so said was time to start folic acid. hydroxychloroquine 200 mg tablet 200 mg PO BID cyclobenzaprine 10 mg tablet 10 mg PO TID PRN (Reason: muscle spasm) Qty: 30 1RF Rasuvo (PF) 25 mg/0.5 mL auto-injector 25 mg SUBCUT QWEEK Patient Comments: ADMINISTER 0.5 ML UNDER THE SKIN 1 TIME A WEEK prednisone 5 mg tablet 5 mg PO DAILY omeprazole 20 mg Tablet,Delayed Release (Dr/Ec) 20 mg PO DAILY loratadine [Claritin] 10 mg Tablet 10 mg PO DAILY multivitamin Capsule 1 cap PO DAILY Referrals: Brady Thompson MD [Primary Care Provider] - Stand Alone Forms: Patient Portal/API
--- NOTE | 2023-03-31 07:37 | DI.CT.S_ITS ---
PROCEDURE: CT ANGIO CHEST ABDOMEN PELVIS INDICATIONS: abd pain, radiates epigastric and up to chest TECHNIQUE: Precontrast 5 mm thick sections acquired from the lung apices to the iliac crests. After the administration of intravenous contrast, 2.5 mm thick sections again acquired from the lung apices to the iliac crests. Maximum intensity projection (MIP) oblique sagittal and coronal reformats were then acquired. For radiation dose reduction, the following was used: automated exposure control. COMPARISON: CT 12/11/2021 FINDINGS: Image quality: Excellent. AORTA: No acute aortic syndrome. CHEST: Lungs and pleura: Confluent centrilobular emphysema of the lung apices. 4 millimeter solid nodule, left upper lobe (series 5, image 50), stable since 202 and therefore statistically benign. Mediastinum: Heart size is normal. No pericardial effusion. No mediastinal or hilar adenopathy by size criteria. Central pulmonary arteries are normal in size. Esophagus is normal in caliber. No hiatal hernias. Bones and chest wall: No axillary adenopathy by size criteria. Thyroid gland is unremarkable . No suspicious bony lesions. No vertebral body compression fractures. Asymmetric right breast nodularity measuring 2.3 centimeters, recently characterized on ultrasound. ABDOMEN: Vasculature: Celiac trunk and mesenteric arteries are patent. Renal arteries are also patent. Solid organs: Liver is normal in size and enhancement. Gallbladder is absent . Biliary system is non dilated. The tail the pancreas is atrophic, without ductal dilation or associated mass. Spleen is normal in size and enhancement. No adrenal nodules. Both kidneys are normal in size and enhancement, without hydronephrosis. Peritoneum and bowel: No free fluid or air. Bowel loops are normal in caliber and wall thickness. Large colonic stool load. Nodes and vessels: No retroperitoneal or mesenteric adenopathy by size criteria. Inferior vena cava is normal in morphology. Miscellaneous: No ventral hernias. PELVIS: Genitourinary: Bladder wall thickness is normal. Miscellaneous: No inguinal hernias or adenopathy. No ventral hernias. Bones: No suspicious bony lesions. No vertebral body compression fractures. IMPRESSION: No evidence of acute aortic syndrome. Large colonic stool load. Dictated by: Rich Garibay M.D. on 03/31/2023 at 8:19 Approved by: Rich Garibay M.D. on 03/31/2023 at 8:27
[2023-03-31 07:42] LABS: Ammonia (NH3) < 9 umol/L (9-30)
[2023-03-31] MEDS: KETOROLAC 30 MG/ML VIAL 15 MG IV (08:03)
[2023-03-31] MEDS: ONDANSETRON 4 MG/2 ML INJ IV (08:04)
[2023-03-31] MEDS: SODIUM CHLORIDE 0.9% 1,000 ML 1000 ML IV (08:04)
[2023-03-31 10:34] LABS: Bacteria Urine None Seen; Culture Indicated Urine Cult Not Indicated; RBC Urine 0-1/HPF (0-5/HPF); Squamous Epithelial Cell Urine None Seen (0-5/HPF); WBC Urine None Seen (0-5/HPF)
== END 2023-03-31 10:48 | disposition home or self-care (01) ==
PROVIDERS: Emergency Medicine; Emergency Provider Emergency Medicine; PCP Internal Medicine
DX: R10.13 Epigastric pain (principal); R91.1 Solitary pulmonary nodule
CPT/HCPCS: 36415; 71275; 74174; 80053; 81003; 81015; 82140; 83690; 85025; 93005; 96361; 96374; 96375; 99284; J1885; J2405; Q9967

== ENCOUNTER → 2023-08-10 09:56 | Outpatient (CLI) | payer MEDICARE, OTHER, SELFPAY ==
--- NOTE | 2023-08-10 | DI.MG.S_ITS ---
BILATERAL DIGITAL SCREENING MAMMOGRAM 3D/2D WITH CAD POST LUMPECTOMY: 08/10/2023 CLINICAL: Routine screening. Personal history of left breast cancer. Family history of breast cancer. Comparison is made to exams dated: 02/03/2023 mammogram, 08/05/2022 mammogram, and 04/27/2021 mammogram - [facility]. Both breasts are heterogeneously dense, which may obscure small masses (category c / 51-75% glandular tissue). Current study was also evaluated with a Computer Aided Detection (CAD) system. There are benign post operative findings in the left breast. No significant masses, calcifications, or other findings are seen in either breast. There has been no significant interval change. IMPRESSION: BENIGN There is no mammographic evidence of malignancy. A 1 year screening mammogram is recommended. Future imaging is recommended as follows: 02/05/2024 screening mammogram. This exam was interpreted at Station ID: [id number]. NOTE: For mammograms, a report in lay terms will be sent to the patient. Approximately 15% of breast malignancies will not be visualized mammographically. In the management of a palpable breast mass, a negative mammogram must not discourage biopsy of a clinically suspicious lesion. Electronically Signed By: Juan [email or web address]:08/10/2023 12:30:35 copy to: Norma [facility]su [facility] letter sent: Normal Exam ACR BI-RADS Category 2: Benign Finding(s) 3342F
== END ==
PROVIDERS: PCP Internal Medicine; Referring Provider Internal Medicine; Visit Provider Internal Medicine
DX: Z12.31 Encounter for screening mammogram for malignant neoplasm of breast (principal); Z85.3 Personal history of malignant neoplasm of breast; Z80.3 Family history of malignant neoplasm of breast
CPT/HCPCS: 77063; 77067

== ENCOUNTER → 2023-09-12 07:37 | Outpatient (CLI) | payer MEDICARE, OTHER, SELFPAY ==
--- NOTE | 2023-09-12 | DI.MRI.S_ITS ---
PROCEDURE: MR KNEE RT WO CON INDICATIONS: RIGHT KNEE PAIN TECHNIQUE: Noncontrast sagittal PD fast spin echo and T2 fast spin echo with fat saturation, sagittal 3-D FLASH with fat saturation; coronal T1 spin echo and PD fast spin echo with fat saturation, and axial PD fast spin echo with fat saturation through the knee. COMPARISON: [facility], MR, MR KNEE LT WO CON, 03/13/2019, 15:57. FINDINGS: Image quality: Excellent. Menisci: The medial and lateral menisci demonstrate normal morphology and internal signal. There is low-grade partial-thickness tear involving posterior medial meniscal root ligament. Cruciate ligaments: The anterior and posterior cruciate ligaments appear intact. Medial structures: The medial collateral ligament appears intact. The posterior oblique ligament, semimembranosus tendon insertions, oblique popliteal ligament, and meniscocapsular junction appear intact. Visualized portions of the pes anserinus tendons appear normal. No abnormal bursal fluid. Lateral structures: The lateral collateral ligament, long and short heads of the biceps femoris tendon appear intact. The popliteus tendon appears normal; the popliteofibular ligament appears intact. Iliotibial band appears normal. Anterior structures: Distal quadriceps tendinosis at its superior patellar insertion is seen. Proximal patellar tendinosis and low-grade partial-thickness tear at its inferior patellar insertion is also noted. Patellar alignment is normal. No femoral trochlear dysplasia or ventral trochlear prominence. No edema in the infrapatellar fat pad. Bones and cartilage: No bone marrow contusions or fractures. 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 Joint space: There is small to moderate knee joint fluid. No Meza's cyst. Normal appearing synovial plicae are incidentally noted. IMPRESSION: 1. Low-grade partial-thickness tear involving posterior medial meniscal root ligament. No evidence of focal meniscal tear. 2. The cruciate ligaments are intact. 3. Distal quadriceps tendinosis. Proximal patellar tendinosis and low-grade partial-thickness tear. No full-thickness tendon rupture. 4. Bcfd-of-qicpeept tricompartmental osteoarthritis and chondromalacia most notably in patellofemoral compartment. No fracture or dislocation. Small to moderate joint effusion, no loose bodies. Dictated by: Fernandez Brooks M.D. on 09/12/2023 at 11:48 Approved by: Fernandez Brooks M.D. on 09/12/2023 at 11:51
== END ==
PROVIDERS: PCP Internal Medicine; Referring Provider Student in an Organized Health Care Education/Training Program; Visit Provider Student in an Organized Health Care Education/Training Program
DX: S83.241A Other tear of medial meniscus, current injury, right knee, initial encounter (principal); S76.111A Strain of right quadriceps muscle, fascia and tendon, initial encounter; M17.11 Unilateral primary osteoarthritis, right knee; M22.41 Chondromalacia patellae, right knee; M25.461 Effusion, right knee; M25.561 Pain in right knee
CPT/HCPCS: 73721

== ENCOUNTER → 2023-10-21 | Outpatient (CLI) | payer MEDICARE, OTHER, SELFPAY ==
--- NOTE | 2023-10-21 | DI.NM.S_ITS ---
PROCEDURE: NM BONE SCAN WHOLE BODY RADIOPHARMACEUTICAL: 21.9 mCi Tc-99m MDP IV. INDICATIONS: Malignant neoplasm of left breast TECHNIQUE: Delayed whole-body scintigrams were obtained approximately 3-4 hours after intravenous injection of radiotracer. Anterior and posterior views were acquired from vertex to feet. Additional left and right oblique views of the thoracic spine and ribcage were obtained. COMPARISON: [facility], CT, CT ANGIO CHEST ABDOMEN PELVIS, 03/31/2023, 7:47. FINDINGS: No lesions are identified in skull, sternum, clavicles, scapulae, ribs, bony pelvis, and visualized shafts of the long bones. There are foci of increased uptake in thoracic and lumbar spine most likely secondary to degenerative disc and facet disease; early metastasis to spine could be obscured by degenerative changes. There are foci of increased periarticular activity compatible with degenerative/arthritic changes. IMPRESSION: No scintigraphic findings to suggest osseous metastatic disease. Dictated by: Emerald Mitchell M.D. on 10/21/2023 at 16:16 Approved by: Emerald Mitchell M.D. on 10/22/2023 at 7:47
== END ==
LOC: NUCM 09:07
PROVIDERS: PCP Internal Medicine; Referring Provider Internal Medicine Hematology & Oncology; Visit Provider Internal Medicine Hematology & Oncology
DX: C50.912 Malignant neoplasm of unspecified site of left female breast (principal); Z17.0 Estrogen receptor positive status [ER+]
CPT/HCPCS: 78306; A9503

== ENCOUNTER → 2023-11-01 11:03 | Outpatient (CLI) | payer MEDICARE, OTHER, SELFPAY ==
--- NOTE | 2023-11-01 | DI.RAD.S_ITS ---
PROCEDURE: XR SHOULDER RT MIN 2V INDICATIONS: Norma Hsu TECHNIQUE: 3 views of the shoulder were acquired. COMPARISON: [facility], , SHOULDER MINIMUM 2VIEW RIGHT, 06/06/2014, 7:26. FINDINGS: Bones: No fractures or dislocations. No suspicious bony lesions. Mild acromioclavicular and glenohumeral joint degeneration. Visualized ribs appear intact. Soft tissues: Calcification over humeral head suggesting rotator cuff calcific tendinitis. IMPRESSION: 1. Mild degenerative joint disease. 2. Suspect rotator cuff calcific tendinitis. Dictated by: Emerald Mitchell M.D. on 11/01/2023 at 16:07 Approved by: Emerald Mitchell M.D. on 11/01/2023 at 18:13
== END ==
PROVIDERS: PCP Internal Medicine; Referring Provider Internal Medicine Hematology & Oncology; Visit Provider Internal Medicine Hematology & Oncology
DX: M19.011 Primary osteoarthritis, right shoulder (principal); C50.912 Malignant neoplasm of unspecified site of left female breast; Z17.0 Estrogen receptor positive status [ER+]
CPT/HCPCS: 73030

== ENCOUNTER → 2024-01-30 15:46 | Outpatient (ROUT) | payer MEDICARE, OTHER, SELFPAY ==
[2024-01-30 15:51] LABS: Appearance Urine UA CLEAR; Bilirubin Urine UA NEGATIVE (NEGATIVE); Color Urine UA YELLOW; Glucose Urine UA NEGATIVE (Negative); Ketones Urine UA NEGATIVE (NEGATIVE); Leukocyte Esterase Urine UA TRACE (NEGATIVE); Nitrite Urine UA NEGATIVE (Negative); Occult Blood Urine UA TRACE-INTACT (Negative); Protein Urine UA NEGATIVE (Negative); Specific Gravity Urine UA <=1.005 (1.000-1.035); Urobilinogen Urine UA 0.2 E.U./dL (0.2)
[2024-01-30 15:52] LABS: pH Urine UA 5.5 (4.5-8.0)
[2024-01-30 15:58] LABS: Bacteria Urine Occasional (0-1); Culture Indicated Urine Specimen Cultured; RBC Urine 0-1/HPF (0-5/HPF); Squamous Epithelial Cell Urine 0-1 /HPF (0-5/HPF); Urine Volume 10mL (spun); WBC Urine 0-1/HPF (0-5/HPF)
== END ==
PROVIDERS: PCP Internal Medicine; Visit Provider Physician Assistant Surgical
DX: R30.0 Dysuria (principal)
CPT/HCPCS: 81001; 87086

== ENCOUNTER → 2024-02-14 12:59 | Outpatient (CLI) | payer MEDICARE, OTHER, SELFPAY ==
--- NOTE | 2024-02-14 13:01 | DI.RAD.S_ITS ---
PROCEDURE: XR ANKLE LT MIN 3V INDICATIONS: left ankle pain TECHNIQUE: 3 views of the ankle were acquired. COMPARISON: None. FINDINGS: Bones: Mild tibiotalar, subtalar, and midfoot degenerative changes. No acute displaced fracture. Minute bone fragments are seen adjacent to the malleoli. Soft tissues: No suspicious calcifications. IMPRESSION: Mild degenerative changes and minute age-indeterminate bone fragment seen adjacent to the malleoli, which may be from prior injury. If there is high concern for further derangement, consider MRI evaluation. Dictated by: Saurabh Roberts M.D. on 02/14/2024 at 15:31 Approved by: Saurabh Roberts M.D. on 02/14/2024 at 15:32
--- NOTE | 2024-02-14 13:02 | DI.MRI.S_ITS ---
PROCEDURE: MR SHOULDER RT WO CON INDICATIONS: DISORDER OF RIGHT ROTATOR CUFF TECHNIQUE: Noncontrast oblique coronal T2 fast spin echo with fat saturation, oblique sagittal T1 spin echo and T2 fast spin echo with fat saturation, axial T1 spin echo and T2 fast spin echo with fat saturation through the shoulder. COMPARISON: None. FINDINGS: Image quality: Excellent. Rotator cuff: Low-grade bursal surface partial-thickness tear involving distal supraspinatus at its insertion on the humeral head is seen extending to musculotendinous junction. Distal infraspinatus tendinosis at its insertion on the humeral head is noted. The subscapularis tendon is grossly intact. No full-thickness rotator cuff tendon rupture. Sagittal images demonstrate very mild supraspinatus muscle atrophy. Bones and bursae: No bone marrow contusions or fractures. Mild to moderate acromioclavicular joint osteoarthritic changes are seen with joint space narrowing and downward osteophyte formation depressing the musculotendinous junction of supraspinatus. Small joint effusion and subacromial subdeltoid bursal fluid is seen, no gross loose bodies. Capsule and soft tissues: There is subtle fraying involving superior anterior labrum with T2 hyperintense signal at 12 to 1 o'clock position concerning for subtle superior anterior labral tear. The long head of the biceps tendon demonstrates normal location and morphology. The rotator interval appears normal, without fibrosis. The coracohumeral ligament is normal in thickness. IMPRESSION: 1. Low-grade bursal surface partial-thickness tear involving distal supraspinatus extending to musculotendinous junction. Distal infraspinatus tendinosis. No full-thickness rotator cuff tendon rupture. Very mild supraspinatus muscle atrophy. 2. Aagt-un-ltzojaep acromioclavicular joint osteoarthritis. No fracture or dislocation. Small joint effusion and subacromial subdeltoid bursal fluid, no gross loose bodies. 3. Suggestion of subtle superior anterior labral tear at 12 to 1 o'clock position. Dictated by: Fernandez Brooks M.D. on 02/14/2024 at 16:54 Approved by: Fernandez Brooks M.D. on 02/15/2024 at 8:55
== END ==
LOC: MRI 13:00
PROVIDERS: PCP Internal Medicine; Referring Provider Orthopaedic Surgery; Visit Provider Orthopaedic Surgery
DX: M75.111 Incomplete rotator cuff tear or rupture of right shoulder, not specified as traumatic (principal); M19.011 Primary osteoarthritis, right shoulder; M25.411 Effusion, right shoulder; M67.911 Unspecified disorder of synovium and tendon, right shoulder; M25.572 Pain in left ankle and joints of left foot
CPT/HCPCS: 73221; 73610

== ENCOUNTER 2024-03-02 12:26 | Emergency (ER) | payer MEDICARE, OTHER, SELFPAY ==
[2024-03-02 12:31] VITALS: BP 157/74; PULSE 82; RESP 18; TEMP 37.1; O2SAT 97; BMI 21.2
[2024-03-02 12:56] LABS: Appearance Urine UA CLEAR; Bilirubin Urine UA NEGATIVE (NEGATIVE); Color Urine UA YELLOW; Glucose Urine UA NEGATIVE (Negative); Ketones Urine UA TRACE (NEGATIVE); Leukocyte Esterase Urine UA 1+ (NEGATIVE); Nitrite Urine UA NEGATIVE (Negative); Occult Blood Urine UA 1+ (Negative); Protein Urine UA 1+ (Negative); Specific Gravity Urine UA 1.025 (1.000-1.035); Urobilinogen Urine UA 0.2 E.U./dL (0.2)
[2024-03-02 12:57] LABS: Bacteria Urine Occasional (0-1); Culture Indicated Urine Specimen Cultured; RBC Urine 0-1/HPF (0-5/HPF); Squamous Epithelial Cell Urine 1-5 /HPF (0-5/HPF); Urine Volume Low Vol <1mL unspun; WBC Urine 1-5/HPF (0-5/HPF)
== END 2024-03-02 14:04 | disposition left against medical advice (07) ==
PROVIDERS: Emergency Provider Emergency Medicine; PCP Internal Medicine
DX: R10.9 Unspecified abdominal pain (principal)
CPT/HCPCS: 81001; 87086; 99281

== ENCOUNTER → 2024-03-07 08:40 | Outpatient (CLI) | payer MEDICARE, OTHER, SELFPAY ==
[2024-03-07 08:59] LABS: Hematocrit 39.2 % (36-46); Hemoglobin 12.8 g/dL (12.0-16.0); Mean Corpuscular HGB Conc 32.7 % (30-36); Mean Corpuscular Hemoglobin 28.8 PG (26-34); Platelet Count 364 X10^3/uL (150-400); Red Blood Cell Count 4.46 X10^6/uL (4.0-5.2); Red Cell Distribution Width 15.3 % (11.6-14.8)
[2024-03-07 09:05] LABS: Alanine Aminotransferase 26 IU/L (<35); Albumin 4.6 g/dL (3.5-5.0); Albumin Globulin Ratio 1.6 (1.0-2.8); Alkaline Phosphatase 66 U/L (38-126); Aspartate Aminotransferase 38 IU/L (14-36); BUN Creatinine Ratio 13.4 (6-22); Bilirubin Total 0.9 mg/dL (0.2-1.3); Blood Urea Nitrogen 9 mg/dL (7-17); Calcium 10.2 mg/dL (8.4-10.2); Carbon Dioxide 25 mmol/L (22-32); Chloride 109 mmol/L (98-107); Estimated Glomerular Filt Rate > 60 mL/min (>60); Globulin 2.9 g/dL (1.7-4.1); Glucose 105 mg/dL (80-110); HEMOLYSIS 17 (0-50); Potassium 3.7 mmol/L (3.4-5.1); Sodium 141 mmol/L (137-145); Total Protein 7.5 g/dL (6.3-8.2)
--- NOTE | 2024-03-07 10:03 | DI.CT.S_ITS ---
PROCEDURE: CT ABDOMEN PELVIS W CON INDICATIONS: abd pain/diverticulitis, rule out abcess TECHNIQUE: After the administration of intravenous contrast, axial sections acquired from the lung bases to the pubic symphysis. Coronal and sagittal reformats were performed. For radiation dose reduction, the following was used: automated exposure control, adjustment of mA and/or kV according to patient size. COMPARISON: [facility], CT, CT ABDOMEN PELVIS W CON, 10/08/2020, 10:47. FINDINGS: Image quality: Diagnostic. Lower Chest: No significant findings. ABDOMEN: Liver: No solid mass. Gallbladder: Removed. Biliary ducts: No biliary dilation. Pancreas: No ductal dilation. Spleen: Size is within normal limits. Adrenal Glands: No adrenal nodules. Kidneys and Ureters: No hydronephrosis. No solid mass. No complex renal cystic lesion which requires follow up. Stomach and Bowel: Normal colonic caliber, without significant wall thickening. Moderate colonic stool. No obstruction. Peritoneum: No abnormal intraperitoneal fluid. No free air. Ventral Wall: No significant ventral hernia. Abdominal Nodes: No retroperitoneal or mesenteric adenopathy by size criteria. Vessels: Aorta and inferior vena cava are normal in size. PELVIS: Pelvic Organs: Unremarkable. Bladder: No bladder wall thickening, accounting for underdistention. Pelvic Nodes: No enlarged lymph nodes. Miscellaneous: No inguinal hernias are seen. Bones: No aggressive osseous abnormality. IMPRESSION: Moderate colonic stool. No evidence of colitis. Dictated by: Lolis Hawk M.D. on 03/07/2024 at 10:36 Approved by: Lolis Hawk M.D. on 03/07/2024 at 10:37
== END ==
PROVIDERS: PCP Internal Medicine; Referring Provider Internal Medicine; Visit Provider Internal Medicine
DX: K57.92 Diverticulitis of intestine, part unspecified, without perforation or abscess without bleeding
CPT/HCPCS: 36415; 74177; 80053; 85027; Q9967

== ENCOUNTER → 2024-05-29 11:33 | Outpatient (CLI) | payer MEDICARE, OTHER, SELFPAY ==
[2024-05-29 12:07] LABS: Estimated Glomerular Filt Rate > 60 mL/min (>60)
--- NOTE | 2024-05-29 13:00 | DI.CT.S_ITS ---
PROCEDURE: CT IVP A/P W/WO INDICATIONS: Other microscopic hematuria TECHNIQUE: Optional 5 mm thick noncontrast images acquired from the diaphragm to the symphysis pubis. After the administration of intravenous contrast, 5 mm thick images acquired from the diaphragm to the symphysis pubis after a 10-minute delay. 2 mm thick coronal and sagittal reformats were then performed of the kidneys and ureters. For radiation dose reduction, the following was used: automated exposure control, adjustment of mA and/or kV according to patient size. COMPARISON: [facility], CT, CT ABDOMEN PELVIS W CON, 03/07/2024, 9:53. FINDINGS: Image quality: Diagnostic. Kidneys and Ureters: Both kidneys are normal in size, without hydronephrosis or nephrolithiasis. No perinephric fat stranding. There is normal bilateral renal enhancement. Renal calyces appear normal in morphology when filled with contrast. Opacified portions of both ureters demonstrate normal caliber Bladder: Bladder wall thickness is normal. No calcified bladder stones. OTHER: Lower chest: Unremarkable. Liver: No solid mass. Gallbladder: Absent. Biliary ducts: No biliary dilation. Pancreas: No ductal dilation. Spleen: Size is within normal limits. Adrenal Glands: No adrenal nodules. Stomach and Bowel: Abnormal wall thickening of the ascending colon (series 6, image 47). Peritoneum: No abnormal intraperitoneal fluid. No free air. Ventral Wall: No hernia. Abdominal Nodes: No retroperitoneal or mesenteric adenopathy by size criteria. Vessels: Aorta and inferior vena cava are normal in size. PELVIS: Pelvic Organs: Possible thickening of the endometrium. Pelvic Nodes: No enlarged lymph nodes. Miscellaneous: No inguinal hernias are seen. Bones: No aggressive osseous abnormality. Osteoporosis by Hounsfield units criteria. Disc height loss of L5. IMPRESSION: No nephrolithiasis or filling defects within the opacified renal collecting system or ureters. Possible thickening of the endometrium, abnormal in this age group. Recommend pelvic ultrasound. Abnormal wall thickening of the ascending colon. Malignancy not excluded. Correlate with colonoscopy, if not performed recently. Dictated by: Rich Garibay M.D. on 05/29/2024 at 13:57 Approved by: Rich Garibay M.D. on 05/29/2024 at 14:01
== END ==
PROVIDERS: Radiology Diagnostic Radiology; Family Provider Internal Medicine; PCP Internal Medicine; Referring Provider Physician Assistant Medical; Visit Provider Physician Assistant Medical
DX: R31.29 Other microscopic hematuria (principal)
CPT/HCPCS: 36415; 74178; 82565; Q9967

== ENCOUNTER → 2024-06-13 12:07 | Outpatient (CLI) | payer MEDICARE, OTHER, SELFPAY ==
--- NOTE | 2024-06-13 12:08 | DI.US.S_ITS ---
PROCEDURE: US PELVIC COMPLETE INDICATIONS: POSSIBLE ENDOMETRIAL THICKENING ON RECENT CT TECHNIQUE: Real-time scanning was performed of the pelvic organs, with image documentation. Additional endovaginal scanning was necessary due to incomplete visualization of the adnexal and endometrial structures by transabdominal scanning. COMPARISON: None. FINDINGS: Uterus: Uterus is anteverted and normal in size at 4.2 x 2.4 x 4.4 cm. The myometrium is homogeneous. The endometrium measures 1.0 mm combined thickness. No endometrial mass or fluid. Ovaries: Bilateral ovaries are not visualized. No adnexal masses are seen. Other: No pathologic free abdominal or pelvic fluid. IMPRESSION: 1. Normal appearing uterus and endometrium. 2. Bilateral ovaries are not visualized. No adnexal mass. We strive to produce accurate, complete, and clear reports of imaging services. To assist us in improving patient care, this report was composed using standard report templates and voice recognition software. Therefore, it may contain abnormal punctuation, insertions and/or omissions. Occasional wrong-word or sound-alike substitutions may occur. Though we review the report and make efforts to correct it, we do recommend that the report be read carefully in proper context to recognize any text inaccuracies. Dictated by: Fernandez Brooks M.D. on 06/13/2024 at 17:47 Approved by: Fernandez Brooks M.D. on 06/13/2024 at 17:48
== END ==
PROVIDERS: Family Provider Internal Medicine; PCP Internal Medicine; Referring Provider Specialist; Visit Provider Specialist
DX: N92.6 Irregular menstruation, unspecified (principal)
CPT/HCPCS: 76830; 76856

== ENCOUNTER 2024-06-21 16:45 | Outpatient (RCR) | payer MEDICARE, OTHER, SELFPAY ==
--- NOTE | 2024-04-18 18:06 | PT.OIE ---
Addendum entered and electronically signed by Francheska Jaffe, PT 04/22/24 15:35: PT direct supervision and direction to student PT Edgar Pavon throughout session Original Note: Current Diagnoses Primary osteoarthritis, right shoulder (04/18/24) Pain in right shoulder (04/18/24) Unspecified disorder of synovium and tendon, right shoulder (04/18/24) Other shoulder lesions, right shoulder (04/18/24) Other specified disorders of bone, shoulder (04/18/24) Past Medical History (Last Updated 03/07/24 @ 08:32 by Brady Thompson MD) Abnormal Pap smear of cervix (~1979) Asthma Bronchiectasis (~2016) Cataracts, bilateral (~2018) Chicken pox (~1955) Chronic back pain (~2009) Constipation COPD (chronic obstructive pulmonary disease) Decreased appetite Decreased appetite Decreased appetite Depression, major, recurrent Diarrhea Difficulty walking Dizziness Eczema Edema Family history of colon cancer in mother Fatigue Fibroids (~1984) GERD (gastroesophageal reflux disease) GERD without esophagitis Hemorrhoid Immunosuppression due to drug therapy Irritable bowel syndrome Kidney stones (~2009) Leg cramps Measles Mild hyperlipidemia Mumps Numbness Osteoarthritis (~2015) Osteopenia Osteoporosis Psoriasis Raynaud disease Recurrent UTI Rheumatoid arthritis (~2018) Shoulder pain (~2014) Stress Vasculitis Venous (peripheral) insufficiency Weight loss Wheezing Past Surgical History (Last Reviewed 02/02/24 @ 06:13 by Brady Thompson MD) Anesthesia History of cholecystectomy Status post breast lumpectomy Status post cholecystectomy Visit Care Team Role Provider Type Brady Thompson MD Family Provider Physician Primary Care Provider Specialty: Internal Medicine Address: [address] [place] [address], [id number] Email: [email or web address] Erlin Zheng DO Attending Provider Non-Staff Referring Provider Specialty: Orthopedics Address: [address] [place] [address], [id number] Email: Physical Therapy Initial Evaluation PT-OP-A Visit Information Start: 04/11/24 17:32 Freq: Status: Active Protocol: Document 04/18/24 13:06 [facility] (Rec: 04/18/24 13:53 [facility] [id number]) Out-Patient Physical Therapy Visit Information Visit Information Visit Type Initial Evaluation Visit Note 11/23 Visit Start Time 13:02 Visit Stop Time 13:45 Visit Number 1 Number of CHIEF WHEELAGE CLERK Visits 0 PT-OP-B Current Condition Start: 04/11/24 17:32 Freq: Status: Active Protocol: Document 04/18/24 13:06 [facility] (Rec: 04/18/24 13:53 [facility] [id number]) Current Condition History of Current Condition Onset Date about nov Current Complaints R shoulder pain History of Current Condition Pt is working w/an orthopedic who gave her a shot in her R shoulder. 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 And felt it also when pulling a pair of husbands heavy blue jeans out of the wash and another time hanging laundry was too much. This all happened over a course of a couple weeks. Place on inside of shoulder blade always painful. She tries to rub it on a corner but it doesn't help. Her neck will snap when looking down. Pt typically side sleeps and sleeps on R side but has to sleep on L now and her L hip hurts. She has been unable to comfortably sleep on back even w/bolster d/t back pain. Pt got a cortizone shot and the pain is less but still there. She follows up April 30 w/ortho . She takes advil. She is working to get off prednisone for RA. Has hx of imaging and care for back in past. She has a lot of jt pains so does lay down a lot. Her L knee and ankle have also been giving her pain so it has been hard to get out and walk. Since shoulder pain started, she started getting some neck pinches. Prior Treatments and Tests MRI:IMPRESSION: 1. Low-grade bursal surface partial-thickness tear involving distal supraspinatus extending to musculotendinous junction. Distal infraspinatus tendinosis. No full-thickness rotator cuff tendon rupture. Very mild supraspinatus muscle atrophy. 2. Mnjn-uf-iloxkaed acromioclavicular joint osteoarthritis. No fracture or dislocation. Small joint effusion and subacromial subdeltoid bursal fluid, no gross loose bodies. 3. Suggestion of subtle superior anterior labral tear at 12 to 1 o'clock position. Treatment Goals Patient/Caregiver Goals avoid surgery, be able to use R shoulder to quilt, be able to rotary cut, be able to sleep through the night PT-OP-C Subjective Start: 04/11/24 17:32 Freq: Status: Active Protocol: Document 04/18/24 13:06 [facility] (Rec: 04/18/24 13:53 [facility] [id number]) Patient Questionnaires Quick Dash- Upper Extremity Quick Dash UE Score 61% OP-PT Pain Assessment Location R shoulder Pain Location Details med scap, sup shoulder Intensity 5 Pain Duration days Radiating Location down post arm Pain Aggravating Factors Lifting Other Pain Aggravating Factors cannot sleep on R side/on back ,reaching, pull/push, move wrong Pain Alleviating Factors Cold,Heat,Medication, Inactivity PT-OP-J Posture/Palpation/Skin Start: 04/11/24 17:32 Freq: Status: Active Protocol: Document 04/18/24 13:06 [facility] (Rec: 04/18/24 13:53 [facility] [id number]) Posture Evaluation Comments Posture Comments R ant tip of shoulder, fwd bent at torso and R rot, fwd head, more notable R SCM (pt noticing it more last couple months, L shoulder elevated, dowagers hump PT-OP-K Range of Motion Start: 04/11/24 17:32 Freq: Status: Active Protocol: Document 04/18/24 13:06 [facility] (Rec: 04/18/24 13:53 [facility] [id number]) Cervical Spine Range of Motion Cervical Spine Active Degrees Testing Position Sitting Flexion 24 Extension 40 Rotation Left 38 Rotation Right 41 Lateral Flexion Left 20 Lateral Flexion Right 25 Comments trunk rot L:20 (pain in R scap ) R: 15 (pain LB) Tends to rotate w/SB ipsi Shoulder Goniometric Range of Motion Shoulder Right Active Testing Position Standing Flexion 123 Extension 42 Abduction 132 External Rotation at 0 degrees Abduction 31 Internal Rotation Behind Back (text) T10 Comments pain and snap in flex, pain abd Left Active Testing Position Standing Flexion 140 Extension 47 Abduction 130 External Rotation at 0 degrees Abduction 68 Internal Rotation Behind Back (text) T6 PT-OP-M Strength Start: 04/11/24 17:32 Freq: Status: Active Protocol: Document 04/18/24 13:06 [facility] (Rec: 04/18/24 13:53 [facility] [id number]) Shoulder Strength Shoulder Manual Muscle Testing Right Flexion 3 Fair Extension 4- Good- Abduction (C5) 3+ Fair+ External Rotation 3 Fair Internal Rotation 4- Good- Left Flexion 4 Good Extension 4 Good Abduction (C5) 4 Good External Rotation 4+ Good+ Internal Rotation 5 Normal PT-OP-Q Treatments Start: 04/11/24 17:32 Freq: Status: Active Protocol: Document 04/18/24 13:06 [facility] (Rec: 04/18/24 13:53 [facility] [id number]) Therapeutic Exercises Standing Exercises AROM Standing Exercise Name ER Side right Reps/Minutes 10 IR Side right Equipment Used peach latex free Reps/Minutes 15 Comments towel at side ER Side right Equipment Used peach latex free Reps/Minutes 10 Comments stopped d/t pain PT-OP-T Assessment and Plan Start: 04/11/24 17:32 Freq: Status: Active Protocol: Document 04/18/24 13:06 (Rec: 04/18/24 15:34 [id number]) Physical Therapy Assessment Rehab Potential Rehabilitation Potential Good Evaluation Complexity Number of Personal Factors/Comorbidities 3 or More Number of Body Systems Impaired 4 or More Clinical Presentation at Evaluation Evolving Impairments Impairments Activity Tolerance,Functional Activities,Pain,Posture,Soft Tissue Mobility,Strength Other Concerns Barriers to Rehabilitation Pt also has back, L hip and ankle pain and has complained that those issues contribute to lack of sleep and inability to perform ADL's. Pt may need manual therapy, ed and balance training in order to improve back, L hip and ankle to reach goals and return to hobbies and ADL's. Goals ADL's Short Term Goal (STG) Pt will dec DASH score from 61 % to 45% to facilitate improvements of ADL's STG Duration 05/16/2024 Yoke Presser Goal (LTG) Pt will dec DASH score from 61 % to 30% in order to perform all ADL's with independance and inc confidence LTG Duration 06/13/2024 Sleeping Yoke Presser Goal (LTG) Pt will have ed and improved sleep posture with no inc in pain in order to sleep through the night. LTG Duration 06/13/2024 [place] Short Term Goal (STG) Pt will be able to perform pushing and pulling movements with no inc in pain STG Duration 05/16/2024 Yoke Presser Goal (LTG) Pt will be able to perfrom pushing and pulling movements with 5lb of resistance in order to return to hobby of quilting. LTG Duration 05/16/2024 Assessment Summary Assessment Pt is a 69 y/o female that presents with R shoulder pain that started a few months ago after pulling her husbands adonis out of the wash. Pt recently had a cortozone shot from her provider and was told to come to phyical therapy. Pt stated that her shoulder pain has been getting worse over the last few months and is constantly a 5/10 pain and can get up to a high intensity when performing certain actions. Pt is retired and enjoys quilting which she currently cannot perform due to the pain that comes on when pushing and pulling occurs. Pt also has trouble sleeping and is unable to sleep on her sides due to her inc shoulder pain on R and L hip pain. Pt has been sleeping on back with a pillow underneath her legs but cannot tolerate position for more the 45 min at a time. Pt is encouraged to attend physical therapy 2x per week until some progress towards goals are made at which pt will dec to 1x per week. PT will work to improve pt's posture, strength ROM and dec pain in order to return to full ADL's. Physical Therapy Plan Frequency and Duration Frequency of Treatment 2x/Week Duration of treatment (weeks) 8 Plan of Care Start Date 04/18/24 Plan of Care End Date 06/13/24 Therapeutic Interventions Therapeutic Interventions Home Exercise Program,Joint Mobilizations,Manual Therapy, Neuromuscular Re-education, Self-Care/Home Management,Soft Tissue Mobilization,Taping, Therapeutic Activities, Therapeutic Exercises Modalities Cold Pack/Ice Massage,Electric Stimulation,Hot Packs, Infrared Therapy,Ultrasound Next Visit Focus/Plan Next Note Type Treatment Note Next Visit Plan Focus on AROM/PROM/AAROM of shoulder, STM of SCM, shoulder blades, trap. therband if tolerated, isometric door holds, internal /ext rotation with 1lb weights , open books, cables if tolerated.
--- NOTE | 2024-04-18 18:06 | PT.OPPOC ---
Addendum entered and electronically signed by Francheska Jaffe PT 04/22/24 15:35: PT direct supervision and direction to student PT Edgar Pavon throughout session Original Note: Physical, Occupational & Speech Therapy At [facility] Current Diagnoses Primary osteoarthritis, right shoulder (04/18/24) Pain in right shoulder (04/18/24) Unspecified disorder of synovium and tendon, right shoulder (04/18/24) Other shoulder lesions, right shoulder (04/18/24) Other specified disorders of bone, shoulder (04/18/24) Visit Care Team Role Provider Type Brady Thompson MD Family Provider Physician Primary Care Provider Specialty: Internal Medicine Address: [address] [place] [address], [id number] Email: [email or web address] Erlin Zheng DO Attending Provider Non-Staff Referring Provider Specialty: Orthopedics Address: [address] [place] [address], [id number] Email: Plan Of Care PT-OP-T Assessment and Plan Start: 04/11/24 17:32 Freq: Status: Active Protocol: Document 04/18/24 13:06 MILLER (Rec: 04/18/24 15:34 MILLER [id number]) Physical Therapy Assessment Rehab Potential Rehabilitation Potential Good Evaluation Complexity Number of Personal Factors/Comorbidities 3 or More Number of Body Systems Impaired 4 or More Clinical Presentation at Evaluation Evolving Impairments Impairments Activity Tolerance,Functional Activities,Pain,Posture,Soft Tissue Mobility,Strength Other Concerns Barriers to Rehabilitation Pt also has back, L hip and ankle pain and has complained that those issues contribute to lack of sleep and inability to perform ADL's. Pt may need manual therapy, ed and balance training in order to improve back, L hip and ankle to reach goals and return to hobbies and ADL's. Goals ADL's Short Term Goal (STG) Pt will dec DASH score from 61 % to 45% to facilitate improvements of ADL's STG Duration 05/16/2024 Fpc Goal (LTG) Pt will dec DASH score from 61 % to 30% in order to perform all ADL's with independance and inc confidence LTG Duration 06/13/2024 Sleeping Vendor Management Consultant Goal (LTG) Pt will have ed and improved sleep posture with no inc in pain in order to sleep through the night. LTG Duration 06/13/2024 Culter Short Term Goal (STG) Pt will be able to perform pushing and pulling movements with no inc in pain STG Duration 05/16/2024 Vendor Management Consultant Goal (LTG) Pt will be able to perfrom pushing and pulling movements with 5lb of resistance in order to return to hobby of quilting. LTG Duration 05/16/2024 Assessment Summary Assessment Pt is a 69 y/o female that presents with R shoulder pain that started a few months ago after pulling her husbands adonis out of the wash. Pt recently had a cortozone shot from her provider and was told to come to phyical therapy. Pt stated that her shoulder pain has been getting worse over the last few months and is constantly a 5/10 pain and can get up to a high intensity when performing certain actions. Pt is retired and enjoys quilting which she currently cannot perform due to the pain that comes on when pushing and pulling occurs. Pt also has trouble sleeping and is unable to sleep on her sides due to her inc shoulder pain on R and L hip pain. Pt has been sleeping on back with a pillow underneath her legs but cannot tolerate position for more the 45 min at a time. Pt is encouraged to attend physical therapy 2x per week until some progress towards goals are made at which pt will dec to 1x per week. PT will work to improve pt's posture, strength ROM and dec pain in order to return to full ADL's. Physical Therapy Plan Frequency and Duration Frequency of Treatment 2x/Week Duration of treatment (weeks) 8 Plan of Care Start Date 04/18/24 Plan of Care End Date 06/13/24 Therapeutic Interventions Therapeutic Interventions Home Exercise Program,Joint Mobilizations,Manual Therapy, Neuromuscular Re-education, Self-Care/Home Management,Soft Tissue Mobilization,Taping, Therapeutic Activities, Therapeutic Exercises Modalities Cold Pack/Ice Massage,Electric Stimulation,Hot Packs, Infrared Therapy,Ultrasound Next Visit Focus/Plan Next Note Type Treatment Note Next Visit Plan Focus on AROM/PROM/AAROM of shoulder, STM of SCM, shoulder blades, trap. therband if tolerated, isometric door holds, internal /ext rotation with 1lb weights , open books, cables if tolerated. Plan of Care Dates Plan of Care Start Date 04/18/24 Plan of Care End Date 06/13/24 Electronically Signed by: Edgar Pavon 04/18/24 1806 If you are in agreement with this Plan of Care, please return a signed and dated copy. I have reviewed this Plan of Care and certify that the skilled therapy services above are required to meet the patient?s needs. Physician Signature Date Printed Name and Credentials Clinical Instructor Signature Printed Name and Credentials
--- NOTE | 2024-04-23 14:38 | PT.OTN ---
Current Diagnoses Primary osteoarthritis, right shoulder (04/23/24) Pain in right shoulder (04/23/24) Unspecified disorder of synovium and tendon, right shoulder (04/23/24) Other shoulder lesions, right shoulder (04/23/24) Other specified disorders of bone, shoulder (04/23/24) Physical Therapy Treatment Note PT-OP-A Visit Information Start: 04/11/24 17:32 Freq: Status: Active Protocol: Document 04/23/24 13:01 [facility] (Rec: 04/23/24 14:38 [facility] [id number]) Out-Patient Physical Therapy Visit Information Visit Information Visit Type Treatment Note Visit Note 12/24 Visit Start Time 13:02 Visit Stop Time 13:45 Visit Number 2 Number of UI DEVELOPER DESIGNER Visits 0 PT-OP-B Current Condition Start: 04/11/24 17:32 Freq: Status: Active Protocol: Document 04/18/24 13:06 [facility] (Rec: 04/18/24 13:53 [facility] [id number]) Current Condition History of Current Condition Onset Date about nov Current Complaints R shoulder pain History of Current Condition Pt is working w/an orthopedic who gave her a shot in her R shoulder. 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 And felt it also when pulling a pair of husbands heavy blue jeans out of the wash and another time hanging laundry was too much. This all happened over a course of a couple weeks. Place on inside of shoulder blade always painful. She tries to rub it on a corner but it doesn't help. Her neck will snap when looking down. Pt typically side sleeps and sleeps on R side but has to sleep on L now and her L hip hurts. She has been unable to comfortably sleep on back even w/bolster d/t back pain. Pt got a cortizone shot and the pain is less but still there. She follows up April 30 w/ortho . She takes advil. She is working to get off prednisone for RA. Has hx of imaging and care for back in past. She has a lot of jt pains so does lay down a lot. Her L knee and ankle have also been giving her pain so it has been hard to get out and walk. Since shoulder pain started, she started getting some neck pinches. Prior Treatments and Tests MRI:IMPRESSION: 1. Low-grade bursal surface partial-thickness tear involving distal supraspinatus extending to musculotendinous junction. Distal infraspinatus tendinosis. No full-thickness rotator cuff tendon rupture. Very mild supraspinatus muscle atrophy. 2. Wioy-[id number] acromioclavicular joint osteoarthritis. No fracture or dislocation. Small joint effusion and subacromial subdeltoid bursal fluid, no gross loose bodies. 3. Suggestion of subtle superior anterior labral tear at 12 to 1 o'clock position. Treatment Goals Patient/Caregiver Goals avoid surgery, be able to use R shoulder to quilt, be able to rotary cut, be able to sleep through the night PT-OP-C Subjective Start: 04/11/24 17:32 Freq: Status: Active Protocol: Document 04/23/24 13:01 [facility] (Rec: 04/23/24 14:38 [facility] [id number]) OP-PT Subjective Patient Comments Patient Comments pt reports soreness after IR band exercises. Feels weak overall. PT-OP-J Posture/Palpation/Skin Start: 04/11/24 17:32 Freq: Status: Active Protocol: Document 04/18/24 13:06 [facility] (Rec: 04/18/24 13:53 [facility] [id number]) Posture Evaluation Comments Posture Comments R ant tip of shoulder, fwd bent at torso and R rot, fwd head, more notable R SCM (pt noticing it more last couple months, L shoulder elevated, dowagers hump PT-OP-K Range of Motion Start: 04/11/24 17:32 Freq: Status: Active Protocol: Document 04/18/24 13:06 [facility] (Rec: 04/18/24 13:53 [facility] [id number]) Cervical Spine Range of Motion Cervical Spine Active Degrees Testing Position Sitting Flexion 24 Extension 40 Rotation Left 38 Rotation Right 41 Lateral Flexion Left 20 Lateral Flexion Right 25 Comments trunk rot L:20 (pain in R scap ) R: 15 (pain LB) Tends to rotate w/SB ipsi Shoulder Goniometric Range of Motion Shoulder Right Active Testing Position Standing Flexion 123 Extension 42 Abduction 132 External Rotation at 0 degrees Abduction 31 Internal Rotation Behind Back (text) T10 Comments pain and snap in flex, pain abd Left Active Testing Position Standing Flexion 140 Extension 47 Abduction 130 External Rotation at 0 degrees Abduction 68 Internal Rotation Behind Back (text) T6 PT-OP-M Strength Start: 04/11/24 17:32 Freq: Status: Active Protocol: Document 04/18/24 13:06 [facility] (Rec: 04/18/24 13:53 [facility] [id number]) Shoulder Strength Shoulder Manual Muscle Testing Right Flexion 3 Fair Extension 4- Good- Abduction (C5) 3+ Fair+ External Rotation 3 Fair Internal Rotation 4- Good- Left Flexion 4 Good Extension 4 Good Abduction (C5) 4 Good External Rotation 4+ Good+ Internal Rotation 5 Normal PT-OP-Q Treatments Start: 04/11/24 17:32 Freq: Status: Active Protocol: Document 04/23/24 13:01 [facility] (Rec: 04/23/24 14:38 [facility] [id number]) Therapeutic Exercises Standing Exercises isometrics Standing Exercise Name flex, abd, IR, ER Side right Reps/Minutes 5 sec x8 AROM Standing Exercise Name ER Side right Reps/Minutes 10 IR Side right Equipment Used peach latex free Reps/Minutes 8 Comments towel at side Therapeutic Activity Therapeutic Activity sleep Reps/Minutes 8 min Comments s/l and supine positioning w/ pillows and towels to support under trunk and legs w/edu on how they support body Manual Therapy Treatment Soft Tissue Mobilization medial Body Location R rhomboids, lats, traps Mobilization Type Rolling Intensity/Depth Superficial Body Position Sidelying Self-Care/Home Management Treatment Education Other Education 12 min: going over anatomy of shoulder and what the anatomical words on MRI mean and showing pictures and use of demo w/model to show appopriate mechanics and discussion of ribcage involvement in shoulder pain. PT-OP-T Assessment and Plan Start: 04/11/24 17:32 Freq: Status: Active Protocol: Document 04/23/24 13:01 [facility] (Rec: 04/23/24 14:38 [facility] [id number]) Physical Therapy Assessment Goals ADL's Short Term Goal (STG) Pt will dec DASH score from 61 % to 45% to facilitate improvements of ADL's STG Duration 05/16/2024 Senior Care Goal (LTG) Pt will dec DASH score from 61 % to 30% in order to perform all ADL's with independance and inc confidence LTG Duration 06/13/2024 Sleeping Senior Care Goal (LTG) Pt will have ed and improved sleep posture with no inc in pain in order to sleep through the night. LTG Duration 06/13/2024 Culter Short Term Goal (STG) Pt will be able to perform pushing and pulling movements with no inc in pain STG Duration 05/16/2024 Senior Care Goal (LTG) Pt will be able to perfrom pushing and pulling movements with 5lb of resistance in order to return to hobby of quilting. LTG Duration 05/16/2024 Assessment Summary Assessment Pt did well with isometrics and AROM ER but did note some pain w/IR. Pt to determine if pain is too much for her w/ other co-morbities or if they are playing into the inc pain overall. Pt tolerated gentle manual wokr and verbalized understanding w/anatomical edu . Physical Therapy Plan Frequency and Duration Frequency of Treatment 2x/Week Duration of treatment (weeks) 8 Plan of Care Start Date 04/18/24 Plan of Care End Date 06/13/24 Next Visit Focus/Plan Next Note Type Treatment Note Next Visit Plan manual STM of SCM, shoulder blades, trap; jt mobs (gentle) -AC, SC, ribs, tspine, GH assess pt response to isometrics and review exercises
--- NOTE | 2024-04-25 14:28 | PT.OTN ---
Current Diagnoses Primary osteoarthritis, right shoulder (04/25/24) Pain in right shoulder (04/25/24) Unspecified disorder of synovium and tendon, right shoulder (04/25/24) Other shoulder lesions, right shoulder (04/25/24) Other specified disorders of bone, shoulder (04/25/24) Physical Therapy Treatment Note PT-OP-A Visit Information Start: 04/11/24 17:32 Freq: Status: Active Protocol: Document 04/25/24 13:46 SP (Rec: 04/25/24 14:32 SP [id number]) Out-Patient Physical Therapy Visit Information Visit Information Visit Type Treatment Note Visit Note 01/21 UNIX SYSTEM ADMINISTRATOR Parker shadowed UNIX SYSTEM ADMINISTRATOR Fay , assisted in ther ex instruction corrections during tx with permission of pt. Visit Start Time 13:46 Visit Stop Time 14:28 Visit Number 3 Number of UNIX SYSTEM ADMINISTRATOR Visits 1 PT-OP-B Current Condition Start: 04/11/24 17:32 Freq: Status: Active Protocol: Document 04/18/24 13:06 [facility] (Rec: 04/18/24 13:53 [facility] [id number]) Current Condition History of Current Condition Onset Date about end nov Current Complaints R shoulder pain History of Current Condition Pt is working w/an orthopedic who gave her a shot in her R shoulder. 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 And felt it also when pulling a pair of husbands heavy blue jeans out of the wash and another time hanging laundry was too much. This all happened over a course of a couple weeks. Place on inside of shoulder blade always painful. She tries to rub it on a corner but it doesn't help. Her neck will snap when looking down. Pt typically side sleeps and sleeps on R side but has to sleep on L now and her L hip hurts. She has been unable to comfortably sleep on back even w/bolster d/t back pain. Pt got a cortizone shot and the pain is less but still there. She follows up April 30 w/ortho . She takes advil. She is working to get off prednisone for RA. Has hx of imaging and care for back in past. She has a lot of jt pains so does lay down a lot. Her L knee and ankle have also been giving her pain so it has been hard to get out and walk. Since shoulder pain started, she started getting some neck pinches. Prior Treatments and Tests MRI:IMPRESSION: 1. Low-grade bursal surface partial-thickness tear involving distal supraspinatus extending to musculotendinous junction. Distal infraspinatus tendinosis. No full-thickness rotator cuff tendon rupture. Very mild supraspinatus muscle atrophy. 2. Qbeo-nx-ijysojyv acromioclavicular joint osteoarthritis. No fracture or dislocation. Small joint effusion and subacromial subdeltoid bursal fluid, no gross loose bodies. 3. Suggestion of subtle superior anterior labral tear at 12 to 1 o'clock position. Treatment Goals Patient/Caregiver Goals avoid surgery, be able to use R shoulder to quilt, be able to rotary cut, be able to sleep through the night PT-OP-C Subjective Start: 04/11/24 17:32 Freq: Status: Active Protocol: Document 04/25/24 13:46 SP (Rec: 04/25/24 14:32 SP [id number]) OP-PT Subjective Patient Comments Patient Comments Pt reported was sore after last tx but got better as day progressed. SHe said awaiting body pillow but is sleeping little better on R side. PT-OP-J Posture/Palpation/Skin Start: 04/11/24 17:32 Freq: Status: Active Protocol: Document 04/18/24 13:06 [facility] (Rec: 04/18/24 13:53 [facility] [id number]) Posture Evaluation Comments Posture Comments R ant tip of shoulder, fwd bent at torso and R rot, fwd head, more notable R SCM (pt noticing it more last couple months, L shoulder elevated, dowagers hump PT-OP-K Range of Motion Start: 04/11/24 17:32 Freq: Status: Active Protocol: Document 04/18/24 13:06 [facility] (Rec: 04/18/24 13:53 [facility] [id number]) Cervical Spine Range of Motion Cervical Spine Active Degrees Testing Position Sitting Flexion 24 Extension 40 Rotation Left 38 Rotation Right 41 Lateral Flexion Left 20 Lateral Flexion Right 25 Comments trunk rot L:20 (pain in R scap ) R: 15 (pain LB) Tends to rotate w/SB ipsi Shoulder Goniometric Range of Motion Shoulder Right Active Testing Position Standing Flexion 123 Extension 42 Abduction 132 External Rotation at 0 degrees Abduction 31 Internal Rotation Behind Back (text) T10 Comments pain and snap in flex, pain abd Left Active Testing Position Standing Flexion 140 Extension 47 Abduction 130 External Rotation at 0 degrees Abduction 68 Internal Rotation Behind Back (text) T6 PT-OP-M Strength Start: 04/11/24 17:32 Freq: Status: Active Protocol: Document 04/18/24 13:06 [facility] (Rec: 04/18/24 13:53 [facility] [id number]) Shoulder Strength Shoulder Manual Muscle Testing Right Flexion 3 Fair Extension 4- Good- Abduction (C5) 3+ Fair+ External Rotation 3 Fair Internal Rotation 4- Good- Left Flexion 4 Good Extension 4 Good Abduction (C5) 4 Good External Rotation 4+ Good+ Internal Rotation 5 Normal PT-OP-Q Treatments Start: 04/11/24 17:32 Freq: Status: Active Protocol: Document 04/25/24 13:46 SP (Rec: 04/25/24 14:32 SP [id number]) Therapeutic Exercises Supine Exercises DNF nods Reps/Minutes 5 x5 reps Comments trialed post manual Sidelying Exercises abduction Sidelying Exercise Name trialed in PT Side right Resistance AROM Reps/Minutes 5 reps Comments cued little press away through range, improved pinch top shld reduct. open book Sidelying Exercise Name trialed in PT Side right Resistance AROM Reps/Minutes 5 reps Comments tactile cue scapular glide TS rot /c TA, pnfree range- tension pec end feel Sitting Exercises Stretching Sitting Exercise Name SCM,Scalene next tx. Standing Exercises isometrics Standing Exercise Name flex, abd, IR, ER Side right Reps/Minutes 5 sec x8 Comments Mod cues for proper form- cued tall posture, elbow at side, Other Exercises STMs Other Exercise Name pt attempted self SCM after manual in supine Side right Comments noted softening and head nod ROM Manual Therapy Treatment Soft Tissue Mobilization neck Body Location R>L SCM, scalenes, UT Mobilization Type Rolling,Sustained Pressure, Other Comments STMs, SB and rotation SCM/ Scalene stretch, ed self SCM STMs medial Body Location R rhomboids, lats, traps Mobilization Type Rolling Intensity/Depth Superficial Body Position L Sidelying Self-Care/Home Management Treatment Education Other Education Continued anatomy of shoulder > neck and how improvement in scapular retraction/depression / UR helps improve posture and UE ROM. PT-OP-T Assessment and Plan Start: 04/11/24 17:32 Freq: Status: Active Protocol: Document 04/25/24 13:46 SP (Rec: 04/25/24 14:32 SP [id number]) Physical Therapy Assessment Goals ADL's Short Term Goal (STG) Pt will dec DASH score from 61 % to 45% to facilitate improvements of ADL's STG Duration 05/16/2024 Longterm Goal (LTG) Pt will dec DASH score from 61 % to 30% in order to perform all ADL's with independance and inc confidence LTG Duration 06/13/2024 Sleeping Longterm Goal (LTG) Pt will have ed and improved sleep posture with no inc in pain in order to sleep through the night. LTG Duration 06/13/2024 Culter Short Term Goal (STG) Pt will be able to perform pushing and pulling movements with no inc in pain STG Duration 05/16/2024 Pill Coater Goal (LTG) Pt will be able to perfrom pushing and pulling movements with 5lb of resistance in order to return to hobby of quilting. LTG Duration 05/16/2024 Assessment Summary Assessment Pt good response to manual, reduction in neck tension. Improved scapular retraction PROM then AAROM mobility with education anatomy and what feels like to be retraction/ depression neutral positioning with better understanding contributes to improved posture and UE ROM. SHe was able to complete aBD and open book up to 90 deg with tactile cues SP and scap mobility. She continues require cuing for trunk/arm positioning during isometric to improve posture. Physical Therapy Plan Frequency and Duration Frequency of Treatment 2x/Week Duration of treatment (weeks) 8 Plan of Care Start Date 04/18/24 Plan of Care End Date 06/13/24 Therapeutic Interventions Therapeutic Interventions Home Exercise Program,Joint Mobilizations,Manual Therapy, Neuromuscular Re-education, Self-Care/Home Management,Soft Tissue Mobilization,Taping, Therapeutic Activities, Therapeutic Exercises Modalities Cold Pack/Ice Massage,Electric Stimulation,Hot Packs, Infrared Therapy,Ultrasound Next Visit Focus/Plan Next Note Type Treatment Note Next Visit Plan Assess response to sidelying ex trialed. POC: manual STM of SCM, shoulder blades, trap; jt mobs (gentle)-AC, SC, ribs, tspine , GH assess pt response to isometrics and review exercises
--- NOTE | 2024-04-30 14:26 | PT.OTN ---
Current Diagnoses Primary osteoarthritis, right shoulder (04/30/24) Pain in right shoulder (04/30/24) Unspecified disorder of synovium and tendon, right shoulder (04/30/24) Other shoulder lesions, right shoulder (04/30/24) Other specified disorders of bone, shoulder (04/30/24) Physical Therapy Treatment Note PT-OP-A Visit Information Start: 04/11/24 17:32 Freq: Status: Active Protocol: Document 04/30/24 13:46 SP (Rec: 04/30/24 14:35 SP [id number]) Out-Patient Physical Therapy Visit Information Visit Information Visit Type Treatment Note Visit Note 02/21 Visit Start Time 13:46 Visit Stop Time 14:26 Visit Number 4 Number of SUPERVISORY CBP OFFICER Visits 2 PT-OP-B Current Condition Start: 04/11/24 17:32 Freq: Status: Active Protocol: Document 04/18/24 13:06 [facility] (Rec: 04/18/24 13:53 [facility] [id number]) Current Condition History of Current Condition Onset Date about nov Current Complaints R shoulder pain History of Current Condition Pt is working w/an orthopedic who gave her a shot in her R shoulder. 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 And felt it also when pulling a pair of husbands heavy blue jeans out of the wash and another time hanging laundry was too much. This all happened over a course of a couple weeks. Place on inside of shoulder blade always painful. She tries to rub it on a corner but it doesn't help. Her neck will snap when looking down. Pt typically side sleeps and sleeps on R side but has to sleep on L now and her L hip hurts. She has been unable to comfortably sleep on back even w/bolster d/t back pain. Pt got a cortizone shot and the pain is less but still there. She follows up April 30 w/ortho . She takes advil. She is working to get off prednisone for RA. Has hx of imaging and care for back in past. She has a lot of jt pains so does lay down a lot. Her L knee and ankle have also been giving her pain so it has been hard to get out and walk. Since shoulder pain started, she started getting some neck pinches. Prior Treatments and Tests MRI:IMPRESSION: 1. Low-grade bursal surface partial-thickness tear involving distal supraspinatus extending to musculotendinous junction. Distal infraspinatus tendinosis. No full-thickness rotator cuff tendon rupture. Very mild supraspinatus muscle atrophy. 2. [id number]-el-[id number] acromioclavicular joint osteoarthritis. No fracture or dislocation. Small joint effusion and subacromial subdeltoid bursal fluid, no gross loose bodies. 3. Suggestion of subtle superior anterior labral tear at 12 to 1 o'clock position. Treatment Goals Patient/Caregiver Goals avoid surgery, be able to use R shoulder to quilt, be able to rotary cut, be able to sleep through the night PT-OP-C Subjective Start: 04/11/24 17:32 Freq: Status: Active Protocol: Document 04/30/24 13:46 SP (Rec: 04/30/24 14:35 SP [id number]) OP-PT Subjective Patient Comments Patient Comments Pt reports followed up with ortho L cyst on L ankle will have an xray. Might talk to Rheumatolgist about amount Tylenol update symbalta, TBD. 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 She said was sore after last tx, compliant with exercises which caused some pain. PT-OP-J Posture/Palpation/Skin Start: 04/11/24 17:32 Freq: Status: Active Protocol: Document 04/18/24 13:06 [facility] (Rec: 04/18/24 13:53 [facility] [id number]) Posture Evaluation Comments Posture Comments R ant tip of shoulder, fwd bent at torso and R rot, fwd head, more notable R SCM (pt noticing it more last couple months, L shoulder elevated, dowagers hump PT-OP-K Range of Motion Start: 04/11/24 17:32 Freq: Status: Active Protocol: Document 04/18/24 13:06 [facility] (Rec: 04/18/24 13:53 [facility] [id number]) Cervical Spine Range of Motion Cervical Spine Active Degrees Testing Position Sitting Flexion 24 Extension 40 Rotation Left 38 Rotation Right 41 Lateral Flexion Left 20 Lateral Flexion Right 25 Comments trunk rot L:20 (pain in R scap ) R: 15 (pain LB) Tends to rotate w/SB ipsi Shoulder Goniometric Range of Motion Shoulder Right Active Testing Position Standing Flexion 123 Extension 42 Abduction 132 External Rotation at 0 degrees Abduction 31 Internal Rotation Behind Back (text) T10 Comments pain and snap in flex, pain abd Left Active Testing Position Standing Flexion 140 Extension 47 Abduction 130 External Rotation at 0 degrees Abduction 68 Internal Rotation Behind Back (text) T6 PT-OP-M Strength Start: 04/11/24 17:32 Freq: Status: Active Protocol: Document 04/18/24 13:06 [facility] (Rec: 04/18/24 13:53 [facility] [id number]) Shoulder Strength Shoulder Manual Muscle Testing Right Flexion 3 Fair Extension 4- Good- Abduction (C5) 3+ Fair+ External Rotation 3 Fair Internal Rotation 4- Good- Left Flexion 4 Good Extension 4 Good Abduction (C5) 4 Good External Rotation 4+ Good+ Internal Rotation 5 Normal PT-OP-Q Treatments Start: 04/11/24 17:32 Freq: Status: Active Protocol: Document 04/30/24 13:46 SP (Rec: 04/30/24 14:35 SP [id number]) Therapeutic Exercises Supine Exercises serratus press Supine Exercise Name future Sidelying Exercises abduction Sidelying Exercise Name added to HEP Side right Resistance AROM Reps/Minutes 5 reps Comments cued little press away through range, impro pinch top shld reduct. open book Sidelying Exercise Name in PT Side right Resistance AROM Reps/Minutes 5 reps Comments feel pinch top shld- less serratus press Standing Exercises rows Standing Exercise Name added to HEP Side bilateral Resistance peach TB Reps/Minutes x10 wall posture Standing Exercise Name future isometrics Standing Exercise Name flex, abd, IR, ER Side right Reps/Minutes 10 sec x5 Comments Mod cues for proper form- cued tall posture, elbow at side Other Exercises STMs Other Exercise Name periscapular- added to HEP- declined HO Side right Equipment Used ball in pillowcase wall Comments noted softening and head nod ROM Manual Therapy Treatment Soft Tissue Mobilization neck Body Location R>L SCM, scalenes, UT Mobilization Type Rolling,Sustained Pressure, Other Comments STMs, SB and rotation SCM/ Scalene stretch, ed self SCM STMs medial Body Location R rhomboids, lats, traps, Serratus Ant Mobilization Type Rolling Intensity/Depth Superficial Body Position L Sidelying Comments STM and MWM openbook & abd PT-OP-T Assessment and Plan Start: 04/11/24 17:32 Freq: Status: Active Protocol: Document 04/30/24 13:46 SP (Rec: 04/30/24 14:35 SP [id number]) Physical Therapy Assessment Goals ADL's Short Term Goal (STG) Pt will dec DASH score from 61 % to 45% to facilitate improvements of ADL's STG Duration 05/16/2024 Half-Way Goal (LTG) Pt will dec DASH score from 61 % to 30% in order to perform all ADL's with independance and inc confidence LTG Duration 06/13/2024 Sleeping Breading Machine Tender Goal (LTG) Pt will have ed and improved sleep posture with no inc in pain in order to sleep through the night. LTG Duration 06/13/2024 Culter Short Term Goal (STG) Pt will be able to perform pushing and pulling movements with no inc in pain STG Duration 05/16/2024 Half-Way Goal (LTG) Pt will be able to perfrom pushing and pulling movements with 5lb of resistance in order to return to hobby of quilting. LTG Duration 05/16/2024 Assessment Summary Assessment Pt good response to manual periscapular musculture and instruction on self use tennis ball in pillow case on wall carryover tension reduction, will continue use home.. Cued serratus press facilitation through side and open book lessening top shld pain. Added resisted rows to HEP today for concentric/eccentric strengthening in direction was challenged and caused pain before starting PT, reports no pain during performance today . Pt tolerated increase isometric hold time but lowered reps to incorporate other ex today. Improved for corrections during strengthening, able to add 2nd set during tx. Physical Therapy Plan Frequency and Duration Frequency of Treatment 2x/Week Duration of treatment (weeks) 8 Plan of Care Start Date 04/18/24 Plan of Care End Date 06/13/24 Therapeutic Interventions Therapeutic Interventions Home Exercise Program,Joint Mobilizations,Manual Therapy, Neuromuscular Re-education, Self-Care/Home Management,Soft Tissue Mobilization,Taping, Therapeutic Activities, Therapeutic Exercises Modalities Cold Pack/Ice Massage,Electric Stimulation,Hot Packs, Infrared Therapy,Ultrasound Next Visit Focus/Plan Next Note Type Treatment Note Next Visit Plan Ask how did increase sets last tx and self ball wall STMs. Add serratus anterior strengthening and wall posture , R scap winging reduction. POC: manual STM of SCM, shoulder blades, trap; jt mobs (gentle)-AC, SC, ribs, tspine , GH review exercises
--- NOTE | 2024-05-02 18:01 | PT.OTN ---
Current Diagnoses Primary osteoarthritis, right shoulder (05/02/24) Pain in right shoulder (05/02/24) Unspecified disorder of synovium and tendon, right shoulder (05/02/24) Other shoulder lesions, right shoulder (05/02/24) Other specified disorders of bone, shoulder (05/02/24) Physical Therapy Treatment Note PT-OP-A Visit Information Start: 04/11/24 17:32 Freq: Status: Active Protocol: Document 05/02/24 13:48 [facility] (Rec: 05/02/24 18:01 [facility] [id number]) Out-Patient Physical Therapy Visit Information Visit Information Visit Type Treatment Note Visit Note 03/23 Visit Start Time 13:50 Visit Stop Time 14:30 Visit Number 5 Number of SENIOR SOFTWARE TEST ENGINEER Visits 0 PT-OP-B Current Condition Start: 04/11/24 17:32 Freq: Status: Active Protocol: Document 04/18/24 13:06 [facility] (Rec: 04/18/24 13:53 [facility] [id number]) Current Condition History of Current Condition Onset Date about nov Current Complaints R shoulder pain History of Current Condition Pt is working w/an orthopedic who gave her a shot in her R shoulder. 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 And felt it also when pulling a pair of husbands heavy blue jeans out of the wash and another time hanging laundry was too much. This all happened over a course of a couple weeks. Place on inside of shoulder blade always painful. She tries to rub it on a corner but it doesn't help. Her neck will snap when looking down. Pt typically side sleeps and sleeps on R side but has to sleep on L now and her L hip hurts. She has been unable to comfortably sleep on back even w/bolster d/t back pain. Pt got a cortizone shot and the pain is less but still there. She follows up April 30 w/ortho . She takes advil. She is working to get off prednisone for RA. Has hx of imaging and care for back in past. She has a lot of jt pains so does lay down a lot. Her L knee and ankle have also been giving her pain so it has been hard to get out and walk. Since shoulder pain started, she started getting some neck pinches. Prior Treatments and Tests MRI:IMPRESSION: 1. Low-grade bursal surface partial-thickness tear involving distal supraspinatus extending to musculotendinous junction. Distal infraspinatus tendinosis. No full-thickness rotator cuff tendon rupture. Very mild supraspinatus muscle atrophy. 2. Fvhq-[id number]-isnemgyd acromioclavicular joint osteoarthritis. No fracture or dislocation. Small joint effusion and subacromial subdeltoid bursal fluid, no gross loose bodies. 3. Suggestion of subtle superior anterior labral tear at 12 to 1 o'clock position. Treatment Goals Patient/Caregiver Goals avoid surgery, be able to use R shoulder to quilt, be able to rotary cut, be able to sleep through the night PT-OP-C Subjective Start: 04/11/24 17:32 Freq: Status: Active Protocol: Document 05/02/24 13:48 [facility] (Rec: 05/02/24 18:01 [facility] [id number]) OP-PT Subjective Patient Comments Patient Comments A lot of snapping in R shoulder Notes still pain in R shoulder and overall an improvement. Doctor told her she didn't need to go back unless things don't progress. Did do inc in exercises yesterday and had inc soreness . She did take a couple advil yesterday and went to her dgt' s graduation. Patient Reported Progress Improving PT-OP-J Posture/Palpation/Skin Start: 04/11/24 17:32 Freq: Status: Active Protocol: Document 04/18/24 13:06 [facility] (Rec: 04/18/24 13:53 [facility] [id number]) Posture Evaluation Comments Posture Comments R ant tip of shoulder, fwd bent at torso and R rot, fwd head, more notable R SCM (pt noticing it more last couple months, L shoulder elevated, dowagers hump PT-OP-K Range of Motion Start: 04/11/24 17:32 Freq: Status: Active Protocol: Document 04/18/24 13:06 [facility] (Rec: 04/18/24 13:53 [facility] [id number]) Cervical Spine Range of Motion Cervical Spine Active Degrees Testing Position Sitting Flexion 24 Extension 40 Rotation Left 38 Rotation Right 41 Lateral Flexion Left 20 Lateral Flexion Right 25 Comments trunk rot L:20 (pain in R scap ) R: 15 (pain LB) Tends to rotate w/SB ipsi Shoulder Goniometric Range of Motion Shoulder Right Active Testing Position Standing Flexion 123 Extension 42 Abduction 132 External Rotation at 0 degrees Abduction 31 Internal Rotation Behind Back (text) T10 Comments pain and snap in flex, pain abd Left Active Testing Position Standing Flexion 140 Extension 47 Abduction 130 External Rotation at 0 degrees Abduction 68 Internal Rotation Behind Back (text) T6 PT-OP-M Strength Start: 04/11/24 17:32 Freq: Status: Active Protocol: Document 04/18/24 13:06 [facility] (Rec: 04/18/24 13:53 [facility] [id number]) Shoulder Strength Shoulder Manual Muscle Testing Right Flexion 3 Fair Extension 4- Good- Abduction (C5) 3+ Fair+ External Rotation 3 Fair Internal Rotation 4- Good- Left Flexion 4 Good Extension 4 Good Abduction (C5) 4 Good External Rotation 4+ Good+ Internal Rotation 5 Normal PT-OP-Q Treatments Start: 04/11/24 17:32 Freq: Status: Active Protocol: Document 05/02/24 13:48 [facility] (Rec: 05/02/24 18:01 [facility] [id number]) Therapeutic Exercises Supine Exercises serratus press Side bilateral Reps/Minutes 2x10 Comments cues for no scap elevation B Standing Exercises rows Standing Exercise Name review HEP Side bilateral Resistance peach TB Reps/Minutes 15 Comments cues scap retract wall posture Standing Exercise Name roll up w/B UE ext Side bilateral Reps/Minutes 2x30 sec Manual Therapy Treatment Soft Tissue Mobilization pec Body Location R Mobilization Type Rolling Intensity/Depth Moderate post Body Location R lat Mobilization Type Rolling Intensity/Depth Moderate Body Position Sidelying neck Body Location R>L SCM, scalenes, UT Mobilization Type Rolling,Sustained Pressure, Other Comments w/scap motion & rot medial Body Location R rhomboids,traps Mobilization Type Rolling Intensity/Depth Moderate Body Position L Sidelying Comments w/scap dep Joint Mobilizations tspine Grade II Body Position Sitting Comments UPA R T4-6 seated PT-OP-T Assessment and Plan Start: 04/11/24 17:32 Freq: Status: Active Protocol: Document 05/02/24 13:48 [facility] (Rec: 05/02/24 18:01 [facility] [id number]) Physical Therapy Assessment Goals ADL's Short Term Goal (STG) Pt will dec DASH score from 61 % to 45% to facilitate improvements of ADL's STG Duration 05/16/2024 Correction Goal (LTG) Pt will dec DASH score from 61 % to 30% in order to perform all ADL's with independance and inc confidence LTG Duration 06/13/2024 Sleeping Correction Goal (LTG) Pt will have ed and improved sleep posture with no inc in pain in order to sleep through the night. LTG Duration 06/13/2024 Culter Short Term Goal (STG) Pt will be able to perform pushing and pulling movements with no inc in pain STG Duration 05/16/2024 [employer] Sheets Supervisor Goal (LTG) Pt will be able to perfrom pushing and pulling movements with 5lb of resistance in order to return to hobby of quilting. LTG Duration 05/16/2024 Assessment Summary Assessment Pt had improved posture and improved scap dep on R after manual. A lot of cues needed for serratus punch exercise and w/wall posture to stay in comfortable range and to not put head on wall. Pt did well with row w/some cues for inc scap movement. Physical Therapy Plan Next Visit Focus/Plan Next Note Type Treatment Note Next Visit Plan review wall posture and serratus punch, cont to work on scap stability as able; manual to work on scap post dep
--- NOTE | 2024-05-16 14:59 | PT.OTN ---
Current Diagnoses Primary osteoarthritis, right shoulder (05/16/24) Pain in right shoulder (05/16/24) Unspecified disorder of synovium and tendon, right shoulder (05/16/24) Other shoulder lesions, right shoulder (05/16/24) Other specified disorders of bone, shoulder (05/16/24) Physical Therapy Treatment Note PT-OP-A Visit Information Start: 04/11/24 17:32 Freq: Status: Active Protocol: Document 05/16/24 13:12 NB (Rec: 05/16/24 13:57 [facility] [id number]) Out-Patient Physical Therapy Visit Information Visit Information Visit Type Treatment Note Visit Note 04/23 Visit Start Time 13:10 Visit Stop Time 13:53 Visit Number 6 Number of TILE CLASSIFIER Visits 1 PT-OP-B Current Condition Start: 04/11/24 17:32 Freq: Status: Active Protocol: Document 04/18/24 13:06 [facility] (Rec: 04/18/24 13:53 [facility] [id number]) Current Condition History of Current Condition Onset Date about nov Current Complaints R shoulder pain History of Current Condition Pt is working w/an orthopedic who gave her a shot in her R shoulder. 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 And felt it also when pulling a pair of husbands heavy blue jeans out of the wash and another time hanging laundry was too much. This all happened over a course of a couple weeks. Place on inside of shoulder blade always painful. She tries to rub it on a corner but it doesn't help. Her neck will snap when looking down. Pt typically side sleeps and sleeps on R side but has to sleep on L now and her L hip hurts. She has been unable to comfortably sleep on back even w/bolster d/t back pain. Pt got a cortizone shot and the pain is less but still there. She follows up April 30 w/ortho . She takes advil. She is working to get off prednisone for RA. Has hx of imaging and care for back in past. She has a lot of jt pains so does lay down a lot. Her L knee and ankle have also been giving her pain so it has been hard to get out and walk. Since shoulder pain started, she started getting some neck pinches. Prior Treatments and Tests MRI:IMPRESSION: 1. Low-grade bursal surface partial-thickness tear involving distal supraspinatus extending to musculotendinous junction. Distal infraspinatus tendinosis. No full-thickness rotator cuff tendon rupture. Very mild supraspinatus muscle atrophy. 2. Cydw-fp-dmnvjolb acromioclavicular joint osteoarthritis. No fracture or dislocation. Small joint effusion and subacromial subdeltoid bursal fluid, no gross loose bodies. 3. Suggestion of subtle superior anterior labral tear at 12 to 1 o'clock position. Treatment Goals Patient/Caregiver Goals avoid surgery, be able to use R shoulder to quilt, be able to rotary cut, be able to sleep through the night PT-OP-C Subjective Start: 04/11/24 17:32 Freq: Status: Active Protocol: Document 05/16/24 13:12 NB (Rec: 05/16/24 13:57 [facility] [id number]) OP-PT Subjective Patient Comments Patient Comments Pt reports she re-injured R shoulder when pressing frozen [employer] sherron w/ right hand and then immediately after reaching forward onto counter to picking supervisor Yotta280ing phone. She' s taking medication but can't take the amount of tylenol PCP recommends because it's hard on her stomach. She's been icing her shoulder. She also had ankle injection this morning and was advised of surgery and got a shot, and thinks pain meds are wearing off and ankle is very sore. R knee is also starting to hurt, probably from walking funny because of L ankle. Current pain overall is 7/10. Sleep this week has improved and she 's been able to sleep through the night and until about 9 in the morning. PT-OP-J Posture/Palpation/Skin Start: 04/11/24 17:32 Freq: Status: Active Protocol: Document 04/18/24 13:06 LR (Rec: 04/18/24 13:53 [facility] [id number]) Posture Evaluation Comments Posture Comments R ant tip of shoulder, fwd bent at torso and R rot, fwd head, more notable R SCM (pt noticing it more last couple months, L shoulder elevated, dowagers hump PT-OP-K Range of Motion Start: 04/11/24 17:32 Freq: Status: Active Protocol: Document 04/18/24 13:06 [facility] (Rec: 04/18/24 13:53 [facility] [id number]) Cervical Spine Range of Motion Cervical Spine Active Degrees Testing Position Sitting Flexion 24 Extension 40 Rotation Left 38 Rotation Right 41 Lateral Flexion Left 20 Lateral Flexion Right 25 Comments trunk rot L:20 (pain in R scap ) R: 15 (pain LB) Tends to rotate w/SB ipsi Shoulder Goniometric Range of Motion Shoulder Right Active Testing Position Standing Flexion 123 Extension 42 Abduction 132 External Rotation at 0 degrees Abduction 31 Internal Rotation Behind Back (text) T10 Comments pain and snap in flex, pain abd Left Active Testing Position Standing Flexion 140 Extension 47 Abduction 130 External Rotation at 0 degrees Abduction 68 Internal Rotation Behind Back (text) T6 PT-OP-M Strength Start: 04/11/24 17:32 Freq: Status: Active Protocol: Document 04/18/24 13:06 [facility] (Rec: 04/18/24 13:53 [facility] [id number]) Shoulder Strength Shoulder Manual Muscle Testing Right Flexion 3 Fair Extension 4- Good- Abduction (C5) 3+ Fair+ External Rotation 3 Fair Internal Rotation 4- Good- Left Flexion 4 Good Extension 4 Good Abduction (C5) 4 Good External Rotation 4+ Good+ Internal Rotation 5 Normal PT-OP-Q Treatments Start: 04/11/24 17:32 Freq: Status: Active Protocol: Document 05/16/24 13:12 [facility] (Rec: 05/16/24 13:57 [facility] [id number]) Therapeutic Exercises Supine Exercises diaphragmatic breathing Supine Exercise Name w/ guided imagery, hand on chest, hand on belly Reps/Minutes 5' Comments positive feedback response Standing Exercises rows Standing Exercise Name review HEP Side bilateral Reps/Minutes 15 Comments cue scapular setting wall posture Standing Exercise Name roll up w/B UE ext Side bilateral Reps/Minutes 2x30 sec isometrics Standing Exercise Name flex, abd, IR, ER Side right Reps/Minutes 10 sec x5 Comments Mod cues posture w/ scapular setting, elbow at side Manual Therapy Treatment Consent Patient gave verbal consent for manual Yes treatment Soft Tissue Mobilization pec Body Location R Mobilization Type Rolling Intensity/Depth Moderate post Body Location R lat Mobilization Type Rolling Intensity/Depth Moderate Body Position Supine neck Body Location R>L SCM, scalenes, UT Mobilization Type Rolling,Sustained Pressure, Other Comments w/ manual pin and stretch to [place] UT x30s ea medial Body Location R rhomboids,traps Mobilization Type Rolling Intensity/Depth Moderate Body Position L Sidelying Comments w/scap dep Self-Care/Home Management Treatment Education Other Education Edu to pt for role of diaphragmatic breathing in pain dampening, sympathetic vs parasympathetic n.s. STM, Iso 's. no extension d/t pain. PT-OP-T Assessment and Plan Start: 04/11/24 17:32 Freq: Status: Active Protocol: Document 05/16/24 13:12 [facility] (Rec: 05/16/24 13:57 [facility] [id number]) Physical Therapy Assessment Goals ADL's Short Term Goal (STG) Pt will dec DASH score from 61 % to 45% to facilitate improvements of ADL's STG Duration 05/16/2024 Recep Goal (LTG) Pt will dec DASH score from 61 % to 30% in order to perform all ADL's with independance and inc confidence LTG Duration 06/13/2024 Sleeping Fpc Goal (LTG) Pt will have ed and improved sleep posture with no inc in pain in order to sleep through the night. LTG Duration 06/13/2024 Culter Short Term Goal (STG) Pt will be able to perform pushing and pulling movements with no inc in pain STG Duration 05/16/2024 Recep Goal (LTG) Pt will be able to perfrom pushing and pulling movements with 5lb of resistance in order to return to hobby of quilting. LTG Duration 05/16/2024 Assessment Summary Assessment Nabila presents w/ re- aggravation of R shoulder pain 10 as well as L ankle pain subsequent to injection this morning. Treatment session focus on pain dampening w/ decreased pain reported after diaphragmatic breathing and manual therapy. Edu to pt re: role of diaphragmatic breathing in pain dampening, sympathetic vs parasympathetic n.s., STM, and isometrics for strengthening in pain-free range. Physical Therapy Plan Frequency and Duration Frequency of Treatment 2x/Week Duration of treatment (weeks) 8 Plan of Care Start Date 04/18/24 Plan of Care End Date 06/13/24 Therapeutic Interventions Therapeutic Interventions Home Exercise Program,Joint Mobilizations,Manual Therapy, Neuromuscular Re-education, Self-Care/Home Management,Soft Tissue Mobilization,Taping, Therapeutic Activities, Therapeutic Exercises Modalities Cold Pack/Ice Massage,Electric Stimulation,Hot Packs, Infrared Therapy,Ultrasound Next Visit Focus/Plan Next Note Type Treatment Note Next Visit Plan review wall posture and serratus punch, cont to work on scap stability as able; manual to work on scap post dep
--- NOTE | 2024-05-23 17:33 | PT.OTN ---
Current Diagnoses Primary osteoarthritis, right shoulder (05/23/24) Pain in right shoulder (05/23/24) Unspecified disorder of synovium and tendon, right shoulder (05/23/24) Other shoulder lesions, right shoulder (05/23/24) Other specified disorders of bone, shoulder (05/23/24) Physical Therapy Treatment Note PT-OP-A Visit Information Start: 04/11/24 17:32 Freq: Status: Active Protocol: Document 05/23/24 17:20 [facility] (Rec: 05/24/24 10:33 [facility] [id number]) Out-Patient Physical Therapy Visit Information Visit Information Visit Type Progress Note Visit Note 11/23 Visit Start Time 16:51 Visit Stop Time 17:31 Visit Number 7 Number of SPECIFICATIONS WRITER Visits 0 PT-OP-B Current Condition Start: 04/11/24 17:32 Freq: Status: Active Protocol: Document 04/18/24 13:06 [facility] (Rec: 04/18/24 13:53 [facility] [id number]) Current Condition History of Current Condition Onset Date about nov Current Complaints R shoulder pain History of Current Condition Pt is working w/an orthopedic who gave her a shot in her R shoulder. 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 And felt it also when pulling a pair of husbands heavy blue jeans out of the wash and another time hanging laundry was too much. This all happened over a course of a couple weeks. Place on inside of shoulder blade always painful. She tries to rub it on a corner but it doesn't help. Her neck will snap when looking down. Pt typically side sleeps and sleeps on R side but has to sleep on L now and her L hip hurts. She has been unable to comfortably sleep on back even w/bolster d/t back pain. Pt got a cortizone shot and the pain is less but still there. She follows up April 30 w/ortho . She takes advil. She is working to get off prednisone for RA. Has hx of imaging and care for back in past. She has a lot of jt pains so does lay down a lot. Her L knee and ankle have also been giving her pain so it has been hard to get out and walk. Since shoulder pain started, she started getting some neck pinches. Prior Treatments and Tests MRI:IMPRESSION: 1. Low-grade bursal surface partial-thickness tear involving distal supraspinatus extending to musculotendinous junction. Distal infraspinatus tendinosis. No full-thickness rotator cuff tendon rupture. Very mild supraspinatus muscle atrophy. 2. Zkyr-rx-hdufcxyg acromioclavicular joint osteoarthritis. No fracture or dislocation. Small joint effusion and subacromial subdeltoid bursal fluid, no gross loose bodies. 3. Suggestion of subtle superior anterior labral tear at 12 to 1 o'clock position. Treatment Goals Patient/Caregiver Goals avoid surgery, be able to use R shoulder to quilt, be able to rotary cut, be able to sleep through the night PT-OP-C Subjective Start: 04/11/24 17:32 Freq: Status: Active Protocol: Document 05/23/24 17:20 [facility] (Rec: 05/24/24 10:33 [facility] [id number]) OP-PT Subjective Patient Comments Patient Comments Pt reports she was improving until she hurt herself last week.S he is schedule to see ortho the , but is slowly feeling better but not all the way back to how she was feeling before last week. Patient Reported Progress Improving PT-OP-J Posture/Palpation/Skin Start: 04/11/24 17:32 Freq: Status: Active Protocol: Document 04/18/24 13:06 [facility] (Rec: 04/18/24 13:53 [facility] [id number]) Posture Evaluation Comments Posture Comments R ant tip of shoulder, fwd bent at torso and R rot, fwd head, more notable R SCM (pt noticing it more last couple months, L shoulder elevated, dowagers hump PT-OP-K Range of Motion Start: 04/11/24 17:32 Freq: Status: Active Protocol: Document 05/23/24 17:20 [facility] (Rec: 05/24/24 10:33 [facility] [id number]) Shoulder Goniometric Range of Motion Shoulder Right Active Testing Position Standing Flexion 125 Extension 48 Abduction 131 External Rotation at 0 degrees Abduction 39 Internal Rotation Behind Back (text) T9 Comments pain abd and end range flex & rot PT-OP-M Strength Start: 04/11/24 17:32 Freq: Status: Active Protocol: Document 05/23/24 17:20 [facility] (Rec: 05/24/24 10:33 [facility] [id number]) Shoulder Strength Shoulder Manual Muscle Testing Right Flexion 4- Good- Extension 4- Good- Abduction (C5) 3+ Fair+ External Rotation 4 Good Internal Rotation 4 Good Left Flexion 4 Good Extension 5 Normal Abduction (C5) 4 Good External Rotation 4+ Good+ Internal Rotation 5 Normal PT-OP-Q Treatments Start: 04/11/24 17:32 Freq: Status: Active Protocol: Document 05/23/24 17:20 [facility] (Rec: 05/24/24 10:33 [facility] [id number]) Therapeutic Exercises Standing Exercises isometrics Standing Exercise Name B shoulder MMT AROM Standing Exercise Name R shoulder Manual Therapy Treatment Consent Patient gave verbal consent for manual Yes treatment Soft Tissue Mobilization pec Body Location R Mobilization Type Rolling Intensity/Depth Moderate post Body Location R lat Mobilization Type Rolling Intensity/Depth Moderate Body Position Supine medial Body Location R rhomboids,traps Mobilization Type Rolling Intensity/Depth Moderate Body Position L Sidelying Comments w/scap dep Joint Mobilizations ribs Grade I Body Position Sitting Comments gentle pressure; external torsion rib r 7 tspine Grade II Body Position Sitting Comments gentle PA T4-6; transverse L T4-6 Taping KT Type of Tape Kinesio Tape Comments 1. I strip from sup border of R scap to Tspine in diagonal 2. Y strip over supraspinatus PT-OP-T Assessment and Plan Start: 04/11/24 17:32 Freq: Status: Active Protocol: Document 05/23/24 17:20 [facility] (Rec: 05/24/24 10:33 [facility] [id number]) Physical Therapy Assessment Goals ADL's Short Term Goal (STG) Pt will dec DASH score from 61 % to 45% to facilitate improvements of ADL's 05/24- improved to 47.7 STG Duration 06/14 Correction Goal (LTG) Pt will dec DASH score from 61 % to 30% in order to perform all ADL's with independance and inc confidence LTG Duration 08/02 Sleeping Correction Goal (LTG) Pt will have ed and improved sleep posture with no inc in pain in order to sleep through the night. 05/23-improved to sleeping until 5 am until aggrevation of shoulder last week LTG Duration 08/02 Culter Short Term Goal (STG) Pt will be able to perform pushing and pulling movements with no inc in pain 05/24 still painful STG Duration 06/14 Child Day Care Provider Goal (LTG) Pt will be able to perfrom pushing and pulling movements with 5lb of resistance in order to return to hobby of quilting. LTG Duration 08/02 Assessment Summary Assessment Improved shoulder position and abiltiy to retract after manual. She had improved overall cervical range. Pt has improved strength and was noting much improved functional ability until injured last week. Pt to cont PT to cont to advance functional ability. Physical Therapy Plan Frequency and Duration Frequency of Treatment 2x/Week Duration of treatment (weeks) 10 Plan of Care Start Date 05/24/24 Plan of Care End Date 08/02/24 Therapeutic Interventions Therapeutic Interventions Home Exercise Program,Joint Mobilizations,Manual Therapy, Neuromuscular Re-education, Self-Care/Home Management,Soft Tissue Mobilization,Taping, Therapeutic Activities, Therapeutic Exercises Modalities Cold Pack/Ice Massage,Electric Stimulation,Hot Packs, Infrared Therapy,Ultrasound Next Visit Focus/Plan Next Note Type Treatment Note Next Visit Plan dc wall posture d/t LE pain, gentle tspine ext exercises, scap retraction & stability exercises as tolerated, assess tolerance to tape, gentle mobility around scap
--- NOTE | 2024-05-23 17:34 | PT.OPPOC ---
Physical, Occupational & Speech Therapy At [facility] Current Diagnoses Primary osteoarthritis, right shoulder (05/23/24) Pain in right shoulder (05/23/24) Unspecified disorder of synovium and tendon, right shoulder (05/23/24) Other shoulder lesions, right shoulder (05/23/24) Other specified disorders of bone, shoulder (05/23/24) Visit Care Team Role Provider Type Brady Thompson MD Family Provider Physician Primary Care Provider Specialty: Internal Medicine Address: [address] [place] [address], [id number] Email: [email or web address] Erlin Zheng DO Attending Provider Non-Staff Referring Provider Specialty: Orthopedics Address: [address] [place] [address], [id number] Email: Plan Of Care PT-OP-T Assessment and Plan Start: 04/11/24 17:32 Freq: Status: Active Protocol: Document 05/23/24 17:20 [facility] (Rec: 05/24/24 10:33 [facility] [id number]) Physical Therapy Assessment Goals ADL's Short Term Goal (STG) Pt will dec DASH score from 61 % to 45% to facilitate improvements of ADL's 05/24- improved to 47.7 STG Duration 06/14 [employer] Agent Goal (LTG) Pt will dec DASH score from 61 % to 30% in order to perform all ADL's with independance and inc confidence LTG Duration 08/02 Sleeping [employer] Export Operations Agent Goal (LTG) Pt will have ed and improved sleep posture with no inc in pain in order to sleep through the night. 05/23-improved to sleeping until 5 am until aggrevation of shoulder last week LTG Duration 08/02 Culter Short Term Goal (STG) Pt will be able to perform pushing and pulling movements with no inc in pain 05/24 still painful STG Duration 06/14 Senior Living Goal (LTG) Pt will be able to perfrom pushing and pulling movements with 5lb of resistance in order to return to hobby of quilting. LTG Duration 08/02 Assessment Summary Assessment Improved shoulder position and abiltiy to retract after manual. She had improved overall cervical range. Pt has improved strength and was noting much improved functional ability until injured last week. Pt to cont PT to cont to advance functional ability. Physical Therapy Plan Frequency and Duration Frequency of Treatment 2x/Week Duration of treatment (weeks) 10 Plan of Care Start Date 05/24/24 Plan of Care End Date 08/02/24 Therapeutic Interventions Therapeutic Interventions Home Exercise Program,Joint Mobilizations,Manual Therapy, Neuromuscular Re-education, Self-Care/Home Management,Soft Tissue Mobilization,Taping, Therapeutic Activities, Therapeutic Exercises Modalities Cold Pack/Ice Massage,Electric Stimulation,Hot Packs, Infrared Therapy,Ultrasound Next Visit Focus/Plan Next Note Type Treatment Note Next Visit Plan dc wall posture d/t LE pain, gentle tspine ext exercises, scap retraction & stability exercises as tolerated, assess tolerance to tape, gentle mobility around scap Plan of Care Dates Plan of Care Start Date 05/24/24 Plan of Care End Date 08/02/24 Electronically Signed by: Francheska Jaffe, PT 05/24/24 [id number] If you are in agreement with this Plan of Care, please return a signed and dated copy. I have reviewed this Plan of Care and certify that the skilled therapy services above are required to meet the patient?s needs. Physician Signature Date Printed Name and Credentials Clinical Instructor Signature Printed Name and Credentials
--- NOTE | 2024-06-04 12:17 | PT.OTN ---
Current Diagnoses Primary osteoarthritis, right shoulder (06/04/24) Pain in right shoulder (06/04/24) Unspecified disorder of synovium and tendon, right shoulder (06/04/24) Other shoulder lesions, right shoulder (06/04/24) Other specified disorders of bone, shoulder (06/04/24) Physical Therapy Treatment Note PT-OP-A Visit Information Start: 04/11/24 17:32 Freq: Status: Active Protocol: Document 06/04/24 11:19 [facility] (Rec: 06/04/24 12:17 [facility] [id number]) Out-Patient Physical Therapy Visit Information Visit Information Visit Type Treatment Note Visit Note 12/24 Visit Start Time 11:20 Visit Stop Time 12:00 Visit Number 8 Number of OBSTETRIC ANAESTHETIST Visits 0 PT-OP-B Current Condition Start: 04/11/24 17:32 Freq: Status: Active Protocol: Document 04/18/24 13:06 [facility] (Rec: 04/18/24 13:53 [facility] [id number]) Current Condition History of Current Condition Onset Date about nov Current Complaints R shoulder pain History of Current Condition Pt is working w/an orthopedic who gave her a shot in her R shoulder. 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 And felt it also when pulling a pair of husbands heavy blue jeans out of the wash and another time hanging laundry was too much. This all happened over a course of a couple weeks. Place on inside of shoulder blade always painful. She tries to rub it on a corner but it doesn't help. Her neck will snap when looking down. Pt typically side sleeps and sleeps on R side but has to sleep on L now and her L hip hurts. She has been unable to comfortably sleep on back even w/bolster d/t back pain. Pt got a cortizone shot and the pain is less but still there. She follows up April 30 w/ortho . She takes advil. She is working to get off prednisone for RA. Has hx of imaging and care for back in past. She has a lot of jt pains so does lay down a lot. Her L knee and ankle have also been giving her pain so it has been hard to get out and walk. Since shoulder pain started, she started getting some neck pinches. Prior Treatments and Tests MRI:IMPRESSION: 1. Low-grade bursal surface partial-thickness tear involving distal supraspinatus extending to musculotendinous junction. Distal infraspinatus tendinosis. No full-thickness rotator cuff tendon rupture. Very mild supraspinatus muscle atrophy. 2. Kgem-dk-[id number] acromioclavicular joint osteoarthritis. No fracture or dislocation. Small joint effusion and subacromial subdeltoid bursal fluid, no gross loose bodies. 3. Suggestion of subtle superior anterior labral tear at 12 to 1 o'clock position. Treatment Goals Patient/Caregiver Goals avoid surgery, be able to use R shoulder to quilt, be able to rotary cut, be able to sleep through the night PT-OP-C Subjective Start: 04/11/24 17:32 Freq: Status: Active Protocol: Document 06/04/24 11:19 [facility] (Rec: 06/04/24 12:17 [facility] [id number]) OP-PT Subjective Patient Comments Patient Comments Pt reports pain has been better but she has been cautious. Her orthopedic surgeon is sending her to a DO . reports was able to lay on R side a little bit but does have to roll off it. Tape waso n for 5 days but at end started to inc soreness. PT-OP-J Posture/Palpation/Skin Start: 04/11/24 17:32 Freq: Status: Active Protocol: Document 04/18/24 13:06 [facility] (Rec: 04/18/24 13:53 [facility] [id number]) Posture Evaluation Comments Posture Comments R ant tip of shoulder, fwd bent at torso and R rot, fwd head, more notable R SCM (pt noticing it more last couple months, L shoulder elevated, dowagers hump PT-OP-K Range of Motion Start: 04/11/24 17:32 Freq: Status: Active Protocol: Document 05/23/24 17:20 [facility] (Rec: 05/24/24 10:33 [facility] [id number]) Shoulder Goniometric Range of Motion Shoulder Right Active Testing Position Standing Flexion 125 Extension 48 Abduction 131 External Rotation at 0 degrees Abduction 39 Internal Rotation Behind Back (text) T9 Comments pain abd and end range flex & rot PT-OP-M Strength Start: 04/11/24 17:32 Freq: Status: Active Protocol: Document 05/23/24 17:20 [facility] (Rec: 05/24/24 10:33 [facility] [id number]) Shoulder Strength Shoulder Manual Muscle Testing Right Flexion 4- Good- Extension 4- Good- Abduction (C5) 3+ Fair+ External Rotation 4 Good Internal Rotation 4 Good Left Flexion 4 Good Extension 5 Normal Abduction (C5) 4 Good External Rotation 4+ Good+ Internal Rotation 5 Normal PT-OP-Q Treatments Start: 04/11/24 17:32 Freq: Status: Active Protocol: Document 06/04/24 11:19 [facility] (Rec: 06/04/24 12:17 [facility] [id number]) Therapeutic Exercises Standing Exercises shoulder flex Standing Exercise Name w/core stable shoulder flex on wall Side bilateral Reps/Minutes 10 tspine ext Standing Exercise Name cat/cow modified w/forearms on counter Side bilateral Reps/Minutes 10 paloff press Side bilateral Equipment Used 1 peach band Reps/Minutes 12 ea Comments cues no rot Manual Therapy Treatment Consent Patient gave verbal consent for manual Yes treatment Soft Tissue Mobilization pec Body Location R Mobilization Type Rolling Intensity/Depth Moderate post Body Location R lat, paraspinals tpsine Mobilization Type Rolling Intensity/Depth Moderate Body Position Sitting neck Body Location R SCM, scalenes, [place] Mobilization Type Rolling,Sustained Pressure, Other Comments w/scap motion & rot medial Body Location R rhomboids,traps Mobilization Type Rolling Intensity/Depth Moderate Body Position Sitting Comments w/scap dep Joint Mobilizations ribs Grade I Body Position Sitting Comments PA R rib 5and 6 tspine Grade II Body Position Sitting Comments UPA R T5 and 6 PT-OP-T Assessment and Plan Start: 04/11/24 17:32 Freq: Status: Active Protocol: Document 06/04/24 11:19 [facility] (Rec: 06/04/24 12:17 [facility] [id number]) Physical Therapy Assessment Goals ADL's Short Term Goal (STG) Pt will dec DASH score from 61 % to 45% to facilitate improvements of ADL's 05/24- improved to 47.7 STG Duration 06/14 Senior Living Goal (LTG) Pt will dec DASH score from 61 % to 30% in order to perform all ADL's with independance and inc confidence LTG Duration 08/02 Sleeping Senior Living Goal (LTG) Pt will have ed and improved sleep posture with no inc in pain in order to sleep through the night. 05/23-improved to sleeping until 5 am until aggrevation of shoulder last week LTG Duration 08/02 Culter Short Term Goal (STG) Pt will be able to perform pushing and pulling movements with no inc in pain 05/24 still painful STG Duration 06/14 Foam Machine Operator Goal (LTG) Pt will be able to perfrom pushing and pulling movements with 5lb of resistance in order to return to hobby of quilting. LTG Duration 08/02 Assessment Summary Assessment Pt did note some soreness in back after exercsies today. Pt to assess response after today's session to determine which exercises can be added to HEP. tolerated manual well and cont to improve w/ability for scap dep and retraction after manual. Physical Therapy Plan Frequency and Duration Frequency of Treatment 2x/Week Duration of treatment (weeks) 10 Plan of Care Start Date 05/24/24 Plan of Care End Date 08/02/24 Therapeutic Interventions Therapeutic Interventions Home Exercise Program,Joint Mobilizations,Manual Therapy, Neuromuscular Re-education, Self-Care/Home Management,Soft Tissue Mobilization,Taping, Therapeutic Activities, Therapeutic Exercises Modalities Cold Pack/Ice Massage,Electric Stimulation,Hot Packs, Infrared Therapy,Ultrasound Next Visit Focus/Plan Next Note Type Treatment Note Next Visit Plan assess response to exercises added last session; cotn to work on pt abilityt for scap retraction; consider tape again if pt feels helpful; work on manual gentle for ribcage/schoulder mobility
--- NOTE | 2024-06-06 09:05 | PT.OTN ---
Current Diagnoses Primary osteoarthritis, right shoulder (06/06/24) Pain in right shoulder (06/06/24) Unspecified disorder of synovium and tendon, right shoulder (06/06/24) Other shoulder lesions, right shoulder (06/06/24) Other specified disorders of bone, shoulder (06/06/24) Physical Therapy Treatment Note PT-OP-A Visit Information Start: 04/11/24 17:32 Freq: Status: Active Protocol: Document 06/06/24 08:18 [facility] (Rec: 06/06/24 09:05 [facility] [id number]) Out-Patient Physical Therapy Visit Information Visit Information Visit Type Treatment Note Visit Note 01/21 Visit Start Time 08:20 Visit Stop Time 09:00 Visit Number 9 Number of CALENDERING MACHINE OPERATOR Visits 0 PT-OP-B Current Condition Start: 04/11/24 17:32 Freq: Status: Active Protocol: Document 04/18/24 13:06 [facility] (Rec: 04/18/24 13:53 [facility] [id number]) Current Condition History of Current Condition Onset Date about nov Current Complaints R shoulder pain History of Current Condition Pt is working w/an orthopedic who gave her a shot in her R shoulder. 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 And felt it also when pulling a pair of husbands heavy blue jeans out of the wash and another time hanging laundry was too much. This all happened over a course of a couple weeks. Place on inside of shoulder blade always painful. She tries to rub it on a corner but it doesn't help. Her neck will snap when looking down. Pt typically side sleeps and sleeps on R side but has to sleep on L now and her L hip hurts. She has been unable to comfortably sleep on back even w/bolster d/t back pain. Pt got a cortizone shot and the pain is less but still there. She follows up April 30 w/ortho . She takes advil. She is working to get off prednisone for RA. Has hx of imaging and care for back in past. She has a lot of jt pains so does lay down a lot. Her L knee and ankle have also been giving her pain so it has been hard to get out and walk. Since shoulder pain started, she started getting some neck pinches. Prior Treatments and Tests MRI:IMPRESSION: 1. Low-grade bursal surface partial-thickness tear involving distal supraspinatus extending to musculotendinous junction. Distal infraspinatus tendinosis. No full-thickness rotator cuff tendon rupture. Very mild supraspinatus muscle atrophy. 2. Dgdg-gy-rvmpguen acromioclavicular joint osteoarthritis. No fracture or dislocation. Small joint effusion and subacromial subdeltoid bursal fluid, no gross loose bodies. 3. Suggestion of subtle superior anterior labral tear at 12 to 1 o'clock position. Treatment Goals Patient/Caregiver Goals avoid surgery, be able to use R shoulder to quilt, be able to rotary cut, be able to sleep through the night PT-OP-C Subjective Start: 04/11/24 17:32 Freq: Status: Active Protocol: Document 06/06/24 08:18 [facility] (Rec: 06/06/24 09:05 [facility] [id number]) OP-PT Subjective Patient Comments Patient Comments Pt reports a little sore right after she left an hour after and was sore more yesterday. Notices it when she moves it, she can feel it. a little better today too. PT-OP-J Posture/Palpation/Skin Start: 04/11/24 17:32 Freq: Status: Active Protocol: Document 04/18/24 13:06 [facility] (Rec: 04/18/24 13:53 [facility] [id number]) Posture Evaluation Comments Posture Comments R ant tip of shoulder, fwd bent at torso and R rot, fwd head, more notable R SCM (pt noticing it more last couple months, L shoulder elevated, dowagers hump PT-OP-K Range of Motion Start: 04/11/24 17:32 Freq: Status: Active Protocol: Document 05/23/24 17:20 [facility] (Rec: 05/24/24 10:33 [facility] [id number]) Shoulder Goniometric Range of Motion Shoulder Right Active Testing Position Standing Flexion 125 Extension 48 Abduction 131 External Rotation at 0 degrees Abduction 39 Internal Rotation Behind Back (text) T9 Comments pain abd and end range flex & rot PT-OP-M Strength Start: 04/11/24 17:32 Freq: Status: Active Protocol: Document 05/23/24 17:20 [facility] (Rec: 05/24/24 10:33 [facility] [id number]) Shoulder Strength Shoulder Manual Muscle Testing Right Flexion 4- Good- Extension 4- Good- Abduction (C5) 3+ Fair+ External Rotation 4 Good Internal Rotation 4 Good Left Flexion 4 Good Extension 5 Normal Abduction (C5) 4 Good External Rotation 4+ Good+ Internal Rotation 5 Normal PT-OP-Q Treatments Start: 04/11/24 17:32 Freq: Status: Active Protocol: Document 06/06/24 08:18 [facility] (Rec: 06/06/24 09:05 [facility] [id number]) Therapeutic Exercises Supine Exercises serratus press Side bilateral Reps/Minutes 2x10 Comments cues for no scap elevation B Standing Exercises shrug Side bilateral Equipment Used 1# Reps/Minutes 10 suitcase carry Standing Exercise Name scap set first Side bilateral Equipment Used 3# Reps/Minutes 30ft ea shoulder flex Standing Exercise Name w/core stable shoulder flex on wall Side bilateral Reps/Minutes 10 tspine ext Standing Exercise Name cat/cow modified w/forearms on counter Side bilateral Reps/Minutes 15 Comments w/breath in to angry cat and out w/cow paloff press Side bilateral Equipment Used 1 peach band Reps/Minutes 12 ea Comments cues no rot Manual Therapy Treatment Consent Patient gave verbal consent for manual Yes treatment Soft Tissue Mobilization pec Body Location R Mobilization Type Rolling Intensity/Depth Moderate post Body Location R lat, paraspinals tpsine Mobilization Type Rolling Intensity/Depth Moderate Body Position Sitting neck Body Location R SCM, scalenes, [place] Mobilization Type Rolling,Sustained Pressure, Other Comments w/scap motion & rot medial Body Location R rhomboids,traps Mobilization Type Rolling Intensity/Depth Moderate Body Position Sidelying Comments w/scap dep PT-OP-T Assessment and Plan Start: 04/11/24 17:32 Freq: Status: Active Protocol: Document 06/06/24 08:18 [facility] (Rec: 06/06/24 09:05 [facility] [id number]) Physical Therapy Assessment Goals ADL's Short Term Goal (STG) Pt will dec DASH score from 61 % to 45% to facilitate improvements of ADL's 05/24- improved to 47.7 STG Duration 06/14 Bake Room Worker Goal (LTG) Pt will dec DASH score from 61 % to 30% in order to perform all ADL's with independance and inc confidence LTG Duration 08/02 Sleeping [facility] Goal (LTG) Pt will have ed and improved sleep posture with no inc in pain in order to sleep through the night. 05/23-improved to sleeping until 5 am until aggrevation of shoulder last week LTG Duration 08/02 Culter Short Term Goal (STG) Pt will be able to perform pushing and pulling movements with no inc in pain 05/24 still painful STG Duration 06/14 Bake Room Worker Goal (LTG) Pt will be able to perfrom pushing and pulling movements with 5lb of resistance in order to return to hobby of quilting. LTG Duration 08/02 Assessment Summary Assessment Pt had mild soreness with exercises but did okay overall . Improving scap motion overall but still tightness in pec. Physical Therapy Plan Frequency and Duration Frequency of Treatment 2x/Week Duration of treatment (weeks) 10 Plan of Care Start Date 05/24/24 Plan of Care End Date 08/02/24 Next Visit Focus/Plan Next Note Type Treatment Note Next Visit Plan assess response to exercises added last session; cotn to work on pt abilityt for scap retraction; consider tape again if pt feels helpful; work on manual gentle for ribcage/schoulder mobility
--- NOTE | 2024-06-11 12:29 | PT.OTN ---
Current Diagnoses Primary osteoarthritis, right shoulder (06/11/24) Pain in right shoulder (06/11/24) Unspecified disorder of synovium and tendon, right shoulder (06/11/24) Other shoulder lesions, right shoulder (06/11/24) Other specified disorders of bone, shoulder (06/11/24) Physical Therapy Treatment Note PT-OP-A Visit Information Start: 04/11/24 17:32 Freq: Status: Active Protocol: Document 06/11/24 11:18 [facility] (Rec: 06/11/24 12:29 [facility] [id number]) Out-Patient Physical Therapy Visit Information Visit Information Visit Type Treatment Note Visit Note 02/21 Visit Start Time 11:18 Visit Stop Time 12:00 Visit Number 10 Number of MEDICAL FRONT DESK COORDINATOR Visits 0 PT-OP-B Current Condition Start: 04/11/24 17:32 Freq: Status: Active Protocol: Document 04/18/24 13:06 [facility] (Rec: 04/18/24 13:53 [facility] [id number]) Current Condition History of Current Condition Onset Date about nov Current Complaints R shoulder pain History of Current Condition Pt is working w/an orthopedic who gave her a shot in her R shoulder. 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 And felt it also when pulling a pair of husbands heavy blue jeans out of the wash and another time hanging laundry was too much. This all happened over a course of a couple weeks. Place on inside of shoulder blade always painful. She tries to rub it on a corner but it doesn't help. Her neck will snap when looking down. Pt typically side sleeps and sleeps on R side but has to sleep on L now and her L hip hurts. She has been unable to comfortably sleep on back even w/bolster d/t back pain. Pt got a cortizone shot and the pain is less but still there. She follows up April 30 w/ortho . She takes advil. She is working to get off prednisone for RA. Has hx of imaging and care for back in past. She has a lot of jt pains so does lay down a lot. Her L knee and ankle have also been giving her pain so it has been hard to get out and walk. Since shoulder pain started, she started getting some neck pinches. Prior Treatments and Tests MRI:IMPRESSION: 1. Low-grade bursal surface partial-thickness tear involving distal supraspinatus extending to musculotendinous junction. Distal infraspinatus tendinosis. No full-thickness rotator cuff tendon rupture. Very mild supraspinatus muscle atrophy. 2. Mwai-fw-somqzxju acromioclavicular joint osteoarthritis. No fracture or dislocation. Small joint effusion and subacromial subdeltoid bursal fluid, no gross loose bodies. 3. Suggestion of subtle superior anterior labral tear at 12 to 1 o'clock position. Treatment Goals Patient/Caregiver Goals avoid surgery, be able to use R shoulder to quilt, be able to rotary cut, be able to sleep through the night PT-OP-C Subjective Start: 04/11/24 17:32 Freq: Status: Active Protocol: Document 06/11/24 11:18 [facility] (Rec: 06/11/24 12:29 [facility] [id number]) OP-PT Subjective Patient Comments Patient Comments pt reports inc L scap pain since last sssion. pain w/ doing flex on wal exercise but paloff press okay PT-OP-J Posture/Palpation/Skin Start: 04/11/24 17:32 Freq: Status: Active Protocol: Document 04/18/24 13:06 [facility] (Rec: 04/18/24 13:53 [facility] [id number]) Posture Evaluation Comments Posture Comments R ant tip of shoulder, fwd bent at torso and R rot, fwd head, more notable R SCM (pt noticing it more last couple months, L shoulder elevated, dowagers hump PT-OP-K Range of Motion Start: 04/11/24 17:32 Freq: Status: Active Protocol: Document 05/23/24 17:20 [facility] (Rec: 05/24/24 10:33 [facility] [id number]) Shoulder Goniometric Range of Motion Shoulder Right Active Testing Position Standing Flexion 125 Extension 48 Abduction 131 External Rotation at 0 degrees Abduction 39 Internal Rotation Behind Back (text) T9 Comments pain abd and end range flex & rot PT-OP-M Strength Start: 04/11/24 17:32 Freq: Status: Active Protocol: Document 05/23/24 17:20 [facility] (Rec: 05/24/24 10:33 [facility] [id number]) Shoulder Strength Shoulder Manual Muscle Testing Right Flexion 4- Good- Extension 4- Good- Abduction (C5) 3+ Fair+ External Rotation 4 Good Internal Rotation 4 Good Left Flexion 4 Good Extension 5 Normal Abduction (C5) 4 Good External Rotation 4+ Good+ Internal Rotation 5 Normal PT-OP-Q Treatments Start: 04/11/24 17:32 Freq: Status: Active Protocol: Document 06/11/24 11:18 [facility] (Rec: 06/11/24 12:29 [facility] [id number]) Therapeutic Exercises Sitting Exercises Stretching Sitting Exercise Name cross body R arm under chest Side right Reps/Minutes 30 secx2 Standing Exercises tspine ext Standing Exercise Name cat/cow modified w/forearms on counter Side bilateral Reps/Minutes 15 Comments w/breath in to angry cat and out w/cow Other Exercises STMs Other Exercise Name self STM w/ball in pillow case to R scap & cane Reps/Minutes 5 min Manual Therapy Treatment Consent Patient gave verbal consent for manual Yes treatment Soft Tissue Mobilization post Body Location R lat, paraspinals tpsine, infraspinatus Mobilization Type Rolling Intensity/Depth Moderate Body Position Sitting medial Body Location R rhomboids,traps Mobilization Type Rolling Intensity/Depth Moderate Body Position Sidelying Comments w/scap dep Joint Mobilizations ribs Grade I Body Position Sitting Comments external torsion rib 6 tspine Grade II Body Position Sitting Comments UPA R T6 & PT-OP-T Assessment and Plan Start: 04/11/24 17:32 Freq: Status: Active Protocol: Document 06/11/24 11:18 [facility] (Rec: 06/11/24 12:29 [facility] [id number]) Physical Therapy Assessment Goals ADL's Short Term Goal (STG) Pt will dec DASH score from 61 % to 45% to facilitate improvements of ADL's 05/24- improved to 47.7 STG Duration 06/14 Sand Screener Goal (LTG) Pt will dec DASH score from 61 % to 30% in order to perform all ADL's with independance and inc confidence LTG Duration 08/02 Sleeping [facility] Goal (LTG) Pt will have ed and improved sleep posture with no inc in pain in order to sleep through the night. 05/23-improved to sleeping until 5 am until aggrevation of shoulder last week LTG Duration 08/02 Culter Short Term Goal (STG) Pt will be able to perform pushing and pulling movements with no inc in pain 05/24 still painful STG Duration 06/14 [facility] Goal (LTG) Pt will be able to perfrom pushing and pulling movements with 5lb of resistance in order to return to hobby of quilting. LTG Duration 08/02 Assessment Summary Assessment pt had improved understanding of use off ball w/education and cues today. Pt presented in sitting w/inc R scap elevation, abd and IR that improved w/gentle manual. Physical Therapy Plan Frequency and Duration Frequency of Treatment 2x/Week Duration of treatment (weeks) 10 Plan of Care Start Date 05/24/24 Plan of Care End Date 08/02/24 Next Visit Focus/Plan Next Note Type Treatment Note Next Visit Plan assess response to exercises added last session; cotn to work on pt abilityt for scap retraction; consider tape again if pt feels helpful; work on manual gentle for ribcage/schoulder mobility
--- NOTE | 2024-06-21 18:16 | PT.OTN ---
Current Diagnoses Primary osteoarthritis, right shoulder (06/21/24) Pain in right shoulder (06/21/24) Unspecified disorder of synovium and tendon, right shoulder (06/21/24) Other shoulder lesions, right shoulder (06/21/24) Other specified disorders of bone, shoulder (06/21/24) Physical Therapy Treatment Note PT-OP-A Visit Information Start: 04/11/24 17:32 Freq: Status: Active Protocol: Document 06/21/24 17:02 [facility] (Rec: 06/21/24 18:16 [facility] [id number]) Out-Patient Physical Therapy Visit Information Visit Information Visit Type Treatment Note Visit Note 03/23 Visit Start Time 16:51 Visit Stop Time 17:31 Visit Number 11 Number of FINANCIAL SUPERVISOR Visits 0 PT-OP-B Current Condition Start: 04/11/24 17:32 Freq: Status: Active Protocol: Document 04/18/24 13:06 [facility] (Rec: 04/18/24 13:53 [facility] [id number]) Current Condition History of Current Condition Onset Date about nov Current Complaints R shoulder pain History of Current Condition Pt is working w/an orthopedic who gave her a shot in her R shoulder. 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 And felt it also when pulling a pair of husbands heavy blue jeans out of the wash and another time hanging laundry was too much. This all happened over a course of a couple weeks. Place on inside of shoulder blade always painful. She tries to rub it on a corner but it doesn't help. Her neck will snap when looking down. Pt typically side sleeps and sleeps on R side but has to sleep on L now and her L hip hurts. She has been unable to comfortably sleep on back even w/bolster d/t back pain. Pt got a cortizone shot and the pain is less but still there. She follows up April 30 w/ortho . She takes advil. She is working to get off prednisone for RA. Has hx of imaging and care for back in past. She has a lot of jt pains so does lay down a lot. Her L knee and ankle have also been giving her pain so it has been hard to get out and walk. Since shoulder pain started, she started getting some neck pinches. Prior Treatments and Tests MRI:IMPRESSION: 1. Low-grade bursal surface partial-thickness tear involving distal supraspinatus extending to musculotendinous junction. Distal infraspinatus tendinosis. No full-thickness rotator cuff tendon rupture. Very mild supraspinatus muscle atrophy. 2. Ebow-fy-ilzpazfw acromioclavicular joint osteoarthritis. No fracture or dislocation. Small joint effusion and subacromial subdeltoid bursal fluid, no gross loose bodies. 3. Suggestion of subtle superior anterior labral tear at 12 to 1 o'clock position. Treatment Goals Patient/Caregiver Goals avoid surgery, be able to use R shoulder to quilt, be able to rotary cut, be able to sleep through the night PT-OP-C Subjective Start: 04/11/24 17:32 Freq: Status: Active Protocol: Document 06/21/24 17:02 [facility] (Rec: 06/21/24 18:16 [facility] [id number]) OP-PT Subjective Patient Comments Patient Comments pt reports feels like peach band is getting easier PT-OP-J Posture/Palpation/Skin Start: 04/11/24 17:32 Freq: Status: Active Protocol: Document 04/18/24 13:06 [facility] (Rec: 04/18/24 13:53 [facility] [id number]) Posture Evaluation Comments Posture Comments R ant tip of shoulder, fwd bent at torso and R rot, fwd head, more notable R SCM (pt noticing it more last couple months, L shoulder elevated, dowagers hump PT-OP-K Range of Motion Start: 04/11/24 17:32 Freq: Status: Active Protocol: Document 05/23/24 17:20 [facility] (Rec: 05/24/24 10:33 [facility] [id number]) Shoulder Goniometric Range of Motion Shoulder Right Active Testing Position Standing Flexion 125 Extension 48 Abduction 131 External Rotation at 0 degrees Abduction 39 Internal Rotation Behind Back (text) T9 Comments pain abd and end range flex & rot PT-OP-M Strength Start: 04/11/24 17:32 Freq: Status: Active Protocol: Document 05/23/24 17:20 [facility] (Rec: 05/24/24 10:33 [facility] [id number]) Shoulder Strength Shoulder Manual Muscle Testing Right Flexion 4- Good- Extension 4- Good- Abduction (C5) 3+ Fair+ External Rotation 4 Good Internal Rotation 4 Good Left Flexion 4 Good Extension 5 Normal Abduction (C5) 4 Good External Rotation 4+ Good+ Internal Rotation 5 Normal PT-OP-Q Treatments Start: 04/11/24 17:32 Freq: Status: Active Protocol: Document 06/21/24 17:02 [facility] (Rec: 06/21/24 18:16 [facility] [id number]) Therapeutic Exercises Supine Exercises diaphragmatic breathing Supine Exercise Name in standing today w/exercises Reps/Minutes 4 min Standing Exercises tspine ext Standing Exercise Name cat/cow modified w/forearms on counter Side bilateral Reps/Minutes 15 Comments w/breath in to angry cat and out w/cow paloff press Side bilateral Equipment Used 1 orange band Reps/Minutes 5 ea rows Side bilateral Equipment Used orange band Reps/Minutes 8 IR Side right Equipment Used orange latex free Reps/Minutes 10 Comments towel at side ER Side right Equipment Used orange latex free Reps/Minutes 10 Manual Therapy Treatment Consent Patient gave verbal consent for manual Yes treatment Soft Tissue Mobilization post Body Location R lat, paraspinals tpsine, infraspinatus, post delt, teres Mobilization Type Rolling Intensity/Depth Moderate Body Position Sitting neck Body Location R SCM, scalenes, UT, cervical paraspinals Mobilization Type Rolling,Sustained Pressure, Other Comments w/scap motion & rot PT-OP-T Assessment and Plan Start: 04/11/24 17:32 Freq: Status: Active Protocol: Document 06/21/24 17:02 [facility] (Rec: 06/21/24 18:16 [facility] [id number]) Physical Therapy Assessment Goals ADL's Short Term Goal (STG) Pt will dec DASH score from 61 % to 45% to facilitate improvements of ADL's 05/24- improved to 47.7 STG Duration 06/14 Portfolio Analyst Goal (LTG) Pt will dec DASH score from 61 % to 30% in order to perform all ADL's with independance and inc confidence LTG Duration 08/02 Sleeping Portfolio Analyst Goal (LTG) Pt will have ed and improved sleep posture with no inc in pain in order to sleep through the night. 05/23-improved to sleeping until 5 am until aggrevation of shoulder last week LTG Duration 08/02 Culter Short Term Goal (STG) Pt will be able to perform pushing and pulling movements with no inc in pain 05/24 still painful STG Duration 06/14 Portfolio Analyst Goal (LTG) Pt will be able to perfrom pushing and pulling movements with 5lb of resistance in order to return to hobby of quilting. LTG Duration 08/02 Assessment Summary Assessment Pt was able to tolerate all exercises except row w/o pain w/orange tband. significant cueing fro diaphramatic breathing vs scalene dominant pattern. Physical Therapy Plan Frequency and Duration Frequency of Treatment 2x/Week Duration of treatment (weeks) 10 Plan of Care Start Date 05/24/24 Plan of Care End Date 08/02/24 Next Visit Focus/Plan Next Note Type Treatment Note Next Visit Plan assess response to inc tband; cotn to work on pt ability for scap retraction; consider tape again if pt feels helpful ; work on manual gentle for ribcage/schoulder mobility
--- NOTE | 2024-08-01 17:18 | PT-OP ANOTE ---
pt called re: follow up for change to different account. Pt to follow up with other providers at this time. Discussed DC of this chart and change to other chart for general weakness for entire body treatment. pt instructed to call front to set this up.
--- NOTE | 2024-08-01 17:29 | PT.OPDS ---
Current Diagnoses Primary osteoarthritis, right shoulder (06/21/24) Pain in right shoulder (06/21/24) Unspecified disorder of synovium and tendon, right shoulder (06/21/24) Other shoulder lesions, right shoulder (06/21/24) Other specified disorders of bone, shoulder (06/21/24) Visit Care Team Role Provider Type Brady Thompson MD Family Provider Physician Primary Care Provider Specialty: Internal Medicine Address: [address] [place] [address], [id number] Email: [email or web address] Erlin Zheng DO Attending Provider Non-Staff Referring Provider Specialty: Orthopedics Address: [address], [place], [address] Email: Visit Number Visit Number 11 Discharge Summary PT-OP-B Current Condition Start: 04/11/24 17:32 Freq: Status: Active Protocol: Document 04/18/24 13:06 [facility] (Rec: 04/18/24 13:53 [facility] [id number]) Current Condition History of Current Condition Onset Date about end nov Current Complaints R shoulder pain History of Current Condition Pt is working w/an orthopedic who gave her a shot in her R shoulder. 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 And felt it also when pulling a pair of husbands heavy blue jeans out of the wash and another time hanging laundry was too much. This all happened over a course of a couple weeks. Place on inside of shoulder blade always painful. She tries to rub it on a corner but it doesn't help. Her neck will snap when looking down. Pt typically side sleeps and sleeps on R side but has to sleep on L now and her L hip hurts. She has been unable to comfortably sleep on back even w/bolster d/t back pain. Pt got a cortizone shot and the pain is less but still there. She follows up April 30 w/ortho . She takes advil. She is working to get off prednisone for RA. Has hx of imaging and care for back in past. She has a lot of jt pains so does lay down a lot. Her L knee and ankle have also been giving her pain so it has been hard to get out and walk. Since shoulder pain started, she started getting some neck pinches. Prior Treatments and Tests MRI:IMPRESSION: 1. Low-grade bursal surface partial-thickness tear involving distal supraspinatus extending to musculotendinous junction. Distal infraspinatus tendinosis. No full-thickness rotator cuff tendon rupture. Very mild supraspinatus muscle atrophy. 2. Smxk-yn-pudbtgti acromioclavicular joint osteoarthritis. No fracture or dislocation. Small joint effusion and subacromial subdeltoid bursal fluid, no gross loose bodies. 3. Suggestion of subtle superior anterior labral tear at 12 to 1 o'clock position. Treatment Goals Patient/Caregiver Goals avoid surgery, be able to use R shoulder to quilt, be able to rotary cut, be able to sleep through the night PT-OP-C Subjective Start: 04/11/24 17:32 Freq: Status: Active Protocol: Document 06/21/24 17:02 [facility] (Rec: 06/21/24 18:16 [facility] [id number]) OP-PT Subjective Patient Comments Patient Comments pt reports feels like peach band is getting easier PT-OP-J Posture/Palpation/Skin Start: 04/11/24 17:32 Freq: Status: Active Protocol: Document 04/18/24 13:06 [facility] (Rec: 04/18/24 13:53 [facility] [id number]) Posture Evaluation Comments Posture Comments R ant tip of shoulder, fwd bent at torso and R rot, fwd head, more notable R SCM (pt noticing it more last couple months, L shoulder elevated, dowagers hump PT-OP-K Range of Motion Start: 04/11/24 17:32 Freq: Status: Active Protocol: Document 05/23/24 17:20 [facility] (Rec: 05/24/24 10:33 [facility] [id number]) Shoulder Goniometric Range of Motion Shoulder Right Active Testing Position Standing Flexion 125 Extension 48 Abduction 131 External Rotation at 0 degrees Abduction 39 Internal Rotation Behind Back (text) T9 Comments pain abd and end range flex & rot PT-OP-M Strength Start: 04/11/24 17:32 Freq: Status: Active Protocol: Document 05/23/24 17:20 [facility] (Rec: 05/24/24 10:33 [facility] [id number]) Shoulder Strength Shoulder Manual Muscle Testing Right Flexion 4- Good- Extension 4- Good- Abduction (C5) 3+ Fair+ External Rotation 4 Good Internal Rotation 4 Good Left Flexion 4 Good Extension 5 Normal Abduction (C5) 4 Good External Rotation 4+ Good+ Internal Rotation 5 Normal PT-OP-T Assessment and Plan Start: 04/11/24 17:32 Freq: Status: Active Protocol: Document 08/01/24 17:28 [facility] (Rec: 08/01/24 17:29 [facility] [id number]) Physical Therapy Assessment Goals ADL's Short Term Goal (STG) Pt will dec DASH score from 61 % to 45% to facilitate improvements of ADL's 05/24- improved to 47.7 STG Duration 06/14 Penitentiary Goal (LTG) Pt will dec DASH score from 61 % to 30% in order to perform all ADL's with independance and inc confidence LTG Duration 08/02 Sleeping Penitentiary Goal (LTG) Pt will have ed and improved sleep posture with no inc in pain in order to sleep through the night. 05/23-improved to sleeping until 5 am until aggrevation of shoulder last week LTG Duration 08/02 Culter Short Term Goal (STG) Pt will be able to perform pushing and pulling movements with no inc in pain 05/24 still painful STG Duration 06/14 Penitentiary Goal (LTG) Pt will be able to perfrom pushing and pulling movements with 5lb of resistance in order to return to hobby of quilting. LTG Duration 08/02 Assessment Summary Assessment pt called re: follow up for change to different account. Pt to follow up with other providers at this time. Discussed DC of this chart and change to other chart for general weakness for entire body treatment. pt instructed to call front to set this up. She did make soem progress w/ PT but still was limited by signficiant pain in R shoulder that affected function. pt to follow up w/DO and ortho. Physical Therapy Plan Discharge Physical Therapy Discharge Reasons Plateau in Progress
== END 2024-08-07 12:54 | disposition home or self-care (01) ==
LOC: PHYS 16:45
PROVIDERS: Family Provider Internal Medicine; PCP Internal Medicine; Referring Provider Orthopaedic Surgery; Visit Provider Orthopaedic Surgery
DX: M25.511 Pain in right shoulder (principal); M67.911 Unspecified disorder of synovium and tendon, right shoulder; M75.81 Other shoulder lesions, right shoulder; M89.8X1 Other specified disorders of bone, shoulder; M19.011 Primary osteoarthritis, right shoulder
CPT/HCPCS: 97110; 97140; 97162; 97530; 97535

== ENCOUNTER → 2024-08-13 09:08 | Outpatient (CLI) | payer MEDICARE, OTHER, SELFPAY ==
--- NOTE | 2024-08-13 09:10 | DI.MG.S_ITS ---
BILATERAL DIGITAL SCREENING MAMMOGRAM 3D/2D WITH CAD POST LUMPECTOMY: 08/13/2024 CLINICAL: Routine screening. Family history of breast cancer. Breast cancer. Comparison is made to exams dated: 08/10/2023 mammogram, 02/03/2023 mammogram, 08/05/2022 mammogram, 04/27/2021 mammogram, and 04/24/2020 mammogram - [facility]. The breasts are heterogeneously dense, which may obscure small masses (category c / 51-75% glandular tissue). Current study was also evaluated with a Computer Aided Detection (CAD) system. There are benign post operative findings in both breasts. No significant masses, calcifications, or other findings are seen in either breast. There has been no significant interval change. IMPRESSION: BENIGN There is no mammographic evidence of malignancy. A 1 year screening mammogram is recommended. This exam was interpreted at Station ID: [id number]. NOTE: For mammograms, a report in lay terms will be sent to the patient. Approximately 15% of breast malignancies will not be visualized mammographically. In the management of a palpable breast mass, a negative mammogram must not discourage biopsy of a clinically suspicious lesion. Electronically Signed By: Gena Kirby M.D., Ph.D. filiberto/ashley:08/14/2024 00:45:31 copy to: [facility]su [facility] letter sent: Normal Exam ACR BI-RADS Category 2: Benign
== END ==
PROVIDERS: Family Provider Internal Medicine; PCP Internal Medicine; Referring Provider Internal Medicine Hematology & Oncology; Visit Provider Internal Medicine Hematology & Oncology
DX: Z12.31 Encounter for screening mammogram for malignant neoplasm of breast (principal); Z80.3 Family history of malignant neoplasm of breast
CPT/HCPCS: 77063; 77067

== ENCOUNTER 2024-10-01 13:00 | Outpatient (RCR) | payer MEDICARE, OTHER, SELFPAY ==
--- NOTE | 2024-09-13 10:34 | PT.OIE ---
Current Diagnoses Muscle weakness (generalized) (09/13/24) Past Medical History (Last Reviewed 08/21/24 @ 12:31 by Brady Thompson MD) Abnormal Pap smear of cervix (~1979) Asthma Bronchiectasis (~2016) Cataracts, bilateral (~2018) Chicken pox (~1955) Chronic back pain (~2009) Constipation COPD (chronic obstructive pulmonary disease) Decreased appetite Decreased appetite Decreased appetite Depression, major, recurrent Diarrhea Difficulty walking Dizziness Eczema Edema Family history of colon cancer in mother Fatigue Fibroids (~1984) GERD (gastroesophageal reflux disease) GERD without esophagitis Hemorrhoid Immunosuppression due to drug therapy Irritable bowel syndrome Kidney stones (~2009) Leg cramps Measles Mild hyperlipidemia Mumps Muscle weakness-general Numbness Osteoarthritis (~2015) Osteoarthritis of left ankle Osteopenia Osteoporosis Psoriasis Raynaud disease Recurrent UTI Rheumatoid arthritis (~2018) Shoulder pain (~2014) Stress Vasculitis Venous (peripheral) insufficiency Weight loss Wheezing Past Surgical History (Last Reviewed 08/21/24 @ 12:31 by Brady Thompson MD) Anesthesia History of cholecystectomy Status post breast lumpectomy Status post cholecystectomy Visit Care Team Role Provider Type Brady Thompson MD Attending Provider Physician Family Provider Primary Care Provider Referring Provider Specialty: Internal Medicine Address: [address] [place] [address] Email: [email or web address] Physical Therapy Initial Evaluation PT-OP-A Visit Information Start: 09/06/24 13:29 Freq: Status: Active Protocol: Document 09/13/24 09:27 MB (Rec: 09/13/24 10:15 MB [id number]) Out-Patient Physical Therapy Visit Information Visit Information Visit Type Initial Evaluation Visit Note Progress note by 10/14/24 or at 10th visit (11/23) Pt previously seen this year so unsure when KX modifier starts, I think 11/01 before KX Visit Start Time 09:27 Visit Stop Time 10:17 Visit Number 1 Number of MERCHANT TAILOR Visits 0 Evaluation Information Evaluation Date 09/13/24 Precautions Precautions No BP LUE PT-OP-B Current Condition Start: 09/06/24 13:29 Freq: Status: Active Protocol: Document 09/13/24 09:27 MB (Rec: 09/13/24 10:15 MB [id number]) Current Condition History of Current Condition Onset Date Chronic and progressive over the last year and a half Current Complaints Globalized weakness and multi- joint pain History of Current Condition PMH includes right shoulder injury, pain and PT, RA, left breast CA and left arm lymphedema, OP. Pt states that she just had orthopedic appointment about left ankle and was told she will have to have surgery and then a second opinion stated she does not need to have surgery. Pt reports history of back issues and second opinion stated left left weakness could be from the back. She had a shot one year ago in right knee and she may need to have surgery in it. She had aquatic PT in the past with this clinic. It was cold for her in the pool. She enjoyed going. Pt is seeing an osteopath in [place] for her right shoulder and she hasn't noticed much changes yet. She is awakening at night time when she sleeps on her right side d/t right shoulder pain. Osteopath told her not to quilt and she cannot. Pt is taking prednisone, methyltrexate and hydroxychloroquine for RA. Pt reports possible psoriatic arthritis. Pt has history of emphysema and bronciectasis. Treatment Goals Patient/Caregiver Goals To decrease pain and improve overall strength PT-OP-C Subjective Start: 09/06/24 13:29 Freq: Status: Active Protocol: Document 09/13/24 09:27 MB (Rec: 09/13/24 10:15 MB [id number]) OP-PT Subjective Patient Comments Patient Comments See history of current conditions PT-OP-D Balance Start: 09/06/24 13:29 Freq: Status: Active Protocol: Document 09/13/24 09:27 MB (Rec: 09/13/24 10:15 MB [id number]) Balance Tests Other Other Balance Tests Performed Standing balance with shoes on : Romberg EC and EO at least 30 sec; B tandem 25 deg and B SLR 25 sec, cues to look up, close CGA and pt c/o right knee pain with static standing , TUG in 12 sec, indicating increased risk for falls PT-OP-F Manual Assessment Start: 09/06/24 13:29 Freq: Status: Active Protocol: Document 09/13/24 09:27 MB (Rec: 09/13/24 10:21 MB [id number]) Manual Assessments Other Manual Assessments Other Manual Assessments Increased tension and stiffness right upper ribs, levator and UEs today, right medial proximal pain may be myofascial referral pain pattern from right shoulder, intrascapular muscles PT-OP-G Mobility & Gait Start: 09/06/24 13:29 Freq: Status: Active Protocol: Document 09/13/24 09:27 MB (Rec: 09/13/24 10:15 MB [id number]) OP Gait Assessment Comments Gait Comments Careful gait with increased B arm swing and moving arms in half [place] movement to help propel gait forward, higher and stiffer L SI area with gait and gait is careful and mildly unsteady with list to the right. Pt with overpronation and mildly instability left ankle with gait. PT-OP-J Posture/Palpation/Skin Start: 09/06/24 13:29 Freq: Status: Active Protocol: Document 09/13/24 09:27 MB (Rec: 09/13/24 10:15 MB [id number]) Posture Evaluation Comments Posture Comments Standing posture with shoes off: left shoulder and left iliac crest mildly higher than the right, forward shoulder greater on the left compared the the right, Dowager's hump, mild convexity to the right almost entire spine from thoracic spine to lumbar spine , pronation ankles B feet and pt wears knee high compression . Supine: left SI joint is stiffer. B SLR to 30 deg. B knees to not rest flat, left lacking approximately 8 deg and right lacking approximately 10 deg. PT-OP-K Range of Motion Start: 09/06/24 13:29 Freq: Status: Active Protocol: Document 09/13/24 09:27 MB (Rec: 09/13/24 10:15 MB [id number]) Shoulder Goniometric Range of Motion Shoulder Left Testing Position Standing Flexion 140 Abduction 105 Right Testing Position Standing Flexion 126 Abduction 105 Comments Pt limits range motion testing d/t c/o pain both arms, worse in right Knee Goniometric Range of Motion Knee ROM Limitations Comments Stiffness B knees and lacking end-range extension Ankle and Foot Goniometric Range of Motion Ankle and Foot ROM Limitations Comments Stiffness left ankle with reduced AROM PT-OP-M Strength Start: 09/06/24 13:29 Freq: Status: Active Protocol: Document 09/13/24 09:27 MB (Rec: 09/13/24 10:15 MB [id number]) Shoulder Strength Shoulder Manual Muscle Testing Bilateral Comments Pt does not tolerate MMT Hip Strength Hip Manual Muscle Testing Left Flexion (L2) 3 Fair Abduction 3 Fair Right Flexion (L2) 3- Fair- Abduction 3- Fair- Comments Pt is fearful with MMT, questionable effort, she is fragile appearing Knee Strength Knee Manual Muscle Testing Left Flexion (S2) 3- Fair- Extension (L3) 3- Fair- Right Flexion (S2) 3+ Fair+ Extension (L3) 3- Fair- Ankle/Foot Strength Ankle and Foot Manual Muscle Testing Left Dorsiflexion (L4) 4+ Good+ Right Dorsiflexion (L4) 4+ Good+ Toe Strength Toe Manual Muscle Testing Left Great Toe Extension 4 Good Right Great Toe Extension 4 Good PT-OP-T Assessment and Plan Start: 09/06/24 13:29 Freq: Status: Active Protocol: Document 09/13/24 09:27 MB (Rec: 09/13/24 10:15 MB [id number]) Physical Therapy Assessment Rehab Potential Rehabilitation Potential Fair Evaluation Complexity Number of Personal Factors/Comorbidities 1-2 Number of Body Systems Impaired 3 Clinical Presentation at Evaluation Evolving Impairments Impairments Activity Tolerance,Balance, Coordination,Edema,Functional Activities,Functional Mobility ,Gait,Pain,Posture,ROM,Soft Tissue Mobility,Strength Goals 4 Impairment Lack of HEP Cooperative Manager Goal (LTG) Pt will perform progressive HEP with I including alignment , breathing, gentle flexibility and strengthening and balance exercises to improve quality of life. LTG Duration 8 weeks 3 Impairment Pain with gait Cooperative Manager Goal (LTG) Pt will gait train at least 1413 feet in 6 minutes to improve community ambulation and demonstrate normal gait speed for 69 y/o female. LTG Duration 8 weeks 2 Impairment Evidence of imbalance Half-Way Goal (LTG) Pt will perform WNLs on FGA to decrease fall risk. LTG Duration 8 weeks 1 Impairment TUG in 12 sec Cooperative Manager Goal (LTG) Pt will perform TUG in no more than 10 sec to decrease fall risk with transfers and ambulation. LTG Duration 8 weeks Assessment Summary Assessment Pt returns to PT after recent d/c after plateauing with shoulder rehab and receiving new order for overall weakness . Primary PT called out today and so this PT completes eval to allow patient's plan to start. Pt has a complicated medical history including chronic pain in many joints d/ t RA and psoriatic arthritis. She is on many medications that make her feel poorly. In the past, she responded best to aquatic PT and this may be the best option for pt given globalized pain and self- limiting behaviors on assessment today. Pt self- limits ROM and MMT all joints and is uncomfortable in knees and ankles with lying supine. She reports pain with all testing and so testing is limited in all joints and unable to make full functional asessment. PT then opted for more functional testing including TUG for balance and functional strength. BP and HR in RUE: supine 129/63, 77; standing 107/67; standing 1' 108/62, 80. Pt has a 22 mmHg BP systolic drop and she reports bout with IBS and decreased intake. This PT recommends PT trial and check functional goals often to see if gentle flexibility, strengthening and balance can improve objective findings. Pt may not actually report pain relief given her history and presentation. Physical Therapy Plan Frequency and Duration Frequency of Treatment 2x/Week Duration of treatment (weeks) 8 Plan of Care Start Date 09/13/24 Plan of Care End Date 11/13/24 Therapeutic Interventions Therapeutic Interventions Balance Training,Canalithic Repositioning,Gait Training, Home Exercise Program,Joint Mobilizations,Manual Therapy, Neuromuscular Re-education, Patient/Caregiver Education, Self-Care/Home Management,Soft Tissue Mobilization,Taping, Therapeutic Activities, Therapeutic Exercises Modalities Cold Pack/Ice Massage,Electric Stimulation,Hot Packs, Ultrasound Other Referrals/Consults Referrals/Consults Recommended May need to d/c land PT and start aquatic PT at outside clinic as aquatic PT helped in the past and she has a lot of multi-joint issues Next Visit Focus/Plan Next Note Type Treatment Note Next Visit Plan Initiate gentle flexibility exercises, consider FGA and 6MWT to get baselines. Recommend frequent check-in with objective tests to see if PT is helpful for pt given chronic pain and guarding behaviors.
--- NOTE | 2024-09-25 13:52 | PT.OTN ---
Current Diagnoses Muscle weakness (generalized) (09/25/24) Physical Therapy Treatment Note PT-OP-A Visit Information Start: 09/06/24 13:29 Freq: Status: Active Protocol: Document 09/25/24 13:02 [facility] (Rec: 09/25/24 13:52 [facility] [id number]) Out-Patient Physical Therapy Visit Information Visit Information Visit Type Treatment Note Visit Note 12/24 Visit Start Time 13:02 Visit Stop Time 13:42 Visit Number 2 Number of PRE CODER Visits 0 PT-OP-B Current Condition Start: 09/06/24 13:29 Freq: Status: Active Protocol: Document 09/13/24 09:27 MB (Rec: 09/13/24 10:15 MB [id number]) Current Condition History of Current Condition Onset Date Chronic and progressive over the last year and a half Current Complaints Globalized weakness and multi- joint pain History of Current Condition PMH includes right shoulder injury, pain and PT, RA, left breast CA and left arm lymphedema, OP. Pt states that she just had orthopedic appointment about left ankle and was told she will have to have surgery and then a second opinion stated she does not need to have surgery. Pt reports history of back issues and second opinion stated left left weakness could be from the back. She had a shot one year ago in right knee and she may need to have surgery in it. She had aquatic PT in the past with this clinic. It was cold for her in the pool. She enjoyed going. Pt is seeing an osteopath in [place] for her right shoulder and she hasn't noticed much changes yet. She is awakening at night time when she sleeps on her right side d/t right shoulder pain. Osteopath told her not to quilt and she cannot. Pt is taking prednisone, methyltrexate and hydroxychloroquine for RA. Pt reports possible psoriatic arthritis. Pt has history of emphysema and bronciectasis. Treatment Goals Patient/Caregiver Goals To decrease pain and improve overall strength PT-OP-C Subjective Start: 09/06/24 13:29 Freq: Status: Active Protocol: Document 09/25/24 13:02 [facility] (Rec: 09/25/24 13:52 [facility] [id number]) OP-PT Subjective Patient Comments Patient Comments pt reports today is the day she takes methyltrexate so feels exhausted and just overall painful in joints. PT-OP-D Balance Start: 09/06/24 13:29 Freq: Status: Active Protocol: Document 09/13/24 09:27 MB (Rec: 09/13/24 10:15 MB [id number]) Balance Tests Other Other Balance Tests Performed Standing balance with shoes on : Romberg EC and EO at least 30 sec; B tandem 25 deg and B SLR 25 sec, cues to look up, close CGA and pt c/o right knee pain with static standing , TUG in 12 sec, indicating increased risk for falls PT-OP-E Functional Tests Start: 09/25/24 13:02 Freq: Status: Active Protocol: Document 09/25/24 13:02 [facility] (Rec: 09/25/24 13:52 [facility] [id number]) Functional Tests 6 Minute Walk Test Distance 391ft Comments 2 min 35 sec prior to having to stop d/t pain in R knee Functional Gait Assessment Score 14 PT-OP-F Manual Assessment Start: 09/06/24 13:29 Freq: Status: Active Protocol: Document 09/13/24 09:27 MB (Rec: 09/13/24 10:21 MB [id number]) Manual Assessments Other Manual Assessments Other Manual Assessments Increased tension and stiffness right upper ribs, levator and UEs today, right medial proximal pain may be myofascial referral pain pattern from right shoulder, intrascapular muscles PT-OP-G Mobility & Gait Start: 09/06/24 13:29 Freq: Status: Active Protocol: Document 09/13/24 09:27 MB (Rec: 09/13/24 10:15 MB [id number]) OP Gait Assessment Comments Gait Comments Careful gait with increased B arm swing and moving arms in half [place] movement to help propel gait forward, higher and stiffer L SI area with gait and gait is careful and mildly unsteady with list to the right. Pt with overpronation and mildly instability left ankle with gait. PT-OP-J Posture/Palpation/Skin Start: 09/06/24 13:29 Freq: Status: Active Protocol: Document 09/13/24 09:27 MB (Rec: 09/13/24 10:15 MB [id number]) Posture Evaluation Comments Posture Comments Standing posture with shoes off: left shoulder and left iliac crest mildly higher than the right, forward shoulder greater on the left compared the the right, Dowager's hump, mild convexity to the right almost entire spine from thoracic spine to lumbar spine , pronation ankles B feet and pt wears knee high compression . Supine: left SI joint is stiffer. B SLR to 30 deg. B knees to not rest flat, left lacking approximately 8 deg and right lacking approximately 10 deg. PT-OP-K Range of Motion Start: 09/06/24 13:29 Freq: Status: Active Protocol: Document 09/13/24 09:27 MB (Rec: 09/13/24 10:15 MB [id number]) Shoulder Goniometric Range of Motion Shoulder Left Testing Position Standing Flexion 140 Abduction 105 Right Testing Position Standing Flexion 126 Abduction 105 Comments Pt limits range motion testing d/t c/o pain both arms, worse in right Knee Goniometric Range of Motion Knee ROM Limitations Comments Stiffness B knees and lacking end-range extension Ankle and Foot Goniometric Range of Motion Ankle and Foot ROM Limitations Comments Stiffness left ankle with reduced AROM PT-OP-M Strength Start: 09/06/24 13:29 Freq: Status: Active Protocol: Document 09/13/24 09:27 MB (Rec: 09/13/24 10:15 MB [id number]) Shoulder Strength Shoulder Manual Muscle Testing Bilateral Comments Pt does not tolerate MMT Hip Strength Hip Manual Muscle Testing Left Flexion (L2) 3 Fair Abduction 3 Fair Right Flexion (L2) 3- Fair- Abduction 3- Fair- Comments Pt is fearful with MMT, questionable effort, she is fragile appearing Knee Strength Knee Manual Muscle Testing Left Flexion (S2) 3- Fair- Extension (L3) 3- Fair- Right Flexion (S2) 3+ Fair+ Extension (L3) 3- Fair- Ankle/Foot Strength Ankle and Foot Manual Muscle Testing Left Dorsiflexion (L4) 4+ Good+ Right Dorsiflexion (L4) 4+ Good+ Toe Strength Toe Manual Muscle Testing Left Great Toe Extension 4 Good Right Great Toe Extension 4 Good PT-OP-Q Treatments Start: 09/06/24 13:29 Freq: Status: Active Protocol: Document 09/25/24 13:02 [facility] (Rec: 09/25/24 13:52 [facility] [id number]) Therapeutic Exercises Supine Exercises n glide Supine Exercise Name gentle sciatic Side bilateral Reps/Minutes 8 Sidelying Exercises clamshell Sidelying Exercise Name 1. clamshell 2. reverse clamshell Side bilateral Reps/Minutes 8 ea Sitting Exercises hip abd Side bilateral Equipment Used orange band Reps/Minutes 1 min hold Other Exercises 6 min walk Reps/Minutes 2 mi 35 sec Manual Therapy Treatment Consent Patient gave verbal consent for manual Yes treatment Soft Tissue Mobilization posterior Body Location HS and calf Mobilization Type Rolling Intensity/Depth Moderate Body Position Hooklying Neuro Re-Education Treatment Other Activities FGA Comments 14 PT-OP-T Assessment and Plan Start: 09/06/24 13:29 Freq: Status: Active Protocol: Document 09/25/24 13:02 [facility] (Rec: 09/25/24 13:52 [facility] [id number]) Physical Therapy Assessment Goals 4 Impairment Lack of HEP Shoe Repairer Apprentice Goal (LTG) Pt will perform progressive HEP with I including alignment , breathing, gentle flexibility and strengthening and balance exercises to improve quality of life. LTG Duration 8 weeks 3 Impairment Pain with gait Shoe Repairer Apprentice Goal (LTG) Pt will gait train at least 1413 feet in 6 minutes to improve community ambulation and demonstrate normal gait speed for 69 y/o female. LTG Duration 8 weeks 2 Impairment Evidence of imbalance Longterm Goal (LTG) Pt will perform WNLs on FGA to decrease fall risk. LTG Duration 8 weeks 1 Impairment TUG in 12 sec Longterm Goal (LTG) Pt will perform TUG in no more than 10 sec to decrease fall risk with transfers and ambulation. LTG Duration 8 weeks Assessment Summary Assessment Pt did well with gentle exercises and did note mm working in glutes w/clams and reverse clams. She was unable to complete the 6 min walk d/t knee pain and does show risk for falls based on FGA. Physical Therapy Plan Frequency and Duration Frequency of Treatment 2x/Week Duration of treatment (weeks) 8 Plan of Care Start Date 09/13/24 Plan of Care End Date 11/13/24 Next Visit Focus/Plan Next Note Type Treatment Note Next Visit Plan review exercises, try to progress core and hip staiblity as tolerated, balance activities, manual to back, hips, knees and ankles to dec pain and improve function
--- NOTE | 2024-09-27 13:48 | PT.OTN ---
Current Diagnoses Muscle weakness (generalized) (10/01/24) Physical Therapy Treatment Note PT-OP-A Visit Information Start: 09/06/24 13:29 Freq: Status: Active Protocol: Document 09/27/24 13:04 SP (Rec: 09/27/24 13:50 SP [id number]) Out-Patient Physical Therapy Visit Information Visit Information Visit Type Treatment Note Visit Note 01/21 Visit Start Time 13:02 Visit Stop Time 13:48 Visit Number 3 (01/21 with eval) Number of [employer]OPLESO[employer] ADMINISTRATOR Visits 1 Evaluation Information Evaluation Date 09/13/24 Precautions Precautions No BP LUE PT-OP-B Current Condition Start: 09/06/24 13:29 Freq: Status: Active Protocol: Document 09/13/24 09:27 MB (Rec: 09/13/24 10:15 MB [id number]) Current Condition History of Current Condition Onset Date Chronic and progressive over the last year and a half Current Complaints Globalized weakness and multi- joint pain History of Current Condition PMH includes right shoulder injury, pain and PT, RA, left breast CA and left arm lymphedema, OP. Pt states that she just had orthopedic appointment about left ankle and was told she will have to have surgery and then a second opinion stated she does not need to have surgery. Pt reports history of back issues and second opinion stated left left weakness could be from the back. She had a shot one year ago in right knee and she may need to have surgery in it. She had aquatic PT in the past with this clinic. It was cold for her in the pool. She enjoyed going. Pt is seeing an osteopath in [place] for her right shoulder and she hasn't noticed much changes yet. She is awakening at night time when she sleeps on her right side d/t right shoulder pain. Osteopath told her not to quilt and she cannot. Pt is taking prednisone, methyltrexate and hydroxychloroquine for RA. Pt reports possible psoriatic arthritis. Pt has history of emphysema and bronciectasis. Treatment Goals Patient/Caregiver Goals To decrease pain and improve overall strength PT-OP-C Subjective Start: 09/06/24 13:29 Freq: Status: Active Protocol: Document 09/27/24 13:04 SP (Rec: 09/27/24 13:50 SP [id number]) OP-PT Subjective Patient Comments Patient Comments Pt report has beenseeing an osteopathic physician in [place] for about 6 visits and not sure if she's helping R shoulder pain in rhomboid to neck area. She was in alot pain in B knees after last tx and felt like swelling with stair mgt not used to doing. She reports the exercises able to the 8 reps but hurts at 4th rep knowingto help strengthening. She reports L>R lateral hip soreness and R knee and R rhomboid region. PT-OP-D Balance Start: 09/06/24 13:29 Freq: Status: Active Protocol: Document 09/13/24 09:27 MB (Rec: 09/13/24 10:15 MB [id number]) Balance Tests Other Other Balance Tests Performed Standing balance with shoes on : Romberg EC and EO at least 30 sec; B tandem 25 deg and B SLR 25 sec, cues to look up, close CGA and pt c/o right knee pain with static standing , TUG in 12 sec, indicating increased risk for falls PT-OP-E Functional Tests Start: 09/25/24 13:02 Freq: Status: Active Protocol: Document 09/25/24 13:02 [facility] (Rec: 09/25/24 13:52 [facility] [id number]) Functional Tests 6 Minute Walk Test Distance 391ft Comments 2 min 35 sec prior to having to stop d/t pain in R knee Functional Gait Assessment Score 14 PT-OP-F Manual Assessment Start: 09/06/24 13:29 Freq: Status: Active Protocol: Document 09/13/24 09:27 MB (Rec: 09/13/24 10:21 MB [id number]) Manual Assessments Other Manual Assessments Other Manual Assessments Increased tension and stiffness right upper ribs, levator and UEs today, right medial proximal pain may be myofascial referral pain pattern from right shoulder, intrascapular muscles PT-OP-G Mobility & Gait Start: 09/06/24 13:29 Freq: Status: Active Protocol: Document 09/13/24 09:27 MB (Rec: 09/13/24 10:15 MB [id number]) OP Gait Assessment Comments Gait Comments Careful gait with increased B arm swing and moving arms in half [place] movement to help propel gait forward, higher and stiffer L SI area with gait and gait is careful and mildly unsteady with list to the right. Pt with overpronation and mildly instability left ankle with gait. PT-OP-J Posture/Palpation/Skin Start: 09/06/24 13:29 Freq: Status: Active Protocol: Document 09/13/24 09:27 MB (Rec: 09/13/24 10:15 MB [id number]) Posture Evaluation Comments Posture Comments Standing posture with shoes off: left shoulder and left iliac crest mildly higher than the right, forward shoulder greater on the left compared the the right, Dowager's hump, mild convexity to the right almost entire spine from thoracic spine to lumbar spine , pronation ankles B feet and pt wears knee high compression . Supine: left SI joint is stiffer. B SLR to 30 deg. B knees to not rest flat, left lacking approximately 8 deg and right lacking approximately 10 deg. PT-OP-K Range of Motion Start: 09/06/24 13:29 Freq: Status: Active Protocol: Document 09/13/24 09:27 MB (Rec: 09/13/24 10:15 MB [id number]) Shoulder Goniometric Range of Motion Shoulder Left Testing Position Standing Flexion 140 Abduction 105 Right Testing Position Standing Flexion 126 Abduction 105 Comments Pt limits range motion testing d/t c/o pain both arms, worse in right Knee Goniometric Range of Motion Knee ROM Limitations Comments Stiffness B knees and lacking end-range extension Ankle and Foot Goniometric Range of Motion Ankle and Foot ROM Limitations Comments Stiffness left ankle with reduced AROM PT-OP-M Strength Start: 09/06/24 13:29 Freq: Status: Active Protocol: Document 09/13/24 09:27 MB (Rec: 09/13/24 10:15 MB [id number]) Shoulder Strength Shoulder Manual Muscle Testing Bilateral Comments Pt does not tolerate MMT Hip Strength Hip Manual Muscle Testing Left Flexion (L2) 3 Fair Abduction 3 Fair Right Flexion (L2) 3- Fair- Abduction 3- Fair- Comments Pt is fearful with MMT, questionable effort, she is fragile appearing Knee Strength Knee Manual Muscle Testing Left Flexion (S2) 3- Fair- Extension (L3) 3- Fair- Right Flexion (S2) 3+ Fair+ Extension (L3) 3- Fair- Ankle/Foot Strength Ankle and Foot Manual Muscle Testing Left Dorsiflexion (L4) 4+ Good+ Right Dorsiflexion (L4) 4+ Good+ Toe Strength Toe Manual Muscle Testing Left Great Toe Extension 4 Good Right Great Toe Extension 4 Good PT-OP-Q Treatments Start: 09/06/24 13:29 Freq: Status: Active Protocol: Document 09/27/24 13:04 SP (Rec: 09/27/24 13:50 SP [id number]) Therapeutic Exercises Supine Exercises TA heel slide Supine Exercise Name initiated in PT Side bilateral Reps/Minutes x5 Comments neutral pelvis n glide Supine Exercise Name gentle sciatic Side bilateral Equipment Used grasp behind thigh Reps/Minutes 8-10 AP Comments cued range gentle HS stretch then AP for active mobility for HS Sidelying Exercises clamshell Sidelying Exercise Name 1. clamshell 2. reverse clamshell Side bilateral Equipment Used mat on table Reps/Minutes 8 ea Manual Therapy Treatment Consent Patient gave verbal consent for manual Yes treatment Soft Tissue Mobilization anterior Body Location B TLF, quad, psoas, Iliacus Mobilization Type Rolling,Sustained Pressure, Other Body Position Hooklying Comments STMs, MWM hip ir/er, heel slide posterior Body Location B HS, hip ERs Mobilization Type Rolling Intensity/Depth Moderate Body Position Hooklying PT-OP-T Assessment and Plan Start: 09/06/24 13:29 Freq: Status: Active Protocol: Document 09/27/24 13:04 SP (Rec: 09/27/24 13:50 SP [id number]) Physical Therapy Assessment Goals 4 Impairment Lack of HEP [place] Goal (LTG) Pt will perform progressive HEP with I including alignment , breathing, gentle flexibility and strengthening and balance exercises to improve quality of life. LTG Duration 8 weeks 3 Impairment Pain with gait [place] Goal (LTG) Pt will gait train at least 1413 feet in 6 minutes to improve community ambulation and demonstrate normal gait speed for 69 y/o female. 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 LTG Duration 8 weeks 1 Impairment TUG in 12 sec [place] Goal (LTG) Pt will perform TUG in no more than 10 sec to decrease fall risk with transfers and ambulation. LTG Duration 8 weeks Assessment Summary Assessment Pt responded well to manual improved mobility, cues for neutral pelvis with progression TA heel slide. Good tolerated to reps with HEP. Physical Therapy Plan Frequency and Duration Frequency of Treatment 2x/Week Duration of treatment (weeks) 8 Plan of Care Start Date 09/13/24 Plan of Care End Date 11/13/24 Therapeutic Interventions Therapeutic Interventions Balance Training,Canalithic Repositioning,Gait Training, Home Exercise Program,Joint Mobilizations,Manual Therapy, Neuromuscular Re-education, Patient/Caregiver Education, Self-Care/Home Management,Soft Tissue Mobilization,Taping, Therapeutic Activities, Therapeutic Exercises Modalities Cold Pack/Ice Massage,Electric Stimulation,Hot Packs, Ultrasound Other Referrals/Consults Referrals/Consults Recommended May need to d/c land PT and start aquatic PT at outside clinic as aquatic PT helped in the past and she has a lot of multi-joint issues Next Visit Focus/Plan Next Note Type Treatment Note Next Visit Plan review exercises, try to progress core and hip staiblity as tolerated, balance activities, manual to back, hips, knees and ankles to dec pain and improve function
--- NOTE | 2024-10-01 13:50 | PT.OTN ---
Current Diagnoses Muscle weakness (generalized) (10/01/24) Physical Therapy Treatment Note PT-OP-A Visit Information Start: 09/06/24 13:29 Freq: Status: Active Protocol: Document 10/01/24 13:03 SP (Rec: 10/01/24 13:50 SP [id number]) Out-Patient Physical Therapy Visit Information Visit Information Visit Type Treatment Note Visit Start Time 13:03 Visit Stop Time 13:50 Visit Number 4 (4/10 with eval) Number of OCCUPATIONAL THERAPIST PER DIEM Visits 2 Evaluation Information Evaluation Date 09/13/24 Precautions Precautions No BP LUE PT-OP-B Current Condition Start: 09/06/24 13:29 Freq: Status: Active Protocol: Document 09/13/24 09:27 MB (Rec: 09/13/24 10:15 MB [id number]) Current Condition History of Current Condition Onset Date Chronic and progressive over the last year and a half Current Complaints Globalized weakness and multi- joint pain History of Current Condition PMH includes right shoulder injury, pain and PT, RA, left breast CA and left arm lymphedema, OP. Pt states that she just had orthopedic appointment about left ankle and was told she will have to have surgery and then a second opinion stated she does not need to have surgery. Pt reports history of back issues and second opinion stated left left weakness could be from the back. She had a shot one year ago in right knee and she may need to have surgery in it. She had aquatic PT in the past with this clinic. It was cold for her in the pool. She enjoyed going. Pt is seeing an osteopath in [place] for her right shoulder and she hasn't noticed much changes yet. She is awakening at night time when she sleeps on her right side d/t right shoulder pain. Osteopath told her not to quilt and she cannot. Pt is taking prednisone, methyltrexate and hydroxychloroquine for RA. Pt reports possible psoriatic arthritis. Pt has history of emphysema and bronciectasis. Treatment Goals Patient/Caregiver Goals To decrease pain and improve overall strength PT-OP-C Subjective Start: 09/06/24 13:29 Freq: Status: Active Protocol: Document 10/01/24 13:03 SP (Rec: 10/01/24 13:50 SP [id number]) OP-PT Subjective Patient Comments Patient Comments Pt reported not doing as well today, bent over to picker her medicine bag approx 2 hrs ago and trunk may have been little turned to the side earlier today and her back has been hurting since then 10 central LB like an fascia rubbing. PT-OP-D Balance Start: 09/06/24 13:29 Freq: Status: Active Protocol: Document 09/13/24 09:27 MB (Rec: 09/13/24 10:15 MB [id number]) Balance Tests Other Other Balance Tests Performed Standing balance with shoes on : Romberg EC and EO at least 30 sec; B tandem 25 deg and B SLR 25 sec, cues to look up, close CGA and pt c/o right knee pain with static standing , TUG in 12 sec, indicating increased risk for falls PT-OP-E Functional Tests Start: 09/25/24 13:02 Freq: Status: Active Protocol: Document 09/25/24 13:02 [facility] (Rec: 09/25/24 13:52 [facility] [id number]) Functional Tests 6 Minute Walk Test Distance 391ft Comments 2 min 35 sec prior to having to stop d/t pain in R knee Functional Gait Assessment Score 14 PT-OP-F Manual Assessment Start: 09/06/24 13:29 Freq: Status: Active Protocol: Document 09/13/24 09:27 MB (Rec: 09/13/24 10:21 MB [id number]) Manual Assessments Other Manual Assessments Other Manual Assessments Increased tension and stiffness right upper ribs, levator and UEs today, right medial proximal pain may be myofascial referral pain pattern from right shoulder, intrascapular muscles PT-OP-G Mobility & Gait Start: 09/06/24 13:29 Freq: Status: Active Protocol: Document 09/13/24 09:27 MB (Rec: 09/13/24 10:15 MB [id number]) OP Gait Assessment Comments Gait Comments Careful gait with increased B arm swing and moving arms in half [place] movement to help propel gait forward, higher and stiffer L SI area with gait and gait is careful and mildly unsteady with list to the right. Pt with overpronation and mildly instability left ankle with gait. PT-OP-J Posture/Palpation/Skin Start: 09/06/24 13:29 Freq: Status: Active Protocol: Document 09/13/24 09:27 MB (Rec: 09/13/24 10:15 MB [id number]) Posture Evaluation Comments Posture Comments Standing posture with shoes off: left shoulder and left iliac crest mildly higher than the right, forward shoulder greater on the left compared the the right, Dowager's hump, mild convexity to the right almost entire spine from thoracic spine to lumbar spine , pronation ankles B feet and pt wears knee high compression . Supine: left SI joint is stiffer. B SLR to 30 deg. B knees to not rest flat, left lacking approximately 8 deg and right lacking approximately 10 deg. PT-OP-K Range of Motion Start: 09/06/24 13:29 Freq: Status: Active Protocol: Document 09/13/24 09:27 MB (Rec: 09/13/24 10:15 MB [id number]) Shoulder Goniometric Range of Motion Shoulder Left Testing Position Standing Flexion 140 Abduction 105 Right Testing Position Standing Flexion 126 Abduction 105 Comments Pt limits range motion testing d/t c/o pain both arms, worse in right Knee Goniometric Range of Motion Knee ROM Limitations Comments Stiffness B knees and lacking end-range extension Ankle and Foot Goniometric Range of Motion Ankle and Foot ROM Limitations Comments Stiffness left ankle with reduced AROM PT-OP-M Strength Start: 09/06/24 13:29 Freq: Status: Active Protocol: Document 09/13/24 09:27 MB (Rec: 09/13/24 10:15 MB [id number]) Shoulder Strength Shoulder Manual Muscle Testing Bilateral Comments Pt does not tolerate MMT Hip Strength Hip Manual Muscle Testing Left Flexion (L2) 3 Fair Abduction 3 Fair Right Flexion (L2) 3- Fair- Abduction 3- Fair- Comments Pt is fearful with MMT, questionable effort, she is fragile appearing Knee Strength Knee Manual Muscle Testing Left Flexion (S2) 3- Fair- Extension (L3) 3- Fair- Right Flexion (S2) 3+ Fair+ Extension (L3) 3- Fair- Ankle/Foot Strength Ankle and Foot Manual Muscle Testing Left Dorsiflexion (L4) 4+ Good+ Right Dorsiflexion (L4) 4+ Good+ Toe Strength Toe Manual Muscle Testing Left Great Toe Extension 4 Good Right Great Toe Extension 4 Good PT-OP-Q Treatments Start: 09/06/24 13:29 Freq: Status: Active Protocol: Document 10/01/24 13:03 SP (Rec: 10/01/24 13:50 SP [id number]) Therapeutic Exercises Supine Exercises stretching Supine Exercise Name piriformis, Fig 4 Side right Comments trialed- stopped due to R SI pain LTR Supine Exercise Name Trial in PT Side bilateral Resistance AROM Reps/Minutes x8 reps TA heel slide Supine Exercise Name HEp Side bilateral Reps/Minutes x5 Comments neutral pelvis- pnfree reported n glide Supine Exercise Name gentle sciatic Side right Equipment Used grasp behind thigh Reps/Minutes 8-10 AP Comments cued range gentle HS stretch then AP for active mobility for HS- pnfree Sidelying Exercises clamshell Sidelying Exercise Name 1. clamshell 2. reverse clamshell Side bilateral Equipment Used mat on table Reps/Minutes 8 ea Comments during manual Manual Therapy Treatment Consent Patient gave verbal consent for manual Yes treatment Soft Tissue Mobilization posterior Body Location B HS, hip ERs Mobilization Type Rolling Intensity/Depth Moderate Body Position Hooklying Comments rolling and MWM clamshell motion Manual Traction LS Comments BLEs over 45cm tball gentle caudal distraction- caused pain into L SI and low back- stopped PT-OP-R Modalities Start: 09/06/24 13:29 Freq: Status: Active Protocol: Document 10/01/24 13:03 SP (Rec: 10/01/24 13:50 SP [id number]) Electric Stimulation Electric Stimulation LS Body Location across L5/ S1 Intensity 7.4 Target/Sweep Sweep Patient Position Hooklying Combined With Heat/Cold Cold Pack Comments BLE supported on bolster 10 min PT-OP-T Assessment and Plan Start: 09/06/24 13:29 Freq: Status: Active Protocol: Document 10/01/24 13:03 SP (Rec: 10/01/24 13:50 SP [id number]) Physical Therapy Assessment Goals 4 Impairment Lack of HEP [place] Goal (LTG) Pt will perform progressive HEP with I including alignment , breathing, gentle flexibility and strengthening and balance exercises to improve quality of life. LTG Duration 8 weeks 3 Impairment Pain with gait [place] Goal (LTG) Pt will gait train at least 1413 feet in 6 minutes to improve community ambulation and demonstrate normal gait speed for 69 y/o female. LTG Duration 8 weeks 2 Impairment Evidence of imbalance [place] Goal (LTG) Pt will perform WNLs on FGA to decrease fall risk. LTG Duration 8 weeks 1 Impairment TUG in 12 sec [place] Goal (LTG) Pt will perform TUG in no more than 10 sec to decrease fall risk with transfers and ambulation. LTG Duration 8 weeks Assessment Summary Assessment Pt no significant reduction in back pain with manual, gentle LS manual traction or modalities by end of tx. Sensitive to gentle pressure during manual, adjusted with feedback. Trialed gentle piriformis and FIg 4 stretching needed to stop due to R SI discomfort irritation. Pt had good response to neutral spinal alignment no pain reported cues for PPT, TA fac engagement during LTR small range, TA heel slide and active HS with ankle pump progression core stability. Pt reports no significant pain reduction end tx compared to arrival. Physical Therapy Plan Frequency and Duration Frequency of Treatment 2x/Week Duration of treatment (weeks) 8 Plan of Care Start Date 09/13/24 Plan of Care End Date 11/13/24 Therapeutic Interventions Therapeutic Interventions Balance Training,Canalithic Repositioning,Gait Training, Home Exercise Program,Joint Mobilizations,Manual Therapy, Neuromuscular Re-education, Patient/Caregiver Education, Self-Care/Home Management,Soft Tissue Mobilization,Taping, Therapeutic Activities, Therapeutic Exercises Modalities Cold Pack/Ice Massage,Electric Stimulation,Hot Packs, Ultrasound Other Referrals/Consults Referrals/Consults Recommended May need to d/c land PT and start aquatic PT at outside clinic as aquatic PT helped in the past and she has a lot of multi-joint issues Next Visit Focus/Plan Next Note Type Treatment Note Next Visit Plan Assess reponse to manual, modalities and review core exercises tolerated. Continue progress core and hip staiblity as tolerated, balance activities, manual to back, hips, knees and ankles to dec pain and improve function
--- NOTE | 2024-10-01 13:50 | PT.OTN ---
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 Pt states that she just had orthopedic appointment about left ankle and was told she will have to have surgery and then a second opinion stated she does not need to have surgery. Pt reports history of back issues and second opinion stated left left weakness could be from the back. She had a shot one year ago in right knee and she may need to have surgery in it. She had aquatic PT in the past with this clinic. It was cold for her in the pool. She enjoyed going. Pt is seeing an osteopath in [place] for her right shoulder and she hasn't noticed much changes yet. She is awakening at night time when she sleeps on her right side d/t right shoulder pain. Osteopath told her not to quilt and she cannot. Pt is taking prednisone, methyltrexate and hydroxychloroquine for RA. Pt reports possible psoriatic arthritis. Pt has history of emphysema and bronciectasis. Treatment Goals Patient/Caregiver Goals To decrease pain and improve overall strength PT-OP-C Subjective Start: 09/06/24 13:29 Freq: Status: Active Protocol: Document 10/01/24 13:03 SP (Rec: 10/01/24 13:50 SP [id number]) OP-PT Subjective Patient Comments Patient Comments Pt reported not doing as well today, bent over to picker/puller her medicine bag approx 2 hrs ago and trunk may have been little turned to the side earlier today and her back has been hurting since then 10 central LB like an fascia rubbing. PT-OP-D Balance Start: 09/06/24 13:29 Freq: Status: Active Protocol: Document 09/13/24 09:27 MB (Rec: 09/13/24 10:15 MB [id number]) Balance Tests Other Other Balance Tests Performed Standing balance with shoes on : Romberg EC and EO at least 30 sec; B tandem 25 deg and B SLR 25 sec, cues to look up, close CGA and pt c/o right knee pain with static standing , TUG in 12 sec, indicating increased risk for falls PT-OP-E Functional Tests Start: 09/25/24 13:02 Freq: Status: Active Protocol: Document 09/25/24 13:02 [facility] (Rec: 09/25/24 13:52 [facility] [id number]) Functional Tests 6 Minute Walk Test Distance 391ft Comments 2 min 35 sec prior to having to stop d/t pain in R knee Functional Gait Assessment Score 14 PT-OP-F Manual Assessment Start: 09/06/24 13:29 Freq: Status: Active Protocol: Document 09/13/24 09:27 MB (Rec: 09/13/24 10:21 MB [id number]) Manual Assessments Other Manual Assessments Other Manual Assessments Increased tension and stiffness right upper ribs, levator and UEs today, right medial proximal pain may be myofascial referral pain pattern from right shoulder, intrascapular muscles PT-OP-G Mobility & Gait Start: 09/06/24 13:29 Freq: Status: Active Protocol: Document 09/13/24 09:27 MB (Rec: 09/13/24 10:15 MB [id number]) OP Gait Assessment Comments Gait Comments Careful gait with increased B arm swing and moving arms in half burns paiute movement to help propel gait forward, higher and stiffer L SI area with gait and gait is careful and mildly unsteady with list to the right. Pt with overpronation and mildly instability left ankle with gait. PT-OP-J Posture/Palpation/Skin Start: 09/06/24 13:29 Freq: Status: Active Protocol: Document 09/13/24 09:27 MB (Rec: 09/13/24 10:15 MB [id number]) Posture Evaluation Comments Posture Comments Standing posture with shoes off: left shoulder and left iliac crest mildly higher than the right, forward shoulder greater on the left compared the the right, Dowager's hump, mild convexity to the right almost entire spine from thoracic spine to lumbar spine , pronation ankles B feet and pt wears knee high compression . Supine: left SI joint is stiffer. B SLR to 30 deg. B knees to not rest flat, left lacking approximately 8 deg and right lacking approximately 10 deg. PT-OP-K Range of Motion Start: 09/06/24 13:29 Freq: Status: Active Protocol: Document 09/13/24 09:27 MB (Rec: 09/13/24 10:15 MB [id number]) Shoulder Goniometric Range of Motion Shoulder Left Testing Position Standing Flexion 140 Abduction 105 Right Testing Position Standing Flexion 126 Abduction 105 Comments Pt limits range motion testing d/t c/o pain both arms, worse in right Knee Goniometric Range of Motion Knee ROM Limitations Comments Stiffness B knees and lacking end-range extension Ankle and Foot Goniometric Range of Motion Ankle and Foot ROM Limitations Comments Stiffness left ankle with reduced AROM PT-OP-M Strength Start: 09/06/24 13:29 Freq: Status: Active Protocol: Document 09/13/24 09:27 MB (Rec: 09/13/24 10:15 MB [id number]) Shoulder Strength Shoulder Manual Muscle Testing Bilateral Comments Pt does not tolerate MMT Hip Strength Hip Manual Muscle Testing Left Flexion (L2) 3 Fair Abduction 3 Fair Right Flexion (L2) 3- Fair- Abduction 3- Fair- Comments Pt is fearful with MMT, questionable effort, she is fragile appearing Knee Strength Knee Manual Muscle Testing Left Flexion (S2) 3- Fair- Extension (L3) 3- Fair- Right Flexion (S2) 3+ Fair+ Extension (L3) 3- Fair- Ankle/Foot Strength Ankle and Foot Manual Muscle Testing Left Dorsiflexion (L4) 4+ Good+ Right Dorsiflexion (L4) 4+ Good+ Toe Strength Toe Manual Muscle Testing Left Great Toe Extension 4 Good Right Great Toe Extension 4 Good PT-OP-Q Treatments Start: 09/06/24 13:29 Freq: Status: Active Protocol: Document 10/01/24 13:03 SP (Rec: 10/01/24 13:50 SP [id number]) Therapeutic Exercises Supine Exercises stretching Supine Exercise Name piriformis, Fig 4 Side right Comments trialed- stopped due to R SI pain LTR Supine Exercise Name Trial in PT Side bilateral Resistance AROM Reps/Minutes x8 reps TA heel slide Supine Exercise Name HEp Side bilateral Reps/Minutes x5 Comments neutral pelvis- pnfree reported n glide Supine Exercise Name gentle sciatic Side right Equipment Used grasp behind thigh Reps/Minutes 8-10 AP Comments cued range gentle HS stretch then AP for active mobility for HS- pnfree Sidelying Exercises clamshell Sidelying Exercise Name 1. clamshell 2. reverse clamshell Side bilateral Equipment Used mat on table Reps/Minutes 8 ea Comments during manual Manual Therapy Treatment Consent Patient gave verbal consent for manual Yes treatment Soft Tissue Mobilization posterior Body Location B HS, hip ERs Mobilization Type Rolling Intensity/Depth Moderate Body Position Hooklying Comments rolling and MWM clamshell motion Manual Traction LS Comments BLEs over 45cm tball gentle caudal distraction- caused pain into L SI and low back- stopped PT-OP-R Modalities Start: 09/06/24 13:29 Freq: Status: Active Protocol: Document 10/01/24 13:03 SP (Rec: 10/01/24 13:50 SP [id number]) Electric Stimulation Electric Stimulation LS Body Location across L5/ S1 Intensity 7.4 Target/Sweep Sweep Patient Position Hooklying Combined With Heat/Cold Cold Pack Comments BLE supported on bolster 10 min PT-OP-T Assessment and Plan Start: 09/06/24 13:29 Freq: Status: Active Protocol: Document 10/01/24 13:03 SP (Rec: 10/01/24 13:50 SP [id number]) Physical Therapy Assessment Goals 4 Impairment Lack of HEP Mushroom Growing Supervisor Goal (LTG) Pt will perform progressive HEP with I including alignment , breathing, gentle flexibility and strengthening and balance exercises to improve quality of life. LTG Duration 8 weeks 3 Impairment Pain with gait Usp Goal (LTG) Pt will gait train at least 1413 feet in 6 minutes to improve community ambulation and demonstrate normal gait speed for 69 y/o female. LTG Duration 8 weeks 2 Impairment Evidence of imbalance Usp Goal (LTG) Pt will perform WNLs on FGA to decrease fall risk. LTG Duration 8 weeks 1 Impairment TUG in 12 sec Mushroom Growing Supervisor Goal (LTG) Pt will perform TUG in no more than 10 sec to decrease fall risk with transfers and ambulation. LTG Duration 8 weeks Assessment Summary Assessment Pt no significant reduction in back pain with manual, gentle LS manual traction or modalities by end of tx. Sensitive to gentle pressure during manual, adjusted with feedback. Trialed gentle piriformis and FIg 4 stretching needed to stop due to R SI discomfort irritation. Pt had good response to neutral spinal alignment no pain reported cues for PPT, TA fac engagement during LTR small range, TA heel slide and active HS with ankle pump progression core stability. Pt reports no significant pain reduction end tx compared to arrival. Physical Therapy Plan Frequency and Duration Frequency of Treatment 2x/Week Duration of treatment (weeks) 8 Plan of Care Start Date 09/13/24 Plan of Care End Date 11/13/24 Therapeutic Interventions Therapeutic Interventions Balance Training,Canalithic Repositioning,Gait Training, Home Exercise Program,Joint Mobilizations,Manual Therapy, Neuromuscular Re-education, Patient/Caregiver Education, Self-Care/Home Management,Soft Tissue Mobilization,Taping, Therapeutic Activities, Therapeutic Exercises Modalities Cold Pack/Ice Massage,Electric Stimulation,Hot Packs, Ultrasound Other Referrals/Consults Referrals/Consults Recommended May need to d/c land PT and start aquatic PT at outside clinic as aquatic PT helped in the past and she has a lot of multi-joint issues Next Visit Focus/Plan Next Note Type Treatment Note Next Visit Plan Assess reponse to manual and review exercises, Continue progress core and hip staiblity as tolerated, balance activities, manual to back, hips, knees and ankles to dec pain and improve function
--- NOTE | 2024-11-12 09:43 | PT.OPDS ---
Current Diagnoses Muscle weakness (generalized) (10/01/24) Visit Care Team Role Provider Type Brady Thompson MD Attending Provider Physician Family Provider Primary Care Provider Referring Provider Specialty: Internal Medicine Address: [address] [place] [address], [facility] Email: [email or web address] Visit Number Visit Number 4 (02/21 with eval) Discharge Summary PT-OP-B Current Condition Start: 09/06/24 13:29 Freq: Status: Active Protocol: Document 09/13/24 09:27 MB (Rec: 09/13/24 10:15 MB [id number]) Current Condition History of Current Condition Onset Date Chronic and progressive over the last year and a half Current Complaints Globalized weakness and multi- joint pain History of Current Condition PMH includes right shoulder injury, pain and PT, RA, left breast CA and left arm lymphedema, OP. Pt states that she just had orthopedic appointment about left ankle and was told she will have to have surgery and then a second opinion stated she does not need to have surgery. Pt reports history of back issues and second opinion stated left left weakness could be from the back. She had a shot one year ago in right knee and she may need to have surgery in it. She had aquatic PT in the past with this clinic. It was cold for her in the pool. She enjoyed going. Pt is seeing an osteopath in [place] for her right shoulder and she hasn't noticed much changes yet. She is awakening at night time when she sleeps on her right side d/t right shoulder pain. Osteopath told her not to quilt and she cannot. Pt is taking prednisone, methyltrexate and hydroxychloroquine for RA. Pt reports possible psoriatic arthritis. Pt has history of emphysema and bronciectasis. Treatment Goals Patient/Caregiver Goals To decrease pain and improve overall strength PT-OP-C Subjective Start: 09/06/24 13:29 Freq: Status: Active Protocol: Document 10/01/24 13:03 SP (Rec: 10/01/24 13:50 SP [id number]) OP-PT Subjective Patient Comments Patient Comments Pt reported not doing as well today, bent over to mushroom picker her medicine bag approx 2 hrs ago and trunk may have been little turned to the side earlier today and her back has been hurting since then 03/23 central LB like an fascia rubbing. PT-OP-D Balance Start: 09/06/24 13:29 Freq: Status: Active Protocol: Document 09/13/24 09:27 MB (Rec: 09/13/24 10:15 MB [id number]) Balance Tests Other Other Balance Tests Performed Standing balance with shoes on : Romberg EC and EO at least 30 sec; B tandem 25 deg and B SLR 25 sec, cues to look up, close CGA and pt c/o right knee pain with static standing , TUG in 12 sec, indicating increased risk for falls PT-OP-E Functional Tests Start: 09/25/24 13:02 Freq: Status: Active Protocol: Document 09/25/24 13:02 [facility] (Rec: 09/25/24 13:52 [facility] [id number]) Functional Tests 6 Minute Walk Test Distance 391ft Comments 2 min 35 sec prior to having to stop d/t pain in R knee Functional Gait Assessment Score 14 PT-OP-F Manual Assessment Start: 09/06/24 13:29 Freq: Status: Active Protocol: Document 09/13/24 09:27 MB (Rec: 09/13/24 10:21 MB [id number]) Manual Assessments Other Manual Assessments Other Manual Assessments Increased tension and stiffness right upper ribs, levator and UEs today, right medial proximal pain may be myofascial referral pain pattern from right shoulder, intrascapular muscles PT-OP-G Mobility & Gait Start: 09/06/24 13:29 Freq: Status: Active Protocol: Document 09/13/24 09:27 MB (Rec: 09/13/24 10:15 MB [id number]) OP Gait Assessment Comments Gait Comments Careful gait with increased B arm swing and moving arms in half [place] movement to help propel gait forward, higher and stiffer L SI area with gait and gait is careful and mildly unsteady with list to the right. Pt with overpronation and mildly instability left ankle with gait. PT-OP-J Posture/Palpation/Skin Start: 09/06/24 13:29 Freq: Status: Active Protocol: Document 09/13/24 09:27 MB (Rec: 09/13/24 10:15 MB [id number]) Posture Evaluation Comments Posture Comments Standing posture with shoes off: left shoulder and left iliac crest mildly higher than the right, forward shoulder greater on the left compared the the right, Dowager's hump, mild convexity to the right almost entire spine from thoracic spine to lumbar spine , pronation ankles B feet and pt wears knee high compression . Supine: left SI joint is stiffer. B SLR to 30 deg. B knees to not rest flat, left lacking approximately 8 deg and right lacking approximately 10 deg. PT-OP-K Range of Motion Start: 09/06/24 13:29 Freq: Status: Active Protocol: Document 09/13/24 09:27 MB (Rec: 09/13/24 10:15 MB [id number]) Shoulder Goniometric Range of Motion Shoulder Left Testing Position Standing Flexion 140 Abduction 105 Right Testing Position Standing Flexion 126 Abduction 105 Comments Pt limits range motion testing d/t c/o pain both arms, worse in right Knee Goniometric Range of Motion Knee ROM Limitations Comments Stiffness B knees and lacking end-range extension Ankle and Foot Goniometric Range of Motion Ankle and Foot ROM Limitations Comments Stiffness left ankle with reduced AROM PT-OP-M Strength Start: 09/06/24 13:29 Freq: Status: Active Protocol: Document 09/13/24 09:27 MB (Rec: 09/13/24 10:15 MB [id number]) Shoulder Strength Shoulder Manual Muscle Testing Bilateral Comments Pt does not tolerate MMT Hip Strength Hip Manual Muscle Testing Left Flexion (L2) 3 Fair Abduction 3 Fair Right Flexion (L2) 3- Fair- Abduction 3- Fair- Comments Pt is fearful with MMT, questionable effort, she is fragile appearing Knee Strength Knee Manual Muscle Testing Left Flexion (S2) 3- Fair- Extension (L3) 3- Fair- Right Flexion (S2) 3+ Fair+ Extension (L3) 3- Fair- Ankle/Foot Strength Ankle and Foot Manual Muscle Testing Left Dorsiflexion (L4) 4+ Good+ Right Dorsiflexion (L4) 4+ Good+ Toe Strength Toe Manual Muscle Testing Left Great Toe Extension 4 Good Right Great Toe Extension 4 Good PT-OP-T Assessment and Plan Start: 09/06/24 13:29 Freq: Status: Active Protocol: Document 11/12/24 09:42 [facility] (Rec: 11/12/24 09:43 [facility] [id number]) Physical Therapy Assessment Goals 4 Impairment Lack of HEP Log Data Technician Goal (LTG) Pt will perform progressive HEP with I including alignment , breathing, gentle flexibility and strengthening and balance exercises to improve quality of life. LTG Duration 8 weeks 3 Impairment Pain with gait Fdc Goal (LTG) Pt will gait train at least 1413 feet in 6 minutes to improve community ambulation and demonstrate normal gait speed for 69 y/o female. LTG Duration 8 weeks 2 Impairment Evidence of imbalance Fdc Goal (LTG) Pt will perform WNLs on FGA to decrease fall risk. LTG Duration 8 weeks 1 Impairment TUG in 12 sec Log Data Technician Goal (LTG) Pt will perform TUG in no more than 10 sec to decrease fall risk with transfers and ambulation. LTG Duration 8 weeks Assessment Summary Assessment Pt made limited progress w/PT w/only 4 visits including IE and cancelled further visits d /t change in medical status. Physical Therapy Plan Discharge Physical Therapy Discharge Reasons No Longer Attending PT
== END 2024-11-22 15:25 | disposition home or self-care (01) ==
LOC: PHYS 13:00
PROVIDERS: Family Provider Internal Medicine; PCP Internal Medicine; Referring Provider Internal Medicine; Visit Provider Internal Medicine
DX: M62.81 Muscle weakness (generalized) (principal)
CPT/HCPCS: 97110; 97112; 97140; 97161

== ENCOUNTER → 2024-10-10 09:51 | Outpatient (CLI) | payer MEDICARE, OTHER, SELFPAY ==
--- NOTE | 2024-10-10 09:54 | DI.RAD.S_ITS ---
PROCEDURE: XR HIP W PEL IF DONE PEDRO MIN 4V INDICATIONS: Left hip pain; difficulty bearing weight TECHNIQUE: AP pelvis with lateral view(s) of the bilateral hip(s). COMPARISON: None. FINDINGS: Bones: No fractures or dislocations. Mild right worse than left bilateral hip joint osteoarthritic changes are seen with superior joint space narrowing and subchondral sclerosis. No evidence of avascular necrosis of femoral head. Pelvic ring appears intact. No suspicious bony lesions. Soft tissues: The visualized bowel gas pattern is normal. No suspicious soft tissue calcifications. IMPRESSION: No pelvic or hip fracture. No hip dislocation. Right worse than left bilateral mild hip joint osteoarthritis. No evidence of avascular necrosis of femoral head. Dictated by: Fernandez Brooks M.D. on 10/10/2024 at 13:21 Approved by: Fernandez Brooks M.D. on 10/10/2024 at 13:22
--- NOTE | 2024-10-10 09:54 | DI.RAD.S_ITS ---
PROCEDURE: XR LUMBAR SPINE 2-3V INDICATIONS: Low back pain LS spine TECHNIQUE: 3 views of the lumbar spine were acquired. COMPARISON: None. FINDINGS: Bones: 5 [id number] vertebrae are present. There is normal bony alignment. Osteopenia is seen. No vertebral body compression fractures. Degenerative endplate changes are noted throughout lumbar spine. No suspicious bony lesions. Soft tissues: Overlying bowel gas pattern is normal. No suspicious soft tissue calcifications. IMPRESSION: [id number] degenerative disc disease throughout lumbar spine. Mild osteopenia. No acute vertebral body compression fracture or spondylolisthesis. Dictated by: Fernandez Brooks M.D. on 10/10/2024 at 13:22 Approved by: Fernandez Brooks M.D. on 10/10/2024 at 13:24
== END ==
PROVIDERS: Family Provider Internal Medicine; PCP Internal Medicine; Referring Provider Physician Assistant; Visit Provider Physician Assistant
DX: M16.0 Bilateral primary osteoarthritis of hip (principal); M51.360 Other intervertebral disc degeneration, lumbar region with discogenic back pain only; M25.552 Pain in left hip; M81.0 Age-related osteoporosis without current pathological fracture; M06.9 Rheumatoid arthritis, unspecified
CPT/HCPCS: 72100; 73522

== ENCOUNTER → 2024-10-19 19:10 | Outpatient (CLI) | payer MEDICARE, OTHER, SELFPAY ==
--- NOTE | 2024-10-19 19:14 | DI.MRI.S_ITS ---
PROCEDURE: MR LUMBAR SPINE WO CON INDICATIONS: LUMBAR RADICULOPATHY,WEAKNESS BI EXTERMITIES TECHNIQUE: Noncontrast sagittal T1 spin echo and T2 fast echo, coronal T2, sagittal STIR, and T2 fast spin echo through the lumbar spine. COMPARISON: [facility], CR, XR LUMBAR SPINE 2-3V, 10/10/2024, 10:05. [facility], MR, MR LUMBAR SPINE WO CON, 11/28/2022, 9:12. FINDINGS: Image quality: Excellent. Alignment and Curvature: 5 lumbar type vertebral bodies are present by plain film. Mild diffuse leftward curvature of the lumbar spine. There is otherwise normal bony alignment. Bone Marrow: Marrow is of normal overall signal. No acute vertebral body compression fractures. No change in mild chronic wedging of L5. Spinal Cord: Conus medullaris terminates at the lower L1 level. Visualized cord demonstrates normal signal and size. Paraspinous Soft Tissues: No paravertebral masses. T12-L1: Normal appearance. L1-L2: Mild bilateral facet hypertrophy. No significant canal nor foraminal stenosis. L2-L3: Small central annular tear. No significant canal nor foraminal stenosis. No significant change. L3-L4: Mild disc desiccation and diffuse disc bulge. Mild bilateral facet and ligamentum flavum hypertrophy. Mild epidural lipomatosis. No significant canal stenosis. Mild bilateral foraminal stenosis. No significant change. L4-L5: Mild disc desiccation and diffuse disc bulge. Mild bilateral facet hypertrophy. No significant canal nor foraminal stenosis. No significant change. L5-S1: Moderate disc desiccation. Mild diffuse disc bulge. Mild bilateral facet hypertrophy. No significant canal nor foraminal stenosis. No significant change. IMPRESSION: 1. Multilevel degenerative disc and facet disease, as well as ligamentum flavum hypertrophy and epidural lipomatosis. 2. Mild multilevel canal and foraminal stenoses. No neural impingement. Dictated by: Elliot Banuelos M.D. on 10/22/2024 at 10:30 Approved by: Elliot Banuelos M.D. on 10/22/2024 at 10:35
== END ==
PROVIDERS: Family Provider Internal Medicine; PCP Internal Medicine; Referring Provider Physician Assistant; Visit Provider Physician Assistant
DX: M51.16 Intervertebral disc disorders with radiculopathy, lumbar region (principal); M51.17 Intervertebral disc disorders with radiculopathy, lumbosacral region; M47.26 Other spondylosis with radiculopathy, lumbar region; M47.27 Other spondylosis with radiculopathy, lumbosacral region; M48.061 Spinal stenosis, lumbar region without neurogenic claudication; R29.898 Other symptoms and signs involving the musculoskeletal system
CPT/HCPCS: 72148

== ENCOUNTER → 2024-11-20 07:14 | Outpatient (CLI) | payer MEDICARE, OTHER, SELFPAY ==
[2024-11-20 07:35] LABS: Hemoglobin 12.3 g/dL (12.0-16.0); Mean Corpuscular HGB Conc 33.3 % (30-36); Mean Corpuscular Hemoglobin 29.8 PG (26-34); Mean Corpuscular Volume 89.6 fL (80-100); Platelet Count 380 X10^3/uL (150-400); Red Blood Cell Count 4.13 X10^6/uL (4.0-5.2); Red Cell Distribution Width 16.9 % (11.6-14.8); White Blood Cell Count 11.9 X10^3/uL (4.5-11.0)
[2024-11-20 08:19] LABS: Alanine Aminotransferase 28 IU/L (<35); Albumin 4.1 g/dL (3.5-5.0); Albumin Globulin Ratio 1.7 (1.0-2.8); Alkaline Phosphatase 61 U/L (38-126); Aspartate Aminotransferase 37 IU/L (14-36); BUN Creatinine Ratio 19.4 (6-22); Bilirubin Total 0.6 mg/dL (0.2-1.3); Blood Urea Nitrogen 18 mg/dL (7-17); C-Reactive Protein Quant < 0.5 mg/dL (<1.0); Calcium 9.7 mg/dL (8.4-10.2); Carbon Dioxide 28 mmol/L (22-32); Chloride 103 mmol/L (98-107); Cholesterol 178 mg/dL (140-199); Estimated Glomerular Filt Rate > 60 mL/min (>60); Globulin 2.4 g/dL (1.7-4.1); Glucose 106 mg/dL (80-110); HDL Cholesterol 64 mg/dL (40-60); HEMOLYSIS < 15 (0-50); LDL Cholesterol Calculated 95 mg/dL (<100); Potassium 3.8 mmol/L (3.4-5.1); Sodium 139 mmol/L (137-145); Total Protein 6.5 g/dL (6.3-8.2); Triglycerides 95 mg/dL (35-150)
[2024-11-20 08:38] LABS: Erythrocyte Sedimentation Rate 5 MM/HR (0-20)
== END ==
PROVIDERS: Family Provider Internal Medicine; PCP Internal Medicine; Referring Provider Internal Medicine; Visit Provider Internal Medicine
DX: M06.9 Rheumatoid arthritis, unspecified (principal); E78.2 Mixed hyperlipidemia
CPT/HCPCS: 36415; 80053; 80061; 84443; 85027; 85651; 86140

== ENCOUNTER → 2025-01-09 13:38 | Outpatient (CLI) | payer MEDICARE, OTHER, SELFPAY ==
[2025-01-09 17:01] LABS: Folate > 20.0 ng/mL (2.76-20.0); Vitamin B12 > 1000 pg/mL (239-931)
[2025-01-10 23:41] LABS: Homocysteine 16.8 umol/L (0.0-17.2)
== END ==
LOC: LAB 13:42
PROVIDERS: Family Provider Internal Medicine; PCP Internal Medicine
DX: E78.5 Hyperlipidemia, unspecified (principal); R29.898 Other symptoms and signs involving the musculoskeletal system
CPT/HCPCS: 36415; 82085; 82607; 82746; 83090

== ENCOUNTER 2025-01-13 14:16 | Emergency (ER) | payer MEDICARE, OTHER, SELFPAY ==
[2025-01-13] VITALS (7 sets, daily range): BP systolic 114–155; BP diastolic 56–75; PULSE 66–91; RESP 8–17; TEMP 37.3; O2SAT 96–100; BMI 20.2
--- NOTE | 2025-01-13 14:33 | EKG_ITS ---
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
--- NOTE | 2025-01-13 14:33 | DI.RAD.S_ITS ---
PROCEDURE: XR CHEST 1V INDICATIONS: Shortness of breath TECHNIQUE: One view of the chest was acquired. COMPARISON: [facility], CR, XR CHEST 1V, 12/20/2022, 8:00. FINDINGS: Surgical changes and devices: None. Lungs and pleura: Lungs are clear. No pleural effusions or pneumothorax. Mediastinum: Mediastinal contours appear normal. Heart size is normal. Bones and chest wall: No suspicious bony lesions. Overlying soft tissues appear unremarkable. IMPRESSION: No acute cardiopulmonary abnormality is seen. Approved by: Figueroa Goff M.D. on 01/13/2025 at 14:41
[2025-01-13 14:54] LABS: Add Manual Diff / Slide Review NO; Basophils Absolute Auto 100 /uL (0-100); Basophils Percent Auto 0.8 % (0-2); Eosinophils Absolute Auto 100 /uL (0-450); Eosinophils Percent Auto 0.7 % (2-4); Hemoglobin 12.3 g/dL (12.0-16.0); Lymphocytes Absolute Auto 1900 /uL (1100-4500); Lymphocytes Percent Auto 16.8 % (25-40); Mean Corpuscular HGB Conc 33.3 % (30-36); Mean Corpuscular Hemoglobin 30.5 PG (26-34); Mean Corpuscular Volume 91.4 fL (80-100); Monocytes Absolute Auto 700 /uL (0-900); Monocytes Percent Auto 6.2 % (3-14); Neutrophils Absolute Auto 8400 /uL (1500-7000); Neutrophils Percent Auto 75.5 % (50-75); Platelet Count 365 X10^3/uL (150-400); Red Blood Cell Count 4.05 X10^6/uL (4.0-5.2); Red Cell Distribution Width 16.1 % (11.6-14.8); White Blood Cell Count 11.2 X10^3/uL (4.5-11.0)
[2025-01-13 15:08] LABS: Alanine Aminotransferase 37 IU/L (<35); Albumin 4.5 g/dL (3.5-5.0); Albumin Globulin Ratio 1.7 (1.0-2.8); Alkaline Phosphatase 62 U/L (38-126); Aspartate Aminotransferase 47 IU/L (14-36); BUN Creatinine Ratio 25.2 (6-22); Bilirubin Total 0.6 mg/dL (0.2-1.3); Blood Urea Nitrogen 26 mg/dL (7-17); Calcium 9.6 mg/dL (8.4-10.2); Carbon Dioxide 26 mmol/L (22-32); Chloride 103 mmol/L (98-107); Estimated Glomerular Filt Rate 58 mL/min (>60); Globulin 2.7 g/dL (1.7-4.1); Glucose 86 mg/dL (80-110); HEMOLYSIS < 15 (0-50); Potassium 4.4 mmol/L (3.4-5.1); Sodium 137 mmol/L (137-145); Total Protein 7.2 g/dL (6.3-8.2)
[2025-01-13 15:20] LABS: NT-proBNP (BNP-Adult 18+) 206 pg/mL (<125); Troponin I < 0.012 ng/mL (0.01-0.034)
--- NOTE | 2025-01-13 17:17 | ED.GENADULT ---
HPI - General Adult General Chief complaint: Shortness of Breath/Dyspnea Stated complaint: Lab test/concerns for pulmonary embo/heart attack Time Seen by Provider: 01/13/25 14:53 Source: patient, RN notes reviewed and old records reviewed Mode of arrival: Ambulatory Limitations: no limitations History of Present Illness HPI narrative: 69-year-old female history of rheumatoid arthritis, psoriatic arthritis and prior vasculitis on methotrexate, hydroxychloroquine and low-dose prednisone presents with complaint of elevated lab test and concern for possible cardiac issue. Patient had labs drawn had a CK-MB which was elevated at 7.5, had total CK which was 122, patient also had an aldolase, vitamin B12 and folate which are all elevated as well as homocystine which was 16.8. Does not appear patient had any other labs drawn. She states she was contacted with her results was told that if she had any chest pain or shortness of breath she should come to the ER for evaluation. Patient states she does occasionally have some shortness of breath for some time on and off occasionally some substernal discomfort. She denies fevers or chills, no nausea or vomiting, no issues with bowel movements as noted some urgency with urination, no frequency or dysuria. She notes that her compression stocking does not fit quite as well on the right lower extremity as the left. This has been for months has not worsened or changed. No new redness or swelling of her extremities otherwise noted. She also notes she gets lightheaded when she stands for long periods of time. Patient has had increased dose of prednisone got very kind of anxious and uncomfortable so was tapered back down to her normal dose of 1 mg alternating with 2 mg daily. She was on methotrexate, hydroxychloroquine, takes Tylenol regularly does not take anything for hypertension dyslipidemia or diabetes. No daily aspirin or anticoagulants is on Prilosec. Notes he has had prior cholecystectomy, breast cancer with lumpectomy and radiation remotely. Dr. Thompson is her primary care physician. 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 Related Data Home Medications Medication Instructions Recorded Confirmed acetaminophen 325 mg tablet 325 mg PO PRN PRN Abdominal 07/08/16 11/19/24 Discomfort ##0 ketoconazole 2 % shampoo 1 chris topical WEEKLY #120 mL 07/08/16 11/19/24 polyethylene glycol 3350 17 17 gm PO QDAY ##0 07/08/16 11/19/24 gram/dose oral powder (Miralax) Bifidobacterium infantis 4 mg 4 mg PO QDAY ##0 07/12/16 11/19/24 capsule (Align (B.infantis)) loratadine 10 mg tablet (Claritin) 10 mg PO DAILY 03/29/19 11/19/24 omeprazole 20 mg tablet,delayed 20 mg PO DAILY 03/29/19 11/19/24 release multivitamin 1 cap PO DAILY 03/24/20 11/19/24 methotrexate (PF) 25 mg/0.5 mL 25 mg SUBCUT QWEEK 01/07/23 11/19/24 subcutaneous auto-injector (Rasuvo (PF)) folic acid 1 mg tablet 1 mg PO DAILY Because I take 03/16/23 11/19/24 Methotrexate hydroxychloroquine 200 mg tablet 200 mg PO BID 03/16/23 11/19/24 prednisone 1 mg tablet 2 mg PO DAILY 10/09/24 11/19/24 ibuprofen 200 mg tablet (Advil) 200 mg PO Q4H PRN 11/19/24 11/19/24 Previous Rx's Medication Instructions Recorded ipratropium 0.5 mg-albuterol 3 mg 3 ml inhalation Q6H PRN shortness 10/12/23 (2.5 mg base)/3 mL nebulization of breath #180 mL soln fluticasone 250 mcg-salmeterol 50 1 ea inhalation BID #3 ea 12/27/23 mcg/dose blistr powdr for inhalation (Advair Diskus) estradiol 0.01% (0.1 mg/gram) 0.5 appful vaginal DAILY #42.5 08/06/24 vaginal cream grams albuterol sulfate 90 mcg/actuation 2 puff inhalation BID #8.5 grams 10/02/24 aerosol inhaler (Ventolin HFA) gabapentin 300 mg capsule 300 mg PO TID #90 caps 11/19/24 Allergies Allergy/AdvReac Type Severity Reaction Status Date / Time ciprofloxacin [CIPROFLOXACIN] Allergy Intermediate Shortness Verified 11/19/24 09:35 of breath latex [LATEX] Allergy Mild Rash Verified 11/19/24 09:35 nitrofurantoin Allergy Mild RASH ON Verified 11/19/24 09:35 [NITROFURANTOIN] HANDS levofloxacin [LEVOFLOXACIN] Allergy Unknown RASH ON Verified 11/19/24 09:35 HANDS codeine [CODEINE] AdvReac Severe STOMACH Verified 11/19/24 09:35 PAINS hydrocodone [From VICODIN] AdvReac Severe HEADACHES Verified 11/19/24 09:35 duloxetine AdvReac Intermediate Gastrointestinal Verified 11/19/24 09:35 Upset meloxicam [From MOBIC] AdvReac Intermediate GI UPSET Verified 11/19/24 09:35 methocarbamol [From ROBAXIN] AdvReac Intermediate HEADACHE Verified 11/19/24 09:35 morphine [MORPHINE] AdvReac Intermediate BILIARY Verified 11/19/24 09:35 SPASMS adhesive tape [ADHESIVE TAPE] AdvReac Mild Skin Verified 11/19/24 09:35 irritation, redness cefuroxime AdvReac Mild Nausea Verified 11/19/24 09:35 Sulfa (Sulfonamide AdvReac Mild ALL OVER Verified 11/19/24 09:35 Antibiotics) MALAISE [SULFA (SULFONAMIDE ANTIBIOTICS)] tramadol [TRAMADOL] AdvReac Mild gets Verified 11/19/24 09:35 lightheaded Review of Systems Review of Systems ROS Unobtainable: All systems reviewed & are unremarkable except as noted in HPI and below Patient History Medical History Arthropathy of left sacroiliac joint Osteoarthritis of left ankle Muscle weakness-general Immunosuppression due to drug therapy Depression, major, recurrent Recurrent UTI Venous (peripheral) insufficiency Raynaud disease Family history of colon cancer in mother GERD without esophagitis Eczema Vasculitis Rheumatoid arthritis (~2019) Osteoarthritis (~2016) Bronchiectasis (~2017) COPD (chronic obstructive pulmonary disease) Asthma Shoulder pain (~2014) Chronic back pain (~2009) Mumps Measles Chicken pox (~1955) Cataracts, bilateral (~2019) Fibroids (~1984) Abnormal Pap smear of cervix (~1979) Kidney stones (~2009) Hemorrhoid Stress Difficulty walking Numbness Dizziness Diarrhea Constipation Wheezing Leg cramps Edema Decreased appetite Decreased appetite Decreased appetite Fatigue Weight loss GERD (gastroesophageal reflux disease) Psoriasis Osteopenia Mild hyperlipidemia Irritable bowel syndrome Osteoporosis Surgical History Anesthesia History of cholecystectomy Status post cholecystectomy Status post breast lumpectomy Family History Brother Age: 67 High cholesterol Hypertension Grandfather Cancer Grandmother Heart disease Stroke Mother Heart disease Cancer Hypertension Stroke Grandfather Cancer Grandmother Osteoporosis Stroke Sister Age: 75 High cholesterol Hypertension Sister Age: 69 High cholesterol Hypertension Sister Age: 61 High cholesterol Hypertension Autoimmune disease Father Lung disease Family/Other Mental health problem Social History details: (Rosalio), 3 daughters, 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 household members: spouse education level: college vanessa/uatsdin: Raman Smoking Status: Former smoker Tobacco: How many years used: 30 alcohol intake: current (ONE DRINK ON MAJOR HOLIDAYS ) substance use type: does not use during the past year weight has: increased > 10 lbs Type(s) of exercise: walking frequency: 3-4 times per week additional social history: Homemaker Smoking Status: Former smoker alcohol intake frequency: holidays/special occasions only Exam Narrative Exam Narrative: GENERAL: Alert and oriented x three, appearing elderly female in mild distress HEENT: Head normocephalic, atraumatic, EOMI, pupils reactive, face symmetric, moist mucous membranes NECK: Supple, full range of motion CARDIOVASCULAR: Regular rate and rhythm without murmurs, rubs or gallops. No JVD. No edema bilateral lower extremities. RESPIRATORY: Breath sounds equal bilaterally, no wheezes rales or rhonchi. No tachypnea accessory muscle use ABDOMEN: Soft, nontender. Normoactive bowel sounds all 4 quadrants. No guarding or rebound, rigidity, no mass : No CVA tenderness EXTREMITIES: Normal range of motion, no clubbing or edema. Neurovascularly intact NEUROLOGICAL: Cranial nerves II through XII grossly intact. Moving all extremities SKIN: Warm, dry, no petechiae, no rashes or lesions. Initial Vital Signs Initial Vital Signs: Vital Signs Temperature 99.1 F 01/13/25 14:25 Pulse Rate 91 H 01/13/25 14:25 Respiratory Rate 16 01/13/25 14:25 Blood Pressure 155/75 H 01/13/25 14:25 Pulse Oximetry 98 01/13/25 14:25 Oxygen Delivery Method Room Air 01/13/25 14:25 Course Orders Ordered: ED Orders 01/13/25 14:33 XR chest 1V Stat EKG-12 Lead Stat Measure peak expiratory flow ONCE RT Consult Eval and Treat NOW 01/13/25 14:40 Complete Blood Count AUTO DIFF Stat Comprehensive Metabolic Panel Stat Lactate (Lactic Acid) Stat Lipase Stat NT-proBNP (BNP-Adult 18+) Stat Prothrombin Time INR Stat Troponin I Stat Vital Signs Vital signs: Vital Signs - 8 hr 01/13/25 14:25 01/13/25 16:10 01/13/25 16:13 Temperature 99.1 F Pulse Rate 91 H 86 74 Respiratory Rate 16 8 L Blood Pressure 155/75 H Pulse Oximetry 98 96 97 Oxygen Delivery Method Room Air 01/13/25 16:13 01/13/25 16:30 01/13/25 16:30 Temperature Pulse Rate 68 Respiratory Rate 17 Blood Pressure 138/63 125/60 Pulse Oximetry 98 Oxygen Delivery Method 01/13/25 17:00 01/13/25 17:00 01/13/25 17:30 Temperature Pulse Rate 70 68 Respiratory Rate 15 12 Blood Pressure 114/56 L Pulse Oximetry 99 100 Oxygen Delivery Method 01/13/25 17:30 01/13/25 18:00 01/13/25 18:00 Temperature Pulse Rate 66 Respiratory Rate 13 Blood Pressure 115/56 L 115/57 L Pulse Oximetry 100 Oxygen Delivery Method Medical Decision Making Lab Data 01/13/25 14:40 01/13/25 14:40 Labs: Lab Results 01/13/25 Range/Units 14:40 WBC 11.2 H (4.5-11.0) X10^3/uL RBC 4.05 (4.0-5.2) X10^6/uL Hgb 12.3 (12.0-16.0) g/dL Hct 37.0 (36-46) % MCV 91.4 (80-100) fL MCH 30.5 (26-34) PG MCHC 33.3 (30-36) % RDW 16.1 H (11.6-14.8) % Plt Count 365 (150-400) X10^3/uL Neut % (Auto) 75.5 H (50-75) % Lymph % (Auto) 16.8 L (25-40) % Hemphill % (Auto) 6.2 (3-14) % Eos % (Auto) 0.7 L (2-4) % Baso % (Auto) 0.8 (0-2) % Neut # (Auto) 8400 H (6039-3326) /uL Lymph # (Auto) 1900 (4621-6888) /uL Hemphill # (Auto) 700 (0-900) /uL Eos # (Auto) 100 (0-450) /uL Baso # (Auto) 100 (0-100) /uL PT 11.0 (9.4-12.5) SECONDS INR 1.0 (0.9-1.3) Sodium 137 (137-145) mmol/L Potassium 4.4 (3.4-5.1) mmol/L Chloride 103 (98-107) mmol/L Carbon Dioxide 26 (22-32) mmol/L BUN 26 H (7-17) mg/dL Creatinine 1.03 (0.52-1.04) mg/dL Estimated GFR 58 L (>60) mL/min BUN/Creatinine Ratio 25.2 H (6-22) Glucose 86 (80-110) mg/dL Lactate 1.0 (0.7-2.1) mmol/L Calcium 9.6 (8.4-10.2) mg/dL Total Bilirubin 0.6 (0.2-1.3) mg/dL AST 47 H (14-36) IU/L ALT 37 H (<35) IU/L Alkaline Phosphatase 62 (38-126) U/L Troponin I < 0.012 (0.01-0.034) ng/mL NT-Pro-B Natriuret Pep 206 H (<125) pg/mL Total Protein 7.2 (6.3-8.2) g/dL Albumin 4.5 (3.5-5.0) g/dL Globulin 2.7 (1.7-4.1) g/dL Albumin/Globulin Ratio 1.7 (1.0-2.8) Lipase 188 (23-300) U/L ECG Data Attestation: I personally reviewed and interpreted this ECG as follows: Prior ECG tracings: available for review Interpretation: Sinus rhythm rate 87 AL 132 QRS 82 QTC of 447, no acute ST elevation depression noted. Patient has prior from 03/31/2023 with no acute changes. MDM Narrative Medical decision making narrative: 69-year-old female who had outpatient labs drawn had a CK-MB was elevated with a normal total CK as well as other labs including folate, B12 which were elevated and homocystine which was normal range. She told to come to the ER if she has any shortness of breath or chest discomfort. She has had some longstanding shortness of breath no worsening, normal vitals here in the department. Patient does have autoimmune history but no other cardiac risk factors that she expresses. Does have some increased risk for PE but has normal vitals. Discussed if patient would like to pursue CT Angio PE protocol my suspicion for pulmonary emboli is lower at this time with a appropriate vitals. At this time she does not she notes she had an elevated dimer once before for hemoptysis was quite elevated and ultimately had CTA which was negative. EKG shows sinus rhythm rate 87 no acute change Chest x-ray shows no acute change Labs show white count 11.2 patient appears to be chronically elevated this is lower than usual for him hemoglobin of 12.3 platelets of 365. INR 1. BUN is 26 otherwise appropriate electrolytes creatinine 1.03 glucose 86 AST ALT are 47 and 37, troponins less than 0.012, BNP is 206. lipase is 188. Discussed findings with the patient she feels comfortable with discharge home discussed return precautions. Discharge Plan Departure Patient Disposition: Home Clinical Impression: Elevated CK-MB level Activity Restrictions/Additional Instructions: Follow up with your physician. I do think you can follow up for your intervention tomorrow. Your workup today was overall reassuring we did not perform a PE scan but my suspicion for blood clots is low based on your history and workup today. Please return if you have new or worsening symptoms, increasing chest pain increasing shortness of breath, syncope or passing out, fevers, coughing up blood, new or worsening swelling of your extremities or other new or concerning changes. Prescriptions: No Action acetaminophen 325 MG tablet 325 mg PO PRN PRN (Reason: Abdominal Discomfort) Qty: 0 ketoconazole 2 % shampoo 1 chris Topical WEEKLY Qty: 120 polyethylene glycol 3350 [Miralax] 119 GM powder 17 gm PO QDAY Qty: 0 Align (B.infantis) 4 MG capsule 4 mg PO QDAY Qty: 0 ipratropium-albuterol 0.5 mg-3 mg(2.5 mg base)/3 mL solution for nebulization 3 ml inhalation Q6H PRN (Reason: shortness of breath) Qty: 180 11RF estradiol 0.01 % (0.1 mg/gram) cream 0.5 appful vaginal DAILY Qty: 42.5 2RF Rx Instructions: Apply nightly twice weekly albuterol sulfate [Ventolin HFA] 90 mcg/actuation HFA aerosol inhaler 2 puff inhalation BID Qty: 8.5 6RF folic acid 1 mg tablet 1 mg PO DAILY Patient Comments: My liver test results were a little high so said was time to start folic acid. hydroxychloroquine 200 mg tablet 200 mg PO BID prednisone 1 mg tablet 2 mg PO DAILY ibuprofen [Advil] 200 mg tablet 200 mg PO Q4H PRN gabapentin 300 mg capsule 300 mg PO TID Qty: 90 1RF Rasuvo (PF) 25 mg/0.5 mL auto-injector 25 mg SUBCUT QWEEK Patient Comments: ADMINISTER 0.5 ML UNDER THE SKIN 1 TIME A WEEK omeprazole 20 mg Tablet,Delayed Release (Dr/Ec) 20 mg PO DAILY loratadine [Claritin] 10 mg Tablet 10 mg PO DAILY multivitamin Capsule 1 cap PO DAILY fluticasone propion-salmeterol [Advair Diskus] 250-50 mcg/dose blister with device 1 ea inhalation BID Qty: 3 3RF Referrals: Brady Thompson MD [Primary Care Provider] - Stand Alone Forms: Patient Portal/API/Survey
[2025-01-13 17:35] LABS: Lipase 188 U/L (23-300)
== END 2025-01-13 18:40 | disposition home or self-care (01) ==
PROVIDERS: Emergency Provider Emergency Medicine; Family Provider Internal Medicine; PCP Internal Medicine
DX: R74.8 Abnormal levels of other serum enzymes (principal); R06.02 Shortness of breath
CPT/HCPCS: 36415; 71045; 80053; 83605; 83690; 83880; 84484; 85025; 85610; 93005; 99283; 99284

== ENCOUNTER → 2025-01-15 07:19 | Outpatient (CLI) | payer MEDICARE, OTHER, SELFPAY ==
[2025-01-15 09:25] LABS: Appearance Urine UA CLEAR; Bilirubin Urine UA NEGATIVE (NEGATIVE); Color Urine UA YELLOW; Glucose Urine UA NEGATIVE (Negative); Ketones Urine UA NEGATIVE (NEGATIVE); Leukocyte Esterase Urine UA NEGATIVE (NEGATIVE); Nitrite Urine UA NEGATIVE (Negative); Occult Blood Urine UA TRACE-INTACT (Negative); Protein Urine UA NEGATIVE (Negative); Specific Gravity Urine UA >=1.030 (1.000-1.035); Urobilinogen Urine UA 0.2 E.U./dL (0.2)
[2025-01-15 09:33] LABS: Bacteria Urine None Seen; Culture Indicated Urine Cult Not Indicated; Hyaline Casts Urine 1-5/LPF; RBC Urine 0-1/HPF (0-5/HPF); Squamous Epithelial Cell Urine None Seen (0-5/HPF); Urine Volume 10mL (spun); WBC Urine 0-1/HPF (0-5/HPF)
== END ==
PROVIDERS: Family Provider Internal Medicine; PCP Internal Medicine; Referring Provider Internal Medicine; Visit Provider Internal Medicine
DX: N39.0 Urinary tract infection, site not specified (principal); R35.0 Frequency of micturition
CPT/HCPCS: 81001

== ENCOUNTER → 2025-02-21 13:39 | Outpatient (CLI) | payer MEDICARE, OTHER, SELFPAY ==
--- NOTE | 2025-02-21 13:40 | DI.ECHO.S_ITS ---
[facility] : : [address] : : [place] : : [id number] : : Phone: [phone] Echocardiogram Report + + :Name: MARTINA DURÁN Study Date: 02/21/2025 Height: 68 in : :[facility] ReadingLocation: Weight: 136 lb : : Gender: Female BSA: 1.7 m2 : :: 1955 Age: 69 yrs BP: 130/69 mmHg: :Reason For Study: ATRIAL FIBRILLATION ON APPLE WATCH : :Ordering Physician: MARK, : :MAYURI Performed By: Latoya Moses : :Referring: MAYURI FLORES : + + Interpretation Summary The ejection fraction is estimated to be 50-55%. Diastolic parameters suggest probable normal left ventricular diastolic function and normal filling pressures. The right ventricle is normal in size and function. There is moderate mitral regurgitation. There is mild tricuspid regurgitation. Pulmonary artery pressures cannot be estimated because of the lack of a measurable TR jet velocity but the IVC suggests a CVP of around 3 mmHg. Compared to the prior study 06/08/2017, the left ventricle appears slightly less dynamic. Procedure: A two-dimensional transthoracic echocardiogram with color flow and Doppler was performed. The study quality was technically adequate. Comparison is made with the echocardiogram of 06/08/2017. The patient was in sinus rhythm with heart rates between 68-73 bpm during the exam. Left Ventricle: The left ventricle is normal in size and wall thickness. The ejection fraction is estimated to be 50-55%. Diastolic parameters suggest probable normal left ventricular diastolic function and normal filling pressures. Right Ventricle: The right ventricle is normal in size and function. Atria: The left atrial size is normal. Right atrial size is normal. There is no Doppler evidence for an interatrial shunt. Mitral Valve: The mitral valve leaflets appear to open well. The mitral valve leaflets appear mildly thickened, but open well. There is moderate mitral regurgitation. Aortic Valve: The aortic valve is trileaflet. The aortic valve opens well. There is no aortic valve stenosis. No aortic regurgitation is present. Tricuspid Valve: The tricuspid valve leaflets are thin and pliable. There is mild tricuspid regurgitation. Pulmonary artery pressures cannot be estimated because of the lack of a measurable TR jet velocity but the IVC suggests a CVP of around 3 mmHg. Pulmonic Valve: The pulmonic valve leaflets are thin and pliable; valve motion is normal. There is trace pulmonic regurgitation. Great Vessels: The aortic root is normal size. The dimensions of the ascending aorta are normal. The IVC is of normal diameter and collapses greater than 50% with a sniff. This suggests a low right atrial pressure of 3 mm Hg. Pericardium/ Pleura There is no pericardial effusion. There is no pleural effusion. MMode/2D Measurements & Calculations LVIDd: 4.9 cm LVOT diam: 2.0 cm LVIDs: 3.4 cm Ao root diam: 2.8 cm FS: 31.0 % asc Aorta Diam: 2.8 cm EPSS: 0.43 cm Ao Arch Diam (Prox Trans): 2.7 cm IVSd: 0.59 cm LVPWd: 0.69 cm LV ashraf. diameter/BSA (cm/m^2): 2.8 LV sys. diameter/BSA (cm/m^2): 2.0 LA A2 area: 22.1 cm2 RA long axis: 4.7 cm LA A4 area: 15.3 cm2 RA area: 14.4 cm2 LA length (vol): 5.2 cm RA vol: 37.7 ml LA vol: 55.7 ml RA : 21.7 ml/m2 LA vol index: 32.1 ml/m2 IVC diam: 1.5 cm RVD1 (basal): 3.0 cm TAPSE: 2.1 cm Doppler Measurements & Calculations Ao V2 max: 128.8 cm/sec LVOT Max Thaddeus: 103.0 cm/sec Ao V2 mean: 86.1 cm/sec LV V1 max P.2 mmHg Ao max P.6 mmHg LV V1 VTI: 23.4 cm Ao mean P.4 mmHg TOSHIA(I,D): 2.3 cm2 Ao V2 VTI: 30.2 cm TOSHIA(V,D): 2.4 cm2 sev ratio: 0.77 TOSHIA indexed to BSA (cm^2/m^2): 1.3 MV E max thaddeus: 76.3 cm/sec TR max thaddeus: 246.4 cm/sec MV A max thaddeus: 107.5 cm/sec TR max P.3 mmHg MV E/A: 0.71 PA V2 max: 104.9 cm/sec Med Peak E' Thaddeus: 6.2 cm/sec PA V2 mean: 72.9 cm/sec E/E' med: 12.4 PA mean P.4 mmHg Lat Peak E' Thaddeus: 9.2 cm/sec PA pr(Accel): 18.6 mmHg E/E' lat: 8.3 E/e' average: 10.4 MV dec time: 0.29 sec SV(LVOT): 70.6 ml Reading Physician:03:14 PM
== END ==
PROVIDERS: Family Provider Internal Medicine; PCP Internal Medicine; Referring Provider Internal Medicine; Visit Provider Internal Medicine
DX: I08.1 Rheumatic disorders of both mitral and tricuspid valves (principal); I48.0 Paroxysmal atrial fibrillation
CPT/HCPCS: 93306

== ENCOUNTER → 2025-02-27 09:44 | Outpatient (CLI) | payer MEDICARE, OTHER, SELFPAY | LOC: CAR 09:46 | PROVIDERS: Family Provider Internal Medicine; PCP Internal Medicine; Referring Provider Internal Medicine; Visit Provider Internal Medicine | DX: R00.2 Palpitations (principal) | CPT/HCPCS: 93246 ==

== ENCOUNTER 2025-03-29 11:27 | Emergency (ER) | payer MEDICARE, OTHER, SELFPAY ==
--- NOTE | 2025-03-29 11:39 | EKG_ITS ---
[address] [address] Test Date: 2025-03-29 Pat Name: Nabila Kraft Department: [facility] Room: Gender: Female Back Up Scan Coordinator: JOVAN CARABALLO : 1955 Requested By: Order Number: [id number] Reading MD: Isauro Mcfarland MD Measurements Intervals Zebulon Rate: 78 P: 70 OK: 136 QRS: 56 QRSD: 78 T: 66 QT: 392 QTc: 446 Interpretive Statements Normal sinus rhythm Electronically Signed On 03-29-2025 11:51:23 PDT by Isauro Mcfarland MD
[2025-03-29 11:53] VITALS: BP 162/77; PULSE 77; RESP 16; TEMP 36.6; O2SAT 100; BMI 20.5
--- NOTE | 2025-03-29 13:04 | ED_ITS ---
HPI - Back Pain/Injury <Leonarda Bang PA-C - Last Filed: 03/29/25 20:03> General Chief Complaint: Back Pain/Injury Stated Complaint: Pain on left side of ribs since this Morning Time Seen by Provider: 03/29/25 12:50 History of Present Illness HPI Narrative: Ms. Kraft is a 70-year-old female with a past medical history of COPD, rheumatoid arthritis, osteoarthritis, IBS who presents to the emergency department for left-sided back/rib/chest pain since this morning. Patient states when she got up this morning she did not have the pain however the pain developed acutely while she was using the toilet, she does not know if it is because of straining or movement but she did not have any direct injury or fall. States that she is now having sharp constant pain from the left scapula wrapping around the ribs to the left side of the chest. This pain is much worse with movement. This pain occasionally takes her breath away and feels like a kidney stone like pain but much higher. She denies cough, fevers, chills, abdominal pain, nausea, vomiting, diarrhea, constipation but does admit to history of IBS and abnormal bowel movements, she does have frequent urination but no dysuria or hematuria. She took her regular ibuprofen and Tylenol this morning. Patient also reports severe right knee pain for a few days. Related Data Home Medications Medication Instructions Recorded Confirmed acetaminophen 325 mg tablet 325 mg PO PRN PRN Abdominal 07/08/16 02/20/25 Discomfort ##0 ketoconazole 2 % shampoo 1 chris topical WEEKLY #120 mL 07/08/16 02/20/25 polyethylene glycol 3350 17 17 gm PO QDAY ##0 07/08/16 02/20/25 gram/dose oral powder (Miralax) Bifidobacterium infantis 4 mg 4 mg PO QDAY ##0 07/12/16 02/20/25 capsule (Align (B.infantis)) loratadine 10 mg tablet (Claritin) 10 mg PO DAILY 03/29/19 02/20/25 omeprazole 20 mg tablet,delayed 20 mg PO DAILY 03/29/19 02/20/25 release multivitamin 1 cap PO DAILY 03/24/20 02/20/25 folic acid 1 mg tablet 1 mg PO DAILY Because I take 03/16/23 02/20/25 Methotrexate hydroxychloroquine 200 mg tablet 200 mg PO BID 03/16/23 02/20/25 ibuprofen 200 mg tablet (Advil) 200 mg PO Q4H PRN 11/19/24 02/20/25 methotrexate sodium 25 mg/mL mg SUBCUT 02/18/25 02/20/25 injection solution prednisone 1 mg tablet 4 mg PO DAILY 02/18/25 02/20/25 pregabalin 50 mg capsule 50 mg PO 3XD 02/18/25 02/20/25 Previous Rx's Medication Instructions Recorded fluticasone 250 mcg-salmeterol 50 1 ea inhalation BID #3 ea 12/27/23 mcg/dose blistr powdr for inhalation (Advair Diskus) estradiol 0.01% (0.1 mg/gram) 0.5 appful vaginal DAILY #42.5 08/06/24 vaginal cream grams albuterol sulfate 90 mcg/actuation 2 puff inhalation BID #8.5 grams 10/02/24 aerosol inhaler (Ventolin HFA) azithromycin 250 mg tablet See Rx Instructions PO .COMPLEX #6 02/20/25 tabs ipratropium 0.5 mg-albuterol 3 mg 3 ml inhalation Q6-8H PRN 02/20/25 (2.5 mg base)/3 mL nebulization shortness of breath #180 mL soln Allergies Allergy/AdvReac Type Severity Reaction Status Date / Time ciprofloxacin [CIPROFLOXACIN] Allergy Intermediate Shortness Verified 03/29/25 11:53 of breath latex [LATEX] Allergy Mild Rash Verified 03/29/25 11:53 nitrofurantoin Allergy Mild RASH ON Verified 03/29/25 11:53 [NITROFURANTOIN] HANDS levofloxacin [LEVOFLOXACIN] Allergy Unknown RASH ON Verified 03/29/25 11:53 HANDS codeine [CODEINE] AdvReac Severe STOMACH Verified 03/29/25 11:53 PAINS hydrocodone [From VICODIN] AdvReac Severe HEADACHES Verified 03/29/25 11:53 duloxetine AdvReac Intermediate Gastrointestinal Verified 03/29/25 11:53 Upset meloxicam [From MOBIC] AdvReac Intermediate GI UPSET Verified 03/29/25 11:53 methocarbamol [From ROBAXIN] AdvReac Intermediate HEADACHE Verified 03/29/25 11:53 morphine [MORPHINE] AdvReac Intermediate BILIARY Verified 03/29/25 11:53 SPASMS adhesive tape [ADHESIVE TAPE] AdvReac Mild Skin Verified 02/20/25 10:28 irritation, redness cefuroxime AdvReac Mild Nausea Verified 02/20/25 10:28 Sulfa (Sulfonamide AdvReac Mild ALL OVER Verified 02/20/25 10:28 Antibiotics) MALAISE [SULFA (SULFONAMIDE ANTIBIOTICS)] tramadol [TRAMADOL] AdvReac Mild gets Verified 02/20/25 10:28 lightheaded Review of Systems <Leonarda Bang PA-C - Last Filed: 03/29/25 20:03> Review of Systems ROS Unobtainable: All systems reviewed & are unremarkable except as noted in HPI and below Patient History <Leonarda Bang PA-C - Last Filed: 03/29/25 20:03> Medical History Paroxysmal atrial fibrillation Arthropathy of left sacroiliac joint Osteoarthritis of left ankle Muscle weakness-general Immunosuppression due to drug therapy Depression, major, recurrent Recurrent UTI Venous (peripheral) insufficiency Raynaud disease Family history of colon cancer in mother GERD without esophagitis Eczema Vasculitis Rheumatoid arthritis (~2018) Osteoarthritis (~2016) Bronchiectasis (~2017) COPD (chronic obstructive pulmonary disease) Asthma Shoulder pain (~2014) Chronic back pain (~2009) Mumps Measles Chicken pox (~1955) Cataracts, bilateral (~2019) Fibroids (~1984) Abnormal Pap smear of cervix (~1979) Kidney stones (~2009) Hemorrhoid Stress Difficulty walking Numbness Dizziness Diarrhea Constipation Wheezing Leg cramps Edema Decreased appetite Decreased appetite Decreased appetite Fatigue Weight loss GERD (gastroesophageal reflux disease) Psoriasis Osteopenia Mild hyperlipidemia Irritable bowel syndrome Osteoporosis Surgical History Anesthesia History of cholecystectomy Status post cholecystectomy Status post breast lumpectomy Family History Brother Age: 68 High cholesterol Hypertension Grandfather Cancer Grandmother Heart disease Stroke Mother Heart disease Cancer Hypertension Stroke Grandfather Cancer Grandmother Osteoporosis Stroke Sister Age: 76 High cholesterol Hypertension Sister Age: 70 High cholesterol Hypertension Sister Age: 62 High cholesterol Hypertension Autoimmune disease Father Lung disease Family/Other Mental health problem Social History details: (Rosalio), 3 daughters, 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 Frail elderly patient, in no acute distress. Lying on stretcher on her right side for comfort HEAD: Atraumatic. Normocephalic. NECK: Trachea midline. Cervical ROM intact. CARDIOVASCULAR: Regular rate and rhythm. RESPIRATORY: ?Nonlabored respirations. ?Speaking in clear, full sentences. ?Clear to auscultation. Breath sounds equal bilaterally. No wheezes, rales, or rhonchi. ? GASTROINTESTINAL: Abdomen soft, non-tender, nondistended. EXTREMITIES: No edema or joint tenderness, subjective pain with movement of right knee, no overlying erythema or skin changes BACK: No midline spinal tenderness. There is tenderness to palpation of the left scapular region, left lateral ribcage, nonfocal. NEURO: AOx3. ?Clear speech. ?Moves all 4 extremities appropriately. SKIN: No rash or erythema of visible areas Initial Vital Signs Initial Vital Signs: Vital Signs Temperature 97.9 F 03/29/25 11:53 Pulse Rate 77 03/29/25 11:53 Respiratory Rate 16 03/29/25 11:53 Blood Pressure 162/77 H 03/29/25 11:53 Pulse Oximetry 100 03/29/25 11:53 Oxygen Delivery Method Room Air 03/29/25 11:53 <Ara Lyons DO - Last Filed: 03/30/25 07:12> Initial Vital Signs Initial Vital Signs: Vital Signs Temperature 97.9 F 03/29/25 11:53 Pulse Rate 77 03/29/25 11:53 Respiratory Rate 16 03/29/25 11:53 Blood Pressure 162/77 H 03/29/25 11:53 Pulse Oximetry 100 03/29/25 11:53 Oxygen Delivery Method Room Air 03/29/25 11:53 Course <Leonarad Bang PA-C - Last Filed: 03/29/25 20:03> Orders Ordered: Discontinued Medications Ketorolac Tromethamine (Ketorolac 30 Mg/Ml Vial) 15 mg IV NOW ONE Stop: 03/29/25 13:04 Last Admin: 03/29/25 13:32 Dose: 15 mg Documented By: MARLEEN Vital Signs Vital signs: Vital Signs - 8 hr 03/29/25 15:56 Pulse Rate 77 Respiratory Rate 20 Blood Pressure 154/73 H Pulse Oximetry 100 Oxygen Delivery Method Room Air <Ara Lyons DO - Last Filed: 03/30/25 07:12> Orders Ordered: Discontinued Medications Ketorolac Tromethamine (Ketorolac 30 Mg/Ml Vial) 15 mg IV NOW ONE Stop: 03/29/25 13:04 Last Admin: 03/29/25 13:32 Dose: 15 mg Documented By: MARLEEN Vital Signs Vital signs: Vital Signs - 8 hr 03/29/25 15:56 Pulse Rate 77 Respiratory Rate 20 Blood Pressure 154/73 H Pulse Oximetry 100 Oxygen Delivery Method Room Air MDM - Back Pain/Injury <Leonarda Bang PA-C - Last Filed: 03/29/25 20:03> Medical Records Attestation: I reviewed the patient's medical records. Lab Data 03/29/25 13:55 03/29/25 13:55 Labs: Lab Results 03/29/25 03/29/25 Range/Units 13:40 13:55 WBC 10.1 (4.5-11.0) X10^3/uL RBC 4.10 (4.0-5.2) X10^6/uL Hgb 13.0 (12.0-16.0) g/dL Hct 38.0 (36-46) % MCV 92.7 (80-100) fL MCH 31.7 (26-34) PG MCHC 34.2 (30-36) % RDW 15.9 H (11.6-14.8) % Plt Count 351 (150-400) X10^3/uL Neut % (Auto) 80.3 H (50-75) % Lymph % (Auto) 14.0 L (25-40) % [place] % (Auto) 5.2 (3-14) % Eos % (Auto) 0.1 L (2-4) % Baso % (Auto) 0.4 (0-2) % Neut # (Auto) 8100 H (2878-2169) /uL Lymph # (Auto) 1400 (6877-2541) /uL [place] # (Auto) 500 (0-900) /uL Eos # (Auto) 0 (0-450) /uL Baso # (Auto) 0 (0-100) /uL Sodium 132 L (137-145) mmol/L Potassium 4.5 (3.4-5.1) mmol/L Chloride 100 (98-107) mmol/L Carbon Dioxide 25 (22-32) mmol/L BUN 22 H (7-17) mg/dL Creatinine 0.93 (0.52-1.04) mg/dL Estimated GFR > 60 (>60) mL/min BUN/Creatinine Ratio 23.7 H (6-22) Glucose 85 (70-99) mg/dL Calcium 9.4 (8.4-10.2) mg/dL Total Bilirubin 0.9 (0.2-1.3) mg/dL AST 43 H (14-36) IU/L ALT 34 (<35) IU/L Alkaline Phosphatase 56 (38-126) U/L Total Creatine Kinase 87 (30-135) U/L Troponin I < 0.012 (0.01-0.034) ng/mL Total Protein 6.8 (6.3-8.2) g/dL Albumin 4.3 (3.5-5.0) g/dL Globulin 2.5 (1.7-4.1) g/dL Albumin/Globulin Ratio 1.7 (1.0-2.8) Lipase 154 (23-300) U/L Urine Color Yellow Urine Appearance Clear Urine pH 6.0 (4.5-8.0) Ur Specific [place] 1.010 (1.000-1.035) Urine Protein Negative (Negative) Urine Glucose (UA) Negative (Negative) g/dL Urine Ketones Negative (NEGATIVE) Urine Occult Blood Trace-intact (Negative) Urine Nitrate Negative (Negative) Urine Bilirubin Negative (NEGATIVE) Urine Urobilinogen 0.2 (0.2) E.U./dL Ur Leukocyte Esterase Negative (NEGATIVE) Urine RBC None seen (0-5/HPF) Urine WBC None seen (0-5/HPF) Ur Squamous Epith Cells None seen (0-5/HPF) Urine Bacteria None seen (None) Ur Culture Indicated? Cult not indicated Vol Urine Centrifuged 10ml (spun) Imaging Data Chest and Ribs X-Ray: Radiologist's Impression: PROCEDURE: XR RIBS LT MIN 3V W CXR1V INDICATIONS: Left rib pain / scapular /chest pain TECHNIQUE: 3 views of the ribs were acquired, along with a single view chest. COMPARISON: [facility], , XR CHEST 1V, 12/20/2022, 8:00. FINDINGS: Surgical changes and devices: None. Bones and chest wall: No fractures or dislocations. Bones are present overlying the left humeral head suspicious for enchondroma. They are unchanged. Overlying soft tissues appear unremarkable. Lungs and pleura: No pleural effusions or pneumothorax. Lungs appear clear. Mediastinum: Mediastinal contours appear normal. Heart size is normal. IMPRESSION: No visualized acute fracture or dislocation. However, if clinical concern and/or pain persist, short interval imaging followup in 7-10 days is recommended, as occult injury cannot be definitively excluded. Dictated by: Lolis Hawk M.D. on 03/29/2025 at 14:01 Approved by: Lolis Hawk M.D. on 03/29/2025 at 14:02 Right Knee X-Ray: Radiologist's Impression: PROCEDURE: XR KNEE RT 3V INDICATIONS: knee pain TECHNIQUE: 3 views of the knee were acquired. COMPARISON: None. FINDINGS: Bones: No fractures or dislocations. No suspicious bony lesions. Tricompartmental arthritic change. Soft tissues: No joint effusion. No suspicious soft tissue calcifications. IMPRESSION: No visualized acute fracture or dislocation. However, if clinical concern and/or pain persist, short interval imaging followup in 7-10 days is recommended, as occult injury cannot be definitively excluded. Dictated by: Lolis Hawk M.D. on 03/29/2025 at 14:00 Approved by: Lolis Hawk M.D. on 03/29/2025 at 14:01 ECG Data Interpretation: ECG reveals normal sinus rhythm with a rate of 78 beats per minute, a QTC of 446 MDM Narrative Medical decision making narrative: 70-year-old female with a past medical history of COPD, rheumatoid arthritis, osteoarthritis, IBS who presents to the emergency department for left-sided back/rib/chest pain since this morning. Differential diagnosis includes but is not limited to musculoskeletal pain, costochondritis, arthritis, muscle sprain, strain, fracture, ACS, etc. On exam patient is in no acute distress, nontoxic appearing, vital signs appropriate set for mildly elevated blood pressure. She is having left-sided scapular, rib, chest wall pain, all of which is worse with movement and palpation however it did come on somewhat acutely with no specific injury. Also having right knee pain, no swelling or signs of DVT, we will obtain x-ray. We will obtain cardiac labs, treat pain with Toradol. Knee x-ray shows tricompartmental arthritis. 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 Labs reveal normal WBC count 10.1, slightly low sodium 132, BUN 22, creatinine 0.93, AST 43 down from priors, normal ALT, negative troponin, normal CK 87, normal lipase, negative urinalysis. Patient is feeling better after ED treatment, walking around the room. I do suspect that at this time her symptoms may be to inflammation of the intercostal muscles/costochondritis or a sprain/strain of the muscles. Discussed supportive care, rice therapy for her knee. Discussed strict ED return precautions. She verbalized understanding of all information is agreeable with the plan. She is stable for discharge home. <Ara Lyons, - Last Filed: 03/30/25 07:12> Lab Data Labs: Lab Results 03/29/25 03/29/25 Range/Units 13:40 13:55 WBC 10.1 (4.5-11.0) X10^3/uL RBC 4.10 (4.0-5.2) X10^6/uL Hgb 13.0 (12.0-16.0) g/dL Hct 38.0 (36-46) % MCV 92.7 (80-100) fL MCH 31.7 (26-34) PG MCHC 34.2 (30-36) % RDW 15.9 H (11.6-14.8) % Plt Count 351 (150-400) X10^3/uL Neut % (Auto) 80.3 H (50-75) % Lymph % (Auto) 14.0 L (25-40) % [place] % (Auto) 5.2 (3-14) % Eos % (Auto) 0.1 L (2-4) % Baso % (Auto) 0.4 (0-2) % Neut # (Auto) 8100 H (2459-9362) /uL Lymph # (Auto) 1400 (8941-7349) /uL [place] # (Auto) 500 (0-900) /uL Eos # (Auto) 0 (0-450) /uL Baso # (Auto) 0 (0-100) /uL Sodium 132 L (137-145) mmol/L Potassium 4.5 (3.4-5.1) mmol/L Chloride 100 (98-107) mmol/L Carbon Dioxide 25 (22-32) mmol/L BUN 22 H (7-17) mg/dL Creatinine 0.93 (0.52-1.04) mg/dL Estimated GFR > 60 (>60) mL/min BUN/Creatinine Ratio 23.7 H (6-22) Glucose 85 (70-99) mg/dL Calcium 9.4 (8.4-10.2) mg/dL Total Bilirubin 0.9 (0.2-1.3) mg/dL AST 43 H (14-36) IU/L ALT 34 (<35) IU/L Alkaline Phosphatase 56 (38-126) U/L Total Creatine Kinase 87 (30-135) U/L Troponin I < 0.012 (0.01-0.034) ng/mL Total Protein 6.8 (6.3-8.2) g/dL Albumin 4.3 (3.5-5.0) g/dL Globulin 2.5 (1.7-4.1) g/dL Albumin/Globulin Ratio 1.7 (1.0-2.8) Lipase 154 (23-300) U/L Urine Color Yellow Urine Appearance Clear Urine pH 6.0 (4.5-8.0) Ur Specific [place] 1.010 (1.000-1.035) Urine Protein Negative (Negative) Urine Glucose (UA) Negative (Negative) g/dL Urine Ketones Negative (NEGATIVE) Urine Occult Blood Trace-intact (Negative) Urine Nitrate Negative (Negative) Urine Bilirubin Negative (NEGATIVE) Urine Urobilinogen 0.2 (0.2) E.U./dL Ur Leukocyte Esterase Negative (NEGATIVE) Urine RBC None seen (0-5/HPF) Urine WBC None seen (0-5/HPF) Ur Squamous Epith Cells None seen (0-5/HPF) Urine Bacteria None seen (None) Ur Culture Indicated? Cult not indicated Vol Urine Centrifuged 10ml (spun) ECG Data Attestation: I personally reviewed and interpreted this ECG as follows: Interpretation: ECG reveals normal sinus rhythm with a rate of 78 beats per minute, a QTC of 446 Mank: Sinus rhythm, rate of 78 DC 136 QRS is [address] QTC [address] elevation depression. Discharge Plan Departure Patient Disposition: Home Clinical Impression: Rib pain on left side, Arthritis of knee, right Instructions: DI for Costochondritis Activity Restrictions/Additional Instructions: Dear Albino Swapnil, Thank you for coming to the emergency department. Today the x-ray of your chest and ribs did not show any rib fractures, your lab work was very reassuring, and your right knee x-ray revealed tricompartmental arthritis. You were treated with an injection of Toradol. At this time I suspect your left ribcage pain is because of inflammation of the muscles. Please use ibuprofen and Tylenol to help with the pain in addition to heat therapy, lidocaine patches, and apply topical Voltaren gel cream to your right knee. Please take Ibuprofen (Motrin/Advil) or Acetaminophen (Tylenol) for pain. These are available over the counter. You may take Ibuprofen 400-600 mg every 6-8 hours with food for pain. You may also take Acetaminophen 650 mg every 4-6 hours for pain. Do not exceed 3000 mg of Tylenol a day as this can cause liver damage. Do not drink alcohol with either of these medications. Please follow up with your primary care doctor within the next 2-3 days for ER follow-up. (If you do not have a PCP you can call [phone]. ?to schedule an appointment with an [facility] Primary Care Provider) IF YOU DEVELOP ANY NEW OR WORSENING SYMPTOMS, RETURN TO THE ER! Please read the attached instructions, they highlight more specific treatments and interventions for you at home. Thank you for letting me participate in your care, Leonarda Bang PA-C Prescriptions: No Action acetaminophen 325 MG tablet 325 mg PO PRN PRN (Reason: Abdominal Discomfort) Qty: 0 ketoconazole 2 % shampoo 1 chris Topical WEEKLY Qty: 120 polyethylene glycol 3350 [Miralax] 119 GM powder 17 gm PO QDAY Qty: 0 Align (B.infantis) 4 MG capsule 4 mg PO QDAY Qty: 0 estradiol 0.01 % (0.1 mg/gram) cream 0.5 appful vaginal DAILY Qty: 42.5 2RF Rx Instructions: Apply nightly twice weekly albuterol sulfate [Ventolin HFA] 90 mcg/actuation HFA aerosol inhaler 2 puff inhalation BID Qty: 8.5 6RF folic acid 1 mg tablet 1 mg PO DAILY Patient Comments: My liver test results were a little high so said was time to start folic acid. hydroxychloroquine 200 mg tablet 200 mg PO BID ibuprofen [Advil] 200 mg tablet 200 mg PO Q4H PRN prednisone 1 mg tablet 4 mg PO DAILY pregabalin 50 mg capsule 50 mg PO 3XD methotrexate sodium 25 mg/mL solution SUBCUT Patient Comments: [NO ORIGINAL SIG] omeprazole 20 mg Tablet,Delayed Release (Dr/Ec) 20 mg PO DAILY loratadine [Claritin] 10 mg Tablet 10 mg PO DAILY multivitamin Capsule 1 cap PO DAILY fluticasone propion-salmeterol [Advair Diskus] 250-50 mcg/dose blister with device 1 ea inhalation BID Qty: 3 3RF azithromycin 250 mg tablet See Rx Instructions PO .COMPLEX Qty: 6 0RF Rx Instructions: For 250 mg dose pack: take 500 mg today (day 1), then 250 mg for 4 days (days 2-5) PO ipratropium-albuterol 0.5 mg-3 mg(2.5 mg base)/3 mL solution for nebulization 3 ml inhalation Q6-8H PRN (Reason: shortness of breath) Qty: 180 3RF Referrals: Brady Thompson MD [Primary Care Provider] - Stand Alone Forms: Patient Portal/API/Survey ED Sign-out <Ara Lyons DO - Last Filed: 03/30/25 07:12> Cosign ED Attending [place] Attestation: I was immediately available in the department for consultation.
[2025-03-29] MEDS: KETOROLAC 30 MG/ML VIAL 15 MG IV (13:32)
[2025-03-29 14:11] LABS: Add Manual Diff / Slide Review NO; Basophils Absolute Auto 0 /uL (0-100); Basophils Percent Auto 0.4 % (0-2); Eosinophils Absolute Auto 0 /uL (0-450); Eosinophils Percent Auto 0.1 % (2-4); Lymphocytes Absolute Auto 1400 /uL (1100-4500); Mean Corpuscular HGB Conc 34.2 % (30-36); Mean Corpuscular Hemoglobin 31.7 PG (26-34); Mean Corpuscular Volume 92.7 fL (80-100); Monocytes Absolute Auto 500 /uL (0-900); Monocytes Percent Auto 5.2 % (3-14); Neutrophils Absolute Auto 8100 /uL (1500-7000); Neutrophils Percent Auto 80.3 % (50-75); Platelet Count 351 X10^3/uL (150-400); Red Cell Distribution Width 15.9 % (11.6-14.8); White Blood Cell Count 10.1 X10^3/uL (4.5-11.0)
[2025-03-29 14:22] LABS: Alanine Aminotransferase 34 IU/L (<35); Albumin 4.3 g/dL (3.5-5.0); Albumin Globulin Ratio 1.7 (1.0-2.8); Alkaline Phosphatase 56 U/L (38-126); Aspartate Aminotransferase 43 IU/L (14-36); BUN Creatinine Ratio 23.7 (6-22); Bilirubin Total 0.9 mg/dL (0.2-1.3); Blood Urea Nitrogen 22 mg/dL (7-17); Calcium 9.4 mg/dL (8.4-10.2); Carbon Dioxide 25 mmol/L (22-32); Chloride 100 mmol/L (98-107); Creatine Kinase 87 U/L (30-135); Estimated Glomerular Filt Rate > 60 mL/min (>60); Globulin 2.5 g/dL (1.7-4.1); Glucose 85 mg/dL (70-99); HEMOLYSIS < 15 (0-50); Lipase 154 U/L (23-300); Potassium 4.5 mmol/L (3.4-5.1); Sodium 132 mmol/L (137-145); Total Protein 6.8 g/dL (6.3-8.2)
[2025-03-29 14:34] LABS: Troponin I < 0.012 ng/mL (0.01-0.034)
[2025-03-29 14:44] LABS: Appearance Urine UA CLEAR; Bilirubin Urine UA NEGATIVE (NEGATIVE); Color Urine UA YELLOW; Glucose Urine UA NEGATIVE (Negative); Ketones Urine UA NEGATIVE (NEGATIVE); Leukocyte Esterase Urine UA NEGATIVE (NEGATIVE); Nitrite Urine UA NEGATIVE (Negative); Occult Blood Urine UA TRACE-INTACT (Negative); Protein Urine UA NEGATIVE (Negative); Urobilinogen Urine UA 0.2 E.U./dL (0.2)
[2025-03-29 14:45] LABS: Urine Volume 10mL (spun)
[2025-03-29 14:49] LABS: Bacteria Urine None Seen; Culture Indicated Urine Cult Not Indicated; RBC Urine None Seen (0-5/HPF); Squamous Epithelial Cell Urine None Seen (0-5/HPF); WBC Urine None Seen (0-5/HPF)
[2025-03-29 15:56] VITALS: BP 154/73; PULSE 77; RESP 20; O2SAT 100
== END 2025-03-29 15:57 | disposition home or self-care (01) ==
PROVIDERS: Emergency Provider Physician Assistant; Family Provider Internal Medicine; PCP Internal Medicine
DX: R07.81 Pleurodynia (principal); R07.9 Chest pain, unspecified; M17.11 Unilateral primary osteoarthritis, right knee
CPT/HCPCS: 71101; 73562; 80053; 81001; 82550; 83690; 84484; 85025; 93005; 96374; 99283; 99284; J1885

== ENCOUNTER → 2025-08-15 10:57 | Outpatient (CLI) | payer MEDICARE, OTHER, SELFPAY ==
--- NOTE | 2025-08-15 11:01 | DI.MG.S_ITS ---
MM screening mammo BI: 08/15/2025. BI-RADS: 2 CLINICAL: 70-year old female for bilateral screening mammogram. No Tyrer-Cuzick risk score calculation due to the patient's personal history of breast cancer. Patient reports a history of left breast carcinoma diagnosed at age 61. Status-post left lumpectomy with radiation therapy. No first-degree family history of breast cancer. Current reported family history of breast cancer: maternal aunt. The patient had prior bilateral breast biopsies. PRIOR EXAMS 08/13/2024, 08/10/2023, 02/03/2023, 08/05/2022. MAMMOGRAPHY TECHNIQUE: 2D and 3D (tomosynthesis) digital mammographic views obtained, with additional images as needed for full coverage. Current study was also evaluated with a Computer Aided Detection (CAD) system. DENSITY C. The breasts are heterogeneously dense, which may obscure small masses. MAMMOGRAPHY FINDINGS Right: No suspicious mass, asymmetry, microcalcification, or other abnormality seen. Left: Benign-appearing post-surgical changes noted on the left. There are no suspicious masses, calcifications, or other findings in the breast. IMPRESSION: Right * No evidence of malignancy. Left * No evidence of malignancy with benign findings. RECOMMENDATIONS Bilateral * Annual screening mammography. OVERALL ASSESSMENT CATEGORY BI-RADS-2: Benign. [employer] recommends annual screening mammography beginning at age 40 for women with average risk of breast cancer. ELECTRONICALLY SIGNED: Jane Mead M.D. on 08/15/2025 at 10:33:39 PM PT Interpreting Station ID: [id number]
== END ==
PROVIDERS: Family Provider Internal Medicine; PCP Internal Medicine; Referring Provider Internal Medicine; Visit Provider Internal Medicine Hematology & Oncology
DX: Z12.31 Encounter for screening mammogram for malignant neoplasm of breast (principal); R92.333 Mammographic heterogeneous density, bilateral breasts; Z85.3 Personal history of malignant neoplasm of breast; Z80.3 Family history of malignant neoplasm of breast
CPT/HCPCS: 77063; 77067

== ENCOUNTER → 2025-08-24 12:45 | Outpatient (CLI) | payer MEDICARE, OTHER, SELFPAY | PROVIDERS: Family Provider Internal Medicine; PCP Internal Medicine; Visit Provider Nurse Practitioner Family | DX: R30.0 Dysuria (principal) | CPT/HCPCS: 87086 ==

== ENCOUNTER → 2025-09-11 09:31 | Outpatient (CLI) | payer MEDICARE, OTHER, SELFPAY ==
[2025-09-11 10:34] LABS: Appearance Urine UA CLEAR; Bilirubin Urine UA NEGATIVE (NEGATIVE); Color Urine UA YELLOW; Glucose Urine UA NEGATIVE (Negative); Ketones Urine UA NEGATIVE (NEGATIVE); Leukocyte Esterase Urine UA 1+ (NEGATIVE); Nitrite Urine UA NEGATIVE (Negative); Occult Blood Urine UA 1+ (Negative); Protein Urine UA 1+ (Negative); Specific Gravity Urine UA 1.010 (1.000-1.035); Urobilinogen Urine UA 0.2 E.U./dL (0.2)
[2025-09-11 10:35] LABS: pH Urine UA 6.0 (4.5-8.0)
[2025-09-11 10:36] LABS: Culture Indicated Urine Specimen Cultured
== END ==
PROVIDERS: Family Provider Internal Medicine; PCP Internal Medicine; Referring Provider Internal Medicine; Visit Provider Internal Medicine
DX: N39.0 Urinary tract infection, site not specified (principal); R35.0 Frequency of micturition
CPT/HCPCS: 81001; 87077; 87086; 87186